=== PATIENT | female | born 1930 | race Caucasian/White ===

== ENCOUNTER 2017-01-13 19:56 | Inpatient (IN) | payer MEDICAID ==
--- NOTE | 2017-01-13 20:43 | C.PDOC ---
History Of Present Illness 86 year old patient, with a past medical history of diabetes, COPD, CHF, asthma , hypertension, hypothyroidism, and hypercholesterolemia, presents to the ED complaining of injuries s/p falling from a standing height prior to arrival. Patient's family member translated. Patient lost her balance and fell on her right side. Patient complains of right shoulder pain, right upper back pain, and upper right sided chest pain. Patient denies loss of consciousness, dizziness, numbness, weakness, other injuries, or any other complaints at this time. - HPI Time Seen by Provider: 01/13/17 20:13 Chief Complaint (Nursing): Trauma History Per: Patient, Family History/Exam Limitations: no limitations Onset/Duration Of Symptoms: Mins (prior to arrival) Severity: Moderate Pain Scale Rating Of: 5 Recent travel outside of the [place]: No - Fall Fall:Prior To Injury: Lost Balance Past Medical History Reviewed: Historical Data, Nursing Documentation, Vital Signs Vital Signs: Last Vital Signs Temp 97.6 F 01/14/17 00:26 Pulse 96 H 01/14/17 00:26 Resp 20 01/14/17 00:26 BP 174/76 H 01/14/17 00:26 Pulse Ox 97 01/14/17 00:28 - Medical History PMH: Asthma, CHF, COPD, Diabetes, HTN, Hypercholesterolemia, Hypothyroidism - [facility] Procedures INFLUENZA VACCINATION (09/23/14) INJECT/INFUSE NEC (07/25/13) Family History: States: Unknown Family Hx - Social History Hx Tobacco Use: No Hx Alcohol Use: No Hx Substance Use: No - Immunization History Hx Tetanus Toxoid Vaccination: No Hx Influenza Vaccination: No Hx Pneumococcal Vaccination: No Review Of Systems Except As Marked, All Systems Reviewed And Found Negative. Cardiovascular: Positive for: Chest Pain (right upper) Musculoskeletal: Positive for: Shoulder Pain (right), Back Pain (right upper) Neurological: Negative for: Weakness, Numbness, Dizziness, Other (loss of consciousness) Physical Exam - Physical Exam Appears: Non-toxic, No Acute Distress Skin: Warm, Dry Head: Atraumatic, Normacephalic Eye(s): bilateral: Normal Inspection, PERRL, EOMI Neck: Normal ROM, No Midline Cervical Tenderness, No Paracervical Tenderness, Supple Chest: Symmetrical, No Deformity, Tenderness (right anterior chest wall) Cardiovascular: Rhythm Regular Respiratory: Normal Breath Sounds, No Rales, No Rhonchi, No Wheezing Gastrointestinal/Abdominal: Soft, No Tenderness, No Guarding, No Rebound Back: Normal Inspection, No CVA Tenderness, No Vertebral Tenderness, No Paraspinal Tenderness Extremity: Normal ROM, No Pedal Edema, No Calf Tenderness, Capillary Refill ( within normal limits), No Deformity, Other (pelvic is nontender; legs have full ROM; tenderness over the right scapula; right shoulder nontender) Pulses: Left Radial: Normal, Right Radial: Normal Neurological/Psych: Oriented x3, Normal Speech, Normal Cognition ED Course And Treatment - Laboratory Results Result Diagrams: 01/13/17 21:09 01/13/17 21:09 O2 Sat by Pulse Oximetry: 97 Medical Decision Making Medical Decision Making: Plan: * EKG * Head CT * Labs * Chest x-ray * Morphine * Pelvis XR PROGRESS: EKG: Sinus Rhythm 92 bpm left axis deviation. No stemi disc w Dr Wang who will admit CT Head: FINDINGS: There is atrophy. There is chronic small vessel ischemic disease. Small area of encephalomalacia left frontal lobe. There is no hemorrhage or edema. No significant fluid in the sinuses. The osseous structures are normal. IMPRESSION: No acute findings CT Chest: EXAM: CT Chest Without Intravenous Contrast. CLINICAL HISTORY: 86 years old, female; Pain; Chest pain; Right-sided chest pain; Additional info : Pain right upper chest after a fall TECHNIQUE: Axial computed tomography images of the chest without intravenous contrast. This CT exam was performed using one or more of the following dose reduction techniques: automated exposure control, adjustment of the mA and/or kV according to patient size, and/or use of iterative reconstruction technique. Coronal and sagittal reformatted images were created and reviewed. EXAM DATE/TIME: 01/13/2017 10:21 PM COMPARISON: No relevant prior studies available. FINDINGS: Mild emphysematous changes are present in the upper lungs. Bullae in the right midlung abutting the fissure. Platelike atelectasis bilaterally. There are fractures of the right anterior lateral second through fourth ribs with buckling of the cortex. There is a probable tiny nondisplaced fracture of the right anterior lateral sixth rib. Severe compression fracture T7 age-indeterminate. Clinical correlation recommended. Compression fracture of L2 incompletely imaged. No evidence of vascular injury. No pneumothorax. No effusions. There is a 4 mm partially calcified nodule in the right lower lung series 3 image 60. There are punctate 2 mm nodules series 3 image 23 and 56. There is a 2 mm calcification in left lower lung. Recommend correlation with priors if they exist. Otherwise, followup is recommended. IMPRESSION: Right rib fractures. Compression fractures age-indeterminate Disposition - Disposition Disposition: HOSPITALIZED Disposition Time: 23:24 Condition: GOOD - Clinical Impression Clinical Impression: Multiple rib fractures, UTI (urinary tract infection) - Scribe Statement The provider has reviewed the documentation as recorded by the Scribe Maddie Kearns Provider Attestation: All medical record entries made by the Merleneibdiana were at my direction and personally dictated by me. I have reviewed the chart and agree that the record accurately reflects my personal performance of the history, physical exam, medical decision making, and the department course for this patient. I have also personally directed, reviewed, and agree with the discharge instructions and disposition.
[2017-01-13 21:28] LABS: BASO # 0.1 K/uL (0.0-0.2); BASO % 0.4 % (0.0-2.0); CHLORIDE 101 mmol/L (98-107); EOS # 0.2 K/uL (0.0-0.7); EOS % 1.5 % (0.0-4.0); LYMPH # 1.6 K/uL (1.0-4.3); LYMPH % 10.2 % (20.0-40.0); MEAN CELL VOLUME 88.9 fL (81.0-99.0); MEAN CORPUSCULAR HEMOGLOBIN 27.3 pg (27.0-31.0); MEAN CORPUSCULAR HGB CONC 30.8 g/dL (33.0-37.0); MEAN PLATELET VOLUME 8.4 fL (7.2-11.7); MONO # 0.7 K/uL (0.0-0.8); MONO % 4.5 % (0.0-10.0); POTASSIUM 5.2 mmol/L (3.6-5.2); RED CELL DISTRIBUTION WIDTH 15.7 % (11.5-14.5); SODIUM 137 mmol/L (132-148); WHITE BLOOD COUNT 15.6 K/uL (4.8-10.8)
[2017-01-13 21:30] LABS: BILIRUBIN,TOTAL 0.3 mg/dL (0.2-1.3); CARBON DIOXIDE 21 mmol/L (22-30); GFR AFRICAN-AMERICAN > 60
[2017-01-13 21:31] LABS: ALKALINE PHOSPHATASE 77 U/L (38-126); ALT/SGPT 14 U/L (9-52); AST/SGOT 35 U/L (14-36); BLOOD UREA NITROGEN 18 mg/dL (7-17); CALCIUM 8.7 mg/dl (8.6-10.4); GLUCOSE,RANDOM 165 mg/dL (65-105); TOTAL PROTEIN 6.8 g/dL (6.3-8.3)
--- NOTE | 2017-01-13 22:12 | CT ---
EXAM: CT Head Without Intravenous Contrast. CLINICAL HISTORY: 86 years old, female; Injury or trauma; Fall; Initial encounter; Concussion / head injury; Consciousness not specified; Injury date: 01-13-17; Additional info: Fall, right shoulder pain and back pain TECHNIQUE: Axial computed tomography images of the head/brain without intravenous contrast. This CT exam was performed using one or more of the following dose reduction techniques: automated exposure control, adjustment of the mA and/or kV according to patient size, and/or use of iterative reconstruction technique. EXAM DATE/TIME: 01/13/2017 9:15 PM COMPARISON: No relevant prior studies available. FINDINGS: There is atrophy. There is chronic small vessel ischemic disease. Small area of encephalomalacia left frontal lobe. There is no hemorrhage or edema. No significant fluid in the sinuses. The osseous structures are normal. IMPRESSION: No acute findings.
[2017-01-13] MEDS ORDERED: Lidocaine 5% Patch TD ONE (22:23)
[2017-01-13] MEDS ORDERED: Lidocaine 5% Patch TD STA (22:25)
[2017-01-13 22:49] LABS: RBC URINE 5 /hpf (0-3); URINE BACTERIA RARE (<OCC); URINE BILIRUBIN NEGATIVE (NEGATIVE); URINE BLOOD NEGATIVE (NEGATIVE); URINE COLOR Yellow (YELLOW); URINE GLUCOSE (UA) NORMAL (Normal); URINE KETONE TRACE mg/dL (NEGATIVE); URINE LEUKOCYTE ESTERASE 3+ Leu/uL (Negative); URINE PROTEIN NEGATIVE (NEGATIVE); URINE UROBILINOGEN NORMAL mg/dL (0.2-1.0); WBC URINE 29 /hpf (0-5)
[2017-01-13] MEDS ORDERED: cefTRIAXone IV 1 gm in Dextros 50 ML IVPB ONE (23:18)
--- NOTE | 2017-01-14 00:24 | CT ---
EXAM: CT Chest Without Intravenous Contrast. CLINICAL HISTORY: 86 years old, female; Pain; Chest pain; Right-sided chest pain; Additional info: Pain right upper chest after a fall TECHNIQUE: Axial computed tomography images of the chest without intravenous contrast. This CT exam was performed using one or more of the following dose reduction techniques: automated exposure control, adjustment of the mA and/or kV according to patient size, and/or use of iterative reconstruction technique. Coronal and sagittal reformatted images were created and reviewed. EXAM DATE/TIME: 01/13/2017 10:21 PM COMPARISON: No relevant prior studies available. FINDINGS: Mild emphysematous changes are present in the upper lungs. Bullae in the right midlung abutting the fissure. Platelike atelectasis bilaterally. There are fractures of the right anterior lateral second through fourth ribs with buckling of the cortex. There is a probable tiny nondisplaced fracture of the right anterior lateral sixth rib. Severe compression fracture T7 age-indeterminate. Clinical correlation recommended. Compression fracture of L2 incompletely imaged. No evidence of vascular injury. No pneumothorax. No effusions. There is a 4 mm partially calcified nodule in the right lower lung series 3 image 60. There are punctate 2 mm nodules series 3 image 23 and 56. There is a 2 mm calcification in left lower lung. Recommend correlation with priors if they exist. Otherwise, followup is recommended. IMPRESSION: Right rib fractures. Compression fractures age-indeterminate.
--- NOTE | 2017-01-14 09:15 | RAD ---
PROCEDURE: CHEST RADIOGRAPH, 1 VIEW HISTORY: fall COMPARISON: 09/20/2016 FINDINGS: LUNGS: Biapical pleural thickening with upper lobe granulomatous changes. Chronic interstitial lung markings. Nodular opacity at the right costophrenic angle. PLEURA: No pneumothorax or pleural fluid seen. CARDIOVASCULAR: Normal. OSSEOUS STRUCTURES: Calcific tendinopathy of the bilateral proximal humeri. Degenerative changes in the spine and shoulders. VISUALIZED UPPER ABDOMEN: Normal. OTHER FINDINGS: None. IMPRESSION: Biapical pleural thickening with upper lobe granulomatous changes. Chronic interstitial lung markings. Nodular opacity at the right costophrenic angle.
--- NOTE | 2017-01-14 09:26 | RAD ---
Pelvis single frontal view History: Fall. Comparison: 06/15/2016. Findings: Limited evaluation of the lower lumbar spine and sacrum given overlying bowel gas and large abdominal pannus. Again identified are fracture deformities of the right superior and inferior pubic ramus as well as the pubic symphysis and left pubic bone near the pubic symphysis. Bilateral hip joints appear preserved with mild degenerative joint space narrowing and subchondral sclerosis. Impression: Fracture deformities in the bilateral pubic bones. Correlation with pelvic MRI may be helpful to exclude acute on chronic fracture deformities. Limited visualization of the sacrum.
[2017-01-14] MEDS ORDERED: Lidocaine 5% Patch TD SCH ×6 (10:00→14:00)
[2017-01-14] MEDS: GlipiZIDE 10 mg SR Tab PO SCH ×2 (11:08→17:59)
[2017-01-14] MEDS: Dorzolamide 2% Opht Sol 10ml OU SCH ×2 (11:31→18:04)
--- NOTE | 2017-01-14 16:27 | CARD ---
APPROVED REPORT EKG Measurement Heart [id number] <Conclusion> Normal sinus rhythm Possible Left atrial enlargement Left axis deviation Low voltage QRS Inferior infarct, age undetermined Cannot rule out Anterior infarct, age undetermined Abnormal ECG
--- NOTE | 2017-01-14 16:38 | RAD ---
HISTORY: Shortness breath. Technique: Single view portable semi erect @ 15:50. COMPARISON: January 13, 2017. FINDINGS: LUNGS: No active pulmonary disease. PLEURA: No significant pleural effusion identified, no pneumothorax apparent. CARDIOVASCULAR: Normal. OSSEOUS STRUCTURES: No significant abnormalities. VISUALIZED UPPER ABDOMEN: Normal. OTHER FINDINGS: None. IMPRESSION: No active disease. No significant interval change compared to the prior examination(s).
[2017-01-14] MEDS: Acetaminophen-Codeine 300/30 mg Tab PO SCH (17:59)
[2017-01-14] MEDS: Albuterol 0.083% Inhal Sol (2.5 mg/3 mL) UD INH SCH (20:06)
[2017-01-14] MEDS: Latanoprost 2.5 ml Opht Soln OU SCH (21:30)
[2017-01-14] MEDS: (Lantus) Insulin Glargine, Recombinant SC SCH (22:40)
[2017-01-15] MEDS: Acetaminophen-Codeine 300/30 mg Tab PO SCH ×3 (00:15→12:02)
[2017-01-15] MEDS: Albuterol 0.083% Inhal Sol (2.5 mg/3 mL) UD INH SCH ×4 (01:06→19:25)
--- NOTE | 2017-01-15 02:42 | HP ---
HISTORY OF PRESENT ILLNESS: This is an 86-year-old [place] female who was brought in with history of fall and sustained some fractures to the right ribs. The patient was given morphine and Toradol with out any relief. The patient was recommended for admission. The patient has a longstanding history o f hypertension, diabetes and possible coronary artery disease. She was in usual state of health unti l the day of admission when she got up and fell. Questionable loss of consciousness. No seizures. No history of TIAs or CVAs in the past. MEDICATIONS AT HOME: Includes Cozaar 50 mg 1 a day, Crestor 5 mg, aspirin, Glucotrol 10 twice a day, Januvia 50 mg, she takes insulin, Lantus 14 units, 20 mg of Lasix every day, Neurontin 300 mg p.o. o nce a day. She is also on baby aspirin 1 a day. PAST MEDICAL HISTORY: Admitted in the past with fall, possible TIA, questionable CHF, but more of [place] PD. FAMILY HISTORY: Unremarkable. She lives alone, but family is extremely supportive. REVIEW OF SYSTEMS: Generalized weakness is noted. No fever, no chills. Chest discomfort, more on t he right side, shoulder pain on the right side, back pains. EYES: No visual disturbances. NECK: No swollen glands. PULMONARY: She does have a history of chronic cough, but no hemoptysis. CARDIAC: Denies any chest pains or exertional. No orthopnea or PND, occasional edema. ABDOMEN: No abdominal pain. No hematemesis, no melena, no history of cerebrovascular accident. No history of depression. Multiple joint pains or back pains. She does have a history of numbness, dizziness. PHYSICAL EXAMINATION: GENERAL: Shows elderly [place] female who was conscious, alert, in obvious distress because of pain. VITAL SIGNS: She is 5 feet 2 and weighs 155 pounds. Blood pressure is 174/76. Repeat blood pressur e is 147/78. Heart rate of 76 regular, respiratory rate of 20, temperature of 97.7. HEAD: Normocephalic. EYES: No pallor, no icterus. MOUTH: No exudates, dentures. NECK: Supple. No carotid bruits. LUNGS: Clear to auscultation. Mild decreased air entry on the right side. HEART: Sounds are normal. Soft S4 gallop. ABDOMEN: Soft, nontender. EXTREMITIES: No cyanosis, clubbing or edema. She does have significant tenderness on the right ante rior rib area. No focal sign. LABORATORY DATA: Shows white count of 15,000, possible UTI. Chest x-ray and CT of the chest were no melissa. She does have fractured ribs. Fracture of the thoracic vertebrae. ASSESSMENT: This is an 86-year-old female with history of diabetes, hypertension, possible CAD, as a fall and sustained some fractures, possible UTI, rib fractures, thoracic spine fracture. PLAN: Supportive care, physical therapy and pain medication. Prognosis remains guarded. Care of pl an was explained to the patient's son. Blanco Wang MD cc: [id number] TT: 01/15/2017 02:42:22 ladan
[2017-01-15] MEDS: Levothyroxine 50 MCG TAB PO SCH (05:31)
[2017-01-15] MEDS: Multiple Vitamins Tab PO SCH (09:23)
[2017-01-15] MEDS: GlipiZIDE 10 mg SR Tab PO SCH ×2 (09:23→18:02)
[2017-01-15] MEDS: Enoxaparin 30 mg Syringe SC SCH (09:24)
[2017-01-15] MEDS: Dorzolamide 2% Opht Sol 10ml OU SCH ×2 (09:28→18:02)
[2017-01-15] MEDS ORDERED: Home Med 1 UNIT (Meloxicam [Meloxicam] 7.5 MG) PO SCH (10:00)
[2017-01-15] MEDS ORDERED: Fluticasone-Salmeterol 100-50mcg Diskus INH SCH (12:15)
--- NOTE | 2017-01-15 12:28 | CP.PCM.PN ---
Subjective - Date & Time of Evaluation Date of Evaluation: 01/15/17 Time of Evaluation: 12:27 - Subjective Subjective: chest pains on rt side.x ray noted. Objective - Vital Signs/Intake and Output Vital Signs (last 24 hours): Temp Pulse Resp BP Pulse Ox 98.4 F 96 H 18 174/75 H 98 01/15/17 07:15 01/15/17 07:15 01/15/17 07:15 01/15/17 09:23 01/15/17 07:15 Intake and Output: 01/15/17 01/15/17 06:59 18:59 Intake Total 750 Balance 750 - Medications Medications: Current Medications Acetaminophen (Tylenol 325mg Tab) 650 mg PO Q6 PRN PRN Reason: Pain, severe (8-10) Last Admin: 01/15/17 09:19 Dose: 650 mg Acetaminophen/Codeine Phosphate (Tylenol/Codeine 300 Mg/30 Mg) 1 ea PO Q6 [facility] Last Admin: 01/15/17 12:02 Dose: 1 ea Albuterol Sulfate (Albuterol 0.083% Inhal Hafsa (2.5 Mg/3 Ml) Ud) 2.5 mg INH RQ6 [facility] Last Admin: 01/15/17 07:37 Dose: 2.5 mg Aspirin (Ecotrin) 81 mg PO DAILY [facility] Last Admin: 01/15/17 09:23 Dose: 81 mg Dorzolamide HCl (Trusopt) 0 ml OU BID [facility] Last Admin: 01/15/17 09:28 Dose: 1 % Enoxaparin Sodium (Lovenox) 30 mg SC DAILY [facility] Last Admin: 01/15/17 09:24 Dose: 30 mg Furosemide (Lasix) 20 mg PO DAILY [facility] Last Admin: 01/15/17 09:23 Dose: 20 mg Gabapentin (Neurontin) 300 mg PO DAILY [facility] Last Admin: 01/15/17 09:23 Dose: 300 mg Glipizide (Glucotrol Xl) 10 mg PO BID [facility] Last Admin: 01/15/17 09:23 Dose: 10 mg Home Med (Meloxicam [Meloxicam]) 7.5 mg PO DAILY [facility] Ceftriaxone Sodium 1 gm/ (Sodium Chloride) 100 mls @ 200 mls/hr IVPB DAILY [facility] Last Admin: 01/15/17 09:26 Dose: 200 mls/hr Insulin Glargine (Lantus) 14 unit SC [facility] Last Admin: 01/14/17 22:40 Dose: 14 units Latanoprost (Xalatan Opht) 0 ml OU [facility] Last Admin: 01/14/17 21:30 Dose: 2.5 ml Levothyroxine Sodium (Synthroid) 50 mcg PO 0630 [facility] Last Admin: 01/15/17 05:31 Dose: 50 mcg Losartan Potassium (Cozaar) 50 mg PO DAILY [facility] Last Admin: 01/15/17 09:24 Dose: 50 mg Metformin HCl (Glucophage) 1,000 mg PO BIDBS [facility] Last Admin: 01/15/17 08:04 Dose: 1,000 mg Multivitamins (Hexavitamin) 1 tab PO DAILY [facility] Last Admin: 01/15/17 09:23 Dose: 1 tab Rosuvastatin Calcium (Crestor) 5 mg PO [facility] Last Admin: 01/14/17 21:29 Dose: 5 mg Fluticasone/Salmeterol (Advair Diskus 100/50) 1 puff INH RQ12 [facility] Sitagliptin Phosphate (Januvia) 50 mg PO BIDBS [facility] Last Admin: 01/15/17 08:04 Dose: 50 mg Timolol Maleate (Timoptic 0.5% Ophth Soln) 0 drop OU BID [facility] Last Admin: 01/15/17 09:28 Dose: 1 drop - Constitutional Appears: Chronically Ill - Head Exam Head Exam: NORMOCEPHALIC - Neck Exam Neck Exam: Normal Inspection - Respiratory Exam Respiratory Exam: Clear to Ausculation Bilateral - Cardiovascular Exam Cardiovascular Exam: REGULAR RHYTHM - GI/Abdominal Exam GI & Abdominal Exam: Soft - Neurological Exam Neurological Exam: Alert, Oriented x3 Assessment and Plan - Assessment and Plan (Free Text) Assessment: muscular pains from rib fx.ct tylenol 3.add celebrax daily. needs rehab.diss with family.
[2017-01-15 15:29] VITALS: RESP 20
[2017-01-15] MEDS: Latanoprost 2.5 ml Opht Soln OU SCH (21:14)
[2017-01-15] MEDS: (Lantus) Insulin Glargine, Recombinant SC SCH (21:46)
[2017-01-16] MEDS: Acetaminophen-Codeine 300/30 mg Tab PO SCH ×5 (00:25→17:43)
[2017-01-16] MEDS: Albuterol 0.083% Inhal Sol (2.5 mg/3 mL) UD INH SCH ×4 (01:09→19:18)
[2017-01-16] MEDS: Levothyroxine 50 MCG TAB PO SCH (05:42)
[2017-01-16] MEDS: Multiple Vitamins Tab PO SCH (09:38)
[2017-01-16] MEDS: GlipiZIDE 10 mg SR Tab PO SCH ×2 (09:39→17:37)
[2017-01-16] MEDS: Enoxaparin 30 mg Syringe SC SCH (09:44)
[2017-01-16] MEDS: Dorzolamide 2% Opht Sol 10ml OU SCH ×2 (09:48→17:42)
--- NOTE | 2017-01-16 14:29 | DS ---
An 86-year-old female who was brought in following a fall. She sustained some rib fractures and also she had collapse of the vertebrae. Severe pain was not relieved with morphine and Toradol IM in the ER. She was admitted to the regular floor, course of treatment was carried out. Pain medication knight s been prescribed. She is stable now. She is being discharged to be followed up as an outpatient. All home medications are resumed. I will see her back in about 2 weeks' time. Care of explain ed to the patient's son. We gave prescription for Tylenol #30 one p.o. 3 times a day was prescribed FINAL DIAGNOSIS: Chest pains, rib fractures, hypertension, diabetes, chronic obstructive pulmonary disease, severe ost eoarthritis. Blanco Wang MD cc: [phone] TT: 01/16/2017 14:29:11 an
[2017-01-16 15:54] VITALS: TEMP 99.5
[2017-01-16 15:56] VITALS: BP 130/68; PULSE 94; O2SAT 99
== END 2017-01-16 19:20 | disposition home or self-care (01) ==
LOC: C.ER 19:56 → C.9E 23:24 → C.6T 23:47 → OBSVTOIN 01-14 15:13
PROVIDERS: ADMIT Internal Medicine Cardiovascular Disease; ATTEND Internal Medicine Cardiovascular Disease
DX: S22.41XA Multiple fractures of ribs, right side, initial encounter for closed fracture (principal); N39.0 Urinary tract infection, site not specified; J44.9 Chronic obstructive pulmonary disease, unspecified; W19.XXXA Unspecified fall, initial encounter; M19.90 Unspecified osteoarthritis, unspecified site; E03.9 Hypothyroidism, unspecified; J45.909 Unspecified asthma, uncomplicated; I10 Essential (primary) hypertension; E11.9 Type 2 diabetes mellitus without complications; E78.00 Pure hypercholesterolemia, unspecified; M48.56XS Collapsed vertebra, not elsewhere classified, lumbar region, sequela of fracture; M48.54XS Collapsed vertebra, not elsewhere classified, thoracic region, sequela of fracture; Y92.9 Unspecified place or not applicable

== ENCOUNTER 2017-01-31 02:50 | Observation (INO) | payer MEDICAID ==
--- NOTE | 2017-01-31 03:07 | C.PDOC ---
History Of Present Illness Patient presents to the ER complaining of left sided chest pain. Patient states she had an episode of chest pain at 22:00, went to sleep, and awoke now with more chest pain than before. Patient reports a questionable right rib fracture after a fall 2-3 weeks ago. Patient currently speaking in complete sentences. Denies SOB, nausea, or vomiting. Time Seen by Provider: 01/31/17 03:00 Chief Complaint (Nursing): Chest Pain History Per: Patient, [employer] History/Exam Limitations: no limitations Onset/Duration Of Symptoms: Hrs (22:00) Current Symptoms Are (Timing): Still Present Severity: Moderate Pain Scale Rating Of: 4 Associated Symptoms: denies: Nausea Alleviating Factors: None Recent travel outside of the [place]: No Additional History Per: Family Past Medical History Reviewed: Historical Data, Nursing Documentation, Vital Signs Vital Signs: Last Vital Signs Temp 98.1 F 01/31/17 03:02 Pulse 80 01/31/17 03:52 Resp 13 01/31/17 03:52 BP 177/72 H 01/31/17 03:52 Pulse Ox 100 01/31/17 03:52 - Medical History PMH: Asthma, CHF, COPD, Diabetes, HTN, Hypercholesterolemia, Hypothyroidism Surgical History: No Surg Hx - [facility] Procedures INFLUENZA VACCINATION (09/23/14) INJECT/INFUSE NEC (07/25/13) Family History: States: No Known Family Hx - Social History Hx Tobacco Use: No Hx Alcohol Use: No Hx Substance Use: No - Immunization History Hx Tetanus Toxoid Vaccination: No Hx Influenza Vaccination: No Hx Pneumococcal Vaccination: No Review Of Systems Cardiovascular: Positive for: Chest Pain (Left sided) Respiratory: Negative for: Shortness of Breath Gastrointestinal: Negative for: Nausea, Vomiting Physical Exam - Physical Exam Appears: Well, Non-toxic, Other (Speaking in complete sentences) Skin: Warm, Dry Oral Mucosa: Moist Neck: Supple Chest: Symmetrical, Tenderness (right sided chest wall w/ palpation) Cardiovascular: Rhythm Regular Respiratory: No Rales, No Rhonchi, No Wheezing Gastrointestinal/Abdominal: Soft, No Tenderness Back: Normal Inspection Extremity: No Tenderness, No Pedal Edema Extremity: Bilateral: Atraumatic, Normal Color And Temperature Neurological/Psych: Oriented x3, Normal Speech, Normal Cognition Gait: Steady ED Course And Treatment - Laboratory Results Result Diagrams: 01/31/17 03:29 01/31/17 03:29 ECG: Interpreted By Me, Viewed By Me ECG Rhythm: Sinus Rhythm (101), Nonspecific Changes Progress Note: Blood work, EKG, chest x-ray and urinalysis ordered. Ecotrin administered. Disposition Discussed With DrLorin: Blanco Wang Comment: accepted the pt on his service and took over the care at 4:32 AM Doctor Will See Patient In The: Hospital Counseled Patient/Family Regarding: Studies Performed, Diagnosis - Disposition Disposition: HOSPITALIZED Disposition Time: 03:07 Condition: FAIR - POA Present On Arrival: Poor Glycemic Control - Clinical Impression Clinical Impression: Chest pain - Scribe Statement The provider has reviewed the documentation as recorded by the Scribe Evgeny Dye All medical record entries made by the Scribe were at my direction and personally dictated by me. I have reviewed the chart and agree that the record accurately reflects my personal performance of the history, physical exam, medical decision making, and the department course for this patient. I have also personally directed, reviewed, and agree with the discharge instructions and disposition. Decision To Admit - Pt Status Changed To: Hospital Disposition Of: Observation - . Bed Request Type: Telemetry Admitting Physician: Blanco Wang Patient Diagnosis: Chest pain
[2017-01-31 03:13] VITALS: BMI 28.3
[2017-01-31] MEDS ORDERED: Aspirin 325 mg EC Tablets PO STA (03:13)
[2017-01-31] MEDS ORDERED: Aspirin 325 mg EC Tablets PO ONE (03:20)
[2017-01-31 03:32] LABS: CHLORIDE 105 mmol/L (98-107)
[2017-01-31 03:33] LABS: SODIUM 140 mmol/L (132-148)
[2017-01-31 03:34] LABS: EOS # 0.2 K/uL (0.0-0.7); MEAN PLATELET VOLUME 8.1 fL (7.2-11.7); MONO # 0.8 K/uL (0.0-0.8); POTASSIUM 5.4 mmol/L (3.6-5.2)
[2017-01-31 03:36] LABS: ALB/GLOB RATIO 0.9 (1.0-2.1); ALKALINE PHOSPHATASE 213 U/L (38-126); ALT/SGPT 19 U/L (9-52); AST/SGOT 21 U/L (14-36); BILIRUBIN,TOTAL 0.1 mg/dL (0.2-1.3); BLOOD UREA NITROGEN 24 mg/dL (7-17); CALCIUM 8.8 mg/dl (8.6-10.4); CARBON DIOXIDE 22 mmol/L (22-30); GFR AFRICAN-AMERICAN 43; GLUCOSE,RANDOM 164 mg/dL (65-105); INR 1.1; TOTAL PROTEIN 7.1 g/dL (6.3-8.3)
[2017-01-31 03:49] LABS: BASO # 0.1 K/uL (0.0-0.2); BASO % 0.6 % (0.0-2.0); EOS % 1.7 % (0.0-4.0); HEMATOCRIT 37.2 % (34.0-47.0); LYMPH # 2.3 K/uL (1.0-4.3); LYMPH % 17.2 % (20.0-40.0); MEAN CELL VOLUME 90.3 fL (81.0-99.0); MEAN CORPUSCULAR HEMOGLOBIN 28.8 pg (27.0-31.0); MEAN CORPUSCULAR HGB CONC 31.9 g/dL (33.0-37.0); MONO % 6.4 % (0.0-10.0); RED CELL DISTRIBUTION WIDTH 15.7 % (11.5-14.5); WHITE BLOOD COUNT 13.3 K/uL (4.8-10.8)
[2017-01-31 04:24] LABS: RBC URINE 57 /hpf (0-3); URINE BACTERIA RARE (<OCC); URINE BILIRUBIN NEGATIVE (NEGATIVE); URINE BLOOD 2+ (NEGATIVE); URINE COLOR Yellow (YELLOW); URINE GLUCOSE (UA) NORMAL (Normal); URINE KETONE NEGATIVE (NEGATIVE); URINE LEUKOCYTE ESTERASE 3+ Leu/uL (Negative); URINE PROTEIN 1+ mg/dL (NEGATIVE); URINE UROBILINOGEN NORMAL mg/dL (0.2-1.0); WBC URINE 604 /hpf (0-5)
[2017-01-31] MEDS ORDERED: Fluticasone-Salmeterol 100-50mcg Diskus INH SCH (08:00)
[2017-01-31] MEDS: GlipiZIDE 10 mg SR Tab PO SCH (08:00)
--- NOTE | 2017-01-31 08:14 | RAD ---
PROCEDURE: CHEST RADIOGRAPH, 1 VIEW HISTORY: chest pain COMPARISON: 01/14/2017 and 06/21/2016 FINDINGS: LUNGS: Clear. PLEURA: No pneumothorax or pleural fluid seen. CARDIOVASCULAR: Normal heart size. Atherosclerotic calcified aortic knob. OSSEOUS STRUCTURES: Well corticated ossification projects lateral to the right acromion - an old osseous chip avulsion calcified/ossified subacromial subdeltoid bursitis is another. . Just inferior to the right acromion is concomitant rotator cuff calcific tendinosis suggest (which is more conspicuous on a 06/21/2016 portable chest x-ray post ( VISUALIZED UPPER ABDOMEN: Normal. OTHER FINDINGS: Patient's left hand projects over the mid and left inferior chest IMPRESSION: No active disease.
[2017-01-31] MEDS: Albuterol HFA 90 mcg/actuation (8 g) INH SCH ×2 (09:00→13:41)
[2017-01-31] MEDS: Multiple Vitamins Tab PO SCH (09:57)
[2017-01-31] MEDS ORDERED: Latanoprost 2.5 ml Opht Soln OU SCH (10:00)
[2017-01-31] MEDS ORDERED: Home Med 1 UNIT (Sitagliptin Phos/Metformin Hcl [Janumet 50-1,000 Mg Tablet] 1 TAB) PO SCH (10:00)
[2017-01-31] MEDS ORDERED: Home Med 1 UNIT (Ventolin Hfa 90 Mcg/Actuation (8 G) 1 PUFF) INH SCH (10:00)
[2017-01-31] MEDS ORDERED: Albuterol HFA 90 mcg/actuation (8 g) INH SCH (10:00)
--- NOTE | 2017-01-31 14:58 | HP ---
This is an 86-year-old female who was brought in with chest pain. She does have a history of hyperte nsion, diabetes, hypothyroidism, severe osteoarthritis. At home, she is maintained on Cozaar 50 mg 1 a day, baby aspirin, glipizide XL 10 mg twice a day, Januvia 50 mg and she is on Lantus 14 units, 20 mg of Lasix, Neurontin 300 mg 1 a day. She takes aspirin 1 a day. She was in usual state of health until the day of admission when she had some chest discomfort, which was on the left side and descri bed as an uncomfortable feeling. She is essentially bed to chair confined. PAST MEDICAL HISTORY: Admitted in the past with a fall, fractured pelvis, possible TIA and COPD. FAMILY HISTORY: Unremarkable. REVIEW OF SYSTEMS: CONSTITUTIONAL: Generalized weakness. She is essentially bed to chair ridden. She lives alone. EYES: No visual disturbances. NECK: No swollen glands. No goiter. PULMONARY: Chronic cough. No hemoptysis. No fever, no chills. CARDIAC: Recurrent chest pains, appear more of noncardiac with musculoskeletal in nature, but curren tly the new pain that she had was on left side and a heaviness. Sleeps on 2 pillows. She has a semi electric bed. GASTROINTESTINAL: Negative for hematemesis of melena. PSYCHIATRIC: No history of depression. NEUROLOGICAL: Possible TIAs. No CVA in the past. MUSCULOSKELETAL: Multiple joint pains, back pains. GENITOURINARY: No urinary complaints. PHYSICAL EXAMINATION: GENERAL: Shows elderly female who is conscious, alert, well oriented, chronically sick lookin g, but in no acute distress. VITAL SIGNS: She is 5 feet 2 inches and weighs 155 pounds. Blood pressure was 144/80, heart rate of 86, regular, respiratory rate of 20, afebrile. HEAD: Normocephalic. EYES: No pallor, no icterus. MOUTH: No exudates. Complete dentures. LUNGS: Clear to auscultation bilaterally. HEART: PMI is normal. S1, S2 is normal. Soft S4 gallop. Early systolic murmur grade I-II/ in mi tral area. ABDOMEN: Soft, nontender. EXTREMITIES: No cyanosis, clubbing or edema. Distal pulses are intact. NEUROLOGIC: No focal sign. LABORATORY DATA: First set of enzymes are negative. CBC and Chem-7 are acceptable. EKG had a sinus tachycardia, nonspecific ST-T changes. ASSESSMENT: An elderly female with a history of hypertension, hypothyroidism, severe osteoart hritis, chest pain, possible ischemic in nature on top of musculoskeletal in nature. PLAN: At this point is to place her on beta cely, Toprol 25 mg p.o. twice a day as possible angin al pain. Continue with the Celebrex. Given the history of elderly female with a history of shortnes s of breath, needs to change her position frequently. Otherwise, she is a high risk for developing p ressures sores. Living alone, would need semi electric hospital bed at home. This was explained to the patient's family and I think the patient has it. This was also explained to the social and political studies professor at [facility]. She does need to change her position frequently. Blanco Wang MD cc: [id number] TT: 01/31/2017 14:58:12 en
[2017-01-31] MEDS: (Lantus) Insulin Glargine, Recombinant SC SCH (18:07)
[2017-01-31] MEDS: Metoprolol Succinate 25 mg XL Tab PO SCH (18:10)
[2017-01-31] MEDS: Albuterol-Ipratrop 3 mg / 0.5 (3 ml) UD INH SCH (19:17)
[2017-01-31] MEDS: Latanoprost 2.5 ml Opht Soln OU SCH (21:51)
[2017-02-01] MEDS: Albuterol-Ipratrop 3 mg / 0.5 (3 ml) UD INH SCH ×4 (01:49→20:09)
[2017-02-01] MEDS: Levothyroxine 50 MCG TAB PO SCH (05:39)
[2017-02-01 07:22] LABS: POTASSIUM 5.1 mmol/L (3.6-5.2)
[2017-02-01 07:25] LABS: CALCIUM 8.3 mg/dl (8.6-10.4)
[2017-02-01] MEDS: GlipiZIDE 10 mg SR Tab PO SCH (07:29)
[2017-02-01] MEDS: Multiple Vitamins Tab PO SCH (10:19)
[2017-02-01] MEDS: Metoprolol Succinate 25 mg XL Tab PO SCH ×2 (10:20→18:30)
[2017-02-01] MEDS: (Lantus) Insulin Glargine, Recombinant SC SCH (16:37)
--- NOTE | 2017-02-01 18:28 | CP.PCM.PN ---
Subjective - Date & Time of Evaluation Date of Evaluation: 02/01/17 Time of Evaluation: 18:27 - Subjective Subjective: chest pains +.rt side, Objective - Vital Signs/Intake and Output Vital Signs (last 24 hours): Temp Pulse Resp BP Pulse Ox 98.2 F 77 20 107/64 100 02/01/17 15:52 02/01/17 15:52 02/01/17 15:52 02/01/17 15:52 02/01/17 15:52 Intake and Output: 02/01/17 02/01/17 06:59 18:59 Intake Total 100 Balance 100 - Medications Medications: Current Medications Albuterol/Ipratropium (Duoneb 3 Mg/0.5 Mg (3 Ml) Ud) 3 ml INH RQ6 [facility] Last Admin: 02/01/17 13:30 Dose: 3 ml Aspirin (Ecotrin) 81 mg PO DAILY [facility] Last Admin: 02/01/17 10:19 Dose: 81 mg Celecoxib (Celebrex) 100 mg PO DAILY [facility] Last Admin: 02/01/17 10:18 Dose: 100 mg Ciprofloxacin (Cipro) 500 mg PO BID [facility] Last Admin: 02/01/17 10:18 Dose: 500 mg Gabapentin (Neurontin) 200 mg PO TID [facility] Last Admin: 02/01/17 13:27 Dose: 200 mg Glipizide (Glucotrol Xl) 10 mg PO ACB [facility] Last Admin: 02/01/17 07:29 Dose: 10 mg Heparin Sodium (Porcine) (Heparin) 5,000 units SC Q8 [facility] Last Admin: 02/01/17 13:27 Dose: 5,000 units Insulin Glargine (Lantus) 15 unit SC ACD [facility] Last Admin: 02/01/17 16:37 Dose: 15 u Latanoprost (Xalatan Opht) 0 ml OU HS [facility] Last Admin: 01/31/17 21:51 Dose: 1 ml Levothyroxine Sodium (Synthroid) 50 mcg PO DAILY@0630 [facility] Last Admin: 02/01/17 05:39 Dose: 50 mcg Metformin HCl (Glucophage) 1,000 mg PO DAILY [facility] Last Admin: 02/01/17 10:19 Dose: 1,000 mg Metoprolol Succinate (Toprol Xl) 25 mg PO BID [facility] Last Admin: 02/01/17 10:20 Dose: 25 mg Multivitamins (Hexavitamin) 1 tab PO DAILY [facility] Last Admin: 02/01/17 10:19 Dose: 1 tab Rosuvastatin Calcium (Crestor) 5 mg PO HS [facility] Last Admin: 01/31/17 21:47 Dose: 5 mg Sitagliptin Phosphate (Januvia) 50 mg PO DAILY [facility] Last Admin: 02/01/17 10:19 Dose: 50 mg - Labs Labs: 02/01/17 06:14 PT 12.2 SECONDS (9.7-12.2) 01/31/17 03:29 INR 1.1 01/31/17 03:29 APTT 33 SECONDS (21-34) 01/31/17 03:29 - Constitutional Appears: Chronically Ill - Head Exam Head Exam: NORMOCEPHALIC - ENT Exam ENT Exam: Mucous Membranes Moist - Respiratory Exam Respiratory Exam: Clear to Ausculation Bilateral - Cardiovascular Exam Cardiovascular Exam: REGULAR RHYTHM - GI/Abdominal Exam GI & Abdominal Exam: Soft - Neurological Exam Neurological Exam: Alert Assessment and Plan - Assessment and Plan (Free Text) Assessment: atypical chest pains,uti.
[2017-02-01] MEDS: Latanoprost 2.5 ml Opht Soln OU SCH (21:52)
[2017-02-02] MEDS: Albuterol-Ipratrop 3 mg / 0.5 (3 ml) UD INH SCH ×4 (01:35→19:25)
[2017-02-02] MEDS: Levothyroxine 50 MCG TAB PO SCH (05:51)
[2017-02-02] MEDS: GlipiZIDE 10 mg SR Tab PO SCH (08:16)
[2017-02-02] MEDS: Multiple Vitamins Tab PO SCH (10:33)
[2017-02-02] MEDS: Metoprolol Succinate 25 mg XL Tab PO SCH ×2 (10:34→18:31)
[2017-02-02 11:17] LABS: BASO # 0.1 K/uL (0.0-0.2); BASO % 0.7 % (0.0-2.0); EOS # 0.2 K/uL (0.0-0.7); EOS % 1.7 % (0.0-4.0); HEMATOCRIT 33.1 % (34.0-47.0); LYMPH # 1.6 K/uL (1.0-4.3); LYMPH % 12.7 % (20.0-40.0); MEAN CELL VOLUME 90.3 fL (81.0-99.0); MEAN CORPUSCULAR HEMOGLOBIN 28.1 pg (27.0-31.0); MEAN CORPUSCULAR HGB CONC 31.2 g/dL (33.0-37.0); MEAN PLATELET VOLUME 8.6 fL (7.2-11.7); MONO # 0.9 K/uL (0.0-0.8); MONO % 7.3 % (0.0-10.0); RED CELL DISTRIBUTION WIDTH 15.6 % (11.5-14.5); WHITE BLOOD COUNT 12.7 K/uL (4.8-10.8)
[2017-02-02 11:33] LABS: POTASSIUM 5.2 mmol/L (3.6-5.2)
[2017-02-02 11:37] LABS: CALCIUM 8.2 mg/dl (8.6-10.4)
[2017-02-02] MEDS ORDERED: Atropine-Diphenoxylate 0.025-2.5 mg Tab PO PRN (11:49)
--- NOTE | 2017-02-02 11:52 | CP.PCM.PN ---
Subjective - Date & Time of Evaluation Date of Evaluation: 02/02/17 Time of Evaluation: 11:50 - Subjective Subjective: chest pains & diarrehea Objective - Vital Signs/Intake and Output Vital Signs (last 24 hours): Temp Pulse Resp BP Pulse Ox 97.9 F 77 20 116/62 97 02/02/17 08:35 02/02/17 08:35 02/02/17 08:35 02/02/17 08:35 02/02/17 08:35 Intake and Output: 02/02/17 02/02/17 06:59 18:59 Intake Total 150 Balance 150 - Medications Medications: Current Medications Albuterol/Ipratropium (Duoneb 3 Mg/0.5 Mg (3 Ml) Ud) 3 ml INH RQ6 [facility] Last Admin: 02/02/17 07:54 Dose: 3 ml Aspirin (Ecotrin) 81 mg PO DAILY [facility] Last Admin: 02/02/17 10:34 Dose: 81 mg Celecoxib (Celebrex) 100 mg PO DAILY [facility] Last Admin: 02/02/17 10:33 Dose: 100 mg Ciprofloxacin (Cipro) 500 mg PO BID [facility] Last Admin: 02/02/17 10:33 Dose: 500 mg Diphenoxylate HCl/Atropine (Lomotil 0.025-2.5 Mg Tablet) 1 tab PO BID PRN PRN Reason: Diarrhea Gabapentin (Neurontin) 200 mg PO TID [facility] Last Admin: 02/02/17 10:34 Dose: 200 mg Glipizide (Glucotrol Xl) 10 mg PO ACB [facility] Last Admin: 02/02/17 08:16 Dose: 10 mg Heparin Sodium (Porcine) (Heparin) 5,000 units SC Q8 [facility] Last Admin: 02/02/17 05:51 Dose: 5,000 units Insulin Glargine (Lantus) 15 unit SC ACD [facility] Last Admin: 02/01/17 16:37 Dose: 15 u Latanoprost (Xalatan Opht) 0 ml OU HS [facility] Last Admin: 02/01/17 21:52 Dose: 1 ml Levothyroxine Sodium (Synthroid) 50 mcg PO DAILY@0630 [facility] Last Admin: 02/02/17 05:51 Dose: 50 mcg Metformin HCl (Glucophage) 1,000 mg PO DAILY [facility] Last Admin: 02/02/17 10:34 Dose: 1,000 mg Metoprolol Succinate (Toprol Xl) 25 mg PO BID [facility] Last Admin: 02/02/17 10:34 Dose: 25 mg Multivitamins (Hexavitamin) 1 tab PO DAILY [facility] Last Admin: 02/02/17 10:33 Dose: 1 tab Rosuvastatin Calcium (Crestor) 5 mg PO HS [facility] Last Admin: 02/01/17 21:50 Dose: 5 mg Sitagliptin Phosphate (Januvia) 50 mg PO DAILY [facility] Last Admin: 02/02/17 10:33 Dose: 50 mg - Labs Labs: 02/02/17 11:08 02/02/17 11:08 PT 12.2 SECONDS (9.7-12.2) 01/31/17 03:29 INR 1.1 01/31/17 03:29 APTT 33 SECONDS (21-34) 01/31/17 03:29 - Constitutional Appears: Chronically Ill - Head Exam Head Exam: NORMOCEPHALIC - ENT Exam ENT Exam: Mucous Membranes Moist - Respiratory Exam Respiratory Exam: Decreased Breath Sounds - Cardiovascular Exam Cardiovascular Exam: REGULAR RHYTHM - GI/Abdominal Exam GI & Abdominal Exam: Soft - Neurological Exam Neurological Exam: Alert Assessment and Plan - Assessment and Plan (Free Text) Assessment: will add lomotil.pt lives alone.has no one in family for weekend.also still has lot of dirrehea.bmp noted.add lomotil.ct toprol.check ekg
--- NOTE | 2017-02-02 15:24 | CARD ---
APPROVED REPORT EKG Measurement Heart [id number] [place] 160P90 [id number] <Conclusion> Normal sinus rhythm Left axis deviation Pulmonary disease pattern Septal infarct, age undetermined Abnormal ECG
--- NOTE | 2017-02-02 15:24 | CARD ---
APPROVED REPORT EKG Measurement Heart [id number] [place] 158P81 [id number] <Conclusion> Normal sinus rhythm Left axis deviation Pulmonary disease pattern Septal infarct, age undetermined Abnormal ECG
--- NOTE | 2017-02-02 15:25 | CARD ---
APPROVED REPORT EKG Measurement Heart [id number] [place] 162P79 [id number] <Conclusion> Sinus tachycardia with occasional premature ventricular complexes Left axis deviation Low voltage QRS Cannot rule out Anteroseptal infarct, age undetermined Abnormal ECG
[2017-02-02] MEDS: (Lantus) Insulin Glargine, Recombinant SC SCH (18:31)
[2017-02-02] MEDS: Latanoprost 2.5 ml Opht Soln OU SCH (21:23)
[2017-02-03] MEDS: Albuterol-Ipratrop 3 mg / 0.5 (3 ml) UD INH SCH ×5 (01:25→21:21)
[2017-02-03] MEDS: Levothyroxine 50 MCG TAB PO SCH (05:46)
[2017-02-03] MEDS: GlipiZIDE 10 mg SR Tab PO SCH (08:30)
[2017-02-03] MEDS: Metoprolol Succinate 25 mg XL Tab PO SCH ×2 (10:21→18:04)
[2017-02-03] MEDS: Multiple Vitamins Tab PO SCH (10:22)
[2017-02-03] MEDS: (Lantus) Insulin Glargine, Recombinant SC SCH (18:03)
[2017-02-03] MEDS: Latanoprost 2.5 ml Opht Soln OU SCH (22:10)
[2017-02-04] MEDS: Albuterol-Ipratrop 3 mg / 0.5 (3 ml) UD INH SCH ×4 (01:04→19:38)
[2017-02-04] MEDS: Levothyroxine 50 MCG TAB PO SCH (05:34)
[2017-02-04] MEDS: GlipiZIDE 10 mg SR Tab PO SCH (08:05)
[2017-02-04] MEDS: Metoprolol Succinate 25 mg XL Tab PO SCH ×2 (10:53→17:07)
[2017-02-04] MEDS: Multiple Vitamins Tab PO SCH (10:56)
--- NOTE | 2017-02-04 12:53 | CARD ---
APPROVED REPORT EKG Measurement Heart [id number] [place] [id number] <Conclusion> arm lead reversal, please repeat Normal sinus rhythm Low voltage QRS Septal infarct, age undetermined Abnormal ECG
--- NOTE | 2017-02-04 15:21 | DS ---
An 86-year-old female who was brought in with chest pain. She had 2 components, one appeared to be c lear muscular in nature, other one appeared to be questionable anginal. EKG did not show any changes . Enzymes were negative. Vital signs remained stable. At this point, she is discharged to be jacy nued on pain medications at home, Mobic and metoprolol was added 25 mg p.o. twice a day along with a baby aspirin. FINAL DIAGNOSES: Chest pain, possible angina, hypertension, diabetes, chronic obstructive pulmonary disease, severe osteoarthritis, severe back pains. Given the elderly age with multiple medical problems including diabetes, hypertension, severe osteoar thritis involving multiple joints, back ache, has to change her bed position frequently, needs evalua tion of the head to prevent decubitus. She needs semi electric hospital bed. Blanco Wang MD cc: [id number] TT: 02/04/2017 15:20:33 en
[2017-02-04] MEDS: (Lantus) Insulin Glargine, Recombinant SC SCH (17:07)
[2017-02-04] MEDS: Latanoprost 2.5 ml Opht Soln OU SCH (21:34)
[2017-02-05] MEDS: Albuterol-Ipratrop 3 mg / 0.5 (3 ml) UD INH SCH ×3 (01:15→13:55)
[2017-02-05] MEDS: Levothyroxine 50 MCG TAB PO SCH (06:03)
[2017-02-05] MEDS: GlipiZIDE 10 mg SR Tab PO SCH (08:41)
[2017-02-05 09:00] VITALS: BP 125/70; PULSE 75; RESP 18; TEMP 98.2; O2SAT 100
[2017-02-05] MEDS: Metoprolol Succinate 25 mg XL Tab PO SCH (10:24)
[2017-02-05] MEDS: Multiple Vitamins Tab PO SCH (10:24)
--- NOTE | 2017-02-05 12:28 | DS ---
ADDENDUM She has hypertension, diabetes, came in with chest pain, which appeared atypical. Appears dictated ____ done. This is an addendum. VITAL SIGNS: Remained stable. We will arrange for the transport at home. Metoprolol 25 mg p.o. twice a day was prescribed to the [facility] pharmacy. She will continue Mobic for the pain on p.r.n. basis. Prognosis remains guarded. She has hypertension, diabetes, high cholesterol, possible angina, and chest pain which appeared to b e musculoskeletal nature from previous rib fractures. Care of plan was explained to the patient's so n. She will be resume home medications. Blanco Wang MD cc: [id number] TT: 02/05/2017 12:28:21 jn
== END 2017-02-05 15:15 | disposition home or self-care (01) ==
LOC: C.ER 02:50 → C.6T 04:26 → INTOOBSV 02-02 15:01 → OBSVTOIN 02-02 15:01 → C.6T 02-02 15:59
PROVIDERS: ADMIT Internal Medicine Cardiovascular Disease; ATTEND Internal Medicine Cardiovascular Disease
DX: I20.9 Angina pectoris, unspecified (principal); I11.0 Hypertensive heart disease with heart failure; I50.9 Heart failure, unspecified; N39.0 Urinary tract infection, site not specified; J44.9 Chronic obstructive pulmonary disease, unspecified; J45.909 Unspecified asthma, uncomplicated; E03.9 Hypothyroidism, unspecified; E78.00 Pure hypercholesterolemia, unspecified; E11.9 Type 2 diabetes mellitus without complications; R07.89 Other chest pain; Z79.84 Long term (current) use of oral hypoglycemic drugs
CPT/HCPCS: 36415; 71010; 80048; 80053; 81001; 82948; 83880; 84484; 85025; 85610; 85730; 87086; 93005; 94640; 97112; 97163; 97530; 99285; G0378; G8978; G8979; J1644

== ENCOUNTER 2018-01-30 11:03 | Inpatient (IN) | payer MEDICAID ==
[2018-01-30 11:03] VITALS: BMI 28.3
[2018-01-30] MEDS: Magnesium Sulfate 1 gm in D5W 1 GM/100 ML BAG IVPB SCH ×2 (11:15→11:43)
[2018-01-30] MEDS ORDERED: Magnesium Sulfate 1 gm in D5W 2 GM/200 ML BAG IVPB ONE (11:22)
[2018-01-30] MEDS: Albuterol-Ipratrop 3 mg / 0.5 (3 ml) UD INH SCH ×3 (11:25→11:50)
[2018-01-30 11:30] LABS: BASO # 0.1 K/uL (0.0-0.2); BASO % 0.9 % (0.0-2.0); EOS # 0.3 K/uL (0.0-0.7); EOS % 2.4 % (0.0-4.0); HEMOGLOBIN 10.8 g/dL (11.0-16.0); LYMPH # 1.8 K/uL (1.0-4.3); LYMPH % 14.8 % (20.0-40.0); MEAN CELL VOLUME 79.7 fL (81.0-99.0); MEAN CORPUSCULAR HEMOGLOBIN 25.2 pg (27.0-31.0); MEAN CORPUSCULAR HGB CONC 31.6 g/dL (33.0-37.0); MEAN PLATELET VOLUME 8.1 fL (7.2-11.7); MONO # 0.6 K/uL (0.0-0.8); MONO % 4.9 % (0.0-10.0); NEUT # 9.3 K/uL (1.8-7.0); NRBC % 0.1 % (0.0-2.0); RBC 4.27 Mil/uL (3.80-5.20); WHITE BLOOD COUNT 12.1 K/uL (4.8-10.8)
[2018-01-30] MEDS ORDERED: Albuterol-Ipratrop 3 mg / 0.5 (3 ml) UD ONE (11:39)
[2018-01-30 11:42] LABS: ALB/GLOB RATIO 0.9 (1.0-2.1); ALBUMIN 4.2 g/dL (3.5-5.0); ALT/SGPT 9 U/L (9-52); AST/SGOT 27 U/L (14-36); BLOOD UREA NITROGEN 24 mg/dL (7-17); CALCIUM 9.5 mg/dl (8.6-10.4); GFR AFRICAN-AMERICAN 47; GFR NON-AFRICAN AMERICAN 39
[2018-01-30 11:54] LABS: B-TYPE NATRIURETIC PEPTIDE 164 pg/mL (0-900)
[2018-01-30] MEDS ORDERED: Sod Polystyrene Sulf 15 gm/60 ml Susp PO STA (12:00)
[2018-01-30] MEDS ORDERED: Sod Polystyrene Sulf 15 gm/60 ml Susp ONE (12:38)
--- NOTE | 2018-01-30 13:21 | RAD ---
Chest x-ray single frontal view History: Shortness of breath. Comparison: 01/31/2017 Findings: Biapical pleural thickening with upper lobe granulomatous changes. Lobulated rounded radiopaque density projecting over the lateral aspect of the right upper to mid lung zone which may represent a calcified nodule and or granuloma. Correlation with chest CT may be helpful. Hyperinflation suggestive for COPD and or emphysematous changes. Question trace left pleural effusion. Patchy increased markings at the left lung base. Calcification at the aortic knob. Heart size within normal limits. Degenerative changes in the spine and shoulders. Impression: Biapical pleural thickening with upper lobe granulomatous changes. Lobulated rounded radiopaque density projecting over the lateral aspect of the right upper to mid lung zone which may represent a calcified nodule and or granuloma. Correlation with chest CT may be helpful. Hyperinflation suggestive for COPD and or emphysematous changes. Question trace left pleural effusion. Patchy increased markings at the left lung base. Calcification at the aortic knob.
--- NOTE | 2018-01-30 13:52 | C.PDOC ---
History Of Present Illness 87 y/o female brought to ED by ALS for evaluation of SOB since earlier today. As per ALS patient OS sat was on the low 80 and on O2 Pulse OX went up to Mid 90s. Patient did not take medication at home. No other complaints at this time. Chief Complaint (Nursing): Shortness Of Breath History Per: Patient, EMS History/Exam Limitations: no limitations Onset/Duration Of Symptoms: Hrs Current Symptoms Are (Timing): Still Present Initiating Event: Upper Respiratory Illness Past Medical History Reviewed: Historical Data, Nursing Documentation, Vital Signs Vital Signs: Last Vital Signs Temp 98.4 F 01/30/18 17:36 Pulse 110 H 01/30/18 17:36 Resp 20 01/30/18 17:36 BP 159/68 H 01/30/18 17:36 Pulse Ox 100 01/30/18 17:36 - Medical History PMH: Asthma, CHF, COPD, Diabetes, Gastritis, HTN, Hypercholesterolemia, Hypothyroidism Denies: Gall Bladder Disease, Sleep Apnea, TIA Surgical History: No Surg Hx - [facility] Procedures INFLUENZA VACCINATION (09/23/14) INJECT/INFUSE NEC (07/25/13) Family History: States: No Known Family Hx - Social History Hx Tobacco Use: No Hx Alcohol Use: No Hx Substance Use: No - Immunization History Hx Tetanus Toxoid Vaccination: No Hx Influenza Vaccination: No Hx Pneumococcal Vaccination: Yes (2017) Review Of Systems Constitutional: Negative for: Fever, Chills Cardiovascular: Negative for: Chest Pain Respiratory: Positive for: Shortness of Breath. Negative for: Cough Gastrointestinal: Negative for: Nausea, Vomiting Physical Exam - Physical Exam Appears: Non-toxic, Other (Mild to moderate distress with abdominal breathing) Skin: Warm, Dry, No Rash Head: Atraumatic, Normacephalic Oral Mucosa: Moist Neck: Normal ROM, Supple Cardiovascular: Rhythm Regular Respiratory: Rales (at bases bilaterally), Wheezing (b/l expiratory ) Gastrointestinal/Abdominal: Bowel Sounds, Soft, No Tenderness, No Guarding, No Rebound Extremity: Pedal Edema (Trace low extremities ), No Deformity Neurological/Psych: Oriented x3, Normal Speech, Normal Cognition ED Course And Treatment - Laboratory Results Result Diagrams: 01/30/18 11:22 01/30/18 11:22 ECG: Interpreted By Me, Viewed By Me ECG Rhythm: Sinus Rhythm Interpretation Of ECG: NSR with Left [place] deviation Rate From EC (BPM) O2 Sat by Pulse Oximetry: 100 (RA) Pulse Ox Interpretation: Normal Progress Note: Patient taken off by pap, pt feeling better. Spoke to Dr. Wang reviewed labs, including elevated potassium. Patient to be admitted to Telemetry for further management and evaluation Critical Care Time - Critical Care Note Total Time (in mins): 60 Documented critical care: time excludes all time spent performing seperately billable procedures. Disposition - Disposition Disposition: HOSPITALIZED Disposition Time: 12:30 Condition: FAIR - Clinical Impression Clinical Impression: COPD exacerbation, Hyperkalemia - Scribe Statement The provider has reviewed the documentation as recorded by the Scribe Chrissie Cesar All medical record entries made by the Merleneibdiana were at my direction and personally dictated by me. I have reviewed the chart and agree that the record accurately reflects my personal performance of the history, physical exam, medical decision making, and the department course for this patient. I have also personally directed, reviewed, and agree with the discharge instructions and disposition.
[2018-01-30] MEDS: Albuterol HFA 90 mcg/actuation (8 g) IH PRN (20:10)
[2018-01-30] MEDS: Fluticasone-Salmeterol 100-50mcg Diskus IH SCH (20:10)
[2018-01-30] MEDS: Latanoprost 2.5 ml Opht Soln OD SCH (21:13)
[2018-01-30] MEDS ORDERED: (Novolin R) Insulin Human Regular 100 units/ml vial SC ONE (21:50)
[2018-01-30] MEDS: (Novolin R) Insulin Human Regular 100 units/ml vial SC SCH (22:09)
--- NOTE | 2018-01-31 00:33 | HP ---
HISTORY OF PRESENT ILLNESS: An 87-year-old [place] female who was brought in with a history of shortness of breath, cough, and becoming hypoxic at home. She was brought in by ambulance. Her O2 saturation was 80% at home. She came to the emergency room where she was found to be in mild respiratory distress. She was given BiPAP, Solu-Medrol, magnesium sulphate, and nebulizer treatment, and promptly returned back to her baseline. She was also given 20 mg Lasix. Chest x-ray had shown nonspecific changes, possible mild congestion. EKG had sinus tachycardia, left axis deviation. The patient is known to be over the past several years, carries a diagnosis of hypertension, diabetes, recurrent chest pain, possible anginal muscular pains, diffuse osteoarthritis, and urinary incontinence. MEDICATIONS: At home includes Cozaar 50 mg p.o. one a day, glipizide XL 10 mg twice a day, Januvia 50 mg once a day. She was on Lantus, however, for the past six months, she is not taking any insulin. She is also on Lasix 20 mg and Neurontin 300 mg one a day, baby aspirin one a day. She was in her usual state of health, until this morning when she could not breath, had some congestion and cough. PAST MEDICAL HISTORY: Admitted in the past with possible TIA, exacerbation of COPD, pneumonia, mild CHF. Her LVEF has been normal. FAMILY HISTORY: Unremarkable. Lives with her son. Her daughter has diabetes. REVIEW OF SYSTEMS: CONSTITUTIONAL: Generalized weakness, essentially back to chair. She has hospital bed at home, moves around in a wheelchair. EYES: No visual disturbances. She wears glasses. NECK: No swollen glands. No history of thyroid problems. PULMONARY: Chronic cough. No hemoptysis. No fever. Worsening of shortness of breath and cough this morning. CARDIAC: Chest pains in the past appear more of a musculoskeletal nature. Occasional chest pain suggestive of angina. Sleeps in hospital bed with elevated up to 30 degrees. No documented NE. GI: Negative for hematemesis or melena. PSYCHIATRIC: No evidence of depression. NEUROLOGIC: Admitted in the past for possible TIAs. No CVAs. MUSCULOSKELETAL: Osteoarthritis involving all the joints and the back pains. : Negative for hematuria. PHYSICAL EXAMINATION: GENERAL: Elderly [place]ian female who is conscious, alert, well oriented, in no acute distress. VITAL SIGNS: Blood pressure is 142/70, heart rate of 106 and regular, respiratory rate of 24, temperature of 98.4. HEENT: Head is normocephalic. Eyes, no pallor. No icterus. Dentures are noted. LUNGS: Clear to auscultation except at the base where a few fine rales are noted. HEART: PMI is normal. Heart sounds are tachycardiac without any definite gallops or murmur. ABDOMEN: Soft. EXTREMITIES: No cyanosis, clubbing, or edema. Distal pulses are intact. PSYCHIATRIC: No evidence of depression. LABORATORY DATA: EKG showed sinus tachycardia. Left axis deviation. Possible old anteroseptal wall NE. CBC shows hemoglobin of 10.8, potassium was 6, creatinine is 1.3. ASSESSMENT: An 87-year-old female with a history of possible pneumonitis and exacerbation of chronic obstructive pulmonary disease. PLAN: At this point is to continue with the nebulizer treatment, pulmonary toilet, Accu-Chek, control the blood pressure, pulmonary evaluation to follow up with Dr. Stevens. The care of plan was explained to the patient's son who is at the bedside. Blanco Wang MD
[2018-01-31] MEDS: Levothyroxine 50 MCG TAB PO SCH (05:56)
[2018-01-31] MEDS: (Novolin R) Insulin Human Regular 100 units/ml vial SC SCH ×4 (07:30→22:05)
[2018-01-31] MEDS: Fluticasone-Salmeterol 100-50mcg Diskus IH SCH (07:39)
[2018-01-31] MEDS: Albuterol HFA 90 mcg/actuation (8 g) IH PRN (07:39)
[2018-01-31] MEDS ORDERED: Fluticasone-Salmeterol 100-50mcg Diskus IH SCH (10:00)
[2018-01-31] MEDS: Enoxaparin 40 mg Syringe SC SCH (10:01)
[2018-01-31] MEDS: Multiple Vitamins Tab PO SCH (10:02)
[2018-01-31] MEDS: GlipiZIDE 10 mg SR Tab PO SCH ×2 (10:02→18:23)
[2018-01-31] MEDS: Lidocaine 5% Oint(35 gm) TOP SCH (11:00)
--- NOTE | 2018-01-31 11:47 | CP.PCM.PN ---
Subjective - Date & Time of Evaluation Date of Evaluation: 01/31/18 Time of Evaluation: 11:46 - Subjective Subjective: sob is better.no cp.no cough. Objective - Vital Signs/Intake and Output Vital Signs (last 24 hours): Temp Pulse Resp BP Pulse Ox 97.8 F 80 20 130/80 96 01/31/18 08:04 01/31/18 08:04 01/31/18 08:04 01/31/18 10:01 01/31/18 08:04 Intake and Output: 01/31/18 01/31/18 06:59 18:59 Intake Total 250 Balance 250 - Medications Medications: Current Medications Albuterol (Ventolin Hfa 90 Mcg/Actuation (8 G)) 2 puff IH RQ6 PRN PRN Reason: Shortness of Breath Last Admin: 01/31/18 07:39 Dose: 2 puff Aspirin (Ecotrin) 81 mg PO DAILY [facility] Last Admin: 01/31/18 10:03 Dose: 81 mg Celecoxib (Celebrex) 100 mg PO DAILY [facility] Last Admin: 01/30/18 20:40 Dose: 100 mg Docusate Sodium (Colace) 100 mg PO TID [facility] Last Admin: 01/31/18 10:02 Dose: 100 mg Enoxaparin Sodium (Lovenox) 40 mg SC DAILY [facility] Last Admin: 01/31/18 10:01 Dose: 40 mg Furosemide (Lasix) 20 mg IVP DAILY [facility] Stop: 02/02/18 10:01 Last Admin: 01/31/18 10:01 Dose: 20 mg Gabapentin (Neurontin) 300 mg PO DAILY [facility] Last Admin: 01/31/18 10:02 Dose: 300 mg Glipizide (Glucotrol Xl) 10 mg PO BID [facility] Last Admin: 01/31/18 10:02 Dose: 10 mg Insulin Human Regular (Novolin R) 0 unit SC ACHS [id number] PRN Reason: Protocol Last Admin: 01/31/18 07:30 Dose: 1 unit Latanoprost (Xalatan Opht) 0 ml OD HS [facility] Last Admin: 01/30/18 21:13 Dose: 2.5 ml Levothyroxine Sodium (Synthroid) 50 mcg PO DAILY@0630 [facility] Last Admin: 01/31/18 05:56 Dose: 50 mcg Lidocaine (Lidocaine 5%) 0 gm TOP DAILY [facility] Losartan Potassium (Cozaar) 50 mg PO DAILY [facility] Last Admin: 01/31/18 10:03 Dose: 50 mg Metformin HCl (Glucophage) 500 mg PO DAILY [facility] Last Admin: 01/31/18 10:02 Dose: 500 mg Multivitamins (Hexavitamin) 1 tab PO DAILY [facility] Last Admin: 01/31/18 10:02 Dose: 1 tab Rosuvastatin Calcium (Crestor) 5 mg PO HS [facility] Last Admin: 01/30/18 21:13 Dose: 5 mg Fluticasone/Salmeterol (Advair Diskus 100/50) 1 puff IH RQ12 [facility] Last Admin: 01/31/18 07:39 Dose: 1 puff Sitagliptin Phosphate (Januvia) 50 mg PO DAILY [facility] Last Admin: 01/31/18 10:03 Dose: 50 mg - Labs Labs: 01/30/18 11:22 01/30/18 11:22 - Constitutional Appears: No Acute Distress - Head Exam Head Exam: NORMOCEPHALIC - Eye Exam Eye Exam: Normal appearance - ENT Exam ENT Exam: Normal Exam - Neck Exam Neck Exam: Normal Inspection - Respiratory Exam Respiratory Exam: Clear to Ausculation Bilateral - Cardiovascular Exam Cardiovascular Exam: REGULAR RHYTHM - GI/Abdominal Exam GI & Abdominal Exam: Soft - Extremities Exam Extremities Exam: absent: Pedal Edema - Neurological Exam Neurological Exam: Alert, Oriented x3 Assessment and Plan - Assessment and Plan (Free Text) Assessment: copd,better.mild chf,diastolic.re check chest x ray & bmp.
--- NOTE | 2018-01-31 12:50 | CP.PCM.CON ---
History of Present Illness - History of Present Illness History of Present Illness: Reason for consult: COPD HPI: 87 F brought in by ALS yesterday with worsening shortness of breath x 1 day. Patient was saturating in the 80s on presentation but increased to the 90s on administration of oxygen. Patient seen and examined at bedside resting comfortably with family present. Her shortness is still present and wheezes and rales can be heard. Patient's family reports that she has been experiencing bilateral rib pain for the past month, reassured them that it was likely nothing acute. PMHx: HTN, DM, CHF, Hypothyroidism, OA, COPD, PSH: none Allergies: lidocaine Home Meds: SH: ambulates with a walker at home, no tobacco use, no alcohol use, no illicit drug use. 1. COPD Exacerbation - CXR 01/30: hyperinflation indicative of COPD, RUL-RML nodule vs. granuloma, pneumonia unlikely - WBC 12.1, received solumedrol in the ED but continue to monitor - afebrile - albuterol inhaler - nebulizer treatments - discontinue Advair 2. Hyperkalemia - Noted that patient's potassium was 6 - Kayexalate given in the ED - continue to monitor Past Patient History - Infectious Disease Hx of Infectious Diseases: None - Tetanus Immunizations Tetanus Immunization: Unknown - Past Medical History & Family History Past Medical History?: Yes - Past Social History Smoking Status: Never Smoked - CARDIAC Hx Congestive Heart Failure: Yes Hx Hypercholesterolemia: Yes Hx Hypertension: Yes - PULMONARY Hx Chronic Obstructive Pulmonary Disease (COPD): Yes - NEUROLOGICAL Hx Transient Ischemic Attacks (TIA): No - HEENT Hx HEENT Problems: Yes Hx Blind: No Hx Cataracts: Yes Hx Deafness: No Hx Difficulty Chewing: No Hx Glaucoma: Yes Hx Macular Degeneration: No Other/Comment: cataract surgery 20 y ago - RENAL Hx Chronic Kidney Disease: No - ENDOCRINE/METABOLIC Hx Hypothyroidism: Yes - HEMATOLOGICAL/ONCOLOGICAL Hx Sickle Cell Disease: No - INTEGUMENTARY Hx Dermatological Problems: No Hx Basil Cell: No - MUSCULOSKELETAL/RHEUMATOLOGICAL Hx Falls: No - GASTROINTESTINAL Hx Gall Bladder Disease: No Hx Gastritis: Yes - GENITOURINARY/GYNECOLOGICAL Hx Sexually Transmitted Disorders: No - PSYCHIATRIC Hx Substance Use: No - SURGICAL HISTORY Hx Carotid Endarterectomy: No Hx Cholecystectomy: No Hx Coronary Artery Bypass Graft: No Hx Coronary Stent: No Hx Tonsillectomy: No Hx Tubal Ligation: Yes - ANESTHESIA Hx Anesthesia: Yes Hx Anesthesia Reactions: No Hx Malignant Hyperthermia: No Meds Allergies/Adverse Reactions: Allergies Allergy/AdvReac Type Severity Reaction Status Date / Time lidocaine [From Lidoderm] AdvReac Unknown HALLUCINATI Verified 01/30/18 11:14 ONS - Medications Medications: Current Medications Albuterol (Ventolin Hfa 90 Mcg/Actuation (8 G)) 2 puff IH RQ6 PRN PRN Reason: Shortness of Breath Last Admin: 01/31/18 07:39 Dose: 2 puff Aspirin (Ecotrin) 81 mg PO DAILY [facility] Last Admin: 01/31/18 10:03 Dose: 81 mg Celecoxib (Celebrex) 100 mg PO DAILY [facility] Last Admin: 01/31/18 11:00 Dose: 100 mg Docusate Sodium (Colace) 100 mg PO TID [facility] Last Admin: 01/31/18 10:02 Dose: 100 mg Dorzolamide HCl (Trusopt) 11 ml OU BID [facility] Enoxaparin Sodium (Lovenox) 40 mg SC DAILY [facility] Last Admin: 01/31/18 10:01 Dose: 40 mg Furosemide (Lasix) 20 mg IVP DAILY [facility] Stop: 02/02/18 10:01 Last Admin: 01/31/18 10:01 Dose: 20 mg Gabapentin (Neurontin) 300 mg PO DAILY [facility] Last Admin: 01/31/18 10:02 Dose: 300 mg Glipizide (Glucotrol Xl) 10 mg PO BID [facility] Last Admin: 01/31/18 10:02 Dose: 10 mg Insulin Human Regular (Novolin R) 0 unit SC [facility] PRN Reason: Protocol Last Admin: 01/31/18 12:18 Dose: 1 unit Latanoprost (Xalatan Opht) 0 ml OD HS [facility] Last Admin: 01/30/18 21:13 Dose: 2.5 ml Levothyroxine Sodium (Synthroid) 50 mcg PO DAILY@0630 [facility] Last Admin: 01/31/18 05:56 Dose: 50 mcg Lidocaine (Lidocaine 5%) 0 gm TOP DAILY [facility] Last Admin: 01/31/18 11:00 Dose: 1 applic Losartan Potassium (Cozaar) 50 mg PO DAILY [facility] Last Admin: 01/31/18 10:03 Dose: 50 mg Metformin HCl (Glucophage) 500 mg PO DAILY [facility] Last Admin: 04/13/18 10:02 Dose: 500 mg Multivitamins (Hexavitamin) 1 tab PO DAILY [facility] Last Admin: 01/31/18 10:02 Dose: 1 tab Rosuvastatin Calcium (Crestor) 5 mg PO HS [facility] Last Admin: 01/30/18 21:13 Dose: 5 mg Fluticasone/Salmeterol (Advair Diskus 100/50) 1 puff IH RQ12 [facility] Last Admin: 01/31/18 07:39 Dose: 1 puff Sitagliptin Phosphate (Januvia) 50 mg PO DAILY [facility] Last Admin: 01/31/18 10:03 Dose: 50 mg Timolol Maleate (Timoptic 0.5% [facility]) 1 drop OU BID [facility] Results - Vital Signs Recent Vital Signs: Last Vital Signs Temp 97.8 F 01/31/18 08:04 Pulse 80 01/31/18 08:04 Resp 20 01/31/18 08:04 BP 130/80 01/31/18 10:01 Pulse Ox 96 01/31/18 08:04 - Labs Result Diagrams: 01/30/18 11:22 01/30/18 11:22 Labs: Laboratory Results - last 24 hr 01/30/18 01/30/18 01/31/18 17:32 21:10 02:08 POC Glucose (mg/dL) 332 H 440 H* 341 H 01/31/18 01/31/18 06:31 11:32 POC Glucose (mg/dL) 172 H 177 H
[2018-01-31] MEDS: Dorzolamide 2% Opht Sol 10ml OU SCH ×2 (13:30→18:20)
[2018-01-31 14:16] LABS: CALCIUM 9.3 mg/dl (8.6-10.4)
[2018-01-31] MEDS: Azithromycin 500 MG in Sodium Chloride 0.9% 250 ML IVPB SCH (14:36)
[2018-01-31] MEDS: Albuterol-Ipratrop 3 mg / 0.5 (3 ml) UD INH SCH (19:44)
[2018-01-31] MEDS: Latanoprost 2.5 ml Opht Soln OD SCH (21:43)
[2018-02-01] MEDS: Albuterol-Ipratrop 3 mg / 0.5 (3 ml) UD INH SCH ×4 (01:08→19:31)
[2018-02-01] MEDS: Levothyroxine 50 MCG TAB PO SCH (06:03)
[2018-02-01] MEDS: (Novolin R) Insulin Human Regular 100 units/ml vial SC SCH ×4 (08:10→21:11)
[2018-02-01] MEDS: Enoxaparin 40 mg Syringe SC SCH (10:11)
[2018-02-01] MEDS: Lidocaine 5% Oint(35 gm) TOP SCH (10:11)
[2018-02-01] MEDS: GlipiZIDE 10 mg SR Tab PO SCH ×2 (10:11→17:44)
[2018-02-01] MEDS: Multiple Vitamins Tab PO SCH (10:12)
[2018-02-01] MEDS: Dorzolamide 2% Opht Sol 10ml OU SCH ×2 (10:13→18:07)
[2018-02-01] MEDS: Azithromycin 500 MG in Sodium Chloride 0.9% 250 ML IVPB SCH (13:37)
--- NOTE | 2018-02-01 14:49 | CP.PCM.PN ---
Subjective - Date & Time of Evaluation Date of Evaluation: 02/01/18 Time of Evaluation: 14:48 - Subjective Subjective: better.no cp,sob.pulmonary consult olena. Objective - Vital Signs/Intake and Output Vital Signs (last 24 hours): Temp Pulse Resp BP Pulse Ox 97.9 F 77 20 122/61 96 02/01/18 08:46 02/01/18 08:46 02/01/18 08:46 02/01/18 10:12 02/01/18 08:46 Intake and Output: 02/01/18 02/01/18 06:59 18:59 Intake Total 480 Output Total 300 Balance 180 - Medications Medications: Current Medications Albuterol/Ipratropium (Duoneb 3 Mg/0.5 Mg (3 Ml) Ud) 3 ml INH RQ6 [facility] Last Admin: 02/01/18 13:16 Dose: Not Given Aspirin (Ecotrin) 81 mg PO DAILY [facility] Last Admin: 02/01/18 10:12 Dose: 81 mg Celecoxib (Celebrex) 100 mg PO DAILY [facility] Last Admin: 02/01/18 12:13 Dose: 100 mg Docusate Sodium (Colace) 100 mg PO TID [facility] Last Admin: 02/01/18 13:17 Dose: Not Given Dorzolamide HCl (Trusopt) 0 ml OU BID [facility] Last Admin: 02/01/18 10:13 Dose: 1 drop Enoxaparin Sodium (Lovenox) 40 mg SC DAILY [facility] Last Admin: 02/01/18 10:11 Dose: 40 mg Furosemide (Lasix) 20 mg IVP DAILY [facility] Stop: 02/02/18 10:01 Last Admin: 02/01/18 10:12 Dose: 20 mg Gabapentin (Neurontin) 300 mg PO DAILY [facility] Last Admin: 02/01/18 10:12 Dose: 300 mg Glipizide (Glucotrol Xl) 10 mg PO BID [facility] Last Admin: 02/01/18 10:11 Dose: 10 mg Azithromycin 500 mg/ Sodium (Chloride) 250 mls @ 250 mls/hr IVPB Q24H [facility] PRN Reason: Protocol Last Admin: 02/01/18 13:37 Dose: 250 mls/hr Insulin Human Regular (Novolin R) 0 unit SC ACHS [facility] PRN Reason: Protocol Last Admin: 02/01/18 13:10 Dose: 3 unit Latanoprost (Xalatan Opht) 0 ml OD HS [facility] Last Admin: 01/31/18 21:43 Dose: 2.5 ml Levothyroxine Sodium (Synthroid) 50 mcg PO DAILY@0630 [facility] Last Admin: 02/01/18 06:03 Dose: 50 mcg Lidocaine (Lidocaine 5%) 0 gm TOP DAILY [facility] Last Admin: 02/01/18 10:11 Dose: 1 applic Losartan Potassium (Cozaar) 50 mg PO DAILY [facility] Last Admin: 02/01/18 10:12 Dose: 50 mg Metformin HCl (Glucophage) 500 mg PO DAILY [facility] Last Admin: 02/01/18 10:12 Dose: 500 mg Multivitamins (Hexavitamin) 1 tab PO DAILY [facility] Last Admin: 02/01/18 10:12 Dose: 1 tab Rosuvastatin Calcium (Crestor) 5 mg PO HS [facility] Last Admin: 01/31/18 21:41 Dose: 5 mg Sitagliptin Phosphate (Januvia) 50 mg PO DAILY [facility] Last Admin: 02/01/18 10:11 Dose: 50 mg Timolol Maleate (Timoptic 0.5% Ophth Soln) 1 drop OU BID [facility] Last Admin: 02/01/18 10:13 Dose: 1 drop - Labs Labs: 01/30/18 11:22 01/31/18 13:44 - Constitutional Appears: No Acute Distress, Chronically Ill - Head Exam Head Exam: NORMOCEPHALIC - ENT Exam ENT Exam: Mucous Membranes Moist - Neck Exam Neck Exam: Normal Inspection - Respiratory Exam Respiratory Exam: Clear to Ausculation Bilateral - Cardiovascular Exam Cardiovascular Exam: REGULAR RHYTHM - GI/Abdominal Exam GI & Abdominal Exam: Soft - Extremities Exam Extremities Exam: absent: Pedal Edema - Neurological Exam Neurological Exam: Alert, Oriented x3 Assessment and Plan - Assessment and Plan (Free Text) Assessment: copd,better.check x ray.
--- NOTE | 2018-02-01 17:22 | CP.PCM.PN ---
Subjective - Date & Time of Evaluation Date of Evaluation: 02/01/18 Time of Evaluation: 14:00 - Subjective Subjective: patient seen and examined Breathing much improved Denies cough Afebrile Pro calcitonin level normal Switched to p.o. antibiotics Continue albuterol Objective - Vital Signs/Intake and Output Vital Signs (last 24 hours): Temp Pulse Resp BP Pulse Ox 98.3 F 81 20 103/63 99 02/01/18 15:20 02/01/18 15:20 02/01/18 15:20 02/01/18 15:20 02/01/18 15:20 Intake and Output: 02/01/18 02/01/18 06:59 18:59 Intake Total 480 Output Total 300 Balance 180 - Medications Medications: Current Medications Albuterol/Ipratropium (Duoneb 3 Mg/0.5 Mg (3 Ml) Ud) 3 ml INH RQ6 [facility] Last Admin: 02/01/18 13:16 Dose: Not Given Aspirin (Ecotrin) 81 mg PO DAILY [facility] Last Admin: 02/01/18 10:12 Dose: 81 mg Celecoxib (Celebrex) 100 mg PO DAILY [facility] Last Admin: 02/01/18 12:13 Dose: 100 mg Docusate Sodium (Colace) 100 mg PO TID [facility] Last Admin: 02/01/18 13:17 Dose: Not Given Dorzolamide HCl (Trusopt) 0 ml OU BID [facility] Last Admin: 02/01/18 10:13 Dose: 1 drop Enoxaparin Sodium (Lovenox) 40 mg SC DAILY [facility] Last Admin: 02/01/18 10:11 Dose: 40 mg Furosemide (Lasix) 20 mg IVP DAILY [facility] Stop: 02/02/18 10:01 Last Admin: 02/01/18 10:12 Dose: 20 mg Gabapentin (Neurontin) 300 mg PO DAILY [facility] Last Admin: 02/01/18 10:12 Dose: 300 mg Glipizide (Glucotrol Xl) 10 mg PO BID [facility] Last Admin: 02/01/18 10:11 Dose: 10 mg Azithromycin 500 mg/ Sodium (Chloride) 250 mls @ 250 mls/hr IVPB Q24H [facility] PRN Reason: Protocol Last Admin: 02/01/18 13:37 Dose: 250 mls/hr Insulin Human Regular (Novolin R) 0 unit SC ACHS [facility] PRN Reason: Protocol Last Admin: 02/01/18 13:10 Dose: 3 unit Latanoprost (Xalatan Opht) 0 ml OD HS [facility] Last Admin: 01/31/18 21:43 Dose: 2.5 ml Levothyroxine Sodium (Synthroid) 50 mcg PO DAILY@0630 [facility] Last Admin: 02/01/18 06:03 Dose: 50 mcg Lidocaine (Lidocaine 5%) 0 gm TOP DAILY [facility] Last Admin: 02/01/18 10:11 Dose: 1 applic Losartan Potassium (Cozaar) 50 mg PO DAILY [facility] Last Admin: 02/01/18 10:12 Dose: 50 mg Metformin HCl (Glucophage) 500 mg PO DAILY [facility] Last Admin: 02/01/18 10:12 Dose: 500 mg Multivitamins (Hexavitamin) 1 tab PO DAILY [facility] Last Admin: 02/01/18 10:12 Dose: 1 tab Rosuvastatin Calcium (Crestor) 5 mg PO HS [facility] Last Admin: 01/31/18 21:41 Dose: 5 mg Sitagliptin Phosphate (Januvia) 50 mg PO DAILY [facility] Last Admin: 02/01/18 10:11 Dose: 50 mg Timolol Maleate (Timoptic 0.5% Ophth Soln) 1 drop OU BID [facility] Last Admin: 02/01/18 10:13 Dose: 1 drop - Labs Labs: 01/30/18 11:22 01/31/18 13:44 - Head Exam Head Exam: ATRAUMATIC, NORMOCEPHALIC - ENT Exam ENT Exam: Mucous Membranes Moist - Neck Exam Neck Exam: Normal Inspection - Respiratory Exam Respiratory Exam: Clear to Ausculation Bilateral - Cardiovascular Exam Cardiovascular Exam: REGULAR RHYTHM - GI/Abdominal Exam GI & Abdominal Exam: Soft, Normal Bowel Sounds Assessment and Plan (1) COPD exacerbation Assessment & Plan: continue bronchodilators Switch to p.o. antibiotics Stable from pulmonary standpoint Status: Acute
--- NOTE | 2018-02-01 18:18 | RAD ---
HISTORY: follow up xray , chest congestion COMPARISON: Comparison is made to 01/30/2018 TECHNIQUE: Chest PA and lateral FINDINGS: LUNGS: No significant interval change noted in the lungs since the previous exam PLEURA: No significant pleural effusion identified. No pneumothorax apparent. CARDIOVASCULAR: Normal. OSSEOUS STRUCTURES: No significant abnormalities. VISUALIZED UPPER ABDOMEN: Normal. OTHER FINDINGS: None. IMPRESSION: No significant interval changes.
[2018-02-01] MEDS: Latanoprost 2.5 ml Opht Soln OD SCH (21:48)
[2018-02-02] MEDS: Albuterol-Ipratrop 3 mg / 0.5 (3 ml) UD INH SCH ×4 (02:28→19:27)
[2018-02-02] MEDS: Levothyroxine 50 MCG TAB PO SCH (06:19)
[2018-02-02] MEDS: (Novolin R) Insulin Human Regular 100 units/ml vial SC SCH ×4 (07:55→21:52)
[2018-02-02] MEDS: GlipiZIDE 10 mg SR Tab PO SCH ×2 (09:31→17:52)
[2018-02-02] MEDS: Lidocaine 5% Oint(35 gm) TOP SCH (09:31)
[2018-02-02] MEDS: Dorzolamide 2% Opht Sol 10ml OU SCH ×2 (09:31→17:52)
[2018-02-02] MEDS: Multiple Vitamins Tab PO SCH (09:31)
[2018-02-02] MEDS: Enoxaparin 40 mg Syringe SC SCH (09:32)
--- NOTE | 2018-02-02 10:57 | CARD ---
APPROVED REPORT EKG Measurement Heart [id number] <Conclusion> Sinus tachycardia with premature supraventricular complexes and with frequent premature ventricular complexes Left axis deviation Poor R wave progression. An old anteroseptal infarct cannot be excluded. Abnormal ECG
[2018-02-02] MEDS: Azithromycin 500 MG in Sodium Chloride 0.9% 250 ML IVPB SCH (13:17)
[2018-02-02] MEDS: Latanoprost 2.5 ml Opht Soln OD SCH (21:19)
[2018-02-03 00:49] VITALS: RESP 20
[2018-02-03] MEDS: Albuterol-Ipratrop 3 mg / 0.5 (3 ml) UD INH SCH ×3 (02:59→13:11)
[2018-02-03] MEDS: Levothyroxine 50 MCG TAB PO SCH (05:42)
[2018-02-03] MEDS: (Novolin R) Insulin Human Regular 100 units/ml vial SC SCH ×2 (08:08→12:02)
[2018-02-03] MEDS: GlipiZIDE 10 mg SR Tab PO SCH (09:31)
[2018-02-03] MEDS: Enoxaparin 40 mg Syringe SC SCH (09:31)
[2018-02-03] MEDS: Multiple Vitamins Tab PO SCH (09:32)
[2018-02-03] MEDS: Dorzolamide 2% Opht Sol 10ml OU SCH (09:34)
[2018-02-03] MEDS: Lidocaine 5% Oint(35 gm) TOP SCH (09:36)
[2018-02-03] MEDS: Azithromycin 500 MG in Sodium Chloride 0.9% 250 ML IVPB SCH (13:18)
--- NOTE | 2018-02-03 15:27 | CP.PCM.PN ---
Subjective - Date & Time of Evaluation Date of Evaluation: 02/03/18 Time of Evaluation: 08:35 - Subjective Subjective: Patient seen and examined at bedside. Patient's shortness of breath is better, no cough today. Patient's pulmonary status is much improved. 1. COPD Exacerbation - CXR 01/30: hyperinflation indicative of COPD, RUL-RML nodule vs. granuloma, pneumonia unlikely - CXR 02/01: no significant changes - CBC 01/30: WBC 12.1 - blood culture 01/30: preliminary results, no growth - afebrile - nebulizer treatments - advair Objective - Vital Signs/Intake and Output Vital Signs (last 24 hours): Temp Pulse Resp BP Pulse Ox 98.1 F 66 20 176/69 H 99 02/03/18 08:00 02/03/18 08:00 02/03/18 08:00 02/03/18 08:00 02/03/18 08:00 Intake and Output: 02/03/18 02/03/18 06:59 18:59 Intake Total 405 Balance 405 - Medications Medications: Current Medications Albuterol/Ipratropium (Duoneb 3 Mg/0.5 Mg (3 Ml) Ud) 3 ml INH RQ6 [facility] Last Admin: 02/03/18 13:11 Dose: Not Given Aspirin (Ecotrin) 81 mg PO DAILY [facility] Last Admin: 02/03/18 09:31 Dose: 81 mg Celecoxib (Celebrex) 100 mg PO DAILY [facility] Last Admin: 02/03/18 10:00 Dose: 100 mg Docusate Sodium (Colace) 100 mg PO TID [facility] Last Admin: 02/03/18 13:17 Dose: 100 mg Dorzolamide HCl (Trusopt) 0 ml OU BID [facility] Last Admin: 02/03/18 09:34 Dose: 1 drop Enoxaparin Sodium (Lovenox) 40 mg SC DAILY [facility] Last Admin: 02/03/18 09:31 Dose: 40 mg Gabapentin (Neurontin) 300 mg PO DAILY [facility] Last Admin: 02/03/18 09:31 Dose: 300 mg Glipizide (Glucotrol Xl) 10 mg PO BID [facility] Last Admin: 02/03/18 09:31 Dose: 10 mg Azithromycin 500 mg/ Sodium (Chloride) 250 mls @ 250 mls/hr IVPB Q24H [facility] PRN Reason: Protocol Last Admin: 02/03/18 13:18 Dose: 250 mls/hr Insulin Human Regular (Novolin R) 0 unit SC ACHS [facility] PRN Reason: Protocol Last Admin: 02/03/18 12:02 Dose: 2 unit Latanoprost (Xalatan Opht) 0 ml OD HS [facility] Last Admin: 02/02/18 21:19 Dose: 2.5 ml Levothyroxine Sodium (Synthroid) 50 mcg PO DAILY@0630 [facility] Last Admin: 02/03/18 05:42 Dose: 50 mcg Lidocaine (Lidocaine 5%) 0 gm TOP DAILY [facility] Last Admin: 02/03/18 09:36 Dose: 1 applic Losartan Potassium (Cozaar) 50 mg PO DAILY [facility] Last Admin: 02/03/18 09:31 Dose: 50 mg Metformin HCl (Glucophage) 500 mg PO DAILY [facility] Last Admin: 02/03/18 11:00 Dose: 500 mg Multivitamins (Hexavitamin) 1 tab PO DAILY [facility] Last Admin: 02/03/18 09:32 Dose: 1 tab Rosuvastatin Calcium (Crestor) 5 mg PO HS [facility] Last Admin: 02/02/18 21:19 Dose: 5 mg Sitagliptin Phosphate (Januvia) 50 mg PO DAILY [facility] Last Admin: 02/03/18 09:31 Dose: 50 mg Timolol Maleate (Timoptic 0.5% [facility]) 1 drop OU BID [facility] Last Admin: 02/03/18 09:33 Dose: 1 drop - Labs Labs: 01/30/18 11:22 01/31/18 13:44 Assessment and Plan (1) COPD exacerbation Status: Acute
[2018-02-03 15:49] VITALS: BP 127/65; PULSE 83; TEMP 97.5; O2SAT 93
--- NOTE | 2018-02-03 17:15 | PCM.HF ---
Heart Failure Core Measure - Heart Failure Ejection Fraction: 40 % or Greater (EF 65-70%) ZELDA Inhibitor Prescribed: No Contraindication/Reason for not providing: on arb Beta-Martinez Prescribed: None Contraindication/Reason for not providing: COPD Angiotensin II Receptor Martinez Prescribed: Yes AnticoagulationTherapy for Atrial Fibrillation/Atrialflutter: No Contraindication/Reason for not providing: NO AFIB Aldosterone Antagonist Prescribed: No Contraindication/Reason for not providing: EF >40% Hydralazine Nitrate Prescribed: No Contraindication/Reason for not providing: EF >40% Implantable Cardioverter Defibrillator Therapy: No Contraindication/Reason for not providing: EF>40% Cardiac Resynchronization Therapy Prescribed: No Contraindication/Reason for not providing: not indicated - Follow up Will be discharged to: Home Follow Up Date (must be within 7 days from discharge): 02/07/18 Follow Up Time: 09:00
--- NOTE | 2018-02-03 17:23 | CP.PCM.PN ---
Subjective - Date & Time of Evaluation Date of Evaluation: 02/03/18 Time of Evaluation: 09:11 - Subjective Subjective: Awake, alert , denies pain or distress, NAD. Objective - Vital Signs/Intake and Output Vital Signs (last 24 hours): Temp Pulse Resp BP Pulse Ox 97.5 F L 83 20 127/65 93 L 02/03/18 15:49 02/03/18 15:49 02/03/18 15:49 02/03/18 15:49 02/03/18 15:49 Intake and Output: 02/03/18 02/03/18 06:59 18:59 Intake Total 405 Balance 405 - Labs Labs: 01/30/18 11:22 01/31/18 13:44 Assessment and Plan - Assessment and Plan (Free Text) Assessment: Patient admitted with sob, CHF exacerbation. Seen and examined. Alert, awake, denies any pain or disress. Seen and cleared by DR Wang to discharge home today on zithomax for 3 days. Patient and family verbalized understanding. Advised to follow up in the office in 1 week.
--- NOTE | 2018-02-04 12:40 | DS ---
HOSPITAL COURSE: An 87-year-old female who was brought in with history of exacerbation of COPD. She was admitted to telemetry floor. No arrhythmias were noted. White count was mildly elevated. Chest x-ray showed some interstitial changes. She was placed on IV Zithromax. Pulmonary consultation was obtained with Dr. Stevens. Nebulizer treatment has been given. She is comfortable. She is stable to be discharged, to be continued on all her medication for diabetes at home and blood pressure medicine. Zithromax 250 mg p.o, once a day was given for 5 days. She will return to see me in 2 weeks' time. FINAL DIAGNOSES: 1. Exacerbation of chronic obstructive pulmonary disease. 2. Mild congestive heart failure, diastolic in nature. 3. Hypertension. 4. Diabetes. 5. Electrolyte imbalance. Potassium was elevated to 6, which was corrected. DISCHARGE DIET: A 2 gm sodium, low fat, low cholesterol, 1800 ADA vegetarian diet. The patient has a hospital bed at home. Care of plan was explained to the patient's daughter and son. Blanco Wang MD
== END 2018-02-03 16:31 | disposition home or self-care (01) | DRG 541 ==
LOC: C.ER 11:03 → C.9E 13:05 → C.6T 16:20
PROVIDERS: ADMIT Internal Medicine Cardiovascular Disease; ATTEND Internal Medicine Cardiovascular Disease
DX: J44.1 Chronic obstructive pulmonary disease with (acute) exacerbation (principal); I50.30 Unspecified diastolic (congestive) heart failure; E87.5 Hyperkalemia; I11.0 Hypertensive heart disease with heart failure; R09.02 Hypoxemia; E03.9 Hypothyroidism, unspecified; E11.9 Type 2 diabetes mellitus without complications; E78.00 Pure hypercholesterolemia, unspecified

== ENCOUNTER 2018-11-24 21:37 | Inpatient (IN) | payer MEDICAID ==
[2018-11-24 21:49] VITALS: BMI 26.6
[2018-11-24] MEDS ORDERED: Dextrose 50% SYRINGE Inj (50 ml) ONE (22:00)
[2018-11-24] MEDS ORDERED: Dextrose 50% SYRINGE Inj (50 ml) IVP STA (22:21)
--- NOTE | 2018-11-24 22:21 | C.PDOC ---
History Of Present Illness Patient brought in by EMS for a complaint of not feeling well. Patient blood sugar was 37, amp of d50 given. Patient reports feeling better. Denies chest pain, palpitations, or SOB. Time Seen by Provider: 11/24/18 22:19 Chief Complaint (Nursing): Dizziness/Lightheaded History Per: Patient History/Exam Limitations: no limitations Onset/Duration Of Symptoms: Hrs Current Symptoms Are (Timing): Better Severity: Moderate Pain Scale Rating Of: 4 Recent travel outside of the [place]: No Past Medical History Reviewed: Historical Data, Nursing Documentation, Vital Signs Vital Signs: Last Vital Signs Temp 97.7 F 11/24/18 21:58 Pulse 90 11/24/18 21:58 Resp 20 11/24/18 21:58 BP 176/67 H 11/24/18 21:58 Pulse Ox 96 11/24/18 21:58 - Medical History PMH: Asthma, CHF, COPD, Diabetes, Gastritis, HTN, Hypercholesterolemia, Hypothyroidism Denies: Alzheimer's Disease, Anemia, Anxiety, Arthritis, Bipolar Disorder, Crohn's Disease, Dementia, Diverticulitis, Emphysema, Fractures, Gall Bladder Disease, HIV, Kidney Stones, Migraine, Mitral Valve Prolapse, Multiple Sclerosis, Osteoporosis, Pancreatitis, Parkinson's Disease, Peripheral Edema, Pneumonia, Pulmonary Embolism, Chronic Kidney Disease, Rheumatoid Arthritis, Seizures, Sickle Cell Disease, Sexually Transmitted Disease, Sleep Apnea, TIA Surgical History: Denies: CABG, Carotid Endarterectomy, Cholecystectomy, Coronary Stent, Pacemaker, Tonsillectomy - [facility] Procedures INFLUENZA VACCINATION (09/23/14) INJECT/INFUSE NEC (07/25/13) Family History: States: No Known Family Hx - Social History Hx Tobacco Use: No Hx Alcohol Use: No Hx Substance Use: No - Immunization History Hx Tetanus Toxoid Vaccination: No Hx Influenza Vaccination: No Hx Pneumococcal Vaccination: Yes (2017) Review Of Systems Constitutional: Negative for: Fever, Chills Eyes: Negative for: Vision Change Cardiovascular: Negative for: Chest Pain, Palpitations Respiratory: Negative for: Cough, Shortness of Breath Gastrointestinal: Negative for: Nausea, Vomiting Genitourinary: Negative for: Dysuria, Hematuria Skin: Negative for: Rash, Jaundice, Bruising Neurological: Negative for: Weakness, Numbness Physical Exam - Physical Exam Appears: Non-toxic Skin: Warm, Dry Head: Normacephalic Eye(s): bilateral: Normal Inspection Oral Mucosa: Moist Neck: Trachea Midline, Supple Chest: Symmetrical, No Tenderness Cardiovascular: Rhythm Regular Respiratory: No Rales, Rhonchi (Scattered), No Wheezing Gastrointestinal/Abdominal: Soft, No Tenderness Back: No CVA Tenderness Neurological/Psych: Oriented x3 ED Course And Treatment - Laboratory Results Result Diagrams: 11/24/18 22:42 11/25/18 00:25 ECG: Interpreted By Me, Viewed By Me ECG Rhythm: Sinus Rhythm (78), Nonspecific Changes O2 Sat by Pulse Oximetry: 96 (Room air) Pulse Ox Interpretation: Normal - Radiology CXR: Interpreted by Me, Viewed By Me Progress Note: Blood work, EKG, CXR, and urinalysis ordered. D50 administered. Spoke with Dr. Nieves at 12:50AM, will come evaluate patient. Critical Care Time - Critical Care Note Total Time (in mins): 30 Documented critical care: time excludes all time spent performing seperately billable procedures. Disposition Discussed With : Blanco Wang Comment: accepted the pt on his service and took over the care at Counseled Patient/Family Regarding: Studies Performed, Diagnosis - Disposition Disposition: HOSPITALIZED Disposition Time: 22:20 Condition: CRITICAL Forms: [facility] (Azeri) - Clinical Impression Clinical Impression: DM (diabetes mellitus), type 2, uncontrolled - Scribe Statement The provider has reviewed the documentation as recorded by the Scribdiana Dye All medical record entries made by the Scribe were at my direction and personally dictated by me. I have reviewed the chart and agree that the record accurately reflects my personal performance of the history, physical exam, medical decision making, and the department course for this patient. I have also personally directed, reviewed, and agree with the discharge instructions and disposition. Decision To Admit - Pt Status Changed To: Hospital Disposition Of: Inpatient - Admit Certification Admit to Inpatient:: After my assessment, the patient will require hospitalization for at least two midnights. This is because of the severity of symptoms shown, intensity of services needed, and/or the medical risk in this patient being treated as an outpatient. - InPatient: Physician Admission Certification: I certify that this patient requires 2 or more midnights of care for the following reason:: After my assessment, the patient will require hospitalization for at least two midnights. This is because of the severity of symptoms shown, intensity of services needed, and/or the medical risk in this patient being treated as an outpatient. - . Bed Request Type: Telemetry Admitting Physician: Blanco Wang Patient Diagnosis: DM (diabetes mellitus), type 2, uncontrolled
[2018-11-24 22:41] LABS: VENOUS BLOOD GAS BASE EXCESS -7.8 mmol/L (0.0-2.0); VENOUS BLOOD GAS PCO2 49 mmHg (40-60); VENOUS BLOOD GAS PO2 32 mm/Hg (30-55); VENOUS BLOOD PH 7.22 (7.32-7.43)
[2018-11-24 22:48] LABS: BASO # 0.1 K/uL (0.0-0.2); EOS # 0.1 K/uL (0.0-0.7); MONO # 0.9 K/uL (0.0-0.8); NEUT # 6.7 K/uL (1.8-7.0); NRBC % 0.1 % (0.0-2.0); WHITE BLOOD COUNT 10.8 K/uL (4.8-10.8)
[2018-11-24 22:53] LABS: BASO % 0.9 % (0.0-2.0); LYMPH # 2.9 K/uL (1.0-4.3); MEAN CORPUSCULAR HEMOGLOBIN 23.1 pg (27.0-31.0); MEAN CORPUSCULAR HGB CONC 30.4 g/dL (33.0-37.0); MEAN PLATELET VOLUME 8.5 fL (7.2-11.7); MONO % 8.7 % (0.0-10.0); NEUT % 62.4 % (50.0-75.0); RBC 3.11 Mil/uL (3.80-5.20); RED CELL DISTRIBUTION WIDTH 18.1 % (11.5-14.5)
[2018-11-24 23:01] LABS: HEMOGLOBIN 7.2 g/dL (11.0-16.0)
[2018-11-25 00:06] LABS: ALB/GLOB RATIO 1.1 (1.0-2.1); ALBUMIN 3.7 g/dL (3.5-5.0); ALT/SGPT < 6 U/L (9-52); AST/SGOT 50 U/L (14-36); BLOOD UREA NITROGEN 78 mg/dL (7-17); CALCIUM 8.4 mg/dl (8.6-10.4); GFR NON-AFRICAN AMERICAN 5
[2018-11-25] MEDS ORDERED: Dextrose 50% SYRINGE Inj (50 ml) IV STA ×4 (00:09→12:19)
[2018-11-25] MEDS ORDERED: Dextrose 50% SYRINGE Inj (50 ml) ONE (00:21)
[2018-11-25] MEDS ORDERED: Calcium Gluconate 4.65 MEQ in Dextrose 5% In Water 100 ML IVPB ONE (00:42)
[2018-11-25 00:43] LABS: CALCIUM 8.5 mg/dl (8.6-10.4)
[2018-11-25] MEDS ORDERED: Sodium Chloride 0.9% 1,000 ML IV ONE (00:46)
[2018-11-25] MEDS ORDERED: Sod Polystyrene Sulf 15 gm/60 ml Susp ONE (00:51)
--- NOTE | 2018-11-25 01:31 | CP.PCM.CON ---
History of Present Illness - History of Present Illness History of Present Illness: 88 y/o female with PMH of Asthma, CHF, Diabetes, Gastritis, HTN, Hypercholesterolemia, Hypothyroidism brought in by EMS for a complaint of not feeling well and dizziness. Patient blood sugar was 37, amp of d50 given. Patient reports feeling better. Denies chest pain, palpitations, or SOB. patient has been dizzy since saturday .the daughter checked her sugar yesterday(saturday) in the afternoon was low,improved with food,but became low again in the evening and was brought to ER. today In Er her BUN /Cr was 78/7.5 with potassium of 6.9.Her BUN/Cr 01/31/18 was 31/1.5 history from patient and her daughter Review of Systems - Constitutional Constitutional: Fatigue. absent: Chills, Fever - EENT Eyes: absent: Diplopia Ears: Dizziness. absent: Decreased Hearing Nose/Mouth/Throat: absent: Nasal Congestion, Sore Throat - Cardiovascular Cardiovascular: absent: Chest Pain, Leg Edema, Leg Ulcers - Respiratory Respiratory: absent: Cough, Dyspnea - Gastrointestinal Gastrointestinal: absent: Abdominal Pain, Vomiting - Genitourinary Genitourinary: absent: Dysuria - Musculoskeletal Additional comments: walks with walker - Neurological Neurological: Dizziness - Endocrine Endocrine: absent: Polyuria - Hematologic/Lymphatic Hematologic: absent: Easy Bleeding Past Patient History - Infectious Disease Hx of Infectious Diseases: None - Tetanus Immunizations Tetanus Immunization: Unknown - Past Medical History & Family History Past Medical History?: Yes - Past Social History Smoking Status: Never Smoked Cigar Use: No Alcohol: None Drugs: Denies Home Situation {Lives}: Alone (lives in senior citizen housing) - CARDIAC Hx Congestive Heart Failure: Yes Hx Hypercholesterolemia: Yes Hx Hypertension: Yes Hx Mitral Valve Prolapse: No Hx Pacemaker: No Hx Peripheral Edema: No - PULMONARY Hx Asthma: Yes Hx Chronic Obstructive Pulmonary Disease (COPD): Yes Hx Emphysema: No Hx Pneumonia: No Hx Pulmonary Embolism: No Hx Sleep Apnea: No - NEUROLOGICAL Hx Alzheimer's Disease: No Hx Dementia: No Hx Migraine: No Hx Multiple Sclerosis: No Hx Parkinson's Disease: No Hx Seizures: No Hx Transient Ischemic Attacks (TIA): No - HEENT Hx HEENT Problems: Yes Hx Blind: No Hx Cataracts: Yes Hx Deafness: No Hx Difficulty Chewing: No Hx Glaucoma: Yes Hx Macular Degeneration: No Other/Comment: cataract surgery 20 y ago - RENAL Hx Chronic Kidney Disease: No Hx Kidney Stones: No - ENDOCRINE/METABOLIC Hx Hypothyroidism: Yes - HEMATOLOGICAL/ONCOLOGICAL Hx Anemia: No Hx Human Immunodeficiency Virus (HIV): No Hx Sickle Cell Disease: No - INTEGUMENTARY Hx Dermatological Problems: No Hx Basil Cell: No - MUSCULOSKELETAL/RHEUMATOLOGICAL Hx Arthritis: No Hx Fractures: No Hx Osteoporosis: No Hx Rheumatoid Arthritis: No - GASTROINTESTINAL Hx Crohn's Disease: No Hx Diverticulitis: No Hx Gall Bladder Disease: No Hx Gastritis: Yes Hx Pancreatitis: No - GENITOURINARY/GYNECOLOGICAL Hx Sexually Transmitted Disorders: No - PSYCHIATRIC Hx Anxiety: No Hx Bipolar Disorder: No Hx Substance Use: No - SURGICAL HISTORY Hx Carotid Endarterectomy: No Hx Cholecystectomy: No Hx Coronary Artery Bypass Graft: No Hx Coronary Stent: No Hx Tonsillectomy: No - ANESTHESIA Hx Anesthesia: Yes Hx Anesthesia Reactions: No Hx Malignant Hyperthermia: No Meds Allergies/Adverse Reactions: Allergies Allergy/AdvReac Type Severity Reaction Status Date / Time lidocaine [From Lidoderm] AdvReac Unknown HALLUCINATI Verified 11/24/18 21:48 ONS - Medications Medications: Current Medications Sodium Chloride (Sodium Chloride 0.9%) 1,000 mls @ 1,000 mls/hr IV .Q1H ONE Stop: 11/25/18 01:45 Last Admin: 11/25/18 01:01 Dose: 1,000 mls/hr Physical Exam - Constitutional Appears: No Acute Distress - Head Exam Head Exam: ATRAUMATIC, NORMAL INSPECTION - Eye Exam Eye Exam: EOMI. absent: Conjunctival injection, Scleral icterus Pupil Exam: Irregular, NORMAL ACCOMODATION Additional comments: h/o cataract surgery - ENT Exam ENT Exam: Mucous Membranes Dry - Neck Exam Neck exam: Positive for: Normal Inspection - Respiratory Exam Respiratory Exam: Clear to Auscultation Bilateral - Cardiovascular Exam Cardiovascular Exam: REGULAR RHYTHM - GI/Abdominal Exam GI & Abdominal Exam: Normal Bowel Sounds, Soft. absent: Tenderness - Extremities Exam Extremities exam: Positive for: pedal pulses present - Back Exam Back exam: absent: CVA tenderness (L) - Neurological Exam Neurological exam: Alert, Oriented x3 - Skin Skin Exam: Dry Results - Vital Signs Recent Vital Signs: Last Vital Signs Temp 98.0 F 11/25/18 01:23 Pulse 82 11/25/18 01:23 Resp 16 11/25/18 01:23 BP 145/57 L 11/25/18 01:23 Pulse Ox 100 11/25/18 01:23 - Labs Result Diagrams: 11/24/18 22:42 11/25/18 00:25 Labs: Laboratory Results - last 24 hr 11/24/18 11/24/18 11/24/18 21:50 21:53 22:31 WBC RBC Hgb Hct MCV MCH MCHC RDW Plt Count MPV Neut % (Auto) Lymph % (Auto) Dixon % (Auto) Eos % (Auto) Baso % (Auto) Neut # (Auto) Lymph # (Auto) Dixon # (Auto) Eos # (Auto) Baso # (Auto) pO2 VBG pH VBG pCO2 VBG HCO3 VBG Total CO2 VBG O2 Sat (Calc) VBG Base Excess VBG Potassium Sodium Chloride Glucose Lactate Crit Value Called To Crit Value Called By Crit Value Read Back Blood Gas Notified Time Potassium Carbon Dioxide Anion Gap BUN Creatinine Est GFR ( Amer) Est GFR (Non-Af Amer) POC Glucose (mg/dL) 59 L 49 L 168 H Random Glucose Calcium Total Bilirubin AST ALT Alkaline Phosphatase Total Protein Albumin Globulin Albumin/Globulin Ratio Venous Blood Potassium 11/24/18 11/24/18 11/24/18 22:38 22:42 23:43 WBC 10.8 RBC 3.11 L Hgb 7.2 L D Hct 23.6 L MCV 76.0 L D MCH 23.1 L MCHC 30.4 L RDW 18.1 H Plt Count 435 H MPV 8.5 Neut % (Auto) 62.4 Lymph % (Auto) 27.0 Dixon % (Auto) 8.7 Eos % (Auto) 1.0 Baso % (Auto) 0.9 Neut # (Auto) 6.7 Lymph # (Auto) 2.9 Dixon # (Auto) 0.9 H Eos # (Auto) 0.1 Baso # (Auto) 0.1 pO2 32 VBG pH 7.22 L VBG pCO2 49 VBG HCO3 17.5 VBG Total CO2 21.6 L VBG O2 Sat (Calc) 59.4 VBG Base Excess -7.8 L VBG Potassium 9.1 H* Sodium 135.0 135 Chloride 109.0 H 105 Glucose 31 L* D Lactate 2.7 H Crit Value Called To Celso pigs feet cleaner Crit Value Called By Stefanie Crit Value Read Back Y Blood Gas Notified Time 224 Potassium 7.8 H* D Carbon Dioxide 18 L Anion Gap 20 BUN 78 H Creatinine 7.5 H* D Est GFR ( Amer) 6 Est GFR (Non-Af Amer) 5 POC Glucose (mg/dL) Random Glucose 26 L* D Calcium 8.4 L Total Bilirubin 0.6 AST 50 H D ALT < 6 L D Alkaline Phosphatase 40 Total Protein 7.0 Albumin 3.7 Globulin 3.4 Albumin/Globulin Ratio 1.1 Venous Blood Potassium 9.1 H* 11/25/18 11/25/18 00:16 00:25 WBC RBC Hgb Hct MCV MCH MCHC RDW Plt Count MPV Neut % (Auto) Lymph % (Auto) Dixon % (Auto) Eos % (Auto) Baso % (Auto) Neut # (Auto) Lymph # (Auto) Dixon # (Auto) Eos # (Auto) Baso # (Auto) pO2 VBG pH VBG pCO2 VBG HCO3 VBG Total CO2 VBG O2 Sat (Calc) VBG Base Excess VBG Potassium Sodium 135 Chloride 105 Glucose Lactate Crit Value Called To Crit Value Called By Crit Value Read Back Blood Gas Notified Time Potassium 6.9 H* Carbon Dioxide 19 L Anion Gap 17 BUN 76 H Creatinine 7.6 H* Est GFR ( Amer) 6 Est GFR (Non-Af Amer) 5 POC Glucose (mg/dL) 75 Random Glucose 61 L D Calcium 8.5 L Total Bilirubin AST ALT Alkaline Phosphatase Total Protein Albumin Globulin Albumin/Globulin Ratio Venous Blood Potassium - EKG Data EKG Interpreted by: Myself - Imaging and Cardiology Chest x-ray Status: Image reviewed by me Assessment & Plan - Assessment and Plan (Free Text) Assessment: 1.Hypoglycemia IVF,monitor finger stick hold diabetic meds 2.Acute on Chronic renal failure IV hydration f/u labs 3.Hyperkalemia recieved meds in ER,rpt potassium 4.Anemia iron,B12,folate level stool occult blood 5.Asthma bronchodilators pRN 6.HTN/CHF/hyperlipidemia f/u BP and continue BP meds 7.Hypothyroidism TSH level 8.s/p cataract sx
[2018-11-25 02:29] LABS: IRON 38 ug/dL (37-170)
[2018-11-25 02:31] LABS: BLOOD UREA NITROGEN 75 mg/dL (7-17); CALCIUM 10.8 mg/dl (8.6-10.4); GFR NON-AFRICAN AMERICAN 5
[2018-11-25 02:37] LABS: TOTAL IRON BINDING CAPACITY 425 ug/dL (250-450)
[2018-11-25 02:39] LABS: % IRON SATURATION 9 (20-55)
[2018-11-25] MEDS ORDERED: (Novolin R) Insulin Human Regular 100 units/ml vial IVP ONE ×3 (03:27→13:30)
[2018-11-25 03:34] LABS: FOLATE > 20.0 ng/mL
[2018-11-25] MEDS: Sodium Bicarbonate 8.4% 150 MEQ in Dextrose 5% In Water 1,000 ML IV SCH ×2 (04:00→18:50)
[2018-11-25 06:52] LABS: SQUAMOUS EPITHIAL 5 /hpf (0-5); URINE BACTERIA FEW (<OCC); URINE BILIRUBIN NEGATIVE (NEGATIVE); URINE BLOOD NEGATIVE (NEGATIVE); URINE CLARITY Hazy (Clear); URINE COLOR Yellow (YELLOW); URINE GLUCOSE (UA) NORMAL (Normal); URINE LEUKOCYTE ESTERASE 3+ Leu/uL (Negative); URINE PROTEIN 2+ mg/dL (NEGATIVE); URINE UROBILINOGEN NORMAL mg/dL (0.2-1.0)
[2018-11-25] MEDS: Levothyroxine 50 MCG TAB PO SCH (07:00)
[2018-11-25 08:00] LABS: EOS # 0.1 K/uL (0.0-0.7); MEAN CELL VOLUME 75.1 fL (81.0-99.0); MEAN CORPUSCULAR HGB CONC 30.6 g/dL (33.0-37.0); RBC 2.86 Mil/uL (3.80-5.20)
[2018-11-25 08:10] LABS: BASO % 0.3 % (0.0-2.0); EOS % 0.7 % (0.0-4.0); LYMPH % 11.9 % (20.0-40.0); MONO % 9.5 % (0.0-10.0); NEUT % 77.6 % (50.0-75.0); WHITE BLOOD COUNT 11.2 K/uL (4.8-10.8)
[2018-11-25 08:11] LABS: HEMOGLOBIN 6.6 g/dL (11.0-16.0); LYMPH # 1.3 K/uL (1.0-4.3); MONO # 1.1 K/uL (0.0-0.8); NEUT # 8.7 K/uL (1.8-7.0); NRBC % 0.1 % (0.0-2.0)
[2018-11-25 08:49] LABS: ALB/GLOB RATIO 1.1 (1.0-2.1); ALBUMIN 3.2 g/dL (3.5-5.0); CALCIUM 8.4 mg/dl (8.6-10.4)
--- NOTE | 2018-11-25 10:17 | CP.PCM.CON ---
History of Present Illness - History of Present Illness History of Present Illness: Patient brought in by EMS for a complaint of not feeling well. Patient blood sugar was 37, amp of d50 given. Patient reports feeling better. Admitted to ICU for renal failure Referred for ID eval - r/o sepsis Cultures sent and are pending - Medical History PMH: Asthma, CHF, COPD, Diabetes, Gastritis, HTN, Hypercholesterolemia, Hypothyroidism Denies: Alzheimer's Disease, Anemia, Anxiety, Arthritis, Bipolar Disorder, Crohn's Disease, Dementia, Diverticulitis, Emphysema, Fractures, Gall Bladder Disease, HIV, Kidney Stones, Migraine, Mitral Valve Prolapse, Multiple Sclerosis, Osteoporosis, Pancreatitis, Parkinson's Disease, Peripheral Edema, Pneumonia, Pulmonary Embolism, Chronic Kidney Disease, Rheumatoid Arthritis, Seizures, Sickle Cell Disease, Sexually Transmitted Disease, Sleep Apnea, TIA Surgical History: Denies: CABG, Carotid Endarterectomy, Cholecystectomy, Coronary Stent, Pacemaker, Tonsillectomy - [facility] Procedures INFLUENZA VACCINATION (09/23/14) INJECT/INFUSE NEC (07/25/13) Review of Systems - Review of Systems Systems not reviewed;Unavailable: Language Barrier - Constitutional Constitutional: As Per HPI, Anorexia, Malaise - EENT Eyes: absent: As Per HPI, Blind Spots, Blurred Vision, Change in Vision, Decreased Night Vision, Diplopia, Discharge, Dry Eye, Exophthalmos, Floaters, Irritation, Itchy Eyes, Loss of Peripheral Vision, Pain, Photophobia, Requires Corrective Lenses, Sees Flashes, Spots in Vision, Tunnel Vision, Other Visual Disturbances, Loss of Vision, Other Ears: absent: As Per HPI, Decreased Hearing, Ear Discharge, Ear Pain, Tinnitus, Abnormal Hearing, Disequilibrium, Dizziness, Other Nose/Mouth/Throat: absent: As Per HPI, Epistaxis, Nasal Congestion, Nasal Discharge, Nasal Obstruction, Nasal Trauma, Nose Pain, Post Nasal Drip, Sinus Pain, Sinus Pressure, Bleeding Gums, Change in Voice, Dental Pain, Dry Mouth, Dysphagia, Halitosis, Hoarsness, Lip Swelling, Mouth Lesions, Mouth Pain, Odynophagia, Sore Throat, Throat Swelling, Tongue Swelling, Facial Pain, Neck Pain, Neck Mass, Other - Breasts Breasts: absent: As Per HPI, Change in Shape, Mass, Pain, Nipple Discharge, Nipple Inversion, Skin Changes, Swelling, Other - Cardiovascular Cardiovascular: As Per HPI - Respiratory Respiratory: absent: As Per HPI, Cough, Dyspnea, Hemoptysis, Dyspnea on Exertion, Wheezing, Snoring, Stridor, Pain on Inspiration, Chest Congestion, Excessive Mucous Production, Change in Mucous Color, Pain with Coughing, Other - Gastrointestinal Gastrointestinal: absent: As Per HPI, Abdominal Pain, Belching, Bloating, Change in Bowel Habits, Change in Stool Character, Coffee Ground Emesis, Constipation, Cramping, Diarrhea, Dyspepsia, Dysphagia, Early Satiety, Excessive Flatus, Fecal Incontinence, Heartburn, Hematemesis, Hematochezia, Loose Stools, Melena, Nausea, Odynophagia, Temesmus, Vomiting, Other - Genitourinary Genitourinary: absent: As Per HPI, Change in Urinary Stream, Difficulty Urinating, Dysuria, Flank Pain, Hematuria, Pyuria, Nocturia, Urinary Incontinence, Urinary Frequency, Urinary Hesitance, Urinary Urgency, Voiding Freq/Small Amts, Freq UTI, Hx Renal/Bladder Calculi, Hx /Renal Surgery, Bladder Distension, Other - Reproductive: Female Reproductive:Female: absent: As Per HPI, Amenorrhea, Amenorrhea/ Control, Currently Menstual, Cycle <21 Days, Cycle >35 Days, Cycle Variable, Menses 1-7 Days, Menses >/= 8 Days, Menses Variable, Cycle > 4 Weeks Between, No Menses for 6 Months, Heavy Menses, Light Menses, Normal Menses, Spotting Between Cycles, S/P Hysterectomy, Menopausal, Post Menopausal, Premenarche, Abnormal Vaginal Bleeding, Dysmenorrhea, Dyspareunia, Genital Lesions, Genital Pruritis, Pelvic Pain, Prolapse Symptoms, Sexual Dysfunction, Vaginal Discharge, Vaginal Dryness, Vaginal Odor, Vaginal Pruritis, Other - Menstruation Menstruation: absent: As Per HPI, Amenorrhea, Amenorrhea/ Control, Currently Menstual, Cycle <21 Days, Cycle >35 Days, Cycle Variable, Menses 1-7 Days, Menses >/= 8 Days, Menses Variable, Cycle > 4 Weeks Between, No Menses for 6 Months, Heavy Menses, Light Menses, Normal Menses, Spotting Between Cycles, S/P Hysterectomy, Menopausal, Post Menopausal, Premenarche, Abnormal Vaginal Bleeding, Dysmenorrhea, Other - Musculoskeletal Musculoskeletal: absent: As Per HPI, Abnormal Gait, Arthralgias, Atrophy, Back Pain, Deformity, Joint Swelling, Limited Range of Motion, Loss of Height, Muscle Cramps, Muscle Weakness, Myalgias, Neck Pain, Numbness, Radiating Pain into Limb, Stiffness, Tingling, Other - Integumentary Integumentary: absent: As Per HPI, Acne, Alopecia, Bleeding Lesions, Change in Hair, Change in Nails, Change in Pigmentation, Changing Lesions, Dry Skin, Eryth javier, Furuncle, Hirsutism, Lesions, New Lesions, Non-Healing Lesions, Photosensitivity, Pruritus, Rash, Skin Pain, Skin Ulcer, Sores, Striae, Swelling, Unusual Bruising, Wounds, Jaundice, Other - Neurological Neurological: absent: As Per HPI, Abnormal Gait, Abnormal Hearing, Abnormal Movements, Abnormal Speech, Behavioral Changes, Burning Sensations, Confusion, Convulsions, Disequilibrium, Dizziness, Numbness, Focal Weakness, Frequent Falls, Headaches, Lack of Coordination, Loss of Vision, Memory Loss, Paresthesias, Radicular Pain, Restless Legs, Sensory Deficit, Syncope, Tingling, Tremor, Vertigo, Weakness, Other Visual Disturbances, Other - Psychiatric Psychiatric: absent: As Per HPI, Abnormal Sleep Pattern, Anhedonia, Anxiety, Auditory Hallucinations, Behavioral Changes, Change in Appetite, Change in Libido, Confusion, Depression, Difficulty Concentrating, Hallucinations, Homicidal Ideation, Hopelessness, Irritability, Memory Loss, Mood Swings, Panic Attacks, Paranoia, Suicidal Ideation, Visual Hallucinations, Tactile Hallucinations, Other - Endocrine Endocrine: absent: As Per HPI, Change in Body Appearance, Change in Libido, Cold Intolorance, Deepening of Voice, Excessive Sweating, Fatigue, Flushing, Heat Intolorance, Increase in Ring/Shoe/Hat Size, Palpitations, Polydipsia, Polyphagia, Polyuria, Other - Hematologic/Lymphatic Hematologic: absent: As Per HPI, Easy Bleeding, Easy Bruising, Lymphadenopathy, Other Past Patient History - Infectious Disease Hx of Infectious Diseases: None - Tetanus Immunizations Tetanus Immunization: Unknown - Past Medical History & Family History Past Medical History?: Yes - Past Social History Smoking Status: Former Smoker - CARDIAC Hx Cardiac Disorders: Yes Hx Congestive Heart Failure: Yes Hx Hypercholesterolemia: Yes Hx Hypertension: Yes Hx Mitral Valve Prolapse: No Hx Pacemaker: No Hx Peripheral Edema: No - PULMONARY Hx Respiratory Disorders: Yes Hx Asthma: Yes Hx Chronic Obstructive Pulmonary Disease (COPD): Yes Hx Emphysema: No Hx Pneumonia: No Hx Pulmonary Embolism: No Hx Sleep Apnea: No - NEUROLOGICAL Hx Neurological Disorder: No Hx Alzheimer's Disease: No Hx Dementia: No Hx Migraine: No Hx Multiple Sclerosis: No Hx Parkinson's Disease: No Hx Seizures: No Hx Transient Ischemic Attacks (TIA): No - HEENT Hx HEENT Problems: Yes Hx Blind: No Hx Cataracts: Yes Hx Deafness: No Hx Difficulty Chewing: No Hx Glaucoma: Yes Hx Macular Degeneration: No Other/Comment: cataract surgery 20 y ago - RENAL Hx Chronic Kidney Disease: No Hx Kidney Stones: No - ENDOCRINE/METABOLIC Hx Endocrine Disorders: Yes Hx Diabetes Mellitus Type 2: Yes Hx Hypothyroidism: Yes - HEMATOLOGICAL/ONCOLOGICAL Hx Blood Disorders: No - INTEGUMENTARY Hx Dermatological Problems: No Hx Basil Cell: No - MUSCULOSKELETAL/RHEUMATOLOGICAL Hx Musculoskeletal Disorders: No Hx Falls: No - GASTROINTESTINAL Hx Gastrointestinal Disorders: Yes Hx Gastritis: Yes - GENITOURINARY/GYNECOLOGICAL Hx Genitourinary Disorders: Yes Hx Incontinence: Yes - PSYCHIATRIC Hx Psychophysiologic Disorder: No Hx Substance Use: No - SURGICAL HISTORY Hx Surgeries: Yes Hx Cataract Extraction: Yes (20 yrs ago) - ANESTHESIA Hx Anesthesia: Yes Hx Anesthesia Reactions: No Hx Malignant Hyperthermia: No Has any member of the family had a problem w/ anesthesia?: No Meds Allergies/Adverse Reactions: Allergies Allergy/AdvReac Type Severity Reaction Status Date / Time No Known Allergies Allergy Verified 11/25/18 07:06 - Medications Medications: Current Medications Albuterol Sulfate (Albuterol 0.042% Inhal Hafsa (1.25mg/3ml) Ud) 1.25 mg INH RQ1 RAJEEV Stop: 11/25/18 12:01 Famotidine (Pepcid) 20 mg PO DAILY RAJEEV Last Admin: 11/25/18 10:03 Dose: 20 mg Heparin Sodium (Porcine) (Heparin) 5,000 units SC Q8 RAJEEV Last Admin: 11/25/18 05:25 Dose: 5,000 units Sodium Bicarbonate 150 meq/ (Dextrose) 1,150 mls @ 80 mls/hr IV .[id number] RAJEEV Last Admin: 11/25/18 04:00 Dose: 80 mls/hr Ceftriaxone Sodium 1 gm/ (Sodium Chloride) 100 mls @ 100 mls/hr IVPB DAILY RAJEEV; Protocol Dextrose/Sodium Chloride (Dextrose 5%-0.9% Ns 500 Ml) 500 mls @ 500 mls/hr IV .Q1H ONE Stop: 11/25/18 10:20 Last Admin: 11/25/18 10:03 Dose: 500 mls/hr Levothyroxine Sodium (Synthroid) 50 mcg PO DAILY@0630 RAJEEV Last Admin: 11/25/18 07:00 Dose: 50 mcg Physical Exam - Constitutional Appears: No Acute Distress, Cachectic, Chronically Ill - Head Exam Head Exam: ATRAUMATIC, NORMAL INSPECTION, NORMOCEPHALIC - Eye Exam Eye Exam: EOMI, Normal appearance, PERRL Pupil Exam: NORMAL ACCOMODATION, PERRL - ENT Exam ENT Exam: Mucous Membranes Moist, Normal Exam - Neck Exam Neck exam: Positive for: Normal Inspection - Respiratory Exam Respiratory Exam: Clear to Auscultation Bilateral, NORMAL BREATHING PATTERN - Cardiovascular Exam Cardiovascular Exam: REGULAR RHYTHM - GI/Abdominal Exam GI & Abdominal Exam: Normal Bowel Sounds, Soft. absent: Tenderness - Rectal Exam Rectal Exam: NORMAL INSPECTION - Exam Exam: NORMAL INSPECTION - Extremities Exam Extremities exam: Positive for: normal inspection - Back Exam Back exam: NORMAL INSPECTION - Neurological Exam Neurological exam: Alert, CN II-XII Intact, Normal Gait, Oriented x3, Reflexes Normal - Psychiatric Exam Psychiatric exam: Normal Affect, Normal Mood - Skin Skin Exam: Dry, Intact, Normal Color, Warm Results - Vital Signs Recent Vital Signs: Last Vital Signs Temp 97.5 F L 11/25/18 08:00 Pulse 79 11/25/18 09:00 Resp 16 11/25/18 09:00 BP 124/53 L 11/25/18 09:01 Pulse Ox 100 11/25/18 09:00 - Labs Result Diagrams: 11/25/18 07:53 11/25/18 07:53 Labs: Laboratory Results - last 24 hr 11/24/18 11/24/18 11/24/18 21:50 21:53 22:31 WBC RBC Hgb Hct MCV MCH MCHC RDW Plt Count MPV Neut % (Auto) Lymph % (Auto) Sharkey % (Auto) Eos % (Auto) Baso % (Auto) Neut # (Auto) Lymph # (Auto) Sharkey # (Auto) Eos # (Auto) Baso # (Auto) pO2 VBG pH VBG pCO2 VBG HCO3 VBG Total CO2 VBG O2 Sat (Calc) VBG Base Excess VBG Potassium Sodium Chloride Glucose Lactate Crit Value Called To Crit Value Called By Crit Value Read Back Blood Gas Notified Time Potassium Carbon Dioxide Anion Gap BUN Creatinine Est GFR ( Amer) Est GFR (Non-Af Amer) POC Glucose (mg/dL) 59 L 49 L 168 H Random Glucose Calcium Phosphorus Magnesium Iron TIBC % Saturation Total Bilirubin AST ALT Alkaline Phosphatase Total Protein Albumin Globulin Albumin/Globulin Ratio Vitamin B12 Folate TSH 3rd Generation Venous Blood Potassium Urine Color Urine Clarity Urine pH Ur Specific [place] Urine Protein Urine Glucose (UA) Urine Ketones Urine Blood Urine Nitrate Urine Bilirubin Urine Urobilinogen Ur Leukocyte Esterase Urine WBC (Auto) Urine RBC (Auto) Ur Squamous Epith Cells Urine Bacteria Blood Type Antibody Screen 11/24/18 11/24/18 11/24/18 22:38 22:42 23:43 WBC 10.8 RBC 3.11 L Hgb 7.2 L D Hct 23.6 L MCV 76.0 L D MCH 23.1 L MCHC 30.4 L RDW 18.1 H Plt Count 435 H MPV 8.5 Neut % (Auto) 62.4 Lymph % (Auto) 27.0 Sharkey % (Auto) 8.7 Eos % (Auto) 1.0 Baso % (Auto) 0.9 Neut # (Auto) 6.7 Lymph # (Auto) 2.9 Sharkey # (Auto) 0.9 H Eos # (Auto) 0.1 Baso # (Auto) 0.1 pO2 32 VBG pH 7.22 L VBG pCO2 49 VBG HCO3 17.5 VBG Total CO2 21.6 L VBG O2 Sat (Calc) 59.4 VBG Base Excess -7.8 L VBG Potassium 9.1 H* Sodium 135.0 135 Chloride 109.0 H 105 Glucose 31 L* D Lactate 2.7 H Crit Value Called To Celso yost rn Crit Value Called By Stefanie Crit Value Read Back Y Blood Gas Notified Time 2241 Potassium 7.8 H* D Carbon Dioxide 18 L Anion Gap 20 BUN 78 H Creatinine 7.5 H* D Est GFR ( Amer) 6 Est GFR (Non-Af Amer) 5 POC Glucose (mg/dL) Random Glucose 26 L* D Calcium 8.4 L Phosphorus Magnesium Iron TIBC % Saturation Total Bilirubin 0.6 AST 50 H D ALT < 6 L D Alkaline Phosphatase 40 Total Protein 7.0 Albumin 3.7 Globulin 3.4 Albumin/Globulin Ratio 1.1 Vitamin B12 Folate TSH 3rd Generation Venous Blood Potassium 9.1 H* Urine Color Urine Clarity Urine pH Ur Specific [place] Urine Protein Urine Glucose (UA) Urine Ketones Urine Blood Urine Nitrate Urine Bilirubin Urine Urobilinogen Ur Leukocyte Esterase Urine WBC (Auto) Urine RBC (Auto) Ur Squamous Epith Cells Urine Bacteria Blood Type Antibody Screen 11/25/18 11/25/18 11/25/18 00:16 00:25 01:50 WBC RBC Hgb Hct MCV MCH MCHC RDW Plt Count MPV Neut % (Auto) Lymph % (Auto) Sharkey % (Auto) Eos % (Auto) Baso % (Auto) Neut # (Auto) Lymph # (Auto) Sharkey # (Auto) Eos # (Auto) Baso # (Auto) pO2 VBG pH VBG pCO2 VBG HCO3 VBG Total CO2 VBG O2 Sat (Calc) VBG Base Excess VBG Potassium Sodium 135 Chloride 105 Glucose Lactate Crit Value Called To Crit Value Called By Crit Value Read Back Blood Gas Notified Time Potassium 6.9 H* Carbon Dioxide 19 L Anion Gap 17 BUN 76 H Creatinine 7.6 H* Est GFR ( Amer) 6 Est GFR (Non-Af Amer) 5 POC Glucose (mg/dL) 75 Random Glucose 61 L D Calcium 8.5 L Phosphorus Magnesium Iron TIBC % Saturation Total Bilirubin AST ALT Alkaline Phosphatase Total Protein Albumin Globulin Albumin/Globulin Ratio Vitamin B12 Folate TSH 3rd Generation Venous Blood Potassium Urine Color Urine Clarity Urine pH Ur Specific [place] Urine Protein Urine Glucose (UA) Urine Ketones Urine Blood Urine Nitrate Urine Bilirubin Urine Urobilinogen Ur Leukocyte Esterase Urine WBC (Auto) Urine RBC (Auto) Ur Squamous Epith Cells Urine Bacteria Blood Type B POSITIVE Antibody Screen Negative 11/25/18 11/25/18 11/25/18 02:03 02:03 05:04 WBC RBC Hgb Hct MCV MCH MCHC RDW Plt Count MPV Neut % (Auto) Lymph % (Auto) Sharkey % (Auto) Eos % (Auto) Baso % (Auto) Neut # (Auto) Lymph # (Auto) Sharkey # (Auto) Eos # (Auto) Baso # (Auto) pO2 VBG pH VBG pCO2 VBG HCO3 VBG Total CO2 VBG O2 Sat (Calc) VBG Base Excess VBG Potassium Sodium 132 Chloride 105 Glucose Lactate Crit Value Called To Crit Value Called By Crit Value Read Back Blood Gas Notified Time Potassium 6.7 H* Carbon Dioxide 19 L Anion Gap 15 BUN 75 H Creatinine 7.3 H Est GFR ( Amer) 6 Est GFR (Non-Af Amer) 5 POC Glucose (mg/dL) 46 L Random Glucose 197 H D Calcium 10.8 H Phosphorus 7.9 H Magnesium 2.0 Iron 38 TIBC 425 % Saturation 9 L Total Bilirubin AST ALT Alkaline Phosphatase Total Protein Albumin Globulin Albumin/Globulin Ratio Vitamin B12 223 L Folate > 20.0 TSH 3rd Generation 1.09 Venous Blood Potassium Urine Color Urine Clarity Urine pH Ur Specific [place] Urine Protein Urine Glucose (UA) Urine Ketones Urine Blood Urine Nitrate Urine Bilirubin Urine Urobilinogen Ur Leukocyte Esterase Urine WBC (Auto) Urine RBC (Auto) Ur Squamous Epith Cells Urine Bacteria Blood Type Antibody Screen 11/25/18 11/25/18 11/25/18 05:06 05:42 06:43 WBC RBC Hgb Hct MCV MCH MCHC RDW Plt Count MPV Neut % (Auto) Lymph % (Auto) Sharkey % (Auto) Eos % (Auto) Baso % (Auto) Neut # (Auto) Lymph # (Auto) Sharkey # (Auto) Eos # (Auto) Baso # (Auto) pO2 VBG pH VBG pCO2 VBG HCO3 VBG Total CO2 VBG O2 Sat (Calc) VBG Base Excess VBG Potassium Sodium Chloride Glucose Lactate Crit Value Called To Crit Value Called By Crit Value Read Back Blood Gas Notified Time Potassium Carbon Dioxide Anion Gap BUN Creatinine Est GFR ( Amer) Est GFR (Non-Af Amer) POC Glucose (mg/dL) 50 L 165 H Random Glucose Calcium Phosphorus Magnesium Iron TIBC % Saturation Total Bilirubin AST ALT Alkaline Phosphatase Total Protein Albumin Globulin Albumin/Globulin Ratio Vitamin B12 Folate TSH 3rd Generation Venous Blood Potassium Urine Color Yellow Urine Clarity Hazy Urine pH 5.0 Ur Specific [place] 1.010 Urine Protein 2+ H Urine Glucose (UA) Normal Urine Ketones Negative Urine Blood Negative Urine Nitrate Negative Urine Bilirubin Negative Urine Urobilinogen Normal Ur Leukocyte Esterase 3+ H Urine WBC (Auto) 82 H Urine RBC (Auto) 5 H Ur Squamous Epith Cells 5 Urine Bacteria Few H Blood Type Antibody Screen 11/25/18 11/25/18 11/25/18 07:11 07:13 07:53 WBC 11.2 H RBC 2.86 L Hgb 6.6 L Hct 21.5 L MCV 75.1 L MCH 23.0 L MCHC 30.6 L RDW 18.0 H Plt Count 335 D MPV 8.0 Neut % (Auto) 77.6 H Lymph % (Auto) 11.9 L Sharkey % (Auto) 9.5 Eos % (Auto) 0.7 Baso % (Auto) 0.3 Neut # (Auto) 8.7 H Lymph # (Auto) 1.3 Sharkey # (Auto) 1.1 H Eos # (Auto) 0.1 Baso # (Auto) 0.0 pO2 VBG pH VBG pCO2 VBG HCO3 VBG Total CO2 VBG O2 Sat (Calc) VBG Base Excess VBG Potassium Sodium Chloride Glucose Lactate Crit Value Called To Crit Value Called By Crit Value Read Back Blood Gas Notified Time Potassium Carbon Dioxide Anion Gap BUN Creatinine Est GFR ( Amer) Est GFR (Non-Af Amer) POC Glucose (mg/dL) 61 L 50 L Random Glucose Calcium Phosphorus Magnesium Iron TIBC % Saturation Total Bilirubin AST ALT Alkaline Phosphatase Total Protein Albumin Globulin Albumin/Globulin Ratio Vitamin B12 Folate TSH 3rd Generation Venous Blood Potassium Urine Color Urine Clarity Urine pH Ur Specific [place] Urine Protein Urine Glucose (UA) Urine Ketones Urine Blood Urine Nitrate Urine Bilirubin Urine Urobilinogen Ur Leukocyte Esterase Urine WBC (Auto) Urine RBC (Auto) Ur Squamous Epith Cells Urine Bacteria Blood Type Antibody Screen 11/25/18 11/25/18 07:53 08:42 WBC RBC Hgb Hct MCV MCH MCHC RDW Plt Count MPV Neut % (Auto) Lymph % (Auto) Sharkey % (Auto) Eos % (Auto) Baso % (Auto) Neut # (Auto) Lymph # (Auto) Sharkey # (Auto) Eos # (Auto) Baso # (Auto) pO2 VBG pH VBG pCO2 VBG HCO3 VBG Total CO2 VBG O2 Sat (Calc) VBG Base Excess VBG Potassium Sodium 135 Chloride 107 Glucose Lactate Crit Value Called To Crit Value Called By Crit Value Read Back Blood Gas Notified Time Potassium 6.4 H* Carbon Dioxide 18 L Anion Gap 16 BUN 74 H Creatinine 7.8 H* Est GFR ( Amer) 6 Est GFR (Non-Af Amer) 5 POC Glucose (mg/dL) 77 Random Glucose 58 L D Calcium 8.4 L Phosphorus 7.7 H Magnesium 2.0 Iron TIBC % Saturation Total Bilirubin 0.2 AST 26 ALT 10 Alkaline Phosphatase 50 Total Protein 6.0 L Albumin 3.2 L Globulin 2.8 Albumin/Globulin Ratio 1.1 Vitamin B12 Folate TSH 3rd Generation Venous Blood Potassium Urine Color Urine Clarity Urine pH Ur Specific [place] Urine Protein Urine Glucose (UA) Urine Ketones Urine Blood Urine Nitrate Urine Bilirubin Urine Urobilinogen Ur Leukocyte Esterase Urine WBC (Auto) Urine RBC (Auto) Ur Squamous Epith Cells Urine Bacteria Blood Type Antibody Screen Assessment & Plan (1) Acute renal failure (ARF) Status: Acute (2) Dehydration Status: Acute (3) DM (diabetes mellitus), type 2, uncontrolled Status: Acute (4) COPD exacerbation Status: Acute (5) UTI (urinary tract infection) Status: Acute - Assessment and Plan (Free Text) Assessment: await cultures of blood and urine Iv antibiotics in progress
[2018-11-25] MEDS ORDERED: Sodium Bicarbonate (8.4%) 50 Meq Syringe IVP ONE (12:18)
[2018-11-25] MEDS ORDERED: Calcium Gluconate 4.65 mEq/10 ml Inj IVP ONE ×2 (12:21→13:30)
--- NOTE | 2018-11-25 12:47 | RAD ---
Date of service: 11/24/2018 PROCEDURE: CHEST RADIOGRAPH, 1 VIEW HISTORY: Diabetic COMPARISON: 02/01/2018 FINDINGS: LUNGS: Clear. PLEURA: Small left pleural effusion a new finding. CARDIOVASCULAR: Atherosclerotic calcifications identified primarily aortic arch. No radiographic findings to suggest acute or significant cardiovascular disease. OSSEOUS STRUCTURES: No significant abnormalities. VISUALIZED UPPER ABDOMEN: Normal. OTHER FINDINGS: None. IMPRESSION: Small left pleural effusion a new finding compared to the prior study. Otherwise no change.
--- NOTE | 2018-11-25 12:58 | CP.PCM.CON ---
History of Present Illness - History of Present Illness History of Present Illness: pt is seen and examined, full consult is dictated #[id number] 1. 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 hyperkalemia 3. met. acidosis 4. Anemia sec to fe deficiency, and b1 2deficiency d/w pt's son agreed for temporary hemodialysis will plan for danny , icu to place bunny cath c/w ivf with [id number] 150 meq/lit at 80 ml/hr f/u k+ level post hd transfuse 2 units prbc supplement b12, iv fe check stool for ob, check CEA, AFP, Ca19-9 Past Patient History - Infectious Disease Hx of Infectious Diseases: None - Tetanus Immunizations Tetanus Immunization: Unknown - Past Medical History & Family History Past Medical History?: Yes - Past Social History Smoking Status: Former Smoker - CARDIAC Hx Cardiac Disorders: Yes Hx Congestive Heart Failure: Yes Hx Hypercholesterolemia: Yes Hx Hypertension: Yes Hx Mitral Valve Prolapse: No Hx Pacemaker: No Hx Peripheral Edema: No - PULMONARY Hx Respiratory Disorders: Yes Hx Asthma: Yes Hx Chronic Obstructive Pulmonary Disease (COPD): Yes Hx Emphysema: No Hx Pneumonia: No Hx Pulmonary Embolism: No Hx Sleep Apnea: No - NEUROLOGICAL Hx Neurological Disorder: No Hx Alzheimer's Disease: No Hx Dementia: No Hx Migraine: No Hx Multiple Sclerosis: No Hx Parkinson's Disease: No Hx Seizures: No Hx Transient Ischemic Attacks (TIA): No - HEENT Hx HEENT Problems: Yes Hx Blind: No Hx Cataracts: Yes Hx Deafness: No Hx Difficulty Chewing: No Hx Glaucoma: Yes Hx Macular Degeneration: No Other/Comment: cataract surgery 20 y ago - RENAL Hx Chronic Kidney Disease: No Hx Kidney Stones: No - ENDOCRINE/METABOLIC Hx Endocrine Disorders: Yes Hx Diabetes Mellitus Type 2: Yes Hx Hypothyroidism: Yes - HEMATOLOGICAL/ONCOLOGICAL Hx Blood Disorders: No - INTEGUMENTARY Hx Dermatological Problems: No Hx Basil Cell: No - MUSCULOSKELETAL/RHEUMATOLOGICAL Hx Musculoskeletal Disorders: No Hx Falls: No - GASTROINTESTINAL Hx Gastrointestinal Disorders: Yes Hx Gastritis: Yes - GENITOURINARY/GYNECOLOGICAL Hx Genitourinary Disorders: Yes Hx Incontinence: Yes - PSYCHIATRIC Hx Psychophysiologic Disorder: No Hx Substance Use: No - SURGICAL HISTORY Hx Surgeries: Yes Hx Cataract Extraction: Yes (20 yrs ago) - ANESTHESIA Hx Anesthesia: Yes Hx Anesthesia Reactions: No Hx Malignant Hyperthermia: No Has any member of the family had a problem w/ anesthesia?: No Meds Allergies/Adverse Reactions: Allergies Allergy/AdvReac Type Severity Reaction Status Date / Time No Known Allergies Allergy Verified 11/25/18 07:06 - Medications Medications: Current Medications Famotidine (Pepcid) 20 mg PO DAILY [facility] Last Admin: 11/25/18 10:03 Dose: 20 mg Heparin Sodium (Porcine) (Heparin) 5,000 units SC Q8 [facility] Last Admin: 11/25/18 05:25 Dose: 5,000 units Sodium Bicarbonate 150 meq/ (Dextrose) 1,150 mls @ 80 mls/hr IV .[id number] [facility] Last Admin: 11/25/18 04:00 Dose: 80 mls/hr Ceftriaxone Sodium 1 gm/ (Sodium Chloride) 100 mls @ 100 mls/hr IVPB DAILY [facility]; Protocol Last Admin: 11/25/18 10:43 Dose: 100 mls/hr Levothyroxine Sodium (Synthroid) 50 mcg PO DAILY@0630 [facility] Last Admin: 11/25/18 07:00 Dose: 50 mcg Results - Vital Signs Recent Vital Signs: Last Vital Signs Temp 97.9 F 11/25/18 12:00 Pulse 82 11/25/18 11:54 Resp 15 11/25/18 11:54 BP 160/61 H 11/25/18 11:54 Pulse Ox 100 11/25/18 11:01 - Labs Result Diagrams: 11/25/18 07:53 11/25/18 16:16 Labs: Laboratory Results - last 24 hr 11/24/18 11/24/18 11/24/18 21:50 21:53 22:31 WBC RBC Hgb Hct MCV MCH MCHC RDW Plt Count MPV Neut % (Auto) Lymph % (Auto) Mcleod % (Auto) Eos % (Auto) Baso % (Auto) Neut # (Auto) Lymph # (Auto) Mcleod # (Auto) Eos # (Auto) Baso # (Auto) pO2 VBG pH VBG pCO2 VBG HCO3 VBG Total CO2 VBG O2 Sat (Calc) VBG Base Excess VBG Potassium Sodium Chloride Glucose Lactate Crit Value Called To Crit Value Called By Crit Value Read Back Blood Gas Notified Time Potassium Carbon Dioxide Anion Gap BUN Creatinine Est GFR ( Amer) Est GFR (Non-Af Amer) POC Glucose (mg/dL) 59 L 49 L 168 H Random Glucose Lactic Acid Calcium Phosphorus Magnesium Iron TIBC % Saturation Total Bilirubin AST ALT Alkaline Phosphatase Total Protein Albumin Globulin Albumin/Globulin Ratio Vitamin B12 Folate Procalcitonin TSH 3rd Generation Venous Blood Potassium Urine Color Urine Clarity Urine pH Ur Specific [place] Urine Protein Urine Glucose (UA) Urine Ketones Urine Blood Urine Nitrate Urine Bilirubin Urine Urobilinogen Ur Leukocyte Esterase Urine WBC (Auto) Urine RBC (Auto) Ur Squamous Epith Cells Urine Bacteria Ur Random Sodium Ur Random Potassium Influenza Typ A,B (EIA) Blood Type Antibody Screen 11/24/18 11/24/18 11/24/18 22:38 22:42 23:43 WBC 10.8 RBC 3.11 L Hgb 7.2 L D Hct 23.6 L MCV 76.0 L D MCH 23.1 L MCHC 30.4 L RDW 18.1 H Plt Count 435 H MPV 8.5 Neut % (Auto) 62.4 Lymph % (Auto) 27.0 Mcleod % (Auto) 8.7 Eos % (Auto) 1.0 Baso % (Auto) 0.9 Neut # (Auto) 6.7 Lymph # (Auto) 2.9 Mcleod # (Auto) 0.9 H Eos # (Auto) 0.1 Baso # (Auto) 0.1 pO2 32 VBG pH 7.22 L VBG pCO2 49 VBG HCO3 17.5 VBG Total CO2 21.6 L VBG O2 Sat (Calc) 59.4 VBG Base Excess -7.8 L VBG Potassium 9.1 H* Sodium 135.0 135 Chloride 109.0 H 105 Glucose 31 L* D Lactate 2.7 H Crit Value Called To Celso yost rn Crit Value Called By Stefanie Crit Value Read Back Y Blood Gas Notified Time 2241 Potassium 7.8 H* D Carbon Dioxide 18 L Anion Gap 20 BUN 78 H Creatinine 7.5 H* D Est GFR ( Amer) 6 Est GFR (Non-Af Amer) 5 POC Glucose (mg/dL) Random Glucose 26 L* D Lactic Acid Calcium 8.4 L Phosphorus Magnesium Iron TIBC % Saturation Total Bilirubin 0.6 AST 50 H D ALT < 6 L D Alkaline Phosphatase 40 Total Protein 7.0 Albumin 3.7 Globulin 3.4 Albumin/Globulin Ratio 1.1 Vitamin B12 Folate Procalcitonin TSH 3rd Generation Venous Blood Potassium 9.1 H* Urine Color Urine Clarity Urine pH Ur Specific [place] Urine Protein Urine Glucose (UA) Urine Ketones Urine Blood Urine Nitrate Urine Bilirubin Urine Urobilinogen Ur Leukocyte Esterase Urine WBC (Auto) Urine RBC (Auto) Ur Squamous Epith Cells Urine Bacteria Ur Random Sodium Ur Random Potassium Influenza Typ A,B (EIA) Blood Type Antibody Screen 11/25/18 11/25/18 11/25/18 00:16 00:25 01:50 WBC RBC Hgb Hct MCV MCH MCHC RDW Plt Count MPV Neut % (Auto) Lymph % (Auto) Mcleod % (Auto) Eos % (Auto) Baso % (Auto) Neut # (Auto) Lymph # (Auto) Mcleod # (Auto) Eos # (Auto) Baso # (Auto) pO2 VBG pH VBG pCO2 VBG HCO3 VBG Total CO2 VBG O2 Sat (Calc) VBG Base Excess VBG Potassium Sodium 135 Chloride 105 Glucose Lactate Crit Value Called To Crit Value Called By Crit Value Read Back Blood Gas Notified Time Potassium 6.9 H* Carbon Dioxide 19 L Anion Gap 17 BUN 76 H Creatinine 7.6 H* Est GFR ( Amer) 6 Est GFR (Non-Af Amer) 5 POC Glucose (mg/dL) 75 Random Glucose 61 L D Lactic Acid Calcium 8.5 L Phosphorus Magnesium Iron TIBC % Saturation Total Bilirubin AST ALT Alkaline Phosphatase Total Protein Albumin Globulin Albumin/Globulin Ratio Vitamin B12 Folate Procalcitonin TSH 3rd Generation Venous Blood Potassium Urine Color Urine Clarity Urine pH Ur Specific [place] Urine Protein Urine Glucose (UA) Urine Ketones Urine Blood Urine Nitrate Urine Bilirubin Urine Urobilinogen Ur Leukocyte Esterase Urine WBC (Auto) Urine RBC (Auto) Ur Squamous Epith Cells Urine Bacteria Ur Random Sodium Ur Random Potassium Influenza Typ A,B (EIA) Blood Type B POSITIVE Antibody Screen Negative 11/25/18 11/25/18 11/25/18 02:03 02:03 05:04 WBC RBC Hgb Hct MCV MCH MCHC RDW Plt Count MPV Neut % (Auto) Lymph % (Auto) Mcleod % (Auto) Eos % (Auto) Baso % (Auto) Neut # (Auto) Lymph # (Auto) Mcleod # (Auto) Eos # (Auto) Baso # (Auto) pO2 VBG pH VBG pCO2 VBG HCO3 VBG Total CO2 VBG O2 Sat (Calc) VBG Base Excess VBG Potassium Sodium 132 Chloride 105 Glucose Lactate Crit Value Called To Crit Value Called By Crit Value Read Back Blood Gas Notified Time Potassium 6.7 H* Carbon Dioxide 19 L Anion Gap 15 BUN 75 H Creatinine 7.3 H Est GFR ( Amer) 6 Est GFR (Non-Af Amer) 5 POC Glucose (mg/dL) 46 L Random Glucose 197 H D Lactic Acid Calcium 10.8 H Phosphorus 7.9 H Magnesium 2.0 Iron 38 TIBC 425 % Saturation 9 L Total Bilirubin AST ALT Alkaline Phosphatase Total Protein Albumin Globulin Albumin/Globulin Ratio Vitamin B12 223 L Folate > 20.0 Procalcitonin TSH 3rd Generation 1.09 Venous Blood Potassium Urine Color Urine Clarity Urine pH Ur Specific [place] Urine Protein Urine Glucose (UA) Urine Ketones Urine Blood Urine Nitrate Urine Bilirubin Urine Urobilinogen Ur Leukocyte Esterase Urine WBC (Auto) Urine RBC (Auto) Ur Squamous Epith Cells Urine Bacteria Ur Random Sodium Ur Random Potassium Influenza Typ A,B (EIA) Blood Type Antibody Screen 11/25/18 11/25/18 11/25/18 05:06 05:42 06:43 WBC RBC Hgb Hct MCV MCH MCHC RDW Plt Count MPV Neut % (Auto) Lymph % (Auto) Mcleod % (Auto) Eos % (Auto) Baso % (Auto) Neut # (Auto) Lymph # (Auto) Mcleod # (Auto) Eos # (Auto) Baso # (Auto) pO2 VBG pH VBG pCO2 VBG HCO3 VBG Total CO2 VBG O2 Sat (Calc) VBG Base Excess VBG Potassium Sodium Chloride Glucose Lactate Crit Value Called To Crit Value Called By Crit Value Read Back Blood Gas Notified Time Potassium Carbon Dioxide Anion Gap BUN Creatinine Est GFR ( Amer) Est GFR (Non-Af Amer) POC Glucose (mg/dL) 50 L 165 H Random Glucose Lactic Acid Calcium Phosphorus Magnesium Iron TIBC % Saturation Total Bilirubin AST ALT Alkaline Phosphatase Total Protein Albumin Globulin Albumin/Globulin Ratio Vitamin B12 Folate Procalcitonin TSH 3rd Generation Venous Blood Potassium Urine Color Yellow Urine Clarity Hazy Urine pH 5.0 Ur Specific [place] 1.010 Urine Protein 2+ H Urine Glucose (UA) Normal Urine Ketones Negative Urine Blood Negative Urine Nitrate Negative Urine Bilirubin Negative Urine Urobilinogen Normal Ur Leukocyte Esterase 3+ H Urine WBC (Auto) 82 H Urine RBC (Auto) 5 H Ur Squamous Epith Cells 5 Urine Bacteria Few H Ur Random Sodium Ur Random Potassium Influenza Typ A,B (EIA) Blood Type Antibody Screen 11/25/18 11/25/18 11/25/18 07:11 07:13 07:53 WBC 11.2 H RBC 2.86 L Hgb 6.6 L Hct 21.5 L MCV 75.1 L MCH 23.0 L MCHC 30.6 L RDW 18.0 H Plt Count 335 D MPV 8.0 Neut % (Auto) 77.6 H Lymph % (Auto) 11.9 L Mcleod % (Auto) 9.5 Eos % (Auto) 0.7 Baso % (Auto) 0.3 Neut # (Auto) 8.7 H Lymph # (Auto) 1.3 Mcleod # (Auto) 1.1 H Eos # (Auto) 0.1 Baso # (Auto) 0.0 pO2 VBG pH VBG pCO2 VBG HCO3 VBG Total CO2 VBG O2 Sat (Calc) VBG Base Excess VBG Potassium Sodium Chloride Glucose Lactate Crit Value Called To Crit Value Called By Crit Value Read Back Blood Gas Notified Time Potassium Carbon Dioxide Anion Gap BUN Creatinine Est GFR ( Amer) Est GFR (Non-Af Amer) POC Glucose (mg/dL) 61 L 50 L Random Glucose Lactic Acid Calcium Phosphorus Magnesium Iron TIBC % Saturation Total Bilirubin AST ALT Alkaline Phosphatase Total Protein Albumin Globulin Albumin/Globulin Ratio Vitamin B12 Folate Procalcitonin TSH 3rd Generation Venous Blood Potassium Urine Color Urine Clarity Urine pH Ur Specific [place] Urine Protein Urine Glucose (UA) Urine Ketones Urine Blood Urine Nitrate Urine Bilirubin Urine Urobilinogen Ur Leukocyte Esterase Urine WBC (Auto) Urine RBC (Auto) Ur Squamous Epith Cells Urine Bacteria Ur Random Sodium Ur Random Potassium Influenza Typ A,B (EIA) Blood Type Antibody Screen 11/25/18 11/25/18 11/25/18 07:53 08:42 11:19 WBC RBC Hgb Hct MCV MCH MCHC RDW Plt Count MPV Neut % (Auto) Lymph % (Auto) Mcleod % (Auto) Eos % (Auto) Baso % (Auto) Neut # (Auto) Lymph # (Auto) Mcleod # (Auto) Eos # (Auto) Baso # (Auto) pO2 VBG pH VBG pCO2 VBG HCO3 VBG Total CO2 VBG O2 Sat (Calc) VBG Base Excess VBG Potassium Sodium 135 Chloride 107 Glucose Lactate Crit Value Called To Crit Value Called By Crit Value Read Back Blood Gas Notified Time Potassium 6.4 H* Carbon Dioxide 18 L Anion Gap 16 BUN 74 H Creatinine 7.8 H* Est GFR ( Amer) 6 Est GFR (Non-Af Amer) 5 POC Glucose (mg/dL) 77 Random Glucose 58 L D Lactic Acid Calcium 8.4 L Phosphorus 7.7 H Magnesium 2.0 Iron TIBC % Saturation Total Bilirubin 0.2 AST 26 ALT 10 Alkaline Phosphatase 50 Total Protein 6.0 L Albumin 3.2 L Globulin 2.8 Albumin/Globulin Ratio 1.1 Vitamin B12 Folate Procalcitonin TSH 3rd Generation Venous Blood Potassium Urine Color Urine Clarity Urine pH Ur Specific [place] Urine Protein Urine Glucose (UA) Urine Ketones Urine Blood Urine Nitrate Urine Bilirubin Urine Urobilinogen Ur Leukocyte Esterase Urine WBC (Auto) Urine RBC (Auto) Ur Squamous Epith Cells Urine Bacteria Ur Random Sodium 46 Ur Random Potassium 17.8 Influenza Typ A,B (EIA) Blood Type Antibody Screen 11/25/18 11/25/18 11/25/18 11:19 11:19 11:19 WBC RBC Hgb Hct MCV MCH MCHC RDW Plt Count MPV Neut % (Auto) Lymph % (Auto) Mcleod % (Auto) Eos % (Auto) Baso % (Auto) Neut # (Auto) Lymph # (Auto) Mcleod # (Auto) Eos # (Auto) Baso # (Auto) pO2 VBG pH VBG pCO2 VBG HCO3 VBG Total CO2 VBG O2 Sat (Calc) VBG Base Excess VBG Potassium Sodium Chloride Glucose Lactate Crit Value Called To Crit Value Called By Crit Value Read Back Blood Gas Notified Time Potassium Carbon Dioxide Anion Gap BUN Creatinine Est GFR ( Amer) Est GFR (Non-Af Amer) POC Glucose (mg/dL) Random Glucose Lactic Acid 1.5 Calcium Phosphorus Magnesium Iron TIBC % Saturation Total Bilirubin AST ALT Alkaline Phosphatase Total Protein Albumin Globulin Albumin/Globulin Ratio Vitamin B12 Folate Procalcitonin 0.10 L TSH 3rd Generation Venous Blood Potassium Urine Color Urine Clarity Urine pH Ur Specific [place] Urine Protein Urine Glucose (UA) Urine Ketones Urine Blood Urine Nitrate Urine Bilirubin Urine Urobilinogen Ur Leukocyte Esterase Urine WBC (Auto) Urine RBC (Auto) Ur Squamous Epith Cells Urine Bacteria Ur Random Sodium Ur Random Potassium Influenza Typ A,B (EIA) Negative for flu a/b Blood Type Antibody Screen 11/25/18 12:52 WBC RBC Hgb Hct MCV MCH MCHC RDW Plt Count MPV Neut % (Auto) Lymph % (Auto) Mcleod % (Auto) Eos % (Auto) Baso % (Auto) Neut # (Auto) Lymph # (Auto) Mcleod # (Auto) Eos # (Auto) Baso # (Auto) pO2 VBG pH VBG pCO2 VBG HCO3 VBG Total CO2 VBG O2 Sat (Calc) VBG Base Excess VBG Potassium Sodium Chloride Glucose Lactate Crit Value Called To Crit Value Called By Crit Value Read Back Blood Gas Notified Time Potassium Carbon Dioxide Anion Gap BUN Creatinine Est GFR ( Amer) Est GFR (Non-Af Amer) POC Glucose (mg/dL) 144 H Random Glucose Lactic Acid Calcium Phosphorus Magnesium Iron TIBC % Saturation Total Bilirubin AST ALT Alkaline Phosphatase Total Protein Albumin Globulin Albumin/Globulin Ratio Vitamin B12 Folate Procalcitonin TSH 3rd Generation Venous Blood Potassium Urine Color Urine Clarity Urine pH Ur Specific [place] Urine Protein Urine Glucose (UA) Urine Ketones Urine Blood Urine Nitrate Urine Bilirubin Urine Urobilinogen Ur Leukocyte Esterase Urine WBC (Auto) Urine RBC (Auto) Ur Squamous Epith Cells Urine Bacteria Ur Random Sodium Ur Random Potassium Influenza Typ A,B (EIA) Blood Type Antibody Screen
[2018-11-25] MEDS: Albuterol 0.042% Inhal Sol (1.25 mg/3 mL) UD INH SCH ×2 (13:10→13:29)
[2018-11-25] MEDS ORDERED: Dextrose 50% SYRINGE Inj (50 ml) IV ONE (13:30)
[2018-11-25] MEDS ORDERED: Sodium Bicarbonate (8.4%) 50 mEq Vial IVP ONE (13:30)
[2018-11-25] MEDS ORDERED: Labetalol 5mg/ml (4ml) IVP STA (13:36)
[2018-11-25] MEDS ORDERED: Albuterol 0.042% Inhal Sol (1.25 mg/3 mL) UD INH SCH (14:00)
[2018-11-25 14:33] LABS: HEPATITIS B SURFACE AG Negative (NEGATIVE)
--- NOTE | 2018-11-25 15:39 | CP.CCUPN ---
<Len Stevens S - Last Filed: 11/25/18 18:08> CCU Subjective - Physician Review Critical Care Time Spent (in minutes): 45 CCU Objective - Vital Signs / Intake & Output Vital Signs (Last 4 hours): Vital Signs Temp Pulse Pulse Resp BP BP Pulse Ox 11/25/18 17:45 97.8 F 103 H 103 H 18 139/65 139/6 L 100 11/25/18 17:22 98 F 107 H 120 H 18 129/52 L 129/52 L 100 11/25/18 17:07 98.3 F 105 H 105 H 16 138/56 L 138/56 L 99 11/25/18 17:00 110 H 16 100 11/25/18 16:59 107 H 15 138/56 L 100 11/25/18 16:50 150 H 16 138/56 L 100 11/25/18 16:45 140/65 11/25/18 16:42 137 H 18 133/60 100 11/25/18 16:41 138 H 19 140/65 100 11/25/18 16:30 98.3 F 92 H 92 H 16 152/71 H 152/71 H 100 11/25/18 16:20 91 H 14 152/71 H 100 11/25/18 16:00 98.3 F 95 H 15 100 11/25/18 15:50 93 H 17 145/103 H 100 11/25/18 15:39 90 13 159/63 H 100 11/25/18 15:21 94 H 22 164/59 H 100 11/25/18 15:00 93 H 15 100 11/25/18 14:51 98 H 16 146/50 L 100 11/25/18 14:30 98.2 F 94 H 18 172/73 H 11/25/18 14:21 94 H 20 172/73 H 100 Intake and Output (Last 8hrs): Intake & Output 11/25/18 11/25/18 11/25/18 06:59 14:59 22:59 Intake Total 440 1890 240 Output Total 20 275 Balance 420 1615 240 Weight 142 lb 8 oz 141 lb 1.533 oz Intake: Intake, IV Amount 340 1240 240 RFA #22 100 600 Right Forearm 240 640 240 Oral 100 Blood Product 650 0 Red Blood Cells Cpd As1 0 Lr Unit [id number] Red Blood Cells Cpd As1 325 Lr Unit [id number] Output: Urine 20 275 Urine, Voided 20 275 Other: Voiding Method Diaper # Bowel Movements 0 - Medications Active Medications: Active Medications Generic Name Dose Route Start Last Admin Trade Name Freq PRN Reason Stop Dose Admin Albuterol/Ipratropium 3 ml 11/25/18 13:28 Duoneb 3 Mg/0.5 Mg (3 Ml) Ud INH RQ6 PRN Shortness of Breath Famotidine 20 mg 11/25/18 10:00 11/25/18 10:03 Pepcid PO 20 mg DAILY RAJEEV Administration Heparin Sodium (Porcine) 5,000 units 11/25/18 06:00 11/25/18 13:36 Heparin SC Not Given Q8 RAJEEV Sodium Bicarbonate 150 meq/ 1,150 mls @ 80 mls/hr 11/25/18 02:45 11/25/18 04:00 Dextrose IV 80 mls/hr .[id number] RAJEEV Administration Ceftriaxone Sodium 1 gm/ 100 mls @ 100 mls/hr 11/25/18 10:00 11/25/18 10:43 Sodium Chloride IVPB 100 mls/hr DAILY RAJEEV Administration Protocol Insulin Human Regular 0 unit 11/25/18 16:30 11/25/18 16:51 Novolin R SC Not Given ACHS RAJEEV Protocol Levothyroxine Sodium 50 mcg 11/25/18 06:30 11/25/18 07:00 Synthroid PO 50 mcg DAILY@0630 RAJEEV Administration Losartan Potassium 50 mg 11/25/18 13:30 11/25/18 13:41 Cozaar PO 50 mg DAILY RAJEEV Administration - Patient Studies Lab Studies: Lab Studies 11/25/18 11/25/18 11/25/18 Range/Units 16:47 16:16 16:16 WBC (4.8-10.8) K/uL RBC (3.80-5.20) Mil/uL Hgb (11.0-16.0) g/dL Hct (34.0-47.0) % MCV (81.0-99.0) fL MCH (27.0-31.0) pg MCHC (33.0-37.0) g/dL RDW (11.5-14.5) % Plt Count (130-400) K/uL MPV (7.2-11.7) fL Neut % (Auto) (50.0-75.0) % Lymph % (Auto) (20.0-40.0) % [place] % (Auto) (0.0-10.0) % Eos % (Auto) (0.0-4.0) % Baso % (Auto) (0.0-2.0) % Neut # (Auto) (1.8-7.0) K/uL Lymph # (Auto) (1.0-4.3) K/uL [place] # (Auto) (0.0-0.8) K/uL Eos # (Auto) (0.0-0.7) K/uL Baso # (Auto) (0.0-0.2) K/uL pO2 (30-55) mm/Hg VBG pH (7.32-7.43) VBG pCO2 (40-60) mmHg VBG HCO3 mmol/L VBG Total CO2 (22-28) mmol/L VBG O2 Sat (Calc) (40-65) % VBG Base Excess (0.0-2.0) mmol/L VBG Potassium (3.6-5.2) mmol/L Sodium 135 (132-148) mmol/l Chloride 102 (98-107) mmol/L Glucose (65-105) mg/dl Lactate (0.7-2.1) mmol/L Crit Value Called To Crit Value Called By Crit Value Read Back Blood Gas Notified Time Potassium 5.3 H (3.6-5.2) mmol/L Carbon Dioxide 26 (22-30) mmol/L Anion Gap 13 (10-20) BUN 73 H (7-17) mg/dL Creatinine 7.3 H (0.7-1.2) mg/dL Est GFR ( Amer) 6 Est GFR (Non-Af Amer) 5 POC Glucose (mg/dL) 90 (65-110) mg/dL Random Glucose 42 L D (65-105) mg/dL Lactic Acid (0.7-2.1) mmol/L Calcium 8.4 L (8.6-10.4) mg/dl Phosphorus 7.2 H (2.5-4.5) mg/dL Magnesium 1.8 (1.6-2.3) mg/dL Iron (37-170) ug/dL TIBC (250-450) ug/dL % Saturation (20-55) Total Bilirubin 0.1 L (0.2-1.3) mg/dL AST 23 (14-36) U/L ALT 16 (9-52) U/L Alkaline Phosphatase 45 (38-126) U/L Total Creatine Kinase (30-135) U/L Total Protein 5.5 L (6.3-8.3) g/dL Albumin 2.8 L (3.5-5.0) g/dL Globulin 2.7 (2.2-3.9) gm/dL Albumin/Globulin Ratio 1.1 (1.0-2.1) Vitamin B12 (239-931) pg/mL Folate ng/mL Procalcitonin (0.19-0.49) NG/ML TSH 3rd Generation (0.46-4.68) mIU/L Venous Blood Potassium (3.6-5.2) mmol/L Urine Color (YELLOW) Urine Clarity (Clear) Urine pH (5.0-8.0) Ur Specific [place] (1.003-1.030) Urine Protein (NEGATIVE) mg/dL Urine Glucose (UA) (Normal) mg/dL Urine Ketones (NEGATIVE) mg/dL Urine Blood (NEGATIVE) Urine Nitrate (NEGATIVE) Urine Bilirubin (NEGATIVE) Urine Urobilinogen (0.2-1.0) mg/dL Ur Leukocyte Esterase (Negative) Devora/uL Urine WBC (Auto) (0-5) /hpf Urine RBC (Auto) (0-3) /hpf Ur Squamous Epith Cells (0-5) /hpf Urine Bacteria (<OCC) Ur Random Sodium mmol/L Ur Random Potassium mmol/L Hep Bs Antigen Negative (NEGATIVE) Hep B Core IgM Ab Negative (NEGATIVE) Hepatitis C Antibody Negative (NEGATIVE) Influenza Typ A,B (EIA) (NEGATIVE) Blood Type Antibody Screen 11/25/18 11/25/18 11/25/18 Range/Units 16:03 16:00 13:19 WBC (4.8-10.8) K/uL RBC (3.80-5.20) Mil/uL Hgb (11.0-16.0) g/dL Hct (34.0-47.0) % MCV (81.0-99.0) fL MCH (27.0-31.0) pg MCHC (33.0-37.0) g/dL RDW (11.5-14.5) % Plt Count (130-400) K/uL MPV (7.2-11.7) fL Neut % (Auto) (50.0-75.0) % Lymph % (Auto) (20.0-40.0) % [place] % (Auto) (0.0-10.0) % Eos % (Auto) (0.0-4.0) % Baso % (Auto) (0.0-2.0) % Neut # (Auto) (1.8-7.0) K/uL Lymph # (Auto) (1.0-4.3) K/uL [place] # (Auto) (0.0-0.8) K/uL Eos # (Auto) (0.0-0.7) K/uL Baso # (Auto) (0.0-0.2) K/uL pO2 (30-55) mm/Hg VBG pH (7.32-7.43) VBG pCO2 (40-60) mmHg VBG HCO3 mmol/L VBG Total CO2 (22-28) mmol/L VBG O2 Sat (Calc) (40-65) % VBG Base Excess (0.0-2.0) mmol/L VBG Potassium (3.6-5.2) mmol/L Sodium (132-148) mmol/l Chloride (98-107) mmol/L Glucose (65-105) mg/dl Lactate (0.7-2.1) mmol/L Crit Value Called To Crit Value Called By Crit Value Read Back Blood Gas Notified Time Potassium 6.3 H* (3.6-5.2) mmol/L Carbon Dioxide (22-30) mmol/L Anion Gap (10-20) BUN (7-17) mg/dL Creatinine (0.7-1.2) mg/dL Est GFR ( Amer) Est GFR (Non-Af Amer) POC Glucose (mg/dL) 69 51 L (65-110) mg/dL Random Glucose (65-105) mg/dL Lactic Acid (0.7-2.1) mmol/L Calcium (8.6-10.4) mg/dl Phosphorus (2.5-4.5) mg/dL Magnesium (1.6-2.3) mg/dL Iron (37-170) ug/dL TIBC (250-450) ug/dL % Saturation (20-55) Total Bilirubin (0.2-1.3) mg/dL AST (14-36) U/L ALT (9-52) U/L Alkaline Phosphatase (38-126) U/L Total Creatine Kinase < 20 L (30-135) U/L Total Protein (6.3-8.3) g/dL Albumin (3.5-5.0) g/dL Globulin (2.2-3.9) gm/dL Albumin/Globulin Ratio (1.0-2.1) Vitamin B12 (239-931) pg/mL Folate ng/mL Procalcitonin (0.19-0.49) NG/ML TSH 3rd Generation (0.46-4.68) mIU/L Venous Blood Potassium (3.6-5.2) mmol/L Urine Color (YELLOW) Urine Clarity (Clear) Urine pH (5.0-8.0) Ur Specific [place] (1.003-1.030) Urine Protein (NEGATIVE) mg/dL Urine Glucose (UA) (Normal) mg/dL Urine Ketones (NEGATIVE) mg/dL Urine Blood (NEGATIVE) Urine Nitrate (NEGATIVE) Urine Bilirubin (NEGATIVE) Urine Urobilinogen (0.2-1.0) mg/dL Ur Leukocyte Esterase (Negative) Devora/uL Urine WBC (Auto) (0-5) /hpf Urine RBC (Auto) (0-3) /hpf Ur Squamous Epith Cells (0-5) /hpf Urine Bacteria (<OCC) Ur Random Sodium mmol/L Ur Random Potassium mmol/L Hep Bs Antigen Negative (NEGATIVE) Hep B Core IgM Ab (NEGATIVE) Hepatitis C Antibody (NEGATIVE) Influenza Typ A,B (EIA) (NEGATIVE) Blood Type Antibody Screen 11/25/18 11/25/18 11/25/18 Range/Units 12:52 11:19 11:19 WBC (4.8-10.8) K/uL RBC (3.80-5.20) Mil/uL Hgb (11.0-16.0) g/dL Hct (34.0-47.0) % MCV (81.0-99.0) fL MCH (27.0-31.0) pg MCHC (33.0-37.0) g/dL RDW (11.5-14.5) % Plt Count (130-400) K/uL MPV (7.2-11.7) fL Neut % (Auto) (50.0-75.0) % Lymph % (Auto) (20.0-40.0) % [place] % (Auto) (0.0-10.0) % Eos % (Auto) (0.0-4.0) % Baso % (Auto) (0.0-2.0) % Neut # (Auto) (1.8-7.0) K/uL Lymph # (Auto) (1.0-4.3) K/uL [place] # (Auto) (0.0-0.8) K/uL Eos # (Auto) (0.0-0.7) K/uL Baso # (Auto) (0.0-0.2) K/uL pO2 (30-55) mm/Hg VBG pH (7.32-7.43) VBG pCO2 (40-60) mmHg VBG HCO3 mmol/L VBG Total CO2 (22-28) mmol/L VBG O2 Sat (Calc) (40-65) % VBG Base Excess (0.0-2.0) mmol/L VBG Potassium (3.6-5.2) mmol/L Sodium (132-148) mmol/l Chloride (98-107) mmol/L Glucose (65-105) mg/dl Lactate (0.7-2.1) mmol/L Crit Value Called To Crit Value Called By Crit Value Read Back Blood Gas Notified Time Potassium (3.6-5.2) mmol/L Carbon Dioxide (22-30) mmol/L Anion Gap (10-20) BUN (7-17) mg/dL Creatinine (0.7-1.2) mg/dL Est GFR ( Amer) Est GFR (Non-Af Amer) POC Glucose (mg/dL) 144 H (65-110) mg/dL Random Glucose (65-105) mg/dL Lactic Acid 1.5 (0.7-2.1) mmol/L Calcium (8.6-10.4) mg/dl Phosphorus (2.5-4.5) mg/dL Magnesium (1.6-2.3) mg/dL Iron (37-170) ug/dL TIBC (250-450) ug/dL % Saturation (20-55) Total Bilirubin (0.2-1.3) mg/dL AST (14-36) U/L ALT (9-52) U/L Alkaline Phosphatase (38-126) U/L Total Creatine Kinase (30-135) U/L Total Protein (6.3-8.3) g/dL Albumin (3.5-5.0) g/dL Globulin (2.2-3.9) gm/dL Albumin/Globulin Ratio (1.0-2.1) Vitamin B12 (239-931) pg/mL Folate ng/mL Procalcitonin (0.19-0.49) NG/ML TSH 3rd Generation (0.46-4.68) mIU/L Venous Blood Potassium (3.6-5.2) mmol/L Urine Color (YELLOW) Urine Clarity (Clear) Urine pH (5.0-8.0) Ur Specific [place] (1.003-1.030) Urine Protein (NEGATIVE) mg/dL Urine Glucose (UA) (Normal) mg/dL Urine Ketones (NEGATIVE) mg/dL Urine Blood (NEGATIVE) Urine Nitrate (NEGATIVE) Urine Bilirubin (NEGATIVE) Urine Urobilinogen (0.2-1.0) mg/dL Ur Leukocyte Esterase (Negative) Devora/uL Urine WBC (Auto) (0-5) /hpf Urine RBC (Auto) (0-3) /hpf Ur Squamous Epith Cells (0-5) /hpf Urine Bacteria (<OCC) Ur Random Sodium mmol/L Ur Random Potassium mmol/L Hep Bs Antigen (NEGATIVE) Hep B Core IgM Ab (NEGATIVE) Hepatitis C Antibody (NEGATIVE) Influenza Typ A,B (EIA) Negative for flu a/b (NEGATIVE) Blood Type Antibody Screen 11/25/18 11/25/18 11/25/18 Range/Units 11:19 11:19 08:42 WBC (4.8-10.8) K/uL RBC (3.80-5.20) Mil/uL Hgb (11.0-16.0) g/dL Hct (34.0-47.0) % MCV (81.0-99.0) fL MCH (27.0-31.0) pg MCHC (33.0-37.0) g/dL RDW (11.5-14.5) % Plt Count (130-400) K/uL MPV (7.2-11.7) fL Neut % (Auto) (50.0-75.0) % Lymph % (Auto) (20.0-40.0) % [place] % (Auto) (0.0-10.0) % Eos % (Auto) (0.0-4.0) % Baso % (Auto) (0.0-2.0) % Neut # (Auto) (1.8-7.0) K/uL Lymph # (Auto) (1.0-4.3) K/uL [place] # (Auto) (0.0-0.8) K/uL Eos # (Auto) (0.0-0.7) K/uL Baso # (Auto) (0.0-0.2) K/uL pO2 (30-55) mm/Hg VBG pH (7.32-7.43) VBG pCO2 (40-60) mmHg VBG HCO3 mmol/L VBG Total CO2 (22-28) mmol/L VBG O2 Sat (Calc) (40-65) % VBG Base Excess (0.0-2.0) mmol/L VBG Potassium (3.6-5.2) mmol/L Sodium (132-148) mmol/l Chloride (98-107) mmol/L Glucose (65-105) mg/dl Lactate (0.7-2.1) mmol/L Crit Value Called To Crit Value Called By Crit Value Read Back Blood Gas Notified Time Potassium (3.6-5.2) mmol/L Carbon Dioxide (22-30) mmol/L Anion Gap (10-20) BUN (7-17) mg/dL Creatinine (0.7-1.2) mg/dL Est GFR ( Amer) Est GFR (Non-Af Amer) POC Glucose (mg/dL) 77 (65-110) mg/dL Random Glucose (65-105) mg/dL Lactic Acid (0.7-2.1) mmol/L Calcium (8.6-10.4) mg/dl Phosphorus (2.5-4.5) mg/dL Magnesium (1.6-2.3) mg/dL Iron (37-170) ug/dL TIBC (250-450) ug/dL % Saturation (20-55) Total Bilirubin (0.2-1.3) mg/dL AST (14-36) U/L ALT (9-52) U/L Alkaline Phosphatase (38-126) U/L Total Creatine Kinase (30-135) U/L Total Protein (6.3-8.3) g/dL Albumin (3.5-5.0) g/dL Globulin (2.2-3.9) gm/dL Albumin/Globulin Ratio (1.0-2.1) Vitamin B12 (239-931) pg/mL Folate ng/mL Procalcitonin 0.10 L (0.19-0.49) NG/ML TSH 3rd Generation (0.46-4.68) mIU/L Venous Blood Potassium (3.6-5.2) mmol/L Urine Color (YELLOW) Urine Clarity (Clear) Urine pH (5.0-8.0) Ur Specific [place] (1.003-1.030) Urine Protein (NEGATIVE) mg/dL Urine Glucose (UA) (Normal) mg/dL Urine Ketones (NEGATIVE) mg/dL Urine Blood (NEGATIVE) Urine Nitrate (NEGATIVE) Urine Bilirubin (NEGATIVE) Urine Urobilinogen (0.2-1.0) mg/dL Ur Leukocyte Esterase (Negative) Devora/uL Urine WBC (Auto) (0-5) /hpf Urine RBC (Auto) (0-3) /hpf Ur Squamous Epith Cells (0-5) /hpf Urine Bacteria (<OCC) Ur Random Sodium 46 mmol/L Ur Random Potassium 17.8 mmol/L Hep Bs Antigen (NEGATIVE) Hep B Core IgM Ab (NEGATIVE) Hepatitis C Antibody (NEGATIVE) Influenza Typ A,B (EIA) (NEGATIVE) Blood Type Antibody Screen 11/25/18 11/25/18 11/25/18 Range/Units 07:53 07:53 07:13 WBC 11.2 H (4.8-10.8) K/uL RBC 2.86 L (3.80-5.20) Mil/uL Hgb 6.6 L (11.0-16.0) g/dL Hct 21.5 L (34.0-47.0) % MCV 75.1 L (81.0-99.0) fL MCH 23.0 L (27.0-31.0) pg MCHC 30.6 L (33.0-37.0) g/dL RDW 18.0 H (11.5-14.5) % Plt Count 335 D (130-400) K/uL MPV 8.0 (7.2-11.7) fL Neut % (Auto) 77.6 H (50.0-75.0) % Lymph % (Auto) 11.9 L (20.0-40.0) % [place] % (Auto) 9.5 (0.0-10.0) % Eos % (Auto) 0.7 (0.0-4.0) % Baso % (Auto) 0.3 (0.0-2.0) % Neut # (Auto) 8.7 H (1.8-7.0) K/uL Lymph # (Auto) 1.3 (1.0-4.3) K/uL [place] # (Auto) 1.1 H (0.0-0.8) K/uL Eos # (Auto) 0.1 (0.0-0.7) K/uL Baso # (Auto) 0.0 (0.0-0.2) K/uL pO2 (30-55) mm/Hg VBG pH (7.32-7.43) VBG pCO2 (40-60) mmHg VBG HCO3 mmol/L VBG Total CO2 (22-28) mmol/L VBG O2 Sat (Calc) (40-65) % VBG Base Excess (0.0-2.0) mmol/L VBG Potassium (3.6-5.2) mmol/L Sodium 135 (132-148) mmol/l Chloride 107 (98-107) mmol/L Glucose (65-105) mg/dl Lactate (0.7-2.1) mmol/L Crit Value Called To Crit Value Called By Crit Value Read Back Blood Gas Notified Time Potassium 6.4 H* (3.6-5.2) mmol/L Carbon Dioxide 18 L (22-30) mmol/L Anion Gap 16 (10-20) BUN 74 H (7-17) mg/dL Creatinine 7.8 H* (0.7-1.2) mg/dL Est GFR ( Amer) 6 Est GFR (Non-Af Amer) 5 POC Glucose (mg/dL) 50 L (65-110) mg/dL Random Glucose 58 L D (65-105) mg/dL Lactic Acid (0.7-2.1) mmol/L Calcium 8.4 L (8.6-10.4) mg/dl Phosphorus 7.7 H (2.5-4.5) mg/dL Magnesium 2.0 (1.6-2.3) mg/dL Iron (37-170) ug/dL TIBC (250-450) ug/dL % Saturation (20-55) Total Bilirubin 0.2 (0.2-1.3) mg/dL AST 26 (14-36) U/L ALT 10 (9-52) U/L Alkaline Phosphatase 50 (38-126) U/L Total Creatine Kinase (30-135) U/L Total Protein 6.0 L (6.3-8.3) g/dL Albumin 3.2 L (3.5-5.0) g/dL Globulin 2.8 (2.2-3.9) gm/dL Albumin/Globulin Ratio 1.1 (1.0-2.1) Vitamin B12 (239-931) pg/mL Folate ng/mL Procalcitonin (0.19-0.49) NG/ML TSH 3rd Generation (0.46-4.68) mIU/L Venous Blood Potassium (3.6-5.2) mmol/L Urine Color (YELLOW) Urine Clarity (Clear) Urine pH (5.0-8.0) Ur Specific [place] (1.003-1.030) Urine Protein (NEGATIVE) mg/dL Urine Glucose (UA) (Normal) mg/dL Urine Ketones (NEGATIVE) mg/dL Urine Blood (NEGATIVE) Urine Nitrate (NEGATIVE) Urine Bilirubin (NEGATIVE) Urine Urobilinogen (0.2-1.0) mg/dL Ur Leukocyte Esterase (Negative) Devora/uL Urine WBC (Auto) (0-5) /hpf Urine RBC (Auto) (0-3) /hpf Ur Squamous Epith Cells (0-5) /hpf Urine Bacteria (<OCC) Ur Random Sodium mmol/L Ur Random Potassium mmol/L Hep Bs Antigen (NEGATIVE) Hep B Core IgM Ab (NEGATIVE) Hepatitis C Antibody (NEGATIVE) Influenza Typ A,B (EIA) (NEGATIVE) Blood Type Antibody Screen 11/25/18 11/25/18 11/25/18 Range/Units 07:11 06:43 05:42 WBC (4.8-10.8) K/uL RBC (3.80-5.20) Mil/uL Hgb (11.0-16.0) g/dL Hct (34.0-47.0) % MCV (81.0-99.0) fL MCH (27.0-31.0) pg MCHC (33.0-37.0) g/dL RDW (11.5-14.5) % Plt Count (130-400) K/uL MPV (7.2-11.7) fL Neut % (Auto) (50.0-75.0) % Lymph % (Auto) (20.0-40.0) % [place] % (Auto) (0.0-10.0) % Eos % (Auto) (0.0-4.0) % Baso % (Auto) (0.0-2.0) % Neut # (Auto) (1.8-7.0) K/uL Lymph # (Auto) (1.0-4.3) K/uL [place] # (Auto) (0.0-0.8) K/uL Eos # (Auto) (0.0-0.7) K/uL Baso # (Auto) (0.0-0.2) K/uL pO2 (30-55) mm/Hg VBG pH (7.32-7.43) VBG pCO2 (40-60) mmHg VBG HCO3 mmol/L VBG Total CO2 (22-28) mmol/L VBG O2 Sat (Calc) (40-65) % VBG Base Excess (0.0-2.0) mmol/L VBG Potassium (3.6-5.2) mmol/L Sodium (132-148) mmol/l Chloride (98-107) mmol/L Glucose (65-105) mg/dl Lactate (0.7-2.1) mmol/L Crit Value Called To Crit Value Called By Crit Value Read Back Blood Gas Notified Time Potassium (3.6-5.2) mmol/L Carbon Dioxide (22-30) mmol/L Anion Gap (10-20) BUN (7-17) mg/dL Creatinine (0.7-1.2) mg/dL Est GFR ( Amer) Est GFR (Non-Af Amer) POC Glucose (mg/dL) 61 L 165 H (65-110) mg/dL Random Glucose (65-105) mg/dL Lactic Acid (0.7-2.1) mmol/L Calcium (8.6-10.4) mg/dl Phosphorus (2.5-4.5) mg/dL Magnesium (1.6-2.3) mg/dL Iron (37-170) ug/dL TIBC (250-450) ug/dL % Saturation (20-55) Total Bilirubin (0.2-1.3) mg/dL AST (14-36) U/L ALT (9-52) U/L Alkaline Phosphatase (38-126) U/L Total Creatine Kinase (30-135) U/L Total Protein (6.3-8.3) g/dL Albumin (3.5-5.0) g/dL Globulin (2.2-3.9) gm/dL Albumin/Globulin Ratio (1.0-2.1) Vitamin B12 (239-931) pg/mL Folate ng/mL Procalcitonin (0.19-0.49) NG/ML TSH 3rd Generation (0.46-4.68) mIU/L Venous Blood Potassium (3.6-5.2) mmol/L Urine Color Yellow (YELLOW) Urine Clarity Hazy (Clear) Urine pH 5.0 (5.0-8.0) Ur Specific [place] 1.010 (1.003-1.030) Urine Protein 2+ H (NEGATIVE) mg/dL Urine Glucose (UA) Normal (Normal) mg/dL Urine Ketones Negative (NEGATIVE) mg/dL Urine Blood Negative (NEGATIVE) Urine Nitrate Negative (NEGATIVE) Urine Bilirubin Negative (NEGATIVE) Urine Urobilinogen Normal (0.2-1.0) mg/dL Ur Leukocyte Esterase 3+ H (Negative) Devora/uL Urine WBC (Auto) 82 H (0-5) /hpf Urine RBC (Auto) 5 H (0-3) /hpf Ur Squamous Epith Cells 5 (0-5) /hpf Urine Bacteria Few H (<OCC) Ur Random Sodium mmol/L Ur Random Potassium mmol/L Hep Bs Antigen (NEGATIVE) Hep B Core IgM Ab (NEGATIVE) Hepatitis C Antibody (NEGATIVE) Influenza Typ A,B (EIA) (NEGATIVE) Blood Type Antibody Screen 11/25/18 11/25/18 11/25/18 Range/Units 05:06 05:04 02:03 WBC (4.8-10.8) K/uL RBC (3.80-5.20) Mil/uL Hgb (11.0-16.0) g/dL Hct (34.0-47.0) % MCV (81.0-99.0) fL MCH (27.0-31.0) pg MCHC (33.0-37.0) g/dL RDW (11.5-14.5) % Plt Count (130-400) K/uL MPV (7.2-11.7) fL Neut % (Auto) (50.0-75.0) % Lymph % (Auto) (20.0-40.0) % [place] % (Auto) (0.0-10.0) % Eos % (Auto) (0.0-4.0) % Baso % (Auto) (0.0-2.0) % Neut # (Auto) (1.8-7.0) K/uL Lymph # (Auto) (1.0-4.3) K/uL [place] # (Auto) (0.0-0.8) K/uL Eos # (Auto) (0.0-0.7) K/uL Baso # (Auto) (0.0-0.2) K/uL pO2 (30-55) mm/Hg VBG pH (7.32-7.43) VBG pCO2 (40-60) mmHg VBG HCO3 mmol/L VBG Total CO2 (22-28) mmol/L VBG O2 Sat (Calc) (40-65) % VBG Base Excess (0.0-2.0) mmol/L VBG Potassium (3.6-5.2) mmol/L Sodium 132 (132-148) mmol/l Chloride 105 (98-107) mmol/L Glucose (65-105) mg/dl Lactate (0.7-2.1) mmol/L Crit Value Called To Crit Value Called By Crit Value Read Back Blood Gas Notified Time Potassium 6.7 H* (3.6-5.2) mmol/L Carbon Dioxide 19 L (22-30) mmol/L Anion Gap 15 (10-20) BUN 75 H (7-17) mg/dL Creatinine 7.3 H (0.7-1.2) mg/dL Est GFR ( Amer) 6 Est GFR (Non-Af Amer) 5 POC Glucose (mg/dL) 50 L 46 L (65-110) mg/dL Random Glucose 197 H D (65-105) mg/dL Lactic Acid (0.7-2.1) mmol/L Calcium 10.8 H (8.6-10.4) mg/dl Phosphorus 7.9 H (2.5-4.5) mg/dL Magnesium 2.0 (1.6-2.3) mg/dL Iron (37-170) ug/dL TIBC (250-450) ug/dL % Saturation (20-55) Total Bilirubin (0.2-1.3) mg/dL AST (14-36) U/L ALT (9-52) U/L Alkaline Phosphatase (38-126) U/L Total Creatine Kinase (30-135) U/L Total Protein (6.3-8.3) g/dL Albumin (3.5-5.0) g/dL Globulin (2.2-3.9) gm/dL Albumin/Globulin Ratio (1.0-2.1) Vitamin B12 223 L (239-931) pg/mL Folate > 20.0 ng/mL Procalcitonin (0.19-0.49) NG/ML TSH 3rd Generation 1.09 (0.46-4.68) mIU/L Venous Blood Potassium (3.6-5.2) mmol/L Urine Color (YELLOW) Urine Clarity (Clear) Urine pH (5.0-8.0) Ur Specific [place] (1.003-1.030) Urine Protein (NEGATIVE) mg/dL Urine Glucose (UA) (Normal) mg/dL Urine Ketones (NEGATIVE) mg/dL Urine Blood (NEGATIVE) Urine Nitrate (NEGATIVE) Urine Bilirubin (NEGATIVE) Urine Urobilinogen (0.2-1.0) mg/dL Ur Leukocyte Esterase (Negative) Devora/uL Urine WBC (Auto) (0-5) /hpf Urine RBC (Auto) (0-3) /hpf Ur Squamous Epith Cells (0-5) /hpf Urine Bacteria (<OCC) Ur Random Sodium mmol/L Ur Random Potassium mmol/L Hep Bs Antigen (NEGATIVE) Hep B Core IgM Ab (NEGATIVE) Hepatitis C Antibody (NEGATIVE) Influenza Typ A,B (EIA) (NEGATIVE) Blood Type Antibody Screen 11/25/18 11/25/18 11/25/18 Range/Units 02:03 01:50 00:25 WBC (4.8-10.8) K/uL RBC (3.80-5.20) Mil/uL Hgb (11.0-16.0) g/dL Hct (34.0-47.0) % MCV (81.0-99.0) fL MCH (27.0-31.0) pg MCHC (33.0-37.0) g/dL RDW (11.5-14.5) % Plt Count (130-400) K/uL MPV (7.2-11.7) fL Neut % (Auto) (50.0-75.0) % Lymph % (Auto) (20.0-40.0) % [place] % (Auto) (0.0-10.0) % Eos % (Auto) (0.0-4.0) % Baso % (Auto) (0.0-2.0) % Neut # (Auto) (1.8-7.0) K/uL Lymph # (Auto) (1.0-4.3) K/uL [place] # (Auto) (0.0-0.8) K/uL Eos # (Auto) (0.0-0.7) K/uL Baso # (Auto) (0.0-0.2) K/uL pO2 (30-55) mm/Hg VBG pH (7.32-7.43) VBG pCO2 (40-60) mmHg VBG HCO3 mmol/L VBG Total CO2 (22-28) mmol/L VBG O2 Sat (Calc) (40-65) % VBG Base Excess (0.0-2.0) mmol/L VBG Potassium (3.6-5.2) mmol/L Sodium 135 (132-148) mmol/l Chloride 105 (98-107) mmol/L Glucose (65-105) mg/dl Lactate (0.7-2.1) mmol/L Crit Value Called To Crit Value Called By Crit Value Read Back Blood Gas Notified Time Potassium 6.9 H* (3.6-5.2) mmol/L Carbon Dioxide 19 L (22-30) mmol/L Anion Gap 17 (10-20) BUN 76 H (7-17) mg/dL Creatinine 7.6 H* (0.7-1.2) mg/dL Est GFR ( Amer) 6 Est GFR (Non-Af Amer) 5 POC Glucose (mg/dL) (65-110) mg/dL Random Glucose 61 L D (65-105) mg/dL Lactic Acid (0.7-2.1) mmol/L Calcium 8.5 L (8.6-10.4) mg/dl Phosphorus (2.5-4.5) mg/dL Magnesium (1.6-2.3) mg/dL Iron 38 (37-170) ug/dL TIBC 425 (250-450) ug/dL % Saturation 9 L (20-55) Total Bilirubin (0.2-1.3) mg/dL AST (14-36) U/L ALT (9-52) U/L Alkaline Phosphatase (38-126) U/L Total Creatine Kinase (30-135) U/L Total Protein (6.3-8.3) g/dL Albumin (3.5-5.0) g/dL Globulin (2.2-3.9) gm/dL Albumin/Globulin Ratio (1.0-2.1) Vitamin B12 (239-931) pg/mL Folate ng/mL Procalcitonin (0.19-0.49) NG/ML TSH 3rd Generation (0.46-4.68) mIU/L Venous Blood Potassium (3.6-5.2) mmol/L Urine Color (YELLOW) Urine Clarity (Clear) Urine pH (5.0-8.0) Ur Specific [place] (1.003-1.030) Urine Protein (NEGATIVE) mg/dL Urine Glucose (UA) (Normal) mg/dL Urine Ketones (NEGATIVE) mg/dL Urine Blood (NEGATIVE) Urine Nitrate (NEGATIVE) Urine Bilirubin (NEGATIVE) Urine Urobilinogen (0.2-1.0) mg/dL Ur Leukocyte Esterase (Negative) Devora/uL Urine WBC (Auto) (0-5) /hpf Urine RBC (Auto) (0-3) /hpf Ur Squamous Epith Cells (0-5) /hpf Urine Bacteria (<OCC) Ur Random Sodium mmol/L Ur Random Potassium mmol/L Hep Bs Antigen (NEGATIVE) Hep B Core IgM Ab (NEGATIVE) Hepatitis C Antibody (NEGATIVE) Influenza Typ A,B (EIA) (NEGATIVE) Blood Type B POSITIVE Antibody Screen Negative 11/25/18 11/24/18 11/24/18 Range/Units 00:16 23:43 22:42 WBC 10.8 (4.8-10.8) K/uL RBC 3.11 L (3.80-5.20) Mil/uL Hgb 7.2 L D (11.0-16.0) g/dL Hct 23.6 L (34.0-47.0) % MCV 76.0 L D (81.0-99.0) fL MCH 23.1 L (27.0-31.0) pg MCHC 30.4 L (33.0-37.0) g/dL RDW 18.1 H (11.5-14.5) % Plt Count 435 H (130-400) K/uL MPV 8.5 (7.2-11.7) fL Neut % (Auto) 62.4 (50.0-75.0) % Lymph % (Auto) 27.0 (20.0-40.0) % [place] % (Auto) 8.7 (0.0-10.0) % Eos % (Auto) 1.0 (0.0-4.0) % Baso % (Auto) 0.9 (0.0-2.0) % Neut # (Auto) 6.7 (1.8-7.0) K/uL Lymph # (Auto) 2.9 (1.0-4.3) K/uL [place] # (Auto) 0.9 H (0.0-0.8) K/uL Eos # (Auto) 0.1 (0.0-0.7) K/uL Baso # (Auto) 0.1 (0.0-0.2) K/uL pO2 (30-55) mm/Hg VBG pH (7.32-7.43) VBG pCO2 (40-60) mmHg VBG HCO3 mmol/L VBG Total CO2 (22-28) mmol/L VBG O2 Sat (Calc) (40-65) % VBG Base Excess (0.0-2.0) mmol/L VBG Potassium (3.6-5.2) mmol/L Sodium 135 (132-148) mmol/l Chloride 105 (98-107) mmol/L Glucose (65-105) mg/dl Lactate (0.7-2.1) mmol/L Crit Value Called To Crit Value Called By Crit Value Read Back Blood Gas Notified Time Potassium 7.8 H* D (3.6-5.2) mmol/L Carbon Dioxide 18 L (22-30) mmol/L Anion Gap 20 (10-20) BUN 78 H (7-17) mg/dL Creatinine 7.5 H* D (0.7-1.2) mg/dL Est GFR ( Amer) 6 Est GFR (Non-Af Amer) 5 POC Glucose (mg/dL) 75 (65-110) mg/dL Random Glucose 26 L* D (65-105) mg/dL Lactic Acid (0.7-2.1) mmol/L Calcium 8.4 L (8.6-10.4) mg/dl Phosphorus (2.5-4.5) mg/dL Magnesium (1.6-2.3) mg/dL Iron (37-170) ug/dL TIBC (250-450) ug/dL % Saturation (20-55) Total Bilirubin 0.6 (0.2-1.3) mg/dL AST 50 H D (14-36) U/L ALT < 6 L D (9-52) U/L Alkaline Phosphatase 40 (38-126) U/L Total Creatine Kinase (30-135) U/L Total Protein 7.0 (6.3-8.3) g/dL Albumin 3.7 (3.5-5.0) g/dL Globulin 3.4 (2.2-3.9) gm/dL Albumin/Globulin Ratio 1.1 (1.0-2.1) Vitamin B12 (239-931) pg/mL Folate ng/mL Procalcitonin (0.19-0.49) NG/ML TSH 3rd Generation (0.46-4.68) mIU/L Venous Blood Potassium (3.6-5.2) mmol/L Urine Color (YELLOW) Urine Clarity (Clear) Urine pH (5.0-8.0) Ur Specific [place] (1.003-1.030) Urine Protein (NEGATIVE) mg/dL Urine Glucose (UA) (Normal) mg/dL Urine Ketones (NEGATIVE) mg/dL Urine Blood (NEGATIVE) Urine Nitrate (NEGATIVE) Urine Bilirubin (NEGATIVE) Urine Urobilinogen (0.2-1.0) mg/dL Ur Leukocyte Esterase (Negative) Devora/uL Urine WBC (Auto) (0-5) /hpf Urine RBC (Auto) (0-3) /hpf Ur Squamous Epith Cells (0-5) /hpf Urine Bacteria (<OCC) Ur Random Sodium mmol/L Ur Random Potassium mmol/L Hep Bs Antigen (NEGATIVE) Hep B Core IgM Ab (NEGATIVE) Hepatitis C Antibody (NEGATIVE) Influenza Typ A,B (EIA) (NEGATIVE) Blood Type Antibody Screen 11/24/18 11/24/18 11/24/18 Range/Units 22:38 22:31 21:53 WBC (4.8-10.8) K/uL RBC (3.80-5.20) Mil/uL Hgb (11.0-16.0) g/dL Hct (34.0-47.0) % MCV (81.0-99.0) fL MCH (27.0-31.0) pg MCHC (33.0-37.0) g/dL RDW (11.5-14.5) % Plt Count (130-400) K/uL MPV (7.2-11.7) fL Neut % (Auto) (50.0-75.0) % Lymph % (Auto) (20.0-40.0) % [place] % (Auto) (0.0-10.0) % Eos % (Auto) (0.0-4.0) % Baso % (Auto) (0.0-2.0) % Neut # (Auto) (1.8-7.0) K/uL Lymph # (Auto) (1.0-4.3) K/uL [place] # (Auto) (0.0-0.8) K/uL Eos # (Auto) (0.0-0.7) K/uL Baso # (Auto) (0.0-0.2) K/uL pO2 32 (30-55) mm/Hg VBG pH 7.22 L (7.32-7.43) VBG pCO2 49 (40-60) mmHg VBG HCO3 17.5 mmol/L VBG Total CO2 21.6 L (22-28) mmol/L VBG O2 Sat (Calc) 59.4 (40-65) % VBG Base Excess -7.8 L (0.0-2.0) mmol/L VBG Potassium 9.1 H* (3.6-5.2) mmol/L Sodium 135.0 (132-148) mmol/l Chloride 109.0 H (98-107) mmol/L Glucose 31 L* D (65-105) mg/dl Lactate 2.7 H (0.7-2.1) mmol/L Crit Value Called To Celso yost rn Crit Value Called By Masterl Crit Value Read Back Y Blood Gas Notified Time 2240 Potassium (3.6-5.2) mmol/L Carbon Dioxide (22-30) mmol/L Anion Gap (10-20) BUN (7-17) mg/dL Creatinine (0.7-1.2) mg/dL Est GFR ( Amer) Est GFR (Non-Af Amer) POC Glucose (mg/dL) 168 H 49 L (65-110) mg/dL Random Glucose (65-105) mg/dL Lactic Acid (0.7-2.1) mmol/L Calcium (8.6-10.4) mg/dl Phosphorus (2.5-4.5) mg/dL Magnesium (1.6-2.3) mg/dL Iron (37-170) ug/dL TIBC (250-450) ug/dL % Saturation (20-55) Total Bilirubin (0.2-1.3) mg/dL AST (14-36) U/L ALT (9-52) U/L Alkaline Phosphatase (38-126) U/L Total Creatine Kinase (30-135) U/L Total Protein (6.3-8.3) g/dL Albumin (3.5-5.0) g/dL Globulin (2.2-3.9) gm/dL Albumin/Globulin Ratio (1.0-2.1) Vitamin B12 (239-931) pg/mL Folate ng/mL Procalcitonin (0.19-0.49) NG/ML TSH 3rd Generation (0.46-4.68) mIU/L Venous Blood Potassium 9.1 H* (3.6-5.2) mmol/L Urine Color (YELLOW) Urine Clarity (Clear) Urine pH (5.0-8.0) Ur Specific [place] (1.003-1.030) Urine Protein (NEGATIVE) mg/dL Urine Glucose (UA) (Normal) mg/dL Urine Ketones (NEGATIVE) mg/dL Urine Blood (NEGATIVE) Urine Nitrate (NEGATIVE) Urine Bilirubin (NEGATIVE) Urine Urobilinogen (0.2-1.0) mg/dL Ur Leukocyte Esterase (Negative) Devora/uL Urine WBC (Auto) (0-5) /hpf Urine RBC (Auto) (0-3) /hpf Ur Squamous Epith Cells (0-5) /hpf Urine Bacteria (<OCC) Ur Random Sodium mmol/L Ur Random Potassium mmol/L Hep Bs Antigen (NEGATIVE) Hep B Core IgM Ab (NEGATIVE) Hepatitis C Antibody (NEGATIVE) Influenza Typ A,B (EIA) (NEGATIVE) Blood Type Antibody Screen 11/24/18 Range/Units 21:50 WBC (4.8-10.8) K/uL RBC (3.80-5.20) Mil/uL Hgb (11.0-16.0) g/dL Hct (34.0-47.0) % MCV (81.0-99.0) fL MCH (27.0-31.0) pg MCHC (33.0-37.0) g/dL RDW (11.5-14.5) % Plt Count (130-400) K/uL MPV (7.2-11.7) fL Neut % (Auto) (50.0-75.0) % Lymph % (Auto) (20.0-40.0) % [place] % (Auto) (0.0-10.0) % Eos % (Auto) (0.0-4.0) % Baso % (Auto) (0.0-2.0) % Neut # (Auto) (1.8-7.0) K/uL Lymph # (Auto) (1.0-4.3) K/uL [place] # (Auto) (0.0-0.8) K/uL Eos # (Auto) (0.0-0.7) K/uL Baso # (Auto) (0.0-0.2) K/uL pO2 (30-55) mm/Hg VBG pH (7.32-7.43) VBG pCO2 (40-60) mmHg VBG HCO3 mmol/L VBG Total CO2 (22-28) mmol/L VBG O2 Sat (Calc) (40-65) % VBG Base Excess (0.0-2.0) mmol/L VBG Potassium (3.6-5.2) mmol/L Sodium (132-148) mmol/l Chloride (98-107) mmol/L Glucose (65-105) mg/dl Lactate (0.7-2.1) mmol/L Crit Value Called To Crit Value Called By Crit Value Read Back Blood Gas Notified Time Potassium (3.6-5.2) mmol/L Carbon Dioxide (22-30) mmol/L Anion Gap (10-20) BUN (7-17) mg/dL Creatinine (0.7-1.2) mg/dL Est GFR ( Amer) Est GFR (Non-Af Amer) POC Glucose (mg/dL) 59 L (65-110) mg/dL Random Glucose (65-105) mg/dL Lactic Acid (0.7-2.1) mmol/L Calcium (8.6-10.4) mg/dl Phosphorus (2.5-4.5) mg/dL Magnesium (1.6-2.3) mg/dL Iron (37-170) ug/dL TIBC (250-450) ug/dL % Saturation (20-55) Total Bilirubin (0.2-1.3) mg/dL AST (14-36) U/L ALT (9-52) U/L Alkaline Phosphatase (38-126) U/L Total Creatine Kinase (30-135) U/L Total Protein (6.3-8.3) g/dL Albumin (3.5-5.0) g/dL Globulin (2.2-3.9) gm/dL Albumin/Globulin Ratio (1.0-2.1) Vitamin B12 (239-931) pg/mL Folate ng/mL Procalcitonin (0.19-0.49) NG/ML TSH 3rd Generation (0.46-4.68) mIU/L Venous Blood Potassium (3.6-5.2) mmol/L Urine Color (YELLOW) Urine Clarity (Clear) Urine pH (5.0-8.0) Ur Specific [place] (1.003-1.030) Urine Protein (NEGATIVE) mg/dL Urine Glucose (UA) (Normal) mg/dL Urine Ketones (NEGATIVE) mg/dL Urine Blood (NEGATIVE) Urine Nitrate (NEGATIVE) Urine Bilirubin (NEGATIVE) Urine Urobilinogen (0.2-1.0) mg/dL Ur Leukocyte Esterase (Negative) Devora/uL Urine WBC (Auto) (0-5) /hpf Urine RBC (Auto) (0-3) /hpf Ur Squamous Epith Cells (0-5) /hpf Urine Bacteria (<OCC) Ur Random Sodium mmol/L Ur Random Potassium mmol/L Hep Bs Antigen (NEGATIVE) Hep B Core IgM Ab (NEGATIVE) Hepatitis C Antibody (NEGATIVE) Influenza Typ A,B (EIA) (NEGATIVE) Blood Type Antibody Screen Laboratory Results - last 24 hr 11/24/18 11/24/18 11/24/18 21:50 21:53 22:31 WBC RBC Hgb Hct MCV MCH MCHC RDW Plt Count MPV Neut % (Auto) Lymph % (Auto) [place] % (Auto) Eos % (Auto) Baso % (Auto) Neut # (Auto) Lymph # (Auto) [place] # (Auto) Eos # (Auto) Baso # (Auto) pO2 VBG pH VBG pCO2 VBG HCO3 VBG Total CO2 VBG O2 Sat (Calc) VBG Base Excess VBG Potassium Sodium Chloride Glucose Lactate Crit Value Called To Crit Value Called By Crit Value Read Back Blood Gas Notified Time Potassium Carbon Dioxide Anion Gap BUN Creatinine Est GFR ( Amer) Est GFR (Non-Af Amer) POC Glucose (mg/dL) 59 L 49 L 168 H Random Glucose Lactic Acid Calcium Phosphorus Magnesium Iron TIBC % Saturation Total Bilirubin AST ALT Alkaline Phosphatase Total Creatine Kinase Total Protein Albumin Globulin Albumin/Globulin Ratio Vitamin B12 Folate Procalcitonin TSH 3rd Generation Venous Blood Potassium Urine Color Urine Clarity Urine pH Ur Specific [place] Urine Protein Urine Glucose (UA) Urine Ketones Urine Blood Urine Nitrate Urine Bilirubin Urine Urobilinogen Ur Leukocyte Esterase Urine WBC (Auto) Urine RBC (Auto) Ur Squamous Epith Cells Urine Bacteria Ur Random Sodium Ur Random Potassium Hep Bs Antigen Hep B Core IgM Ab Hepatitis C Antibody Influenza Typ A,B (EIA) Blood Type Antibody Screen 11/24/18 11/24/18 11/24/18 22:38 22:42 23:43 WBC 10.8 RBC 3.11 L Hgb 7.2 L D Hct 23.6 L MCV 76.0 L D MCH 23.1 L MCHC 30.4 L RDW 18.1 H Plt Count 435 H MPV 8.5 Neut % (Auto) 62.4 Lymph % (Auto) 27.0 [place] % (Auto) 8.7 Eos % (Auto) 1.0 Baso % (Auto) 0.9 Neut # (Auto) 6.7 Lymph # (Auto) 2.9 [place] # (Auto) 0.9 H Eos # (Auto) 0.1 Baso # (Auto) 0.1 pO2 32 VBG pH 7.22 L VBG pCO2 49 VBG HCO3 17.5 VBG Total CO2 21.6 L VBG O2 Sat (Calc) 59.4 VBG Base Excess -7.8 L VBG Potassium 9.1 H* Sodium 135.0 135 Chloride 109.0 H 105 Glucose 31 L* D Lactate 2.7 H Crit Value Called To Celso yost rn Crit Value Called By Stefanie Crit Value Read Back Y Blood Gas Notified Time 2241 Potassium 7.8 H* D Carbon Dioxide 18 L Anion Gap 20 BUN 78 H Creatinine 7.5 H* D Est GFR ( Amer) 6 Est GFR (Non-Af Amer) 5 POC Glucose (mg/dL) Random Glucose 26 L* D Lactic Acid Calcium 8.4 L Phosphorus Magnesium Iron TIBC % Saturation Total Bilirubin 0.6 AST 50 H D ALT < 6 L D Alkaline Phosphatase 40 Total Creatine Kinase Total Protein 7.0 Albumin 3.7 Globulin 3.4 Albumin/Globulin Ratio 1.1 Vitamin B12 Folate Procalcitonin TSH 3rd Generation Venous Blood Potassium 9.1 H* Urine Color Urine Clarity Urine pH Ur Specific [place] Urine Protein Urine Glucose (UA) Urine Ketones Urine Blood Urine Nitrate Urine Bilirubin Urine Urobilinogen Ur Leukocyte Esterase Urine WBC (Auto) Urine RBC (Auto) Ur Squamous Epith Cells Urine Bacteria Ur Random Sodium Ur Random Potassium Hep Bs Antigen Hep B Core IgM Ab Hepatitis C Antibody Influenza Typ A,B (EIA) Blood Type Antibody Screen 11/25/18 11/25/18 11/25/18 00:16 00:25 01:50 WBC RBC Hgb Hct MCV MCH MCHC RDW Plt Count MPV Neut % (Auto) Lymph % (Auto) [place] % (Auto) Eos % (Auto) Baso % (Auto) Neut # (Auto) Lymph # (Auto) [place] # (Auto) Eos # (Auto) Baso # (Auto) pO2 VBG pH VBG pCO2 VBG HCO3 VBG Total CO2 VBG O2 Sat (Calc) VBG Base Excess VBG Potassium Sodium 135 Chloride 105 Glucose Lactate Crit Value Called To Crit Value Called By Crit Value Read Back Blood Gas Notified Time Potassium 6.9 H* Carbon Dioxide 19 L Anion Gap 17 BUN 76 H Creatinine 7.6 H* Est GFR ( Amer) 6 Est GFR (Non-Af Amer) 5 POC Glucose (mg/dL) 75 Random Glucose 61 L D Lactic Acid Calcium 8.5 L Phosphorus Magnesium Iron TIBC % Saturation Total Bilirubin AST ALT Alkaline Phosphatase Total Creatine Kinase Total Protein Albumin Globulin Albumin/Globulin Ratio Vitamin B12 Folate Procalcitonin TSH 3rd Generation Venous Blood Potassium Urine Color Urine Clarity Urine pH Ur Specific [place] Urine Protein Urine Glucose (UA) Urine Ketones Urine Blood Urine Nitrate Urine Bilirubin Urine Urobilinogen Ur Leukocyte Esterase Urine WBC (Auto) Urine RBC (Auto) Ur Squamous Epith Cells Urine Bacteria Ur Random Sodium Ur Random Potassium Hep Bs Antigen Hep B Core IgM Ab Hepatitis C Antibody Influenza Typ A,B (EIA) Blood Type B POSITIVE Antibody Screen Negative 11/25/18 11/25/18 11/25/18 02:03 02:03 05:04 WBC RBC Hgb Hct MCV MCH MCHC RDW Plt Count MPV Neut % (Auto) Lymph % (Auto) [place] % (Auto) Eos % (Auto) Baso % (Auto) Neut # (Auto) Lymph # (Auto) [place] # (Auto) Eos # (Auto) Baso # (Auto) pO2 VBG pH VBG pCO2 VBG HCO3 VBG Total CO2 VBG O2 Sat (Calc) VBG Base Excess VBG Potassium Sodium 132 Chloride 105 Glucose Lactate Crit Value Called To Crit Value Called By Crit Value Read Back Blood Gas Notified Time Potassium 6.7 H* Carbon Dioxide 19 L Anion Gap 15 BUN 75 H Creatinine 7.3 H Est GFR ( Amer) 6 Est GFR (Non-Af Amer) 5 POC Glucose (mg/dL) 46 L Random Glucose 197 H D Lactic Acid Calcium 10.8 H Phosphorus 7.9 H Magnesium 2.0 Iron 38 TIBC 425 % Saturation 9 L Total Bilirubin AST ALT Alkaline Phosphatase Total Creatine Kinase Total Protein Albumin Globulin Albumin/Globulin Ratio Vitamin B12 223 L Folate > 20.0 Procalcitonin TSH 3rd Generation 1.09 Venous Blood Potassium Urine Color Urine Clarity Urine pH Ur Specific [place] Urine Protein Urine Glucose (UA) Urine Ketones Urine Blood Urine Nitrate Urine Bilirubin Urine Urobilinogen Ur Leukocyte Esterase Urine WBC (Auto) Urine RBC (Auto) Ur Squamous Epith Cells Urine Bacteria Ur Random Sodium Ur Random Potassium Hep Bs Antigen Hep B Core IgM Ab Hepatitis C Antibody Influenza Typ A,B (EIA) Blood Type Antibody Screen 11/25/18 11/25/18 11/25/18 05:06 05:42 06:43 WBC RBC Hgb Hct MCV MCH MCHC RDW Plt Count MPV Neut % (Auto) Lymph % (Auto) [place] % (Auto) Eos % (Auto) Baso % (Auto) Neut # (Auto) Lymph # (Auto) [place] # (Auto) Eos # (Auto) Baso # (Auto) pO2 VBG pH VBG pCO2 VBG HCO3 VBG Total CO2 VBG O2 Sat (Calc) VBG Base Excess VBG Potassium Sodium Chloride Glucose Lactate Crit Value Called To Crit Value Called By Crit Value Read Back Blood Gas Notified Time Potassium Carbon Dioxide Anion Gap BUN Creatinine Est GFR ( Amer) Est GFR (Non-Af Amer) POC Glucose (mg/dL) 50 L 165 H Random Glucose Lactic Acid Calcium Phosphorus Magnesium Iron TIBC % Saturation Total Bilirubin AST ALT Alkaline Phosphatase Total Creatine Kinase Total Protein Albumin Globulin Albumin/Globulin Ratio Vitamin B12 Folate Procalcitonin TSH 3rd Generation Venous Blood Potassium Urine Color Yellow Urine Clarity Hazy Urine pH 5.0 Ur Specific [place] 1.010 Urine Protein 2+ H Urine Glucose (UA) Normal Urine Ketones Negative Urine Blood Negative Urine Nitrate Negative Urine Bilirubin Negative Urine Urobilinogen Normal Ur Leukocyte Esterase 3+ H Urine WBC (Auto) 82 H Urine RBC (Auto) 5 H Ur Squamous Epith Cells 5 Urine Bacteria Few H Ur Random Sodium Ur Random Potassium Hep Bs Antigen Hep B Core IgM Ab Hepatitis C Antibody Influenza Typ A,B (EIA) Blood Type Antibody Screen 11/25/18 11/25/18 11/25/18 07:11 07:13 07:53 WBC 11.2 H RBC 2.86 L Hgb 6.6 L Hct 21.5 L MCV 75.1 L MCH 23.0 L MCHC 30.6 L RDW 18.0 H Plt Count 335 D MPV 8.0 Neut % (Auto) 77.6 H Lymph % (Auto) 11.9 L [place] % (Auto) 9.5 Eos % (Auto) 0.7 Baso % (Auto) 0.3 Neut # (Auto) 8.7 H Lymph # (Auto) 1.3 [place] # (Auto) 1.1 H Eos # (Auto) 0.1 Baso # (Auto) 0.0 pO2 VBG pH VBG pCO2 VBG HCO3 VBG Total CO2 VBG O2 Sat (Calc) VBG Base Excess VBG Potassium Sodium Chloride Glucose Lactate Crit Value Called To Crit Value Called By Crit Value Read Back Blood Gas Notified Time Potassium Carbon Dioxide Anion Gap BUN Creatinine Est GFR ( Amer) Est GFR (Non-Af Amer) POC Glucose (mg/dL) 61 L 50 L Random Glucose Lactic Acid Calcium Phosphorus Magnesium Iron TIBC % Saturation Total Bilirubin AST ALT Alkaline Phosphatase Total Creatine Kinase Total Protein Albumin Globulin Albumin/Globulin Ratio Vitamin B12 Folate Procalcitonin TSH 3rd Generation Venous Blood Potassium Urine Color Urine Clarity Urine pH Ur Specific [place] Urine Protein Urine Glucose (UA) Urine Ketones Urine Blood Urine Nitrate Urine Bilirubin Urine Urobilinogen Ur Leukocyte Esterase Urine WBC (Auto) Urine RBC (Auto) Ur Squamous Epith Cells Urine Bacteria Ur Random Sodium Ur Random Potassium Hep Bs Antigen Hep B Core IgM Ab Hepatitis C Antibody Influenza Typ A,B (EIA) Blood Type Antibody Screen 11/25/18 11/25/18 11/25/18 07:53 08:42 11:19 WBC RBC Hgb Hct MCV MCH MCHC RDW Plt Count MPV Neut % (Auto) Lymph % (Auto) [place] % (Auto) Eos % (Auto) Baso % (Auto) Neut # (Auto) Lymph # (Auto) [place] # (Auto) Eos # (Auto) Baso # (Auto) pO2 VBG pH VBG pCO2 VBG HCO3 VBG Total CO2 VBG O2 Sat (Calc) VBG Base Excess VBG Potassium Sodium 135 Chloride 107 Glucose Lactate Crit Value Called To Crit Value Called By Crit Value Read Back Blood Gas Notified Time Potassium 6.4 H* Carbon Dioxide 18 L Anion Gap 16 BUN 74 H Creatinine 7.8 H* Est GFR ( Amer) 6 Est GFR (Non-Af Amer) 5 POC Glucose (mg/dL) 77 Random Glucose 58 L D Lactic Acid Calcium 8.4 L Phosphorus 7.7 H Magnesium 2.0 Iron TIBC % Saturation Total Bilirubin 0.2 AST 26 ALT 10 Alkaline Phosphatase 50 Total Creatine Kinase Total Protein 6.0 L Albumin 3.2 L Globulin 2.8 Albumin/Globulin Ratio 1.1 Vitamin B12 Folate Procalcitonin TSH 3rd Generation Venous Blood Potassium Urine Color Urine Clarity Urine pH Ur Specific [place] Urine Protein Urine Glucose (UA) Urine Ketones Urine Blood Urine Nitrate Urine Bilirubin Urine Urobilinogen Ur Leukocyte Esterase Urine WBC (Auto) Urine RBC (Auto) Ur Squamous Epith Cells Urine Bacteria Ur Random Sodium 46 Ur Random Potassium 17.8 Hep Bs Antigen Hep B Core IgM Ab Hepatitis C Antibody Influenza Typ A,B (EIA) Blood Type Antibody Screen 11/25/18 11/25/18 11/25/18 11:19 11:19 11:19 WBC RBC Hgb Hct MCV MCH MCHC RDW Plt Count MPV Neut % (Auto) Lymph % (Auto) [place] % (Auto) Eos % (Auto) Baso % (Auto) Neut # (Auto) Lymph # (Auto) [place] # (Auto) Eos # (Auto) Baso # (Auto) pO2 VBG pH VBG pCO2 VBG HCO3 VBG Total CO2 VBG O2 Sat (Calc) VBG Base Excess VBG Potassium Sodium Chloride Glucose Lactate Crit Value Called To Crit Value Called By Crit Value Read Back Blood Gas Notified Time Potassium Carbon Dioxide Anion Gap BUN Creatinine Est GFR ( Amer) Est GFR (Non-Af Amer) POC Glucose (mg/dL) Random Glucose Lactic Acid 1.5 Calcium Phosphorus Magnesium Iron TIBC % Saturation Total Bilirubin AST ALT Alkaline Phosphatase Total Creatine Kinase Total Protein Albumin Globulin Albumin/Globulin Ratio Vitamin B12 Folate Procalcitonin 0.10 L TSH 3rd Generation Venous Blood Potassium Urine Color Urine Clarity Urine pH Ur Specific [place] Urine Protein Urine Glucose (UA) Urine Ketones Urine Blood Urine Nitrate Urine Bilirubin Urine Urobilinogen Ur Leukocyte Esterase Urine WBC (Auto) Urine RBC (Auto) Ur Squamous Epith Cells Urine Bacteria Ur Random Sodium Ur Random Potassium Hep Bs Antigen Hep B Core IgM Ab Hepatitis C Antibody Influenza Typ A,B (EIA) Negative for flu a/b Blood Type Antibody Screen 11/25/18 11/25/18 11/25/18 12:52 13:19 16:00 WBC RBC Hgb Hct MCV MCH MCHC RDW Plt Count MPV Neut % (Auto) Lymph % (Auto) [place] % (Auto) Eos % (Auto) Baso % (Auto) Neut # (Auto) Lymph # (Auto) [place] # (Auto) Eos # (Auto) Baso # (Auto) pO2 VBG pH VBG pCO2 VBG HCO3 VBG Total CO2 VBG O2 Sat (Calc) VBG Base Excess VBG Potassium Sodium Chloride Glucose Lactate Crit Value Called To Crit Value Called By Crit Value Read Back Blood Gas Notified Time Potassium 6.3 H* Carbon Dioxide Anion Gap BUN Creatinine Est GFR ( Amer) Est GFR (Non-Af Amer) POC Glucose (mg/dL) 144 H 51 L Random Glucose Lactic Acid Calcium Phosphorus Magnesium Iron TIBC % Saturation Total Bilirubin AST ALT Alkaline Phosphatase Total Creatine Kinase < 20 L Total Protein Albumin Globulin Albumin/Globulin Ratio Vitamin B12 Folate Procalcitonin TSH 3rd Generation Venous Blood Potassium Urine Color Urine Clarity Urine pH Ur Specific [place] Urine Protein Urine Glucose (UA) Urine Ketones Urine Blood Urine Nitrate Urine Bilirubin Urine Urobilinogen Ur Leukocyte Esterase Urine WBC (Auto) Urine RBC (Auto) Ur Squamous Epith Cells Urine Bacteria Ur Random Sodium Ur Random Potassium Hep Bs Antigen Negative Hep B Core IgM Ab Hepatitis C Antibody Influenza Typ A,B (EIA) Blood Type Antibody Screen 11/25/18 11/25/18 11/25/18 16:03 16:16 16:16 WBC RBC Hgb Hct MCV MCH MCHC RDW Plt Count MPV Neut % (Auto) Lymph % (Auto) [place] % (Auto) Eos % (Auto) Baso % (Auto) Neut # (Auto) Lymph # (Auto) [place] # (Auto) Eos # (Auto) Baso # (Auto) pO2 VBG pH VBG pCO2 VBG HCO3 VBG Total CO2 VBG O2 Sat (Calc) VBG Base Excess VBG Potassium Sodium 135 Chloride 102 Glucose Lactate Crit Value Called To Crit Value Called By Crit Value Read Back Blood Gas Notified Time Potassium 5.3 H Carbon Dioxide 26 Anion Gap 13 BUN 73 H Creatinine 7.3 H Est GFR ( Amer) 6 Est GFR (Non-Af Amer) 5 POC Glucose (mg/dL) 69 Random Glucose 42 L D Lactic Acid Calcium 8.4 L Phosphorus 7.2 H Magnesium 1.8 Iron TIBC % Saturation Total Bilirubin 0.1 L AST 23 ALT 16 Alkaline Phosphatase 45 Total Creatine Kinase Total Protein 5.5 L Albumin 2.8 L Globulin 2.7 Albumin/Globulin Ratio 1.1 Vitamin B12 Folate Procalcitonin TSH 3rd Generation Venous Blood Potassium Urine Color Urine Clarity Urine pH Ur Specific [place] Urine Protein Urine Glucose (UA) Urine Ketones Urine Blood Urine Nitrate Urine Bilirubin Urine Urobilinogen Ur Leukocyte Esterase Urine WBC (Auto) Urine RBC (Auto) Ur Squamous Epith Cells Urine Bacteria Ur Random Sodium Ur Random Potassium Hep Bs Antigen Negative Hep B Core IgM Ab Negative Hepatitis C Antibody Negative Influenza Typ A,B (EIA) Blood Type Antibody Screen 11/25/18 16:47 WBC RBC Hgb Hct MCV MCH MCHC RDW Plt Count MPV Neut % (Auto) Lymph % (Auto) [place] % (Auto) Eos % (Auto) Baso % (Auto) Neut # (Auto) Lymph # (Auto) [place] # (Auto) Eos # (Auto) Baso # (Auto) pO2 VBG pH VBG pCO2 VBG HCO3 VBG Total CO2 VBG O2 Sat (Calc) VBG Base Excess VBG Potassium Sodium Chloride Glucose Lactate Crit Value Called To Crit Value Called By Crit Value Read Back Blood Gas Notified Time Potassium Carbon Dioxide Anion Gap BUN Creatinine Est GFR ( Amer) Est GFR (Non-Af Amer) POC Glucose (mg/dL) 90 Random Glucose Lactic Acid Calcium Phosphorus Magnesium Iron TIBC % Saturation Total Bilirubin AST ALT Alkaline Phosphatase Total Creatine Kinase Total Protein Albumin Globulin Albumin/Globulin Ratio Vitamin B12 Folate Procalcitonin TSH 3rd Generation Venous Blood Potassium Urine Color Urine Clarity Urine pH Ur Specific [place] Urine Protein Urine Glucose (UA) Urine Ketones Urine Blood Urine Nitrate Urine Bilirubin Urine Urobilinogen Ur Leukocyte Esterase Urine WBC (Auto) Urine RBC (Auto) Ur Squamous Epith Cells Urine Bacteria Ur Random Sodium Ur Random Potassium Hep Bs Antigen Hep B Core IgM Ab Hepatitis C Antibody Influenza Typ A,B (EIA) Blood Type Antibody Screen Radiology Impressions: Radiology Impressions Chest X-Ray 11/24/18 22:21 IMPRESSION: Small left pleural effusion a new finding compared to the prior study. Otherwise no change. EKG/Cardiology Studies: Cardiology / EKG Studies 11/24/18 22:10 ELECTROCARDIOGRAM Stat Comment: Mode Of Transportation: BED Reason For Exam: Diabetic 11/24/18 22:21 ELECTROCARDIOGRAM Stat Comment: Mode Of Transportation: BED Reason For Exam: Diabetic Critical Care Progress Note - Nutrition Nutrition: Nutrition Category Date Time Status Consistent Carbohydrate [DIET] Diets 11/25/18 Lunch Active Attending/Attestation - Attestation I have personally seen and examined this patient.: Yes I have fully participated in the care of the patient.: Yes I have reviewed all pertinent clinical information: Yes Notes (Text): 11/25/18 18:08 Patient seen and examined in the intensive care unit. 88-year-old female admitted with hypoglycemia and acute renal failure/hyperkalemia On IV fluids Hemodialysis catheter inserted and right femoral vein under aseptic conditions Follow-up Accu-Cheks Started on IV antibiotics for possible UTI <Jason Stafford - Last Filed: 11/25/18 21:02> CCU Subjective - Physician Review Subjective (Free Text): PGY-[address] Stevens service Patient seen and examined at bedside today. Patient states she is feeling much better today. Patient is tolerating diet; patient denies nausea or vomiting. Patient denies chest pain or shortness of breath. CCU Objective - Vital Signs / Intake & Output Vital Signs (Last 4 hours): Vital Signs Temp Pulse Resp BP Pulse Ox 11/25/18 15:00 93 H 15 100 11/25/18 14:51 98 H 16 146/50 L 100 11/25/18 14:30 98.2 F 94 H 18 172/73 H 11/25/18 14:21 94 H 20 172/73 H 100 11/25/18 14:00 97.5 F L 92 H 18 155/65 H 100 11/25/18 13:51 92 H 19 155/65 H 100 11/25/18 13:38 83 19 179/66 H 100 11/25/18 13:23 82 16 174/67 H 100 11/25/18 13:08 82 22 175/64 H 100 11/25/18 13:00 97.9 F 83 20 161/63 H 100 11/25/18 12:54 85 11 L 161/63 H 100 11/25/18 12:39 97.9 F 82 13 158/57 H 11/25/18 12:38 83 19 161/52 H 100 11/25/18 12:23 80 19 158/57 H 100 11/25/18 12:09 97.9 F 79 14 150/59 L 11/25/18 12:08 83 18 150/59 L 100 11/25/18 12:00 97.9 F 81 15 100 11/25/18 11:54 97.9 F 82 15 160/61 H 11/25/18 11:53 83 16 160/61 H 100 Intake and Output (Last 8hrs): Intake & Output 11/25/18 11/25/18 11/25/18 06:59 14:59 22:59 Intake Total 440 1890 80 Output Total 20 275 Balance 420 1615 80 Weight 142 lb 8 oz Intake: Intake, IV Amount 340 1240 80 RFA #22 100 600 Right Forearm 240 640 80 Oral 100 Blood Product 650 Red Blood Cells Cpd As1 325 Lr Unit [id number] Output: Urine 20 275 Urine, Voided 20 275 Other: Voiding Method Diaper # Bowel Movements 0 - Physical Exam Head: Positive for: Atraumatic, Normocephalic Pupils: Positive for: PERRL Extroacular Muscles: Positive for: EOMI Mouth: Positive for: Moist Mucous Membranes Respiratory/Chest: Positive for: Wheezes (expiratory wheeze b/l ). Negative for: Respiratory Distress, Accessory Muscle Use Cardiovascular: Positive for: Normal S1, S2 Abdomen: Positive for: Normal Bowel Sounds Upper Extremity: Positive for: Normal Inspection Lower Extremity: Positive for: Normal Inspection Neurological: Positive for: CN II-XII Intact Skin: Positive for: Warm, Dry, Normal Color Psychiatric: Positive for: Alert, Oriented x 3 - Medications Active Medications: Active Medications Generic Name Dose Route Start Last Admin Trade Name Freq PRN Reason Stop Dose Admin Albuterol Sulfate 1.25 mg 11/25/18 14:00 11/25/18 14:01 Albuterol 0.042% Inhal Hafsa (1.25mg/3ml) Ud INH 11/25/18 16:01 1.25 mg RQ1 RAJEEV Administration Albuterol/Ipratropium 3 ml 11/25/18 13:28 Duoneb 3 Mg/0.5 Mg (3 Ml) Ud INH RQ6 PRN Shortness of Breath Famotidine 20 mg 11/25/18 10:00 11/25/18 10:03 Pepcid PO 20 mg DAILY RAJEEV Administration Heparin Sodium (Porcine) 5,000 units 11/25/18 06:00 11/25/18 13:36 Heparin SC Not Given Q8 RAJEEV Sodium Bicarbonate 150 meq/ 1,150 mls @ 80 mls/hr 11/25/18 02:45 11/25/18 04:00 Dextrose IV 80 mls/hr .[id number] RAJEEV Administration Ceftriaxone Sodium 1 gm/ 100 mls @ 100 mls/hr 11/25/18 10:00 11/25/18 10:43 Sodium Chloride IVPB 100 mls/hr DAILY RAJEEV Administration Protocol Insulin Human Regular 0 unit 11/25/18 16:30 Novolin R SC ACHS RAJEEV Protocol Levothyroxine Sodium 50 mcg 11/25/18 06:30 11/25/18 07:00 Synthroid PO 50 mcg DAILY@0630 RAJEEV Administration Losartan Potassium 50 mg 11/25/18 13:30 11/25/18 13:41 Cozaar PO 50 mg DAILY RAJEEV Administration - Patient Studies Lab Studies: Lab Studies 11/25/18 11/25/18 11/25/18 Range/Units 13:19 12:52 11:19 WBC (4.8-10.8) K/uL RBC (3.80-5.20) Mil/uL Hgb (11.0-16.0) g/dL Hct (34.0-47.0) % MCV (81.0-99.0) fL MCH (27.0-31.0) pg MCHC (33.0-37.0) g/dL RDW (11.5-14.5) % Plt Count (130-400) K/uL MPV (7.2-11.7) fL Neut % (Auto) (50.0-75.0) % Lymph % (Auto) (20.0-40.0) % [place] % (Auto) (0.0-10.0) % Eos % (Auto) (0.0-4.0) % Baso % (Auto) (0.0-2.0) % Neut # (Auto) (1.8-7.0) K/uL Lymph # (Auto) (1.0-4.3) K/uL [place] # (Auto) (0.0-0.8) K/uL Eos # (Auto) (0.0-0.7) K/uL Baso # (Auto) (0.0-0.2) K/uL pO2 (30-55) mm/Hg VBG pH (7.32-7.43) VBG pCO2 (40-60) mmHg VBG HCO3 mmol/L VBG Total CO2 (22-28) mmol/L VBG O2 Sat (Calc) (40-65) % VBG Base Excess (0.0-2.0) mmol/L VBG Potassium (3.6-5.2) mmol/L Sodium (132-148) mmol/l Chloride (98-107) mmol/L Glucose (65-105) mg/dl Lactate (0.7-2.1) mmol/L Crit Value Called To Crit Value Called By Crit Value Read Back Blood Gas Notified Time Potassium 6.3 H* (3.6-5.2) mmol/L Carbon Dioxide (22-30) mmol/L Anion Gap (10-20) BUN (7-17) mg/dL Creatinine (0.7-1.2) mg/dL Est GFR ( Amer) Est GFR (Non-Af Amer) POC Glucose (mg/dL) 144 H (65-110) mg/dL Random Glucose (65-105) mg/dL Lactic Acid (0.7-2.1) mmol/L Calcium (8.6-10.4) mg/dl Phosphorus (2.5-4.5) mg/dL Magnesium (1.6-2.3) mg/dL Iron (37-170) ug/dL TIBC (250-450) ug/dL % Saturation (20-55) Total Bilirubin (0.2-1.3) mg/dL AST (14-36) U/L ALT (9-52) U/L Alkaline Phosphatase (38-126) U/L Total Creatine Kinase < 20 L (30-135) U/L Total Protein (6.3-8.3) g/dL Albumin (3.5-5.0) g/dL Globulin (2.2-3.9) gm/dL Albumin/Globulin Ratio (1.0-2.1) Vitamin B12 (239-931) pg/mL Folate ng/mL Procalcitonin (0.19-0.49) NG/ML TSH 3rd Generation (0.46-4.68) mIU/L Venous Blood Potassium (3.6-5.2) mmol/L Urine Color (YELLOW) Urine Clarity (Clear) Urine pH (5.0-8.0) Ur Specific [place] (1.003-1.030) Urine Protein (NEGATIVE) mg/dL Urine Glucose (UA) (Normal) mg/dL Urine Ketones (NEGATIVE) mg/dL Urine Blood (NEGATIVE) Urine Nitrate (NEGATIVE) Urine Bilirubin (NEGATIVE) Urine Urobilinogen (0.2-1.0) mg/dL Ur Leukocyte Esterase (Negative) Devora/uL Urine WBC (Auto) (0-5) /hpf Urine RBC (Auto) (0-3) /hpf Ur Squamous Epith Cells (0-5) /hpf Urine Bacteria (<OCC) Ur Random Sodium mmol/L Ur Random Potassium mmol/L Hep Bs Antigen Negative (NEGATIVE) Influenza Typ A,B (EIA) Negative for flu a/b (NEGATIVE) Blood Type Antibody Screen 11/25/18 11/25/18 11/25/18 Range/Units 11:19 11:19 11:19 WBC (4.8-10.8) K/uL RBC (3.80-5.20) Mil/uL Hgb (11.0-16.0) g/dL Hct (34.0-47.0) % MCV (81.0-99.0) fL MCH (27.0-31.0) pg MCHC (33.0-37.0) g/dL RDW (11.5-14.5) % Plt Count (130-400) K/uL MPV (7.2-11.7) fL Neut % (Auto) (50.0-75.0) % Lymph % (Auto) (20.0-40.0) % [place] % (Auto) (0.0-10.0) % Eos % (Auto) (0.0-4.0) % Baso % (Auto) (0.0-2.0) % Neut # (Auto) (1.8-7.0) K/uL Lymph # (Auto) (1.0-4.3) K/uL [place] # (Auto) (0.0-0.8) K/uL Eos # (Auto) (0.0-0.7) K/uL Baso # (Auto) (0.0-0.2) K/uL pO2 (30-55) mm/Hg VBG pH (7.32-7.43) VBG pCO2 (40-60) mmHg VBG HCO3 mmol/L VBG Total CO2 (22-28) mmol/L VBG O2 Sat (Calc) (40-65) % VBG Base Excess (0.0-2.0) mmol/L VBG Potassium (3.6-5.2) mmol/L Sodium (132-148) mmol/l Chloride (98-107) mmol/L Glucose (65-105) mg/dl Lactate (0.7-2.1) mmol/L Crit Value Called To Crit Value Called By Crit Value Read Back Blood Gas Notified Time Potassium (3.6-5.2) mmol/L Carbon Dioxide (22-30) mmol/L Anion Gap (10-20) BUN (7-17) mg/dL Creatinine (0.7-1.2) mg/dL Est GFR ( Amer) Est GFR (Non-Af Amer) POC Glucose (mg/dL) (65-110) mg/dL Random Glucose (65-105) mg/dL Lactic Acid 1.5 (0.7-2.1) mmol/L Calcium (8.6-10.4) mg/dl Phosphorus (2.5-4.5) mg/dL Magnesium (1.6-2.3) mg/dL Iron (37-170) ug/dL TIBC (250-450) ug/dL % Saturation (20-55) Total Bilirubin (0.2-1.3) mg/dL AST (14-36) U/L ALT (9-52) U/L Alkaline Phosphatase (38-126) U/L Total Creatine Kinase (30-135) U/L Total Protein (6.3-8.3) g/dL Albumin (3.5-5.0) g/dL Globulin (2.2-3.9) gm/dL Albumin/Globulin Ratio (1.0-2.1) Vitamin B12 (239-931) pg/mL Folate ng/mL Procalcitonin 0.10 L (0.19-0.49) NG/ML TSH 3rd Generation (0.46-4.68) mIU/L Venous Blood Potassium (3.6-5.2) mmol/L Urine Color (YELLOW) Urine Clarity (Clear) Urine pH (5.0-8.0) Ur Specific [place] (1.003-1.030) Urine Protein (NEGATIVE) mg/dL Urine Glucose (UA) (Normal) mg/dL Urine Ketones (NEGATIVE) mg/dL Urine Blood (NEGATIVE) Urine Nitrate (NEGATIVE) Urine Bilirubin (NEGATIVE) Urine Urobilinogen (0.2-1.0) mg/dL Ur Leukocyte Esterase (Negative) Devora/uL Urine WBC (Auto) (0-5) /hpf Urine RBC (Auto) (0-3) /hpf Ur Squamous Epith Cells (0-5) /hpf Urine Bacteria (<OCC) Ur Random Sodium 46 mmol/L Ur Random Potassium 17.8 mmol/L Hep Bs Antigen (NEGATIVE) Influenza Typ A,B (EIA) (NEGATIVE) Blood Type Antibody Screen 11/25/18 11/25/18 11/25/18 Range/Units 08:42 07:53 07:53 WBC 11.2 H (4.8-10.8) K/uL RBC 2.86 L (3.80-5.20) Mil/uL Hgb 6.6 L (11.0-16.0) g/dL Hct 21.5 L (34.0-47.0) % MCV 75.1 L (81.0-99.0) fL MCH 23.0 L (27.0-31.0) pg MCHC 30.6 L (33.0-37.0) g/dL RDW 18.0 H (11.5-14.5) % Plt Count 335 D (130-400) K/uL MPV 8.0 (7.2-11.7) fL Neut % (Auto) 77.6 H (50.0-75.0) % Lymph % (Auto) 11.9 L (20.0-40.0) % [place] % (Auto) 9.5 (0.0-10.0) % Eos % (Auto) 0.7 (0.0-4.0) % Baso % (Auto) 0.3 (0.0-2.0) % Neut # (Auto) 8.7 H (1.8-7.0) K/uL Lymph # (Auto) 1.3 (1.0-4.3) K/uL [place] # (Auto) 1.1 H (0.0-0.8) K/uL Eos # (Auto) 0.1 (0.0-0.7) K/uL Baso # (Auto) 0.0 (0.0-0.2) K/uL pO2 (30-55) mm/Hg VBG pH (7.32-7.43) VBG pCO2 (40-60) mmHg VBG HCO3 mmol/L VBG Total CO2 (22-28) mmol/L VBG O2 Sat (Calc) (40-65) % VBG Base Excess (0.0-2.0) mmol/L VBG Potassium (3.6-5.2) mmol/L Sodium 135 (132-148) mmol/l Chloride 107 (98-107) mmol/L Glucose (65-105) mg/dl Lactate (0.7-2.1) mmol/L Crit Value Called To Crit Value Called By Crit Value Read Back Blood Gas Notified Time Potassium 6.4 H* (3.6-5.2) mmol/L Carbon Dioxide 18 L (22-30) mmol/L Anion Gap 16 (10-20) BUN 74 H (7-17) mg/dL Creatinine 7.8 H* (0.7-1.2) mg/dL Est GFR ( Amer) 6 Est GFR (Non-Af Amer) 5 POC Glucose (mg/dL) 77 (65-110) mg/dL Random Glucose 58 L D (65-105) mg/dL Lactic Acid (0.7-2.1) mmol/L Calcium 8.4 L (8.6-10.4) mg/dl Phosphorus 7.7 H (2.5-4.5) mg/dL Magnesium 2.0 (1.6-2.3) mg/dL Iron (37-170) ug/dL TIBC (250-450) ug/dL % Saturation (20-55) Total Bilirubin 0.2 (0.2-1.3) mg/dL AST 26 (14-36) U/L ALT 10 (9-52) U/L Alkaline Phosphatase 50 (38-126) U/L Total Creatine Kinase (30-135) U/L Total Protein 6.0 L (6.3-8.3) g/dL Albumin 3.2 L (3.5-5.0) g/dL Globulin 2.8 (2.2-3.9) gm/dL Albumin/Globulin Ratio 1.1 (1.0-2.1) Vitamin B12 (239-931) pg/mL Folate ng/mL Procalcitonin (0.19-0.49) NG/ML TSH 3rd Generation (0.46-4.68) mIU/L Venous Blood Potassium (3.6-5.2) mmol/L Urine Color (YELLOW) Urine Clarity (Clear) Urine pH (5.0-8.0) Ur Specific [place] (1.003-1.030) Urine Protein (NEGATIVE) mg/dL Urine Glucose (UA) (Normal) mg/dL Urine Ketones (NEGATIVE) mg/dL Urine Blood (NEGATIVE) Urine Nitrate (NEGATIVE) Urine Bilirubin (NEGATIVE) Urine Urobilinogen (0.2-1.0) mg/dL Ur Leukocyte Esterase (Negative) Devora/uL Urine WBC (Auto) (0-5) /hpf Urine RBC (Auto) (0-3) /hpf Ur Squamous Epith Cells (0-5) /hpf Urine Bacteria (<OCC) Ur Random Sodium mmol/L Ur Random Potassium mmol/L Hep Bs Antigen (NEGATIVE) Influenza Typ A,B (EIA) (NEGATIVE) Blood Type Antibody Screen 11/25/18 11/25/18 11/25/18 Range/Units 07:13 07:11 06:43 WBC (4.8-10.8) K/uL RBC (3.80-5.20) Mil/uL Hgb (11.0-16.0) g/dL Hct (34.0-47.0) % MCV (81.0-99.0) fL MCH (27.0-31.0) pg MCHC (33.0-37.0) g/dL RDW (11.5-14.5) % Plt Count (130-400) K/uL MPV (7.2-11.7) fL Neut % (Auto) (50.0-75.0) % Lymph % (Auto) (20.0-40.0) % [place] % (Auto) (0.0-10.0) % Eos % (Auto) (0.0-4.0) % Baso % (Auto) (0.0-2.0) % Neut # (Auto) (1.8-7.0) K/uL Lymph # (Auto) (1.0-4.3) K/uL [place] # (Auto) (0.0-0.8) K/uL Eos # (Auto) (0.0-0.7) K/uL Baso # (Auto) (0.0-0.2) K/uL pO2 (30-55) mm/Hg VBG pH (7.32-7.43) VBG pCO2 (40-60) mmHg VBG HCO3 mmol/L VBG Total CO2 (22-28) mmol/L VBG O2 Sat (Calc) (40-65) % VBG Base Excess (0.0-2.0) mmol/L VBG Potassium (3.6-5.2) mmol/L Sodium (132-148) mmol/l Chloride (98-107) mmol/L Glucose (65-105) mg/dl Lactate (0.7-2.1) mmol/L Crit Value Called To Crit Value Called By Crit Value Read Back Blood Gas Notified Time Potassium (3.6-5.2) mmol/L Carbon Dioxide (22-30) mmol/L Anion Gap (10-20) BUN (7-17) mg/dL Creatinine (0.7-1.2) mg/dL Est GFR ( Amer) Est GFR (Non-Af Amer) POC Glucose (mg/dL) 50 L 61 L (65-110) mg/dL Random Glucose (65-105) mg/dL Lactic Acid (0.7-2.1) mmol/L Calcium (8.6-10.4) mg/dl Phosphorus (2.5-4.5) mg/dL Magnesium (1.6-2.3) mg/dL Iron (37-170) ug/dL TIBC (250-450) ug/dL % Saturation (20-55) Total Bilirubin (0.2-1.3) mg/dL AST (14-36) U/L ALT (9-52) U/L Alkaline Phosphatase (38-126) U/L Total Creatine Kinase (30-135) U/L Total Protein (6.3-8.3) g/dL Albumin (3.5-5.0) g/dL Globulin (2.2-3.9) gm/dL Albumin/Globulin Ratio (1.0-2.1) Vitamin B12 (239-931) pg/mL Folate ng/mL Procalcitonin (0.19-0.49) NG/ML TSH 3rd Generation (0.46-4.68) mIU/L Venous Blood Potassium (3.6-5.2) mmol/L Urine Color Yellow (YELLOW) Urine Clarity Hazy (Clear) Urine pH 5.0 (5.0-8.0) Ur Specific [place] 1.010 (1.003-1.030) Urine Protein 2+ H (NEGATIVE) mg/dL Urine Glucose (UA) Normal (Normal) mg/dL Urine Ketones Negative (NEGATIVE) mg/dL Urine Blood Negative (NEGATIVE) Urine Nitrate Negative (NEGATIVE) Urine Bilirubin Negative (NEGATIVE) Urine Urobilinogen Normal (0.2-1.0) mg/dL Ur Leukocyte Esterase 3+ H (Negative) Devora/uL Urine WBC (Auto) 82 H (0-5) /hpf Urine RBC (Auto) 5 H (0-3) /hpf Ur Squamous Epith Cells 5 (0-5) /hpf Urine Bacteria Few H (<OCC) Ur Random Sodium mmol/L Ur Random Potassium mmol/L Hep Bs Antigen (NEGATIVE) Influenza Typ A,B (EIA) (NEGATIVE) Blood Type Antibody Screen 11/25/18 11/25/18 11/25/18 Range/Units 05:42 05:06 05:04 WBC (4.8-10.8) K/uL RBC (3.80-5.20) Mil/uL Hgb (11.0-16.0) g/dL Hct (34.0-47.0) % MCV (81.0-99.0) fL MCH (27.0-31.0) pg MCHC (33.0-37.0) g/dL RDW (11.5-14.5) % Plt Count (130-400) K/uL MPV (7.2-11.7) fL Neut % (Auto) (50.0-75.0) % Lymph % (Auto) (20.0-40.0) % [place] % (Auto) (0.0-10.0) % Eos % (Auto) (0.0-4.0) % Baso % (Auto) (0.0-2.0) % Neut # (Auto) (1.8-7.0) K/uL Lymph # (Auto) (1.0-4.3) K/uL [place] # (Auto) (0.0-0.8) K/uL Eos # (Auto) (0.0-0.7) K/uL Baso # (Auto) (0.0-0.2) K/uL pO2 (30-55) mm/Hg VBG pH (7.32-7.43) VBG pCO2 (40-60) mmHg VBG HCO3 mmol/L VBG Total CO2 (22-28) mmol/L VBG O2 Sat (Calc) (40-65) % VBG Base Excess (0.0-2.0) mmol/L VBG Potassium (3.6-5.2) mmol/L Sodium (132-148) mmol/l Chloride (98-107) mmol/L Glucose (65-105) mg/dl Lactate (0.7-2.1) mmol/L Crit Value Called To Crit Value Called By Crit Value Read Back Blood Gas Notified Time Potassium (3.6-5.2) mmol/L Carbon Dioxide (22-30) mmol/L Anion Gap (10-20) BUN (7-17) mg/dL Creatinine (0.7-1.2) mg/dL Est GFR ( Amer) Est GFR (Non-Af Amer) POC Glucose (mg/dL) 165 H 50 L 46 L (65-110) mg/dL Random Glucose (65-105) mg/dL Lactic Acid (0.7-2.1) mmol/L Calcium (8.6-10.4) mg/dl Phosphorus (2.5-4.5) mg/dL Magnesium (1.6-2.3) mg/dL Iron (37-170) ug/dL TIBC (250-450) ug/dL % Saturation (20-55) Total Bilirubin (0.2-1.3) mg/dL AST (14-36) U/L ALT (9-52) U/L Alkaline Phosphatase (38-126) U/L Total Creatine Kinase (30-135) U/L Total Protein (6.3-8.3) g/dL Albumin (3.5-5.0) g/dL Globulin (2.2-3.9) gm/dL Albumin/Globulin Ratio (1.0-2.1) Vitamin B12 (239-931) pg/mL Folate ng/mL Procalcitonin (0.19-0.49) NG/ML TSH 3rd Generation (0.46-4.68) mIU/L Venous Blood Potassium (3.6-5.2) mmol/L Urine Color (YELLOW) Urine Clarity (Clear) Urine pH (5.0-8.0) Ur Specific [place] (1.003-1.030) Urine Protein (NEGATIVE) mg/dL Urine Glucose (UA) (Normal) mg/dL Urine Ketones (NEGATIVE) mg/dL Urine Blood (NEGATIVE) Urine Nitrate (NEGATIVE) Urine Bilirubin (NEGATIVE) Urine Urobilinogen (0.2-1.0) mg/dL Ur Leukocyte Esterase (Negative) Devora/uL Urine WBC (Auto) (0-5) /hpf Urine RBC (Auto) (0-3) /hpf Ur Squamous Epith Cells (0-5) /hpf Urine Bacteria (<OCC) Ur Random Sodium mmol/L Ur Random Potassium mmol/L Hep Bs Antigen (NEGATIVE) Influenza Typ A,B (EIA) (NEGATIVE) Blood Type Antibody Screen 11/25/18 11/25/18 11/25/18 Range/Units 02:03 02:03 01:50 WBC (4.8-10.8) K/uL RBC (3.80-5.20) Mil/uL Hgb (11.0-16.0) g/dL Hct (34.0-47.0) % MCV (81.0-99.0) fL MCH (27.0-31.0) pg MCHC (33.0-37.0) g/dL RDW (11.5-14.5) % Plt Count (130-400) K/uL MPV (7.2-11.7) fL Neut % (Auto) (50.0-75.0) % Lymph % (Auto) (20.0-40.0) % [place] % (Auto) (0.0-10.0) % Eos % (Auto) (0.0-4.0) % Baso % (Auto) (0.0-2.0) % Neut # (Auto) (1.8-7.0) K/uL Lymph # (Auto) (1.0-4.3) K/uL [place] # (Auto) (0.0-0.8) K/uL Eos # (Auto) (0.0-0.7) K/uL Baso # (Auto) (0.0-0.2) K/uL pO2 (30-55) mm/Hg VBG pH (7.32-7.43) VBG pCO2 (40-60) mmHg VBG HCO3 mmol/L VBG Total CO2 (22-28) mmol/L VBG O2 Sat (Calc) (40-65) % VBG Base Excess (0.0-2.0) mmol/L VBG Potassium (3.6-5.2) mmol/L Sodium 132 (132-148) mmol/l Chloride 105 (98-107) mmol/L Glucose (65-105) mg/dl Lactate (0.7-2.1) mmol/L Crit Value Called To Crit Value Called By Crit Value Read Back Blood Gas Notified Time Potassium 6.7 H* (3.6-5.2) mmol/L Carbon Dioxide 19 L (22-30) mmol/L Anion Gap 15 (10-20) BUN 75 H (7-17) mg/dL Creatinine 7.3 H (0.7-1.2) mg/dL Est GFR ( Amer) 6 Est GFR (Non-Af Amer) 5 POC Glucose (mg/dL) (65-110) mg/dL Random Glucose 197 H D (65-105) mg/dL Lactic Acid (0.7-2.1) mmol/L Calcium 10.8 H (8.6-10.4) mg/dl Phosphorus 7.9 H (2.5-4.5) mg/dL Magnesium 2.0 (1.6-2.3) mg/dL Iron 38 (37-170) ug/dL TIBC 425 (250-450) ug/dL % Saturation 9 L (20-55) Total Bilirubin (0.2-1.3) mg/dL AST (14-36) U/L ALT (9-52) U/L Alkaline Phosphatase (38-126) U/L Total Creatine Kinase (30-135) U/L Total Protein (6.3-8.3) g/dL Albumin (3.5-5.0) g/dL Globulin (2.2-3.9) gm/dL Albumin/Globulin Ratio (1.0-2.1) Vitamin B12 223 L (239-931) pg/mL Folate > 20.0 ng/mL Procalcitonin (0.19-0.49) NG/ML TSH 3rd Generation 1.09 (0.46-4.68) mIU/L Venous Blood Potassium (3.6-5.2) mmol/L Urine Color (YELLOW) Urine Clarity (Clear) Urine pH (5.0-8.0) Ur Specific [place] (1.003-1.030) Urine Protein (NEGATIVE) mg/dL Urine Glucose (UA) (Normal) mg/dL Urine Ketones (NEGATIVE) mg/dL Urine Blood (NEGATIVE) Urine Nitrate (NEGATIVE) Urine Bilirubin (NEGATIVE) Urine Urobilinogen (0.2-1.0) mg/dL Ur Leukocyte Esterase (Negative) Devora/uL Urine WBC (Auto) (0-5) /hpf Urine RBC (Auto) (0-3) /hpf Ur Squamous Epith Cells (0-5) /hpf Urine Bacteria (<OCC) Ur Random Sodium mmol/L Ur Random Potassium mmol/L Hep Bs Antigen (NEGATIVE) Influenza Typ A,B (EIA) (NEGATIVE) Blood Type B POSITIVE Antibody Screen Negative 11/25/18 11/25/18 11/24/18 Range/Units 00:25 00:16 23:43 WBC (4.8-10.8) K/uL RBC (3.80-5.20) Mil/uL Hgb (11.0-16.0) g/dL Hct (34.0-47.0) % MCV (81.0-99.0) fL MCH (27.0-31.0) pg MCHC (33.0-37.0) g/dL RDW (11.5-14.5) % Plt Count (130-400) K/uL MPV (7.2-11.7) fL Neut % (Auto) (50.0-75.0) % Lymph % (Auto) (20.0-40.0) % [place] % (Auto) (0.0-10.0) % Eos % (Auto) (0.0-4.0) % Baso % (Auto) (0.0-2.0) % Neut # (Auto) (1.8-7.0) K/uL Lymph # (Auto) (1.0-4.3) K/uL [place] # (Auto) (0.0-0.8) K/uL Eos # (Auto) (0.0-0.7) K/uL Baso # (Auto) (0.0-0.2) K/uL pO2 (30-55) mm/Hg VBG pH (7.32-7.43) VBG pCO2 (40-60) mmHg VBG HCO3 mmol/L VBG Total CO2 (22-28) mmol/L VBG O2 Sat (Calc) (40-65) % VBG Base Excess (0.0-2.0) mmol/L VBG Potassium (3.6-5.2) mmol/L Sodium 135 135 (132-148) mmol/l Chloride 105 105 (98-107) mmol/L Glucose (65-105) mg/dl Lactate (0.7-2.1) mmol/L Crit Value Called To Crit Value Called By Crit Value Read Back Blood Gas Notified Time Potassium 6.9 H* 7.8 H* D (3.6-5.2) mmol/L Carbon Dioxide 19 L 18 L (22-30) mmol/L Anion Gap 17 20 (10-20) BUN 76 H 78 H (7-17) mg/dL Creatinine 7.6 H* 7.5 H* D (0.7-1.2) mg/dL Est GFR ( Amer) 6 6 Est GFR (Non-Af Amer) 5 5 POC Glucose (mg/dL) 75 (65-110) mg/dL Random Glucose 61 L D 26 L* D (65-105) mg/dL Lactic Acid (0.7-2.1) mmol/L Calcium 8.5 L 8.4 L (8.6-10.4) mg/dl Phosphorus (2.5-4.5) mg/dL Magnesium (1.6-2.3) mg/dL Iron (37-170) ug/dL TIBC (250-450) ug/dL % Saturation (20-55) Total Bilirubin 0.6 (0.2-1.3) mg/dL AST 50 H D (14-36) U/L ALT < 6 L D (9-52) U/L Alkaline Phosphatase 40 (38-126) U/L Total Creatine Kinase (30-135) U/L Total Protein 7.0 (6.3-8.3) g/dL Albumin 3.7 (3.5-5.0) g/dL Globulin 3.4 (2.2-3.9) gm/dL Albumin/Globulin Ratio 1.1 (1.0-2.1) Vitamin B12 (239-931) pg/mL Folate ng/mL Procalcitonin (0.19-0.49) NG/ML TSH 3rd Generation (0.46-4.68) mIU/L Venous Blood Potassium (3.6-5.2) mmol/L Urine Color (YELLOW) Urine Clarity (Clear) Urine pH (5.0-8.0) Ur Specific [place] (1.003-1.030) Urine Protein (NEGATIVE) mg/dL Urine Glucose (UA) (Normal) mg/dL Urine Ketones (NEGATIVE) mg/dL Urine Blood (NEGATIVE) Urine Nitrate (NEGATIVE) Urine Bilirubin (NEGATIVE) Urine Urobilinogen (0.2-1.0) mg/dL Ur Leukocyte Esterase (Negative) Devora/uL Urine WBC (Auto) (0-5) /hpf Urine RBC (Auto) (0-3) /hpf Ur Squamous Epith Cells (0-5) /hpf Urine Bacteria (<OCC) Ur Random Sodium mmol/L Ur Random Potassium mmol/L Hep Bs Antigen (NEGATIVE) Influenza Typ A,B (EIA) (NEGATIVE) Blood Type Antibody Screen 11/24/18 11/24/18 11/24/18 Range/Units 22:42 22:38 22:31 WBC 10.8 (4.8-10.8) K/uL RBC 3.11 L (3.80-5.20) Mil/uL Hgb 7.2 L D (11.0-16.0) g/dL Hct 23.6 L (34.0-47.0) % MCV 76.0 L D (81.0-99.0) fL MCH 23.1 L (27.0-31.0) pg MCHC 30.4 L (33.0-37.0) g/dL RDW 18.1 H (11.5-14.5) % Plt Count 435 H (130-400) K/uL MPV 8.5 (7.2-11.7) fL Neut % (Auto) 62.4 (50.0-75.0) % Lymph % (Auto) 27.0 (20.0-40.0) % [place] % (Auto) 8.7 (0.0-10.0) % Eos % (Auto) 1.0 (0.0-4.0) % Baso % (Auto) 0.9 (0.0-2.0) % Neut # (Auto) 6.7 (1.8-7.0) K/uL Lymph # (Auto) 2.9 (1.0-4.3) K/uL [place] # (Auto) 0.9 H (0.0-0.8) K/uL Eos # (Auto) 0.1 (0.0-0.7) K/uL Baso # (Auto) 0.1 (0.0-0.2) K/uL pO2 32 (30-55) mm/Hg VBG pH 7.22 L (7.32-7.43) VBG pCO2 49 (40-60) mmHg VBG HCO3 17.5 mmol/L VBG Total CO2 21.6 L (22-28) mmol/L VBG O2 Sat (Calc) 59.4 (40-65) % VBG Base Excess -7.8 L (0.0-2.0) mmol/L VBG Potassium 9.1 H* (3.6-5.2) mmol/L Sodium 135.0 (132-148) mmol/l Chloride 109.0 H (98-107) mmol/L Glucose 31 L* D (65-105) mg/dl Lactate 2.7 H (0.7-2.1) mmol/L Crit Value Called To Celso yost rn Crit Value Called By Stefanie Crit Value Read Back Y Blood Gas Notified Time 2240 Potassium (3.6-5.2) mmol/L Carbon Dioxide (22-30) mmol/L Anion Gap (10-20) BUN (7-17) mg/dL Creatinine (0.7-1.2) mg/dL Est GFR ( Amer) Est GFR (Non-Af Amer) POC Glucose (mg/dL) 168 H (65-110) mg/dL Random Glucose (65-105) mg/dL Lactic Acid (0.7-2.1) mmol/L Calcium (8.6-10.4) mg/dl Phosphorus (2.5-4.5) mg/dL Magnesium (1.6-2.3) mg/dL Iron (37-170) ug/dL TIBC (250-450) ug/dL % Saturation (20-55) Total Bilirubin (0.2-1.3) mg/dL AST (14-36) U/L ALT (9-52) U/L Alkaline Phosphatase (38-126) U/L Total Creatine Kinase (30-135) U/L Total Protein (6.3-8.3) g/dL Albumin (3.5-5.0) g/dL Globulin (2.2-3.9) gm/dL Albumin/Globulin Ratio (1.0-2.1) Vitamin B12 (239-931) pg/mL Folate ng/mL Procalcitonin (0.19-0.49) NG/ML TSH 3rd Generation (0.46-4.68) mIU/L Venous Blood Potassium 9.1 H* (3.6-5.2) mmol/L Urine Color (YELLOW) Urine Clarity (Clear) Urine pH (5.0-8.0) Ur Specific [place] (1.003-1.030) Urine Protein (NEGATIVE) mg/dL Urine Glucose (UA) (Normal) mg/dL Urine Ketones (NEGATIVE) mg/dL Urine Blood (NEGATIVE) Urine Nitrate (NEGATIVE) Urine Bilirubin (NEGATIVE) Urine Urobilinogen (0.2-1.0) mg/dL Ur Leukocyte Esterase (Negative) Devora/uL Urine WBC (Auto) (0-5) /hpf Urine RBC (Auto) (0-3) /hpf Ur Squamous Epith Cells (0-5) /hpf Urine Bacteria (<OCC) Ur Random Sodium mmol/L Ur Random Potassium mmol/L Hep Bs Antigen (NEGATIVE) Influenza Typ A,B (EIA) (NEGATIVE) Blood Type Antibody Screen 11/24/18 11/24/18 Range/Units 21:53 21:50 WBC (4.8-10.8) K/uL RBC (3.80-5.20) Mil/uL Hgb (11.0-16.0) g/dL Hct (34.0-47.0) % MCV (81.0-99.0) fL MCH (27.0-31.0) pg MCHC (33.0-37.0) g/dL RDW (11.5-14.5) % Plt Count (130-400) K/uL MPV (7.2-11.7) fL Neut % (Auto) (50.0-75.0) % Lymph % (Auto) (20.0-40.0) % [place] % (Auto) (0.0-10.0) % Eos % (Auto) (0.0-4.0) % Baso % (Auto) (0.0-2.0) % Neut # (Auto) (1.8-7.0) K/uL Lymph # (Auto) (1.0-4.3) K/uL [place] # (Auto) (0.0-0.8) K/uL Eos # (Auto) (0.0-0.7) K/uL Baso # (Auto) (0.0-0.2) K/uL pO2 (30-55) mm/Hg VBG pH (7.32-7.43) VBG pCO2 (40-60) mmHg VBG HCO3 mmol/L VBG Total CO2 (22-28) mmol/L VBG O2 Sat (Calc) (40-65) % VBG Base Excess (0.0-2.0) mmol/L VBG Potassium (3.6-5.2) mmol/L Sodium (132-148) mmol/l Chloride (98-107) mmol/L Glucose (65-105) mg/dl Lactate (0.7-2.1) mmol/L Crit Value Called To Crit Value Called By Crit Value Read Back Blood Gas Notified Time Potassium (3.6-5.2) mmol/L Carbon Dioxide (22-30) mmol/L Anion Gap (10-20) BUN (7-17) mg/dL Creatinine (0.7-1.2) mg/dL Est GFR ( Amer) Est GFR (Non-Af Amer) POC Glucose (mg/dL) 49 L 59 L (65-110) mg/dL Random Glucose (65-105) mg/dL Lactic Acid (0.7-2.1) mmol/L Calcium (8.6-10.4) mg/dl Phosphorus (2.5-4.5) mg/dL Magnesium (1.6-2.3) mg/dL Iron (37-170) ug/dL TIBC (250-450) ug/dL % Saturation (20-55) Total Bilirubin (0.2-1.3) mg/dL AST (14-36) U/L ALT (9-52) U/L Alkaline Phosphatase (38-126) U/L Total Creatine Kinase (30-135) U/L Total Protein (6.3-8.3) g/dL Albumin (3.5-5.0) g/dL Globulin (2.2-3.9) gm/dL Albumin/Globulin Ratio (1.0-2.1) Vitamin B12 (239-931) pg/mL Folate ng/mL Procalcitonin (0.19-0.49) NG/ML TSH 3rd Generation (0.46-4.68) mIU/L Venous Blood Potassium (3.6-5.2) mmol/L Urine Color (YELLOW) Urine Clarity (Clear) Urine pH (5.0-8.0) Ur Specific [place] (1.003-1.030) Urine Protein (NEGATIVE) mg/dL Urine Glucose (UA) (Normal) mg/dL Urine Ketones (NEGATIVE) mg/dL Urine Blood (NEGATIVE) Urine Nitrate (NEGATIVE) Urine Bilirubin (NEGATIVE) Urine Urobilinogen (0.2-1.0) mg/dL Ur Leukocyte Esterase (Negative) Devora/uL Urine WBC (Auto) (0-5) /hpf Urine RBC (Auto) (0-3) /hpf Ur Squamous Epith Cells (0-5) /hpf Urine Bacteria (<OCC) Ur Random Sodium mmol/L Ur Random Potassium mmol/L Hep Bs Antigen (NEGATIVE) Influenza Typ A,B (EIA) (NEGATIVE) Blood Type Antibody Screen Laboratory Results - last 24 hr 11/24/18 11/24/1811/24/19 21:50 21:53 22:31 WBC RBC Hgb Hct MCV MCH MCHC RDW Plt Count MPV Neut % (Auto) Lymph % (Auto) [place] % (Auto) Eos % (Auto) Baso % (Auto) Neut # (Auto) Lymph # (Auto) [place] # (Auto) Eos # (Auto) Baso # (Auto) pO2 VBG pH VBG pCO2 VBG HCO3 VBG Total CO2 VBG O2 Sat (Calc) VBG Base Excess VBG Potassium Sodium Chloride Glucose Lactate Crit Value Called To Crit Value Called By Crit Value Read Back Blood Gas Notified Time Potassium Carbon Dioxide Anion Gap BUN Creatinine Est GFR ( Amer) Est GFR (Non-Af Amer) POC Glucose (mg/dL) 59 L 49 L 168 H Random Glucose Lactic Acid Calcium Phosphorus Magnesium Iron TIBC % Saturation Total Bilirubin AST ALT Alkaline Phosphatase Total Creatine Kinase Total Protein Albumin Globulin Albumin/Globulin Ratio Vitamin B12 Folate Procalcitonin TSH 3rd Generation Venous Blood Potassium Urine Color Urine Clarity Urine pH Ur Specific [place] Urine Protein Urine Glucose (UA) Urine Ketones Urine Blood Urine Nitrate Urine Bilirubin Urine Urobilinogen Ur Leukocyte Esterase Urine WBC (Auto) Urine RBC (Auto) Ur Squamous Epith Cells Urine Bacteria Ur Random Sodium Ur Random Potassium Hep Bs Antigen Influenza Typ A,B (EIA) Blood Type Antibody Screen 11/24/18 11/24/18 11/24/18 22:38 22:42 23:43 WBC 10.8 RBC 3.11 L Hgb 7.2 L D Hct 23.6 L MCV 76.0 L D MCH 23.1 L MCHC 30.4 L RDW 18.1 H Plt Count 435 H MPV 8.5 Neut % (Auto) 62.4 Lymph % (Auto) 27.0 [place] % (Auto) 8.7 Eos % (Auto) 1.0 Baso % (Auto) 0.9 Neut # (Auto) 6.7 Lymph # (Auto) 2.9 [place] # (Auto) 0.9 H Eos # (Auto) 0.1 Baso # (Auto) 0.1 pO2 32 VBG pH 7.22 L VBG pCO2 49 VBG HCO3 17.5 VBG Total CO2 21.6 L VBG O2 Sat (Calc) 59.4 VBG Base Excess -7.8 L VBG Potassium 9.1 H* Sodium 135.0 135 Chloride 109.0 H 105 Glucose 31 L* D Lactate 2.7 H Crit Value Called To Celso yost rn Crit Value Called By Stefanie Crit Value Read Back Y Blood Gas Notified Time 224 Potassium 7.8 H* D Carbon Dioxide 18 L Anion Gap 20 BUN 78 H Creatinine 7.5 H* D Est GFR ( Amer) 6 Est GFR (Non-Af Amer) 5 POC Glucose (mg/dL) Random Glucose 26 L* D Lactic Acid Calcium 8.4 L Phosphorus Magnesium Iron TIBC % Saturation Total Bilirubin 0.6 AST 50 H D ALT < 6 L D Alkaline Phosphatase 40 Total Creatine Kinase Total Protein 7.0 Albumin 3.7 Globulin 3.4 Albumin/Globulin Ratio 1.1 Vitamin B12 Folate Procalcitonin TSH 3rd Generation Venous Blood Potassium 9.1 H* Urine Color Urine Clarity Urine pH Ur Specific [place] Urine Protein Urine Glucose (UA) Urine Ketones Urine Blood Urine Nitrate Urine Bilirubin Urine Urobilinogen Ur Leukocyte Esterase Urine WBC (Auto) Urine RBC (Auto) Ur Squamous Epith Cells Urine Bacteria Ur Random Sodium Ur Random Potassium Hep Bs Antigen Influenza Typ A,B (EIA) Blood Type Antibody Screen 11/25/18 11/25/18 11/25/18 00:16 00:25 01:50 WBC RBC Hgb Hct MCV MCH MCHC RDW Plt Count MPV Neut % (Auto) Lymph % (Auto) [place] % (Auto) Eos % (Auto) Baso % (Auto) Neut # (Auto) Lymph # (Auto) [place] # (Auto) Eos # (Auto) Baso # (Auto) pO2 VBG pH VBG pCO2 VBG HCO3 VBG Total CO2 VBG O2 Sat (Calc) VBG Base Excess VBG Potassium Sodium 135 Chloride 105 Glucose Lactate Crit Value Called To Crit Value Called By Crit Value Read Back Blood Gas Notified Time Potassium 6.9 H* Carbon Dioxide 19 L Anion Gap 17 BUN 76 H Creatinine 7.6 H* Est GFR ( Amer) 6 Est GFR (Non-Af Amer) 5 POC Glucose (mg/dL) 75 Random Glucose 61 L D Lactic Acid Calcium 8.5 L Phosphorus Magnesium Iron TIBC % Saturation Total Bilirubin AST ALT Alkaline Phosphatase Total Creatine Kinase Total Protein Albumin Globulin Albumin/Globulin Ratio Vitamin B12 Folate Procalcitonin TSH 3rd Generation Venous Blood Potassium Urine Color Urine Clarity Urine pH Ur Specific [place] Urine Protein Urine Glucose (UA) Urine Ketones Urine Blood Urine Nitrate Urine Bilirubin Urine Urobilinogen Ur Leukocyte Esterase Urine WBC (Auto) Urine RBC (Auto) Ur Squamous Epith Cells Urine Bacteria Ur Random Sodium Ur Random Potassium Hep Bs Antigen Influenza Typ A,B (EIA) Blood Type B POSITIVE Antibody Screen Negative 11/25/18 11/25/18 11/25/18 02:03 02:03 05:04 WBC RBC Hgb Hct MCV MCH MCHC RDW Plt Count MPV Neut % (Auto) Lymph % (Auto) [place] % (Auto) Eos % (Auto) Baso % (Auto) Neut # (Auto) Lymph # (Auto) [place] # (Auto) Eos # (Auto) Baso # (Auto) pO2 VBG pH VBG pCO2 VBG HCO3 VBG Total CO2 VBG O2 Sat (Calc) VBG Base Excess VBG Potassium Sodium 132 Chloride 105 Glucose Lactate Crit Value Called To Crit Value Called By Crit Value Read Back Blood Gas Notified Time Potassium 6.7 H* Carbon Dioxide 19 L Anion Gap 15 BUN 75 H Creatinine 7.3 H Est GFR ( Amer) 6 Est GFR (Non-Af Amer) 5 POC Glucose (mg/dL) 46 L Random Glucose 197 H D Lactic Acid Calcium 10.8 H Phosphorus 7.9 H Magnesium 2.0 Iron 38 TIBC 425 % Saturation 9 L Total Bilirubin AST ALT Alkaline Phosphatase Total Creatine Kinase Total Protein Albumin Globulin Albumin/Globulin Ratio Vitamin B12 223 L Folate > 20.0 Procalcitonin TSH 3rd Generation 1.09 Venous Blood Potassium Urine Color Urine Clarity Urine pH Ur Specific [place] Urine Protein Urine Glucose (UA) Urine Ketones Urine Blood Urine Nitrate Urine Bilirubin Urine Urobilinogen Ur Leukocyte Esterase Urine WBC (Auto) Urine RBC (Auto) Ur Squamous Epith Cells Urine Bacteria Ur Random Sodium Ur Random Potassium Hep Bs Antigen Influenza Typ A,B (EIA) Blood Type Antibody Screen 11/25/18 11/25/18 11/25/18 05:06 05:42 06:43 WBC RBC Hgb Hct MCV MCH MCHC RDW Plt Count MPV Neut % (Auto) Lymph % (Auto) [place] % (Auto) Eos % (Auto) Baso % (Auto) Neut # (Auto) Lymph # (Auto) [place] # (Auto) Eos # (Auto) Baso # (Auto) pO2 VBG pH VBG pCO2 VBG HCO3 VBG Total CO2 VBG O2 Sat (Calc) VBG Base Excess VBG Potassium Sodium Chloride Glucose Lactate Crit Value Called To Crit Value Called By Crit Value Read Back Blood Gas Notified Time Potassium Carbon Dioxide Anion Gap BUN Creatinine Est GFR ( Amer) Est GFR (Non-Af Amer) POC Glucose (mg/dL) 50 L 165 H Random Glucose Lactic Acid Calcium Phosphorus Magnesium Iron TIBC % Saturation Total Bilirubin AST ALT Alkaline Phosphatase Total Creatine Kinase Total Protein Albumin Globulin Albumin/Globulin Ratio Vitamin B12 Folate Procalcitonin TSH 3rd Generation Venous Blood Potassium Urine Color Yellow Urine Clarity Hazy Urine pH 5.0 Ur Specific [place] 1.010 Urine Protein 2+ H Urine Glucose (UA) Normal Urine Ketones Negative Urine Blood Negative Urine Nitrate Negative Urine Bilirubin Negative Urine Urobilinogen Normal Ur Leukocyte Esterase 3+ H Urine WBC (Auto) 82 H Urine RBC (Auto) 5 H Ur Squamous Epith Cells 5 Urine Bacteria Few H Ur Random Sodium Ur Random Potassium Hep Bs Antigen Influenza Typ A,B (EIA) Blood Type Antibody Screen 11/25/18 11/25/18 11/25/18 07:11 07:13 07:53 WBC 11.2 H RBC 2.86 L Hgb 6.6 L Hct 21.5 L MCV 75.1 L MCH 23.0 L MCHC 30.6 L RDW 18.0 H Plt Count 335 D MPV 8.0 Neut % (Auto) 77.6 H Lymph % (Auto) 11.9 L [place] % (Auto) 9.5 Eos % (Auto) 0.7 Baso % (Auto) 0.3 Neut # (Auto) 8.7 H Lymph # (Auto) 1.3 [place] # (Auto) 1.1 H Eos # (Auto) 0.1 Baso # (Auto) 0.0 pO2 VBG pH VBG pCO2 VBG HCO3 VBG Total CO2 VBG O2 Sat (Calc) VBG Base Excess VBG Potassium Sodium Chloride Glucose Lactate Crit Value Called To Crit Value Called By Crit Value Read Back Blood Gas Notified Time Potassium Carbon Dioxide Anion Gap BUN Creatinine Est GFR ( Amer) Est GFR (Non-Af Amer) POC Glucose (mg/dL) 61 L 50 L Random Glucose Lactic Acid Calcium Phosphorus Magnesium Iron TIBC % Saturation Total Bilirubin AST ALT Alkaline Phosphatase Total Creatine Kinase Total Protein Albumin Globulin Albumin/Globulin Ratio Vitamin B12 Folate Procalcitonin TSH 3rd Generation Venous Blood Potassium Urine Color Urine Clarity Urine pH Ur Specific [place] Urine Protein Urine Glucose (UA) Urine Ketones Urine Blood Urine Nitrate Urine Bilirubin Urine Urobilinogen Ur Leukocyte Esterase Urine WBC (Auto) Urine RBC (Auto) Ur Squamous Epith Cells Urine Bacteria Ur Random Sodium Ur Random Potassium Hep Bs Antigen Influenza Typ A,B (EIA) Blood Type Antibody Screen 11/25/18 11/25/18 11/25/18 07:53 08:42 11:19 WBC RBC Hgb Hct MCV MCH MCHC RDW Plt Count MPV Neut % (Auto) Lymph % (Auto) [place] % (Auto) Eos % (Auto) Baso % (Auto) Neut # (Auto) Lymph # (Auto) [place] # (Auto) Eos # (Auto) Baso # (Auto) pO2 VBG pH VBG pCO2 VBG HCO3 VBG Total CO2 VBG O2 Sat (Calc) VBG Base Excess VBG Potassium Sodium 135 Chloride 107 Glucose Lactate Crit Value Called To Crit Value Called By Crit Value Read Back Blood Gas Notified Time Potassium 6.4 H* Carbon Dioxide 18 L Anion Gap 16 BUN 74 H Creatinine 7.8 H* Est GFR ( Amer) 6 Est GFR (Non-Af Amer) 5 POC Glucose (mg/dL) 77 Random Glucose 58 L D Lactic Acid Calcium 8.4 L Phosphorus 7.7 H Magnesium 2.0 Iron TIBC % Saturation Total Bilirubin 0.2 AST 26 ALT 10 Alkaline Phosphatase 50 Total Creatine Kinase Total Protein 6.0 L Albumin 3.2 L Globulin 2.8 Albumin/Globulin Ratio 1.1 Vitamin B12 Folate Procalcitonin TSH 3rd Generation Venous Blood Potassium Urine Color Urine Clarity Urine pH Ur Specific [place] Urine Protein Urine Glucose (UA) Urine Ketones Urine Blood Urine Nitrate Urine Bilirubin Urine Urobilinogen Ur Leukocyte Esterase Urine WBC (Auto) Urine RBC (Auto) Ur Squamous Epith Cells Urine Bacteria Ur Random Sodium 46 Ur Random Potassium 17.8 Hep Bs Antigen Influenza Typ A,B (EIA) Blood Type Antibody Screen 11/25/18 11/25/18 11/25/18 11:19 11:19 11:19 WBC RBC Hgb Hct MCV MCH MCHC RDW Plt Count MPV Neut % (Auto) Lymph % (Auto) [place] % (Auto) Eos % (Auto) Baso % (Auto) Neut # (Auto) Lymph # (Auto) [place] # (Auto) Eos # (Auto) Baso # (Auto) pO2 VBG pH VBG pCO2 VBG HCO3 VBG Total CO2 VBG O2 Sat (Calc) VBG Base Excess VBG Potassium Sodium Chloride Glucose Lactate Crit Value Called To Crit Value Called By Crit Value Read Back Blood Gas Notified Time Potassium Carbon Dioxide Anion Gap BUN Creatinine Est GFR ( Amer) Est GFR (Non-Af Amer) POC Glucose (mg/dL) Random Glucose Lactic Acid 1.5 Calcium Phosphorus Magnesium Iron TIBC % Saturation Total Bilirubin AST ALT Alkaline Phosphatase Total Creatine Kinase Total Protein Albumin Globulin Albumin/Globulin Ratio Vitamin B12 Folate Procalcitonin 0.10 L TSH 3rd Generation Venous Blood Potassium Urine Color Urine Clarity Urine pH Ur Specific [place] Urine Protein Urine Glucose (UA) Urine Ketones Urine Blood Urine Nitrate Urine Bilirubin Urine Urobilinogen Ur Leukocyte Esterase Urine WBC (Auto) Urine RBC (Auto) Ur Squamous Epith Cells Urine Bacteria Ur Random Sodium Ur Random Potassium Hep Bs Antigen Influenza Typ A,B (EIA) Negative for flu a/b Blood Type Antibody Screen 11/25/18 11/25/18 12:52 13:19 WBC RBC Hgb Hct MCV MCH MCHC RDW Plt Count MPV Neut % (Auto) Lymph % (Auto) [place] % (Auto) Eos % (Auto) Baso % (Auto) Neut # (Auto) Lymph # (Auto) [place] # (Auto) Eos # (Auto) Baso # (Auto) pO2 VBG pH VBG pCO2 VBG HCO3 VBG Total CO2 VBG O2 Sat (Calc) VBG Base Excess VBG Potassium Sodium Chloride Glucose Lactate Crit Value Called To Crit Value Called By Crit Value Read Back Blood Gas Notified Time Potassium 6.3 H* Carbon Dioxide Anion Gap BUN Creatinine Est GFR ( Amer) Est GFR (Non-Af Amer) POC Glucose (mg/dL) 144 H Random Glucose Lactic Acid Calcium Phosphorus Magnesium Iron TIBC % Saturation Total Bilirubin AST ALT Alkaline Phosphatase Total Creatine Kinase < 20 L Total Protein Albumin Globulin Albumin/Globulin Ratio Vitamin B12 Folate Procalcitonin TSH 3rd Generation Venous Blood Potassium Urine Color Urine Clarity Urine pH Ur Specific [place] Urine Protein Urine Glucose (UA) Urine Ketones Urine Blood Urine Nitrate Urine Bilirubin Urine Urobilinogen Ur Leukocyte Esterase Urine WBC (Auto) Urine RBC (Auto) Ur Squamous Epith Cells Urine Bacteria Ur Random Sodium Ur Random Potassium Hep Bs Antigen Negative Influenza Typ A,B (EIA) Blood Type Antibody Screen Radiology Impressions: Radiology Impressions Chest X-Ray 11/24/18 22:21 IMPRESSION: Small left pleural effusion a new finding compared to the prior study. Otherwise no change. EKG/Cardiology Studies: Cardiology / EKG Studies 11/24/18 22:10 ELECTROCARDIOGRAM Stat Comment: Mode Of Transportation: BED Reason For Exam: Diabetic 11/24/18 22:21 ELECTROCARDIOGRAM Stat Comment: Mode Of Transportation: BED Reason For Exam: Diabetic Fingerstick Blood Sugar Results: 144 Critical Care Progress Note - Nutrition Nutrition: Nutrition Category Date Time Status Consistent Carbohydrate [DIET] Diets 11/25/18 Lunch Active Assessment/Plan - Assessment and Plan (Free Text) Plan: Patient is an 88 year old female with PMHx of asthma, CHF, DM, Gastritis, HTN, HLD, and Hypothyroidism, that presented to the hospital with complaint of not feeling well and dizziness. In ED, patient was found to have hypoglycemia (37), hyperkalemia (7.8), and elevated BUN/Cr 78/7.5. Previous admission in January 2018, pt BUN/Cr was 31/1.5. Patient was admitted to the ICU for treatment of hyperkalemia, elevated BUN/Cr, and hypoglycemia. Today, potassium remains high following administration of kayexalate, insulin, and calcium gluconate. Hb was 6.6, 2 units of PRBCs to be given, dialysis to be given today, dialysis cath to be placed. Neuro - AAOx3 - no acute issues Cardiac - Hypertensive, labetalol 10mg IVP x 1 - Hx of HTN, restart Cozaar 50mg daily - Hx of CHF - Afib RVR during dialysis, Cardizam 10mg x 1 Pulm - hx of Asthma, COPD- continue Duonebs Q6H PRN - CXR 2/4: small left pleural effusion GI - hx of Gastritis, continue Pepcid 20mg daily - Consistent carbohydrate diet Renal - Acute on Chronic Renal Failure - BUN/Cr 74/7.8 - IV hydration with 500mL bolus D5NS - Bicarb drip at 80m/hr - Hyperkalemia (currently 6.4) - Albuterol 1.25mg INH x 3 doses - f/u urine electrolytes - monitor repeat labs - Diana to monitor I&O per nephro - Hemodialysis today per nephro - Dialysis catheter inserted for HHD - f/u recs per Nephro - Dr Sewell Endo - Hypoglycemia, resolved - Hx of DM- restart ISS low - Accuchecks Q2H - Hx of Hypothyroidism, continue Synthroid 50mcg daily Heme - H/H today 6.6/21.5 - Transfuse 2 units PRBC - f/u fecal occult - monitor repeat CBC ID - Procalcitonin 0.10 - urinalysis 2/4: 3+ leukocyte esterase - f/u Blood cx, Urine cx - start Ceftriazone 1gm - f/u ID recs PPx - DVT ppx: Heparin SC, SCDs - Pepcid for GI ppx Plan discussed with Dr. Rodney Stafford, PGY-1 - Date & Time Date: 11/25/18 Time: 10:00
[2018-11-25 16:44] LABS: ALB/GLOB RATIO 1.1 (1.0-2.1); ALBUMIN 2.8 g/dL (3.5-5.0); ALT/SGPT 16 U/L (9-52); AST/SGOT 23 U/L (14-36); BLOOD UREA NITROGEN 73 mg/dL (7-17); CALCIUM 8.4 mg/dl (8.6-10.4); GFR NON-AFRICAN AMERICAN 5
[2018-11-25] MEDS: (Novolin R) Insulin Human Regular 100 units/ml vial SC SCH ×2 (16:51→22:00)
[2018-11-25 17:09] LABS: HEPATITIS B SURFACE AG Negative (NEGATIVE)
[2018-11-25 17:14] LABS: HEPATITIS B CORE AB NEGATIVE (NEGATIVE)
[2018-11-25 17:27] LABS: HEPATITIS C ANTIBODY NEGATIVE (NEGATIVE)
--- NOTE | 2018-11-25 18:12 | PCM.PROC ---
Procedures Attestation:: I certify that I have explained the specified Operation(s) or Procedure(s), risks, benefits and reasonable alternatives to the Patient and/or other person responsible. The opportunity was given to ask questions and all questions answered - Central Line Placement Right Femoral Hemodialysis Access Aseptic technique was employed throughout the procedure: Hand Hygiene done prior to procedure, Full sterile barriers (mask, hair cover, sterile gown, sterile gloves), Full body sterile drape, Chloraprep Antiseptic: 2 minute prep for Femoral CVP Time Out Performed: Yes Pt. Placed on Pulse Ox Monitor: Yes Central Line Prep: Chlorhexidine-Alcohol Combination Local Anesthesia Used: Lidocaine 1% Amount of Anesthesia Used (mls): 3 Ultrasound Used for Placement: No Central Line Lumen Inserted: double Central Line Length: 16 cm Post Procedure: Sutured in Place, Good Blood Return, All Ports Aspirated, Flushed, Capped, Sterile Dressing Applied Secured by: Suture Post procedure dressing: Chlorhexidine disc (Biopatch) Post Procedure X-Ray: No Patient Tolerated Procedure: Well
[2018-11-25] MEDS: Metoprolol Succinate 50 mg XL Tab PO SCH (18:58)
--- NOTE | 2018-11-26 04:29 | CON ---
DATE: 11/25/2018 RENAL CONSULTATION LOCATION: The patient is located in ICU room 3. REQUESTED BY: Blanco Wang MD REASON FOR RENAL CONSULTATION: Acute renal failure, chronic kidney disease, metabolic acidosis, hyperkalemia and hypoglycemia for further evaluation. HISTORY OF PRESENT ILLNESS: Mrs. Estrada is an 88-year-old elderly Afghan female with a past medical history significant for longstanding diabetes for more than 10 years, hypertension, hyperlipidemia, gastritis, COPD, CHF, asthma, hypothyroidism who was brought in by the patient's family with hypoglycemia for the last two to three days, feeling weak and tired. The patient was found to have acute renal failure on admission to the emergency room and also severe hyperkalemia and metabolic acidosis and hypoglycemia. The patient denied chest pain, palpitation, or shortness of breath. Denies any nausea, vomiting, or diarrhea. The patient was recently treated for possible UTI with Cipro as per Dr. Blanco Wang. PAST MEDICAL HISTORY: Significant for asthma, CHF, COPD, diabetes, hypertension, hyperlipidemia, hypothyroidism, gastritis. PAST SURGICAL HISTORY: Denies. SOCIAL HISTORY: No smoking. No alcohol. No drugs. PERSONAL HISTORY: She is a . She has four children living and one . Her . The patient lives with her family. ALLERGIES: NO KNOWN DRUG ALLERGIES. CURRENT MEDICATIONS: Include as follows. Home medications include Colace, Lipitor, aspirin, albuterol inhaler, meloxicam, Cozaar 50 mg daily, lidocaine patch, levothyroxine 50 mcg daily, glipizide 10 mg p.o. b.i.d., gabapentin 300 mg daily, Lasix 20 mg daily, Advair, Janumet one tablet p.o. b.i.d., and multivitamins. Current medications in the hospital include as follows: Rocephin 1 g daily, losartan 50 mg p.o. daily, DuoNeb inhaler, subcu heparin 5000 units every 8 hours, Novolin R per sliding scale, Pepcid 20 mg p.o. daily, sodium bicarbonate IV drip, D5W with 150 mEq sodium bicarbonate at 80 mL per hour, Synthroid 50 mcg daily, and metoprolol 50 mg p.o. daily. REVIEW OF SYSTEMS: Significant for symptomatic hypoglycemia for the two days and weakness and abdominal discomfort. All other review of systems are reviewed and are negative. PHYSICAL EXAMINATION: VITAL SIGNS: As follows: Blood pressure 158/57, pulse 80, respiration 19, temperature 97.9, saturation is 100%. Height is 5 feet 5 inches, and weight is 141 pounds. GENERAL: Mrs. Estrada is an 88-year-old elderly very pleasant Afghan female, moderately built, moderately nourished, not in acute distress. HEENT: Pupils are normal and reactive to light and accommodation. Conjunctivae pale. Sclerae anicteric. Tongue is moist. Trachea is midline. LUNGS: Symmetric on both sides. Bilateral breath sounds present. Clear to auscultation. CARDIOVASCULAR SYSTEM: [place] at the fifth intercostal space, midclavicular line. S1 and S2 audible. No murmur or gallop. ABDOMEN: Slightly distended. Mild diffuse tenderness. No guarding. No rigidity. No hepatosplenomegaly. CENTRAL NERVOUS SYSTEM: The patient is alert, awake, oriented x3. Nonfocal neuro examination. Cranial nerves II through XII grossly intact. Sensory and motor system is within normal limits. EXTREMITIES: No cyanosis, no clubbing and no edema. LABORATORY DATA: Include as follows: As of 11/24/2018 at 2343 hours, sodium 135, potassium 7.8, chloride 105, CO2 of 18, BUN 78, creatinine 7.5, glucose 26, calcium 8.4. Total bili 0.6, AST 50, ALT less than 6, alkaline phosphatase 40, total protein 7, albumin is 3.7. Repeat as of 11/25/2018 at 0025 hours, sodium 135, potassium 6.9, chloride of 105, CO2 of 19, BUN 76, creatinine 7.6, glucose 61, calcium 8.5. Iron is 38, TIBC 425, saturation 9. As of 11/25/2018 at 02:03 a.m., potassium was 6.7, BUN 75, creatinine 7.3, calcium 10.8, phosphorus 7.9, magnesium is 2. Vitamin B12 is 223 and folic acid is 20. TSH is 1.09. As of 11/24/2018: WBC 10.8, hemoglobin 7.3, hematocrit is 23.6, platelets 435. As of 11/25/2018 at 07:53 a.m., WBC 11.2, hemoglobin 6.6, hematocrit is 21.5, platelets 335. Urinalysis: Yellow, hazy, pH 5, specific 1.010, protein 2+, glucose normal, ketones negative, blood negative, nitrites negative, bilirubin negative, urobilinogen normal, leukocyte esterase 3+, wbc's 82, rbc's 5, bacteria few. Urine sodium is 46. Urine potassium is 17.8. Other laboratory data: Hepatitis B surface antigen is negative. Hepatitis B core antibody IgM negative. Hepatitis C antibody is negative. Influenza A and B antibodies are negative. Chest x-ray as of 11/24/2018, small left pleural effusion, a new finding comparing to the prior study, otherwise no change. ASSESSMENT: In summary, Mrs. Estrada is an 88-year-old elderly Afghan female with a history of longstanding diabetes, hypertension, hyperlipidemia, congestive heart failure, arthritis, chronic obstructive pulmonary disease, hypothyroidism who was admitted with weakness and symptomatic hypoglycemia for two days on and off and found to have increased blood urea nitrogen and creatinine, low hemoglobin and hematocrit and also severe hyperkalemia, metabolic acidosis. 1. Hyperkalemia. 2. Acute renal failure on chronic kidney disease, most likely secondary to acute tubular necrosis secondary to metformin. 3. Metabolic acidosis secondary to renal failure and metformin. 4. Anemia secondary to multifactorial renal failure, iron-deficiency anemia and B12 deficiency anemia. PLAN: Transfuse two units during dialysis and also start IV iron and also vitamin B12 injections 1000 mcg daily. Continue monitoring I's and O's. Can discontinue sodium bicarbonate once hemodialysis is completed this evening and repeat BMP post-dialysis. Discussed with the patient's son at bedside who agreed for the emergency hemodialysis and temporary hemodialysis. We will continue to monitor renal function. Avoid nephrotoxic agents. Repeat BMP in a.m. again. We will follow with you. Check stool for occult blood also. Also check CEA, CA19-9, alpha-fetoprotein. Thank you for allowing me to participate in your patient's care. Case discussed with Dr. Blanco Wang in rounds. Merlyn Jain MD
--- NOTE | 2018-11-26 05:26 | HP ---
HISTORY OF PRESENT ILLNESS: This is an 88-year-old female who has a longstanding history of diabetes, hypertension, essentially bedridden, comes around to the office in a wheelchair, was brought in with a history of not feeling well, dizziness and blurred vision. While in the ER, creatinine was found to be 7.8 which is new. A normal creatinine is around 1.5 couple of months ago when she was admitted. She has been admitted on multiple occasions in the past with atypical chest pain. Her LVEF has been normal. She has been seen by pulmonary physicians in the past. She is a known diabetic for many years. MEDICATIONS: At home include Cozaar 50 mg one a day, glipizide 10 mg p.o. twice a day, Januvia 50 mg. She is also on Lantus which has been held. Neurontin 300 mg p.o. one a day, baby aspirin one a day. Neurontin was also discontinued about two months ago. PAST MEDICAL HISTORY: Admitted in the past for possible TIA, COPD with exacerbation, pneumonia, mild CHF, which is diastolic. FAMILY HISTORY: Unremarkable, lives with her son. Family is very supportive. REVIEW OF SYSTEMS: CONSTITUTIONAL: Generalized weakness, essentially bed to chair and wheelchair confined. Poor appetite for past two days. EYES: No blurred vision. She wears glasses. NECK: No swollen glands. PULMONARY: Chronic cough. CARDIAC: Recurrent chest pain, which appears to be more of musculoskeletal nature, more positional at times. Sleeps on the bed with head elevated. No documented [place] in the past. GASTROINTESTINAL: Poor appetite for past few days. No hematemesis. No melena. PSYCHIATRIC: No history of depression. NEUROLOGIC: Her memory has been somewhat deteriorated, possible TIA in the past. No CVS. MUSCULOSKELETAL: History of multiple joint pain, back and the knees, takes Lidoderm patch, Voltaren gel at times and pain medications occasionally. GENITOURINARY: Negative for hematuria. PHYSICAL EXAMINATION: GENERAL: Shows elderly female who is conscious, alert, well oriented, in no distress. VITAL SIGNS: Her blood pressure currently is 160/80, initial heart rate was 88 and sinus. The patient has converted to atrial fibrillation after finishing dialysis. Heart rate is 146, respiratory rate of 24, temperature is afebrile 98.8. HEENT: Head is normocephalic. Eyes, no pallor, no icterus. Mouth shows dentures. LUNGS: Clear to auscultation. HEART: PMI is not localized. S1 and S2 are distant and tachycardiac. No definite gallops or murmurs. ABDOMEN: Soft. EXTREMITIES: No cyanosis, clubbing or edema, and distal pulses are 1+. NEUROLOGIC: She is awake, alert, moves all four extremities. LABORATORY DATA: Hemoglobin had dropped from 7.8 to 6.8, creatinine is 7.8, potassium was elevated at 6.4. ASSESSMENT: An 88-year-old female who presented with acute renal failure, recurrent hypoglycemia. PLAN: Nephrology consultation. The case was discussed with Dr. Jain, the feed elevator worker; Dr. Stevens; and infectious disease apprenticeship consultant, Dr. Wesley. Culture was treated as a possible sepsis. Accu-Chek. At this point, we will place her on Toprol to control the heart rate. Not a candidate for blood thinners at this point. Continue hemodialysis as needed. Care of plan was explained to the patient's son who was here and another son on the phone in [place]. Blanco Wang MD
[2018-11-26] MEDS: Levothyroxine 50 MCG TAB PO SCH (06:10)
[2018-11-26 06:16] LABS: HEMOGLOBIN 9.9 g/dL (11.0-16.0); MEAN CELL VOLUME 79.5 fL (81.0-99.0); MEAN CORPUSCULAR HEMOGLOBIN 26.1 pg (27.0-31.0); MEAN CORPUSCULAR HGB CONC 32.8 g/dL (33.0-37.0); MEAN PLATELET VOLUME 8.7 fL (7.2-11.7); RBC 3.8 Mil/uL (3.80-5.20); RED CELL DISTRIBUTION WIDTH 19.9 % (11.5-14.5); WHITE BLOOD COUNT 11.6 K/uL (4.8-10.8)
[2018-11-26 06:30] LABS: ALB/GLOB RATIO 1.1 (1.0-2.1); ALBUMIN 3.1 g/dL (3.5-5.0); CALCIUM 7.6 mg/dl (8.6-10.4)
[2018-11-26] MEDS: (Novolin R) Insulin Human Regular 100 units/ml vial SC SCH ×4 (08:00→22:00)
[2018-11-26] MEDS: Ferric Sodium Gluconat Complex 62.5 mg/5 ml Vial IVPB SCH (09:59)
[2018-11-26] MEDS: Sevelamer Carb 0.8 gm/Packet PO SCH ×3 (10:01→16:48)
[2018-11-26] MEDS: Metoprolol Succinate 50 mg XL Tab PO SCH (10:01)
[2018-11-26] MEDS: Multivitamin Vitamin B Complex (Nephro-Vite) Tab PO SCH (10:01)
--- NOTE | 2018-11-26 11:17 | CP.PCM.PN ---
Subjective - Date & Time of Evaluation Date of Evaluation: 11/26/18 Time of Evaluation: 11:15 - Subjective Subjective: feels better & looks better.sinus Objective - Vital Signs/Intake and Output Vital Signs (last 24 hours): Temp Pulse Resp BP Pulse Ox 98.2 F 72 18 172/63 H 100 11/26/18 08:00 11/26/18 11:00 11/26/18 11:00 11/26/18 09:54 11/26/18 11:00 Intake and Output: 11/26/18 11/26/18 06:59 18:59 Intake Total 1730 420 Output Total 300 200 Balance 1430 220 - Medications Medications: Current Medications Albuterol/Ipratropium (Duoneb 3 Mg/0.5 Mg (3 Ml) Ud) 3 ml INH RQ6 PRN PRN Reason: Shortness of Breath Cyanocobalamin (Vitamin B12 1000 Mcg/Ml Inj) 1,000 mcg IM DAILY [facility] Stop: 12/03/18 10:01 Last Admin: 11/26/18 10:00 Dose: 1,000 mcg Famotidine (Pepcid) 20 mg PO DAILY [facility] Last Admin: 11/26/18 10:01 Dose: 20 mg Ferric Sodium Gluconate Complex (Ferrlecit) 125 mg IVPB DAILY [facility] Stop: 12/04/18 10:01 Last Admin: 11/26/18 09:59 Dose: 125 mg Heparin Sodium (Porcine) (Heparin) 5,000 units SC Q8 [facility] Last Admin: 11/25/18 13:36 Dose: Not Given Ceftriaxone Sodium 1 gm/ (Sodium Chloride) 100 mls @ 100 mls/hr IVPB DAILY [facility]; Protocol Last Admin: 11/26/18 10:02 Dose: 100 mls/hr Insulin Human Regular (Novolin R) 0 unit SC ACHS [facility]; Protocol Last Admin: 11/26/18 08:00 Dose: Not Given Levothyroxine Sodium (Synthroid) 50 mcg PO DAILY@0630 [facility] Last Admin: 11/26/18 06:10 Dose: 50 mcg Losartan Potassium (Cozaar) 50 mg PO DAILY [facility] Last Admin: 11/26/18 10:01 Dose: 50 mg Metoprolol Succinate (Toprol Xl) 50 mg PO DAILY [facility] Last Admin: 11/26/18 10:01 Dose: 50 mg Sevelamer Carbonate (Renvela) 0.8 gm PO TIDCC [facility] Last Admin: 11/26/18 10:01 Dose: 0.8 gm Vitamin B Complex/Vit C/Folic Acid (Nephro-Leila) 1 tab PO 0800 [facility] Last Admin: 11/26/18 10:01 Dose: 1 tab - Labs Labs: 11/26/18 06:08 11/26/18 06:07 - Constitutional Appears: No Acute Distress - Head Exam Head Exam: NORMOCEPHALIC - Eye Exam Eye Exam: Normal appearance - Neck Exam Neck Exam: Normal Inspection - Respiratory Exam Respiratory Exam: Rhonchi - Cardiovascular Exam Cardiovascular Exam: REGULAR RHYTHM - GI/Abdominal Exam GI & Abdominal Exam: Soft - Neurological Exam Neurological Exam: Alert, Oriented x3 Assessment and Plan - Assessment and Plan (Free Text) Plan: acute renal failure.,now in sinus,putting out urine.diss with family.
--- NOTE | 2018-11-26 14:57 | CARD ---
APPROVED REPORT Date of service: 11/24/2018 EKG Measurement Heart [id number] CT [id number] <Conclusion> Sinus tachycardia Left axis deviation Poor R wave progression Low voltage QRS Baseline artifact Abnormal ECG
--- NOTE | 2018-11-26 15:50 | CP.CCUPN ---
<Len Stevens S - Last Filed: 11/26/18 16:57> CCU Subjective - Physician Review Critical Care Time Spent (in minutes): 35 CCU Objective - Vital Signs / Intake & Output Vital Signs (Last 4 hours): Vital Signs Temp Pulse Pulse Resp BP BP Pulse Ox 11/26/18 16:48 184/67 H 11/26/18 16:00 186/79 H 11/26/18 15:30 189/67 H 11/26/18 15:01 76 19 195/78 H 100 11/26/18 15:00 75 19 195/78 H 100 11/26/18 14:45 76 20 172/80 H 172/80 H 100 11/26/18 14:30 75 17 165/78 H 165/78 H 100 11/26/18 14:15 77 14 171/81 H 171/81 H 100 11/26/18 14:00 98.1 F 77 75 18 180/70 H 180/70 H 100 11/26/18 13:55 98.1 F 75 18 180/70 H 11/26/18 13:54 76 19 172/59 H 100 11/26/18 13:00 75 14 171/59 H 100 Intake and Output (Last 8hrs): Intake & Output 11/26/18 11/26/18 11/26/18 06:59 14:59 22:59 Intake Total 1070 690 Output Total 125 300 Balance 945 390 Intake: Intake, IV Amount 720 520 RFA #22 200 Right Forearm 720 320 Oral 350 170 Output: Urine 125 300 Urine, Voided 125 300 Other: # Bowel Movements 0 - Medications Active Medications: Active Medications Generic Name Dose Route Start Last Admin Trade Name Freq PRN Reason Stop Dose Admin Albuterol/Ipratropium 3 ml 11/25/18 13:28 Duoneb 3 Mg/0.5 Mg (3 Ml) Ud INH RQ6 PRN Shortness of Breath Cyanocobalamin 1,000 mcg 11/26/18 10:00 11/26/18 10:00 Vitamin B12 1000 Mcg/Ml Inj IM 12/03/18 10:01 1,000 mcg DAILY RAJEEV Administration Famotidine 20 mg 11/25/18 10:00 11/26/18 10:01 Pepcid PO 20 mg DAILY RAJEEV Administration Ferric Sodium Gluconate Complex 125 mg 11/26/18 10:00 11/26/18 09:59 Ferrlecit IVPB 12/04/18 10:01 125 mg DAILY RAJEEV Administration Heparin Sodium (Porcine) 5,000 units 11/25/18 06:00 11/26/18 14:41 Heparin SC 5,000 units Q8 RAJEEV Administration Ceftriaxone Sodium 1 gm/ 100 mls @ 100 mls/hr 11/25/18 10:00 11/26/18 10:02 Sodium Chloride IVPB 100 mls/hr DAILY RAJEEV Administration Protocol Insulin Human Regular 0 unit 11/25/18 16:30 11/26/18 16:49 Novolin R SC Not Given ACHS RAJEEV Protocol Levothyroxine Sodium 50 mcg 11/25/18 06:30 11/26/18 06:10 Synthroid PO 50 mcg DAILY@0630 RAJEEV Administration Losartan Potassium 50 mg 11/25/18 13:30 11/26/18 10:01 Cozaar PO 50 mg DAILY RAJEEV Administration Metoprolol Succinate 50 mg 11/25/18 19:00 11/26/18 10:01 Toprol Xl PO 50 mg DAILY RAJEEV Administration Sevelamer Carbonate 0.8 gm 11/26/18 08:00 11/26/18 16:48 Renvela PO 0.8 gm TIDCC ARJEEV Administration Vitamin B Complex/Vit C/Folic Acid 1 tab 11/26/18 08:00 11/26/18 10:01 Nephro-Leila PO 1 tab 0800 RAJEEV Administration - Patient Studies Lab Studies: Microbiology Studies 11/25/18 07:54 MRSA Culture (Admit) - Final Nose MRSA NOT DETECTED 11/25/18 11:09 Urine Culture - Final Urine Random No Growth (<1,000 CFU/ML) 11/25/18 10:31 Blood Culture - Preliminary Blood-Venous NO GROWTH AFTER 24 HOURS 11/25/18 10:31 Blood Culture - Preliminary Blood-Venous NO GROWTH AFTER 24 HOURS Lab Studies 11/26/18 11/26/18 11/26/18 Range/Units 16:10 11:43 07:44 WBC (4.8-10.8) K/uL RBC (3.80-5.20) Mil/uL Hgb (11.0-16.0) g/dL Hct (34.0-47.0) % MCV (81.0-99.0) fL MCH (27.0-31.0) pg MCHC (33.0-37.0) g/dL RDW (11.5-14.5) % Plt Count (130-400) K/uL MPV (7.2-11.7) fL Sodium (132-148) mmol/L Potassium (3.6-5.2) mmol/L Chloride (98-107) mmol/L Carbon Dioxide (22-30) mmol/L Anion Gap (10-20) BUN (7-17) mg/dL Creatinine (0.7-1.2) mg/dL Est GFR ( Amer) Est GFR (Non-Af Amer) POC Glucose (mg/dL) 97 158 H 144 H (65-110) mg/dL Random Glucose (65-105) mg/dL Calcium (8.6-10.4) mg/dl Phosphorus (2.5-4.5) mg/dL Magnesium (1.6-2.3) mg/dL Total Bilirubin (0.2-1.3) mg/dL AST (14-36) U/L ALT (9-52) U/L Alkaline Phosphatase (38-126) U/L Total Protein (6.3-8.3) g/dL Albumin (3.5-5.0) g/dL Globulin (2.2-3.9) gm/dL Albumin/Globulin Ratio (1.0-2.1) Alpha Fetoprotein (0.0-7.5) ng/mL Carcinoembryonic Ag (0-3.0) ng/mL CA 19-9 Antigen (0-37) U/mL CA 125 Antigen (0-35) U/mL Hep Bs Antigen (NEGATIVE) Hep B Core IgM Ab (NEGATIVE) Hepatitis C Antibody (NEGATIVE) Blood Type Antibody Screen 11/26/18 11/26/18 11/26/18 Range/Units 06:08 06:07 06:07 WBC 11.6 H (4.8-10.8) K/uL RBC 3.80 (3.80-5.20) Mil/uL Hgb 9.9 L D (11.0-16.0) g/dL Hct 30.2 L (34.0-47.0) % MCV 79.5 L D (81.0-99.0) fL MCH 26.1 L (27.0-31.0) pg MCHC 32.8 L (33.0-37.0) g/dL RDW 19.9 H (11.5-14.5) % Plt Count 221 D (130-400) K/uL MPV 8.7 (7.2-11.7) fL Sodium 136 (132-148) mmol/L Potassium 4.7 (3.6-5.2) mmol/L Chloride 96 L (98-107) mmol/L Carbon Dioxide 30 (22-30) mmol/L Anion Gap 14 (10-20) BUN 42 H (7-17) mg/dL Creatinine 4.8 H (0.7-1.2) mg/dL Est GFR ( Amer) 10 Est GFR (Non-Af Amer) 9 POC Glucose (mg/dL) (65-110) mg/dL Random Glucose 99 D (65-105) mg/dL Calcium 7.6 L (8.6-10.4) mg/dl Phosphorus 5.5 H (2.5-4.5) mg/dL Magnesium 1.7 (1.6-2.3) mg/dL Total Bilirubin 0.3 (0.2-1.3) mg/dL AST 26 (14-36) U/L ALT 9 D (9-52) U/L Alkaline Phosphatase 44 (38-126) U/L Total Protein 5.9 L (6.3-8.3) g/dL Albumin 3.1 L (3.5-5.0) g/dL Globulin 2.9 (2.2-3.9) gm/dL Albumin/Globulin Ratio 1.1 (1.0-2.1) Alpha Fetoprotein 1.7 (0.0-7.5) ng/mL Carcinoembryonic Ag 2.7 (0-3.0) ng/mL CA 19-9 Antigen 17.8 (0-37) U/mL CA 125 Antigen 13.8 (0-35) U/mL Hep Bs Antigen (NEGATIVE) Hep B Core IgM Ab (NEGATIVE) Hepatitis C Antibody (NEGATIVE) Blood Type Antibody Screen 11/26/18 11/25/18 11/25/18 Range/Units 04:54 23:52 22:22 WBC (4.8-10.8) K/uL RBC (3.80-5.20) Mil/uL Hgb (11.0-16.0) g/dL Hct (34.0-47.0) % MCV (81.0-99.0) fL MCH (27.0-31.0) pg MCHC (33.0-37.0) g/dL RDW (11.5-14.5) % Plt Count (130-400) K/uL MPV (7.2-11.7) fL Sodium (132-148) mmol/L Potassium (3.6-5.2) mmol/L Chloride (98-107) mmol/L Carbon Dioxide (22-30) mmol/L Anion Gap (10-20) BUN (7-17) mg/dL Creatinine (0.7-1.2) mg/dL Est GFR ( Amer) Est GFR (Non-Af Amer) POC Glucose (mg/dL) 151 H 102 88 (65-110) mg/dL Random Glucose (65-105) mg/dL Calcium (8.6-10.4) mg/dl Phosphorus (2.5-4.5) mg/dL Magnesium (1.6-2.3) mg/dL Total Bilirubin (0.2-1.3) mg/dL AST (14-36) U/L ALT (9-52) U/L Alkaline Phosphatase (38-126) U/L Total Protein (6.3-8.3) g/dL Albumin (3.5-5.0) g/dL Globulin (2.2-3.9) gm/dL Albumin/Globulin Ratio (1.0-2.1) Alpha Fetoprotein (0.0-7.5) ng/mL Carcinoembryonic Ag (0-3.0) ng/mL CA 19-9 Antigen (0-37) U/mL CA 125 Antigen (0-35) U/mL Hep Bs Antigen (NEGATIVE) Hep B Core IgM Ab (NEGATIVE) Hepatitis C Antibody (NEGATIVE) Blood Type Antibody Screen 11/25/18 11/25/18 11/25/18 Range/Units 20:15 19:03 18:17 WBC (4.8-10.8) K/uL RBC (3.80-5.20) Mil/uL Hgb (11.0-16.0) g/dL Hct (34.0-47.0) % MCV (81.0-99.0) fL MCH (27.0-31.0) pg MCHC (33.0-37.0) g/dL RDW (11.5-14.5) % Plt Count (130-400) K/uL MPV (7.2-11.7) fL Sodium (132-148) mmol/L Potassium (3.6-5.2) mmol/L Chloride (98-107) mmol/L Carbon Dioxide (22-30) mmol/L Anion Gap (10-20) BUN (7-17) mg/dL Creatinine (0.7-1.2) mg/dL Est GFR ( Amer) Est GFR (Non-Af Amer) POC Glucose (mg/dL) 79 73 53 L (65-110) mg/dL Random Glucose (65-105) mg/dL Calcium (8.6-10.4) mg/dl Phosphorus (2.5-4.5) mg/dL Magnesium (1.6-2.3) mg/dL Total Bilirubin (0.2-1.3) mg/dL AST (14-36) U/L ALT (9-52) U/L Alkaline Phosphatase (38-126) U/L Total Protein (6.3-8.3) g/dL Albumin (3.5-5.0) g/dL Globulin (2.2-3.9) gm/dL Albumin/Globulin Ratio (1.0-2.1) Alpha Fetoprotein (0.0-7.5) ng/mL Carcinoembryonic Ag (0-3.0) ng/mL CA 19-9 Antigen (0-37) U/mL CA 125 Antigen (0-35) U/mL Hep Bs Antigen (NEGATIVE) Hep B Core IgM Ab (NEGATIVE) Hepatitis C Antibody (NEGATIVE) Blood Type Antibody Screen 11/25/18 11/25/18 11/25/18 Range/Units 18:14 16:16 16:16 WBC (4.8-10.8) K/uL RBC (3.80-5.20) Mil/uL Hgb (11.0-16.0) g/dL Hct (34.0-47.0) % MCV (81.0-99.0) fL MCH (27.0-31.0) pg MCHC (33.0-37.0) g/dL RDW (11.5-14.5) % Plt Count (130-400) K/uL MPV (7.2-11.7) fL Sodium (132-148) mmol/L Potassium (3.6-5.2) mmol/L Chloride (98-107) mmol/L Carbon Dioxide (22-30) mmol/L Anion Gap (10-20) BUN (7-17) mg/dL Creatinine (0.7-1.2) mg/dL Est GFR ( Amer) Est GFR (Non-Af Amer) POC Glucose (mg/dL) 60 L (65-110) mg/dL Random Glucose (65-105) mg/dL Calcium (8.6-10.4) mg/dl Phosphorus (2.5-4.5) mg/dL Magnesium (1.6-2.3) mg/dL Total Bilirubin (0.2-1.3) mg/dL AST (14-36) U/L ALT (9-52) U/L Alkaline Phosphatase (38-126) U/L Total Protein (6.3-8.3) g/dL Albumin (3.5-5.0) g/dL Globulin (2.2-3.9) gm/dL Albumin/Globulin Ratio (1.0-2.1) Alpha Fetoprotein (0.0-7.5) ng/mL Carcinoembryonic Ag (0-3.0) ng/mL CA 19-9 Antigen (0-37) U/mL CA 125 Antigen (0-35) U/mL Hep Bs Antigen Negative (NEGATIVE) Hep B Core IgM Ab Negative (NEGATIVE) Hepatitis C Antibody Negative (NEGATIVE) Blood Type Antibody Screen 11/25/18 Range/Units 01:50 WBC (4.8-10.8) K/uL RBC (3.80-5.20) Mil/uL Hgb (11.0-16.0) g/dL Hct (34.0-47.0) % MCV (81.0-99.0) fL MCH (27.0-31.0) pg MCHC (33.0-37.0) g/dL RDW (11.5-14.5) % Plt Count (130-400) K/uL MPV (7.2-11.7) fL Sodium (132-148) mmol/L Potassium (3.6-5.2) mmol/L Chloride (98-107) mmol/L Carbon Dioxide (22-30) mmol/L Anion Gap (10-20) BUN (7-17) mg/dL Creatinine (0.7-1.2) mg/dL Est GFR ( Amer) Est GFR (Non-Af Amer) POC Glucose (mg/dL) (65-110) mg/dL Random Glucose (65-105) mg/dL Calcium (8.6-10.4) mg/dl Phosphorus (2.5-4.5) mg/dL Magnesium (1.6-2.3) mg/dL Total Bilirubin (0.2-1.3) mg/dL AST (14-36) U/L ALT (9-52) U/L Alkaline Phosphatase (38-126) U/L Total Protein (6.3-8.3) g/dL Albumin (3.5-5.0) g/dL Globulin (2.2-3.9) gm/dL Albumin/Globulin Ratio (1.0-2.1) Alpha Fetoprotein (0.0-7.5) ng/mL Carcinoembryonic Ag (0-3.0) ng/mL CA 19-9 Antigen (0-37) U/mL CA 125 Antigen (0-35) U/mL Hep Bs Antigen (NEGATIVE) Hep B Core IgM Ab (NEGATIVE) Hepatitis C Antibody (NEGATIVE) Blood Type B POSITIVE Antibody Screen Negative Laboratory Results - last 24 hr 11/25/18 11/25/18 11/25/18 01:50 16:16 16:16 WBC RBC Hgb Hct MCV MCH MCHC RDW Plt Count MPV Sodium Potassium Chloride Carbon Dioxide Anion Gap BUN Creatinine Est GFR ( Amer) Est GFR (Non-Af Amer) POC Glucose (mg/dL) Random Glucose Calcium Phosphorus Magnesium Total Bilirubin AST ALT Alkaline Phosphatase Total Protein Albumin Globulin Albumin/Globulin Ratio Alpha Fetoprotein Carcinoembryonic Ag CA 19-9 Antigen CA 125 Antigen Hep Bs Antigen Negative Hep B Core IgM Ab Negative Hepatitis C Antibody Negative Blood Type B POSITIVE Antibody Screen Negative 11/25/18 11/25/18 11/25/18 18:14 18:17 19:03 WBC RBC Hgb Hct MCV MCH MCHC RDW Plt Count MPV Sodium Potassium Chloride Carbon Dioxide Anion Gap BUN Creatinine Est GFR ( Amer) Est GFR (Non-Af Amer) POC Glucose (mg/dL) 60 L 53 L 73 Random Glucose Calcium Phosphorus Magnesium Total Bilirubin AST ALT Alkaline Phosphatase Total Protein Albumin Globulin Albumin/Globulin Ratio Alpha Fetoprotein Carcinoembryonic Ag CA 19-9 Antigen CA 125 Antigen Hep Bs Antigen Hep B Core IgM Ab Hepatitis C Antibody Blood Type Antibody Screen 11/25/18 11/25/18 11/25/18 20:15 22:22 23:52 WBC RBC Hgb Hct MCV MCH MCHC RDW Plt Count MPV Sodium Potassium Chloride Carbon Dioxide Anion Gap BUN Creatinine Est GFR ( Amer) Est GFR (Non-Af Amer) POC Glucose (mg/dL) 79 88 102 Random Glucose Calcium Phosphorus Magnesium Total Bilirubin AST ALT Alkaline Phosphatase Total Protein Albumin Globulin Albumin/Globulin Ratio Alpha Fetoprotein Carcinoembryonic Ag CA 19-9 Antigen CA 125 Antigen Hep Bs Antigen Hep B Core IgM Ab Hepatitis C Antibody Blood Type Antibody Screen 11/26/18 11/26/18 11/26/18 04:54 06:07 06:07 WBC RBC Hgb Hct MCV MCH MCHC RDW Plt Count MPV Sodium 136 Potassium 4.7 Chloride 96 L Carbon Dioxide 30 Anion Gap 14 BUN 42 H Creatinine 4.8 H Est GFR ( Amer) 10 Est GFR (Non-Af Amer) 9 POC Glucose (mg/dL) 151 H Random Glucose 99 D Calcium 7.6 L Phosphorus 5.5 H Magnesium 1.7 Total Bilirubin 0.3 AST 26 ALT 9 D Alkaline Phosphatase 44 Total Protein 5.9 L Albumin 3.1 L Globulin 2.9 Albumin/Globulin Ratio 1.1 Alpha Fetoprotein 1.7 Carcinoembryonic Ag 2.7 CA 19-9 Antigen 17.8 CA 125 Antigen 13.8 Hep Bs Antigen Hep B Core IgM Ab Hepatitis C Antibody Blood Type Antibody Screen 11/26/18 11/26/18 11/26/18 06:08 07:44 11:43 WBC 11.6 H RBC 3.80 Hgb 9.9 L D Hct 30.2 L MCV 79.5 L D MCH 26.1 L MCHC 32.8 L RDW 19.9 H Plt Count 221 D MPV 8.7 Sodium Potassium Chloride Carbon Dioxide Anion Gap BUN Creatinine Est GFR ( Amer) Est GFR (Non-Af Amer) POC Glucose (mg/dL) 144 H 158 H Random Glucose Calcium Phosphorus Magnesium Total Bilirubin AST ALT Alkaline Phosphatase Total Protein Albumin Globulin Albumin/Globulin Ratio Alpha Fetoprotein Carcinoembryonic Ag CA 19-9 Antigen CA 125 Antigen Hep Bs Antigen Hep B Core IgM Ab Hepatitis C Antibody Blood Type Antibody Screen 11/26/18 16:10 WBC RBC Hgb Hct MCV MCH MCHC RDW Plt Count MPV Sodium Potassium Chloride Carbon Dioxide Anion Gap BUN Creatinine Est GFR ( Amer) Est GFR (Non-Af Amer) POC Glucose (mg/dL) 97 Random Glucose Calcium Phosphorus Magnesium Total Bilirubin AST ALT Alkaline Phosphatase Total Protein Albumin Globulin Albumin/Globulin Ratio Alpha Fetoprotein Carcinoembryonic Ag CA 19-9 Antigen CA 125 Antigen Hep Bs Antigen Hep B Core IgM Ab Hepatitis C Antibody Blood Type Antibody Screen Critical Care Progress Note - Nutrition Nutrition: Nutrition Category Date Time Status Consistent Carbohydrate [DIET] Diets 11/25/18 Lunch Active Attending/Attestation - Attestation I have personally seen and examined this patient.: Yes I have fully participated in the care of the patient.: Yes I have reviewed all pertinent clinical information: Yes Notes (Text): 11/26/18 16:58 Patient seen and examined in the intensive care unit. Status post hemodialysis yesterday Renal function improving with urine output No further hemodialysis as per nephrology Transfer to floor <Jason Stafford - Last Filed: 11/26/18 21:57> CCU Subjective - Physician Review Subjective (Free Text): [id number] Stevens service Patient seen and examined at bedside today. Patient states she is feeling better. Patient is tolerating diet; patient denies nausea or vomiting. Patient denies chest pain or shortness of breath. CCU Objective - Vital Signs / Intake & Output Vital Signs (Last 4 hours): Vital Signs Temp Pulse Pulse Resp BP BP Pulse Ox 11/26/18 15:30 189/67 H 11/26/18 15:01 76 19 195/78 H 100 11/26/18 15:00 75 19 195/78 H 100 11/26/18 14:45 76 20 172/80 H 172/80 H 100 11/26/18 14:30 75 17 165/78 H 165/78 H 100 11/26/18 14:15 77 14 171/81 H 171/81 H 100 11/26/18 14:00 98.1 F 77 75 18 180/70 H 180/70 H 100 11/26/18 13:55 98.1 F 75 18 180/70 H 11/26/18 13:54 76 19 172/59 H 100 11/26/18 13:00 75 14 171/59 H 100 11/26/18 12:00 98.8 F 75 18 100 Intake and Output (Last 8hrs): Intake & Output 11/26/18 11/26/18 11/26/18 06:59 14:59 22:59 Intake Total 1070 690 Output Total 125 300 Balance 945 390 Intake: Intake, IV Amount 720 520 RFA #22 200 Right Forearm 720 320 Oral 350 170 Output: Urine 125 300 Urine, Voided 125 300 Other: # Bowel Movements 0 - Physical Exam Head: Positive for: Atraumatic, Normocephalic Pupils: Positive for: PERRL Extroacular Muscles: Positive for: EOMI Mouth: Positive for: Moist Mucous Membranes Respiratory/Chest: Negative for: Respiratory Distress, Accessory Muscle Use Cardiovascular: Positive for: Normal S1, S2 Abdomen: Positive for: Normal Bowel Sounds Upper Extremity: Positive for: Normal Inspection Lower Extremity: Positive for: Normal Inspection Neurological: Positive for: CN II-XII Intact Skin: Positive for: Warm, Dry, Normal Color Psychiatric: Positive for: Alert, Oriented x 3 - Medications Active Medications: Active Medications Generic Name Dose Route Start Last Admin Trade Name Freq PRN Reason Stop Dose Admin Albuterol/Ipratropium 3 ml 11/25/18 13:28 Duoneb 3 Mg/0.5 Mg (3 Ml) Ud INH RQ6 PRN Shortness of Breath Cyanocobalamin 1,000 mcg 11/26/18 10:00 11/26/18 10:00 Vitamin B12 1000 Mcg/Ml Inj IM 12/03/18 10:01 1,000 mcg DAILY RAJEEV Administration Famotidine 20 mg 11/25/18 10:00 11/26/18 10:01 Pepcid PO 20 mg DAILY RAJEEV Administration Ferric Sodium Gluconate Complex 125 mg 11/26/18 10:00 11/26/18 09:59 Ferrlecit IVPB 12/04/18 10:01 125 mg DAILY RAJEEV Administration Heparin Sodium (Porcine) 5,000 units 11/25/18 06:00 11/26/18 14:41 Heparin SC 5,000 units Q8 RAJEEV Administration Ceftriaxone Sodium 1 gm/ 100 mls @ 100 mls/hr 11/25/18 10:00 11/26/18 10:02 Sodium Chloride IVPB 100 mls/hr DAILY RAJEEV Administration Protocol Insulin Human Regular 0 unit 11/25/18 16:30 11/26/18 11:56 Novolin R SC 2 unit ACHS RAJEEV Administration Protocol Levothyroxine Sodium 50 mcg 11/25/18 06:30 11/26/18 06:10 Synthroid PO 50 mcg DAILY@0630 RAJEEV Administration Losartan Potassium 50 mg 11/25/18 13:30 11/26/18 10:01 Cozaar PO 50 mg DAILY RAJEEV Administration Metoprolol Succinate 50 mg 11/25/18 19:00 11/26/18 10:01 Toprol Xl PO 50 mg DAILY RAJEEV Administration Sevelamer Carbonate 0.8 gm 11/26/18 08:00 11/26/18 11:56 Renvela PO 0.8 gm TIDCC RAJEEV Administration Vitamin B Complex/Vit C/Folic Acid 1 tab 11/26/18 08:00 11/26/18 10:01 Nephro-Leila PO 1 tab 0800 RAJEEV Administration - Patient Studies Lab Studies: Microbiology Studies 11/25/18 07:54 MRSA Culture (Admit) - Final Nose MRSA NOT DETECTED 11/25/18 11:09 Urine Culture - Final Urine Random No Growth (<1,000 CFU/ML) 11/25/18 10:31 Blood Culture - Preliminary Blood-Venous NO GROWTH AFTER 24 HOURS 11/25/18 10:31 Blood Culture - Preliminary Blood-Venous NO GROWTH AFTER 24 HOURS Lab Studies 11/26/18 11/26/18 11/26/18 Range/Units 11:43 07:44 06:08 WBC 11.6 H (4.8-10.8) K/uL RBC 3.80 (3.80-5.20) Mil/uL Hgb 9.9 L D (11.0-16.0) g/dL Hct 30.2 L (34.0-47.0) % MCV 79.5 L D (81.0-99.0) fL MCH 26.1 L (27.0-31.0) pg MCHC 32.8 L (33.0-37.0) g/dL RDW 19.9 H (11.5-14.5) % Plt Count 221 D (130-400) K/uL MPV 8.7 (7.2-11.7) fL Sodium (132-148) mmol/L Potassium (3.6-5.2) mmol/L Chloride (98-107) mmol/L Carbon Dioxide (22-30) mmol/L Anion Gap (10-20) BUN (7-17) mg/dL Creatinine (0.7-1.2) mg/dL Est GFR ( Amer) Est GFR (Non-Af Amer) POC Glucose (mg/dL) 158 H 144 H (65-110) mg/dL Random Glucose (65-105) mg/dL Calcium (8.6-10.4) mg/dl Phosphorus (2.5-4.5) mg/dL Magnesium (1.6-2.3) mg/dL Total Bilirubin (0.2-1.3) mg/dL AST (14-36) U/L ALT (9-52) U/L Alkaline Phosphatase (38-126) U/L Total Protein (6.3-8.3) g/dL Albumin (3.5-5.0) g/dL Globulin (2.2-3.9) gm/dL Albumin/Globulin Ratio (1.0-2.1) Alpha Fetoprotein (0.0-7.5) ng/mL Carcinoembryonic Ag (0-3.0) ng/mL CA 19-9 Antigen (0-37) U/mL CA 125 Antigen (0-35) U/mL Hep Bs Antigen (NEGATIVE) Hep B Core IgM Ab (NEGATIVE) Hepatitis C Antibody (NEGATIVE) Blood Type Antibody Screen 11/26/18 11/26/18 11/26/18 Range/Units 06:07 06:07 04:54 WBC (4.8-10.8) K/uL RBC (3.80-5.20) Mil/uL Hgb (11.0-16.0) g/dL Hct (34.0-47.0) % MCV (81.0-99.0) fL MCH (27.0-31.0) pg MCHC (33.0-37.0) g/dL RDW (11.5-14.5) % Plt Count (130-400) K/uL MPV (7.2-11.7) fL Sodium 136 (132-148) mmol/L Potassium 4.7 (3.6-5.2) mmol/L Chloride 96 L (98-107) mmol/L Carbon Dioxide 30 (22-30) mmol/L Anion Gap 14 (10-20) BUN 42 H (7-17) mg/dL Creatinine 4.8 H (0.7-1.2) mg/dL Est GFR ( Amer) 10 Est GFR (Non-Af Amer) 9 POC Glucose (mg/dL) 151 H (65-110) mg/dL Random Glucose 99 D (65-105) mg/dL Calcium 7.6 L (8.6-10.4) mg/dl Phosphorus 5.5 H (2.5-4.5) mg/dL Magnesium 1.7 (1.6-2.3) mg/dL Total Bilirubin 0.3 (0.2-1.3) mg/dL AST 26 (14-36) U/L ALT 9 D (9-52) U/L Alkaline Phosphatase 44 (38-126) U/L Total Protein 5.9 L (6.3-8.3) g/dL Albumin 3.1 L (3.5-5.0) g/dL Globulin 2.9 (2.2-3.9) gm/dL Albumin/Globulin Ratio 1.1 (1.0-2.1) Alpha Fetoprotein 1.7 (0.0-7.5) ng/mL Carcinoembryonic Ag 2.7 (0-3.0) ng/mL CA 19-9 Antigen 17.8 (0-37) U/mL CA 125 Antigen 13.8 (0-35) U/mL Hep Bs Antigen (NEGATIVE) Hep B Core IgM Ab (NEGATIVE) Hepatitis C Antibody (NEGATIVE) Blood Type Antibody Screen 11/25/18 11/25/18 11/25/18 Range/Units 23:52 22:22 20:15 WBC (4.8-10.8) K/uL RBC (3.80-5.20) Mil/uL Hgb (11.0-16.0) g/dL Hct (34.0-47.0) % MCV (81.0-99.0) fL MCH (27.0-31.0) pg MCHC (33.0-37.0) g/dL RDW (11.5-14.5) % Plt Count (130-400) K/uL MPV (7.2-11.7) fL Sodium (132-148) mmol/L Potassium (3.6-5.2) mmol/L Chloride (98-107) mmol/L Carbon Dioxide (22-30) mmol/L Anion Gap (10-20) BUN (7-17) mg/dL Creatinine (0.7-1.2) mg/dL Est GFR ( Amer) Est GFR (Non-Af Amer) POC Glucose (mg/dL) 102 88 79 (65-110) mg/dL Random Glucose (65-105) mg/dL Calcium (8.6-10.4) mg/dl Phosphorus (2.5-4.5) mg/dL Magnesium (1.6-2.3) mg/dL Total Bilirubin (0.2-1.3) mg/dL AST (14-36) U/L ALT (9-52) U/L Alkaline Phosphatase (38-126) U/L Total Protein (6.3-8.3) g/dL Albumin (3.5-5.0) g/dL Globulin (2.2-3.9) gm/dL Albumin/Globulin Ratio (1.0-2.1) Alpha Fetoprotein (0.0-7.5) ng/mL Carcinoembryonic Ag (0-3.0) ng/mL CA 19-9 Antigen (0-37) U/mL CA 125 Antigen (0-35) U/mL Hep Bs Antigen (NEGATIVE) Hep B Core IgM Ab (NEGATIVE) Hepatitis C Antibody (NEGATIVE) Blood Type Antibody Screen 11/25/18 11/25/18 11/25/18 Range/Units 19:03 18:17 18:14 WBC (4.8-10.8) K/uL RBC (3.80-5.20) Mil/uL Hgb (11.0-16.0) g/dL Hct (34.0-47.0) % MCV (81.0-99.0) fL MCH (27.0-31.0) pg MCHC (33.0-37.0) g/dL RDW (11.5-14.5) % Plt Count (130-400) K/uL MPV (7.2-11.7) fL Sodium (132-148) mmol/L Potassium (3.6-5.2) mmol/L Chloride (98-107) mmol/L Carbon Dioxide (22-30) mmol/L Anion Gap (10-20) BUN (7-17) mg/dL Creatinine (0.7-1.2) mg/dL Est GFR ( Amer) Est GFR (Non-Af Amer) POC Glucose (mg/dL) 73 53 L 60 L (65-110) mg/dL Random Glucose (65-105) mg/dL Calcium (8.6-10.4) mg/dl Phosphorus (2.5-4.5) mg/dL Magnesium (1.6-2.3) mg/dL Total Bilirubin (0.2-1.3) mg/dL AST (14-36) U/L ALT (9-52) U/L Alkaline Phosphatase (38-126) U/L Total Protein (6.3-8.3) g/dL Albumin (3.5-5.0) g/dL Globulin (2.2-3.9) gm/dL Albumin/Globulin Ratio (1.0-2.1) Alpha Fetoprotein (0.0-7.5) ng/mL Carcinoembryonic Ag (0-3.0) ng/mL CA 19-9 Antigen (0-37) U/mL CA 125 Antigen (0-35) U/mL Hep Bs Antigen (NEGATIVE) Hep B Core IgM Ab (NEGATIVE) Hepatitis C Antibody (NEGATIVE) Blood Type Antibody Screen 11/25/18 11/25/18 11/25/18 Range/Units 16:47 16:16 16:16 WBC (4.8-10.8) K/uL RBC (3.80-5.20) Mil/uL Hgb (11.0-16.0) g/dL Hct (34.0-47.0) % MCV (81.0-99.0) fL MCH (27.0-31.0) pg MCHC (33.0-37.0) g/dL RDW (11.5-14.5) % Plt Count (130-400) K/uL MPV (7.2-11.7) fL Sodium 135 (132-148) mmol/L Potassium 5.3 H (3.6-5.2) mmol/L Chloride 102 (98-107) mmol/L Carbon Dioxide 26 (22-30) mmol/L Anion Gap 13 (10-20) BUN 73 H (7-17) mg/dL Creatinine 7.3 H (0.7-1.2) mg/dL Est GFR ( Amer) 6 Est GFR (Non-Af Amer) 5 POC Glucose (mg/dL) 90 (65-110) mg/dL Random Glucose 42 L D (65-105) mg/dL Calcium 8.4 L (8.6-10.4) mg/dl Phosphorus 7.2 H (2.5-4.5) mg/dL Magnesium 1.8 (1.6-2.3) mg/dL Total Bilirubin 0.1 L (0.2-1.3) mg/dL AST 23 (14-36) U/L ALT 16 (9-52) U/L Alkaline Phosphatase 45 (38-126) U/L Total Protein 5.5 L (6.3-8.3) g/dL Albumin 2.8 L (3.5-5.0) g/dL Globulin 2.7 (2.2-3.9) gm/dL Albumin/Globulin Ratio 1.1 (1.0-2.1) Alpha Fetoprotein (0.0-7.5) ng/mL Carcinoembryonic Ag (0-3.0) ng/mL CA 19-9 Antigen (0-37) U/mL CA 125 Antigen (0-35) U/mL Hep Bs Antigen Negative (NEGATIVE) Hep B Core IgM Ab Negative (NEGATIVE) Hepatitis C Antibody Negative (NEGATIVE) Blood Type Antibody Screen 11/25/18 11/25/18 11/25/18 Range/Units 16:03 16:00 01:50 WBC (4.8-10.8) K/uL RBC (3.80-5.20) Mil/uL Hgb (11.0-16.0) g/dL Hct (34.0-47.0) % MCV (81.0-99.0) fL MCH (27.0-31.0) pg MCHC (33.0-37.0) g/dL RDW (11.5-14.5) % Plt Count (130-400) K/uL MPV (7.2-11.7) fL Sodium (132-148) mmol/L Potassium (3.6-5.2) mmol/L Chloride (98-107) mmol/L Carbon Dioxide (22-30) mmol/L Anion Gap (10-20) BUN (7-17) mg/dL Creatinine (0.7-1.2) mg/dL Est GFR ( Amer) Est GFR (Non-Af Amer) POC Glucose (mg/dL) 69 51 L (65-110) mg/dL Random Glucose (65-105) mg/dL Calcium (8.6-10.4) mg/dl Phosphorus (2.5-4.5) mg/dL Magnesium (1.6-2.3) mg/dL Total Bilirubin (0.2-1.3) mg/dL AST (14-36) U/L ALT (9-52) U/L Alkaline Phosphatase (38-126) U/L Total Protein (6.3-8.3) g/dL Albumin (3.5-5.0) g/dL Globulin (2.2-3.9) gm/dL Albumin/Globulin Ratio (1.0-2.1) Alpha Fetoprotein (0.0-7.5) ng/mL Carcinoembryonic Ag (0-3.0) ng/mL CA 19-9 Antigen (0-37) U/mL CA 125 Antigen (0-35) U/mL Hep Bs Antigen (NEGATIVE) Hep B Core IgM Ab (NEGATIVE) Hepatitis C Antibody (NEGATIVE) Blood Type B POSITIVE Antibody Screen Negative Laboratory Results - last 24 hr 11/25/18 11/25/18 11/25/18 01:50 16:00 16:03 WBC RBC Hgb Hct MCV MCH MCHC RDW Plt Count MPV Sodium Potassium Chloride Carbon Dioxide Anion Gap BUN Creatinine Est GFR ( Amer) Est GFR (Non-Af Amer) POC Glucose (mg/dL) 51 L 69 Random Glucose Calcium Phosphorus Magnesium Total Bilirubin AST ALT Alkaline Phosphatase Total Protein Albumin Globulin Albumin/Globulin Ratio Alpha Fetoprotein Carcinoembryonic Ag CA 19-9 Antigen CA 125 Antigen Hep Bs Antigen Hep B Core IgM Ab Hepatitis C Antibody Blood Type B POSITIVE Antibody Screen Negative 11/25/18 11/25/18 11/25/18 16:16 16:16 16:47 WBC RBC Hgb Hct MCV MCH MCHC RDW Plt Count MPV Sodium 135 Potassium 5.3 H Chloride 102 Carbon Dioxide 26 Anion Gap 13 BUN 73 H Creatinine 7.3 H Est GFR ( Amer) 6 Est GFR (Non-Af Amer) 5 POC Glucose (mg/dL) 90 Random Glucose 42 L D Calcium 8.4 L Phosphorus 7.2 H Magnesium 1.8 Total Bilirubin 0.1 L AST 23 ALT 16 Alkaline Phosphatase 45 Total Protein 5.5 L Albumin 2.8 L Globulin 2.7 Albumin/Globulin Ratio 1.1 Alpha Fetoprotein Carcinoembryonic Ag CA 19-9 Antigen CA 125 Antigen Hep Bs Antigen Negative Hep B Core IgM Ab Negative Hepatitis C Antibody Negative Blood Type Antibody Screen 11/25/18 11/25/18 11/25/18 18:14 18:17 19:03 WBC RBC Hgb Hct MCV MCH MCHC RDW Plt Count MPV Sodium Potassium Chloride Carbon Dioxide Anion Gap BUN Creatinine Est GFR ( Amer) Est GFR (Non-Af Amer) POC Glucose (mg/dL) 60 L 53 L 73 Random Glucose Calcium Phosphorus Magnesium Total Bilirubin AST ALT Alkaline Phosphatase Total Protein Albumin Globulin Albumin/Globulin Ratio Alpha Fetoprotein Carcinoembryonic Ag CA 19-9 Antigen CA 125 Antigen Hep Bs Antigen Hep B Core IgM Ab Hepatitis C Antibody Blood Type Antibody Screen 11/25/18 11/25/18 11/25/18 20:15 22:22 23:52 WBC RBC Hgb Hct MCV MCH MCHC RDW Plt Count MPV Sodium Potassium Chloride Carbon Dioxide Anion Gap BUN Creatinine Est GFR ( Amer) Est GFR (Non-Af Amer) POC Glucose (mg/dL) 79 88 102 Random Glucose Calcium Phosphorus Magnesium Total Bilirubin AST ALT Alkaline Phosphatase Total Protein Albumin Globulin Albumin/Globulin Ratio Alpha Fetoprotein Carcinoembryonic Ag CA 19-9 Antigen CA 125 Antigen Hep Bs Antigen Hep B Core IgM Ab Hepatitis C Antibody Blood Type Antibody Screen 11/26/18 11/26/18 11/26/18 04:54 06:07 06:07 WBC RBC Hgb Hct MCV MCH MCHC RDW Plt Count MPV Sodium 136 Potassium 4.7 Chloride 96 L Carbon Dioxide 30 Anion Gap 14 BUN 42 H Creatinine 4.8 H Est GFR ( Amer) 10 Est GFR (Non-Af Amer) 9 POC Glucose (mg/dL) 151 H Random Glucose 99 D Calcium 7.6 L Phosphorus 5.5 H Magnesium 1.7 Total Bilirubin 0.3 AST 26 ALT 9 D Alkaline Phosphatase 44 Total Protein 5.9 L Albumin 3.1 L Globulin 2.9 Albumin/Globulin Ratio 1.1 Alpha Fetoprotein 1.7 Carcinoembryonic Ag 2.7 CA 19-9 Antigen 17.8 CA 125 Antigen 13.8 Hep Bs Antigen Hep B Core IgM Ab Hepatitis C Antibody Blood Type Antibody Screen 11/26/18 11/26/18 11/26/18 06:08 07:44 11:43 WBC 11.6 H RBC 3.80 Hgb 9.9 L D Hct 30.2 L MCV 79.5 L D MCH 26.1 L MCHC 32.8 L RDW 19.9 H Plt Count 221 D MPV 8.7 Sodium Potassium Chloride Carbon Dioxide Anion Gap BUN Creatinine Est GFR ( Amer) Est GFR (Non-Af Amer) POC Glucose (mg/dL) 144 H 158 H Random Glucose Calcium Phosphorus Magnesium Total Bilirubin AST ALT Alkaline Phosphatase Total Protein Albumin Globulin Albumin/Globulin Ratio Alpha Fetoprotein Carcinoembryonic Ag CA 19-9 Antigen CA 125 Antigen Hep Bs Antigen Hep B Core IgM Ab Hepatitis C Antibody Blood Type Antibody Screen Fingerstick Blood Sugar Results: 158 Critical Care Progress Note - Nutrition Nutrition: Nutrition Category Date Time Status Consistent Carbohydrate [DIET] Diets 11/25/18 Lunch Active Assessment/Plan - Assessment and Plan (Free Text) Plan: Patient is an 88 year old female with PMHx of asthma, CHF, DM, Gastritis, HTN, HLD, and Hypothyroidism, that presented to the hospital with complaint of not feeling well and dizziness. In ED, patient was found to have hypoglycemia (37), hyperkalemia (7.8), and elevated BUN/Cr 78/7.5. Previous admission in January 2018, pt BUN/Cr was 31/1.5. Patient was admitted to the ICU for treatment of hyperkalemia, elevated BUN/Cr, and hypoglycemia. Patient received hemodialysis yesterday (11/25), hyperkalemia resolved, BUN/Cr improving. Patient started Afib RVR during dialysis yesterday and now on Cardizem. Patient to receive dialysis again today. Neuro - AAOx3 - no acute issues Cardiac - Hypertensive - Hx of HTN, continue Cozaar 50mg and metoprolol 50mg - Hx of CHF - Afib RVR during dialysis yesterday, continue to monitor Pulm - hx of Asthma, COPD- continue Duonebs Q6H PRN - CXR /: small left pleural effusion GI - hx of Gastritis, continue Pepcid 20mg daily - GI Soft Diet Renal - Acute on Chronic Renal Failure - BUN/Cr 42/4.8 today - Hemodialysis again today - discontinue Bicarb drip - Hyperkalemia resolved - Ortiz to monitor I&O per nephro - f/u recs per Nephro Endo - Hypoglycemia, resolved - Hx of DM- restart ISS low - Accuchecks Q2H - Hx of Hypothyroidism, continue Synthroid 50mcg daily Heme - H/H today 9.9/30.2 - f/u fecal occult - monitor repeat CBC ID - Procalcitonin 0.10 - urinalysis 11/24: 3+ leukocyte esterase - f/u Blood cx, Urine cx - start Ceftriazone 1gm - f/u ID recs PPx - DVT ppx: Heparin SC, SCDs - Pepcid for GI ppx Plan discussed with Dr. Rodney Stafford, PGY-1 - Date & Time Date: 11/26/18 Time: 09:00
--- NOTE | 2018-11-26 16:58 | CP.PCM.PN ---
Subjective - Date & Time of Evaluation Date of Evaluation: 11/26/18 Time of Evaluation: 16:56 - Subjective Subjective: pt is seen and examined by me, follow up consult is dictated #[id number] seen in hd, uop is picking up check labs in am Objective - Vital Signs/Intake and Output Vital Signs (last 24 hours): Temp Pulse Resp BP Pulse Ox 98.1 F 76 19 184/67 H 100 11/26/18 14:00 11/26/18 15:01 11/26/18 15:01 11/26/18 16:48 11/26/18 15:01 Intake and Output: 11/26/18 11/26/18 06:59 18:59 Intake Total 1730 690 Output Total 300 300 Balance 1430 390 - Medications Medications: Current Medications Albuterol/Ipratropium (Duoneb 3 Mg/0.5 Mg (3 Ml) Ud) 3 ml INH RQ6 PRN PRN Reason: Shortness of Breath Cyanocobalamin (Vitamin B12 1000 Mcg/Ml Inj) 1,000 mcg IM DAILY [facility] Stop: 12/03/18 10:01 Last Admin: 11/26/18 10:00 Dose: 1,000 mcg Famotidine (Pepcid) 20 mg PO DAILY [facility] Last Admin: 11/26/18 10:01 Dose: 20 mg Ferric Sodium Gluconate Complex (Ferrlecit) 125 mg IVPB DAILY [facility] Stop: 12/04/18 10:01 Last Admin: 11/26/18 09:59 Dose: 125 mg Heparin Sodium (Porcine) (Heparin) 5,000 units SC Q8 [facility] Last Admin: 11/26/18 14:41 Dose: 5,000 units Ceftriaxone Sodium 1 gm/ (Sodium Chloride) 100 mls @ 100 mls/hr IVPB DAILY [facility]; Protocol Last Admin: 11/26/18 10:02 Dose: 100 mls/hr Insulin Human Regular (Novolin R) 0 unit SC ACHS [facility]; Protocol Last Admin: 11/26/18 16:49 Dose: Not Given Levothyroxine Sodium (Synthroid) 50 mcg PO DAILY@0630 [facility] Last Admin: 11/26/18 06:10 Dose: 50 mcg Losartan Potassium (Cozaar) 50 mg PO DAILY [facility] Last Admin: 11/26/18 10:01 Dose: 50 mg Metoprolol Succinate (Toprol Xl) 50 mg PO DAILY [facility] Last Admin: 11/26/18 10:01 Dose: 50 mg Sevelamer Carbonate (Renvela) 0.8 gm PO TIDCC [facility] Last Admin: 11/26/18 16:48 Dose: 0.8 gm Vitamin B Complex/Vit C/Folic Acid (Nephro-Leila) 1 tab PO 0800 [facility] Last Admin: 11/26/18 10:01 Dose: 1 tab - Labs Labs: 11/26/18 06:08 11/26/18 06:07
--- NOTE | 2018-11-26 18:06 | CP.PCM.PN ---
Subjective - Date & Time of Evaluation Date of Evaluation: 11/26/18 Time of Evaluation: 08:00 - Subjective Subjective: Referred for ID eval - r/o sepsis Cultures sent and are pending So far all cultures negative - Medical History PMH: Asthma, CHF, COPD, Diabetes, Gastritis, HTN, Hypercholesterolemia, Hypoth yroidism Denies: Alzheimer's Disease, Anemia, Anxiety, Arthritis, Bipolar Disorder, Crohn's Disease, Dementia, Diverticulitis, Emphysema, Fractures, Gall Bladder Objective - Vital Signs/Intake and Output Vital Signs (last 24 hours): Temp Pulse Resp BP Pulse Ox 98.2 F 75 15 181/80 H 100 11/26/18 16:30 11/26/18 17:00 11/26/18 17:00 11/26/18 16:59 11/26/18 17:00 Intake and Output: 11/26/18 11/26/18 06:59 18:59 Intake Total 1730 740 Output Total 300 350 Balance 1430 390 - Medications Medications: Current Medications Albuterol/Ipratropium (Duoneb 3 Mg/0.5 Mg (3 Ml) Ud) 3 ml INH RQ6 PRN PRN Reason: Shortness of Breath Cyanocobalamin (Vitamin B12 1000 Mcg/Ml Inj) 1,000 mcg IM DAILY [facility] Stop: 12/03/18 10:01 Last Admin: 11/26/18 10:00 Dose: 1,000 mcg Famotidine (Pepcid) 20 mg PO DAILY [facility] Last Admin: 11/26/18 10:01 Dose: 20 mg Ferric Sodium Gluconate Complex (Ferrlecit) 125 mg IVPB DAILY [facility] Stop: 12/04/18 10:01 Last Admin: 11/26/18 09:59 Dose: 125 mg Heparin Sodium (Porcine) (Heparin) 5,000 units SC Q8 [facility] Last Admin: 11/26/18 14:41 Dose: 5,000 units Ceftriaxone Sodium 1 gm/ (Sodium Chloride) 100 mls @ 100 mls/hr IVPB DAILY [facility]; Protocol Last Admin: 11/26/18 10:02 Dose: 100 mls/hr Insulin Human Regular (Novolin R) 0 unit SC ACHS [facility]; Protocol Last Admin: 11/26/18 16:49 Dose: Not Given Levothyroxine Sodium (Synthroid) 50 mcg PO DAILY@0630 [facility] Last Admin: 11/26/18 06:10 Dose: 50 mcg Losartan Potassium (Cozaar) 50 mg PO DAILY [facility] Last Admin: 11/26/18 10:01 Dose: 50 mg Metoprolol Succinate (Toprol Xl) 50 mg PO DAILY [facility] Last Admin: 11/26/18 10:01 Dose: 50 mg Sevelamer Carbonate (Renvela) 0.8 gm PO TIDCC [facility] Last Admin: 11/26/18 16:48 Dose: 0.8 gm Vitamin B Complex/Vit C/Folic Acid (Nephro-Leila) 1 tab PO 0800 [facility] Last Admin: 11/26/18 10:01 Dose: 1 tab - Labs Labs: 11/26/18 06:08 11/26/18 06:07 - Constitutional Appears: Non-toxic, Cachectic, Chronically Ill - Head Exam Head Exam: ATRAUMATIC, NORMOCEPHALIC - Eye Exam Eye Exam: PERRL. absent: Scleral icterus - ENT Exam ENT Exam: Mucous Membranes Dry - Neck Exam Neck Exam: absent: Lymphadenopathy - Respiratory Exam Respiratory Exam: Decreased Breath Sounds - Cardiovascular Exam Cardiovascular Exam: REGULAR RHYTHM - GI/Abdominal Exam GI & Abdominal Exam: Distended, Soft - Rectal Exam Rectal Exam: Deferred - Exam Exam: NORMAL INSPECTION - Extremities Exam Extremities Exam: absent: Pedal Edema, Tenderness - Back Exam Back Exam: absent: CVA tenderness (L), CVA tenderness (R) - Neurological Exam Neurological Exam: Alert, Awake, CN II-XII Intact, Oriented x3 Assessment and Plan (1) Acute renal failure (ARF) Status: Acute (2) Dehydration Status: Acute (3) DM (diabetes mellitus), type 2, uncontrolled Status: Acute (4) COPD exacerbation Status: Acute (5) UTI (urinary tract infection) Status: Acute - Assessment and Plan (Free Text) Assessment: Referred for ID eval - r/o sepsis Cultures sent and are pending cont rx as per Dr Armstrong
--- NOTE | 2018-11-26 22:01 | PN ---
DATE: 11/26/2018 LOCATION: The patient is located in ICU bed 3. REASON FOR RENAL FOLLOWUP: Acute renal failure, chronic kidney disease and continuation of hemodialysis. SUBJECTIVE: Mrs. Estrada is an 88-year-old elderly, very pleasant [place] female with a past medical history significant for hypertension, diabetes, hypothyroidism, arthritis and hyperlipidemia with a history of UTI who was admitted with the chief complaints of symptomatic hypoglycemia for 2 days prior to the admission and also feeling weak and tired, and the patient was found to have hyperkalemia and acute renal failure and metabolic acidosis requiring initiation of the hemodialysis. The patient underwent hemodialysis yesterday, and also the patient was seen and examined during dialysis this evening. The patient is resting comfortably. The patient is feeling much better. Denies any complaints. No chest pain, no palpitation. No fever. No cough. No abdominal pain. No nausea, vomiting, diarrhea. The patient is eager to go home. PHYSICAL EXAMINATION: VITAL SIGNS: As follows: Blood pressure 177/81, pulse 78, respirations about 16, saturation 100% and temperature 98.2. GENERAL: Mrs. Estrada is an 88 years old elderly female, moderately built, moderately nourished, not in acute distress. HEENT: Pupils normal, reactive to light and accommodation. Conjunctivae pink. Sclerae anicteric. Tongue is moist and trachea is midline. LUNGS: Symmetric on both sides. Bilateral breath sounds present. Clear to auscultation. CVS: [place] at the fifth intercostal space, midclavicular line. S1, S2 audible. No murmur, no gallop. ABDOMEN: Slightly distended, soft, tympanitic. No guarding, no rigidity. No hepatosplenomegaly. INSPECTOR AND HAND PACKAGER: The patient is alert, awake, oriented x3. Nonfocal neuro examination. Cranial nerves II-XII grossly intact. Sensory and motor system is within normal limits. EXTREMITIES: No cyanosis, no clubbing, no edema. CURRENT MEDICATIONS: Include as follows: Ambien 5 mg at bedtime, Rocephin 1 g daily, losartan 50 mg p.o. daily, DuoNeb inhaler and also Ferrlecit 125 mg IV daily, heparin 5000 units subcu every 8 hours, Nephro-Leila 1 tablet daily, Novolin R for sliding scale, Pepcid 20 mg p.o. daily, levothyroxine 50 mcg daily, metoprolol 50 mg p.o. daily, and cyanocobalamin 1000 mcg IM daily. LABORATORY DATA: Include as follows: As of 11/26/2018, WBC 11.6, hemoglobin 9.9, hematocrit is 30.2, MCV 79.5, platelets 221. Sodium 136, potassium 4.7, chloride 96, CO2 of 30, BUN 42, creatinine 4.8, glucose 99, calcium 7.6, phosphorus 5.5, magnesium 1.7. Total bili 0.3, AST 26, ALT 9, alkaline phosphatase 44, total protein 5.9, albumin is 3.1. Alpha-fetoprotein is 1.7. CEA is 2.7. CA19-9 is 17.8. CA-125 is 13.8. Hepatitis B surface are negative. Core antibody IgM negative, hep C antibody is negative. ASSESSMENT AND PLAN: In summary, Mrs. Estrada is an 88 years old elderly female with hypertension, diabetes, hyperlipidemia, arthritis, hypothyroidism, was admitted with symptomatic hypoglycemia, weakness and found to have severe hyperkalemia, acute renal failure and metabolic acidosis. 1. Acute renal failure on chronic kidney disease, most likely secondary to acute tubular necrosis, most likely drug-induced, metformin. 2. Status post hyperkalemia. 3. Status post metabolic acidosis secondary to renal failure and metformin. Renal function is improving. Urine output is picking up this afternoon. We will continue to monitor basic metabolic profile in the morning and continue gentle intravenous hydration half-normal saline at 60-70 mL/hour, and we will try to hold hemodialysis after today's treatment. Discussed with the patient's son at bedside. Thank you for allowing me to participate in your patient's care. Merlyn Jain MD
[2018-11-27] MEDS: Albuterol-Ipratrop 3 mg / 0.5 (3 ml) UD INH PRN ×2 (01:53→09:59)
[2018-11-27 06:24] LABS: BASO # 0.1 K/uL (0.0-0.2); BASO % 0.5 % (0.0-2.0); EOS # 0.2 K/uL (0.0-0.7); HEMOGLOBIN 8.8 g/dL (11.0-16.0); LYMPH # 1.2 K/uL (1.0-4.3); LYMPH % 12.3 % (20.0-40.0); MEAN CELL VOLUME 80.3 fL (81.0-99.0); MEAN CORPUSCULAR HEMOGLOBIN 25.8 pg (27.0-31.0); MEAN CORPUSCULAR HGB CONC 32.1 g/dL (33.0-37.0); MONO # 0.9 K/uL (0.0-0.8); MONO % 9.3 % (0.0-10.0); NEUT # 7.1 K/uL (1.8-7.0); NEUT % 75.9 % (50.0-75.0); NRBC % 0.1 % (0.0-2.0); RBC 3.42 Mil/uL (3.80-5.20); RED CELL DISTRIBUTION WIDTH 20.1 % (11.5-14.5); WHITE BLOOD COUNT 9.4 K/uL (4.8-10.8)
[2018-11-27] MEDS: Levothyroxine 50 MCG TAB PO SCH (06:26)
[2018-11-27 06:41] LABS: ALBUMIN 2.7 g/dL (3.5-5.0); CALCIUM 7.8 mg/dl (8.6-10.4)
[2018-11-27] MEDS: (Novolin R) Insulin Human Regular 100 units/ml vial SC SCH ×4 (07:50→22:07)
[2018-11-27] MEDS: Ferric Sodium Gluconat Complex 62.5 mg/5 ml Vial IVPB SCH (09:58)
[2018-11-27] MEDS: Sevelamer Carb 0.8 gm/Packet PO SCH ×3 (09:59→17:54)
[2018-11-27] MEDS: Metoprolol Succinate 50 mg XL Tab PO SCH (09:59)
[2018-11-27] MEDS: Multivitamin Vitamin B Complex (Nephro-Vite) Tab PO SCH (09:59)
--- NOTE | 2018-11-27 18:05 | CP.PCM.PN ---
Subjective - Date & Time of Evaluation Date of Evaluation: 11/27/18 Time of Evaluation: 18:04 - Subjective Subjective: pt is seen and examined, follow up consult is dictated #[id number] d/c trotter cath bmp in am Objective - Vital Signs/Intake and Output Vital Signs (last 24 hours): Temp Pulse Resp BP Pulse Ox 98.2 F 102 H 20 121/77 97 11/27/18 16:23 11/27/18 16:23 11/27/18 16:23 11/27/18 16:23 11/27/18 16:23 Intake and Output: 11/27/18 11/27/18 06:59 18:59 Intake Total 350 560 Output Total 750 300 Balance -400 260 - Medications Medications: Current Medications Albuterol/Ipratropium (Duoneb 3 Mg/0.5 Mg (3 Ml) Ud) 3 ml INH RQ6 PRN PRN Reason: Shortness of Breath Last Admin: 11/27/18 09:59 Dose: 3 ml Amlodipine Besylate (Norvasc) 5 mg PO DAILY [facility] Last Admin: 11/27/18 14:00 Dose: 5 mg Cyanocobalamin (Vitamin B12 1000 Mcg/Ml Inj) 1,000 mcg IM DAILY [facility] Stop: 12/03/18 10:01 Last Admin: 11/27/18 09:59 Dose: 1,000 mcg Famotidine (Pepcid) 20 mg PO DAILY [facility] Last Admin: 11/27/18 09:59 Dose: 20 mg Ferric Sodium Gluconate Complex (Ferrlecit) 125 mg IVPB DAILY [facility] Stop: 12/04/18 10:01 Last Admin: 11/27/18 09:58 Dose: 125 mg Heparin Sodium (Porcine) (Heparin) 5,000 units SC Q8 [facility] Last Admin: 11/27/18 14:00 Dose: 5,000 units Ceftriaxone Sodium 1 gm/ (Sodium Chloride) 100 mls @ 100 mls/hr IVPB DAILY [facility]; Protocol Last Admin: 11/27/18 10:00 Dose: 100 mls/hr Insulin Human Regular (Novolin R) 0 unit SC ACHS [facility]; Protocol Last Admin: 11/27/18 17:51 Dose: Not Given Levothyroxine Sodium (Synthroid) 50 mcg PO DAILY@0630 [facility] Last Admin: 11/27/18 06:26 Dose: 50 mcg Losartan Potassium (Cozaar) 50 mg PO DAILY [facility] Last Admin: 11/27/18 09:58 Dose: 50 mg Metoprolol Succinate (Toprol Xl) 50 mg PO DAILY [facility] Last Admin: 11/27/18 09:59 Dose: 50 mg Sevelamer Carbonate (Renvela) 0.8 gm PO TIDCC [facility] Last Admin: 11/27/18 17:54 Dose: 0.8 gm Vitamin B Complex/Vit C/Folic Acid (Nephro-Leila) 1 tab PO 0800 [facility] Last Admin: 11/27/18 09:59 Dose: 1 tab Zolpidem Tartrate (Ambien) 5 mg PO HS PRN PRN Reason: Insomnia Last Admin: 11/26/18 21:56 Dose: 5 mg - Labs Labs: 11/27/18 06:10 11/27/18 06:10
--- NOTE | 2018-11-27 19:24 | CP.PCM.PN ---
Subjective - Date & Time of Evaluation Date of Evaluation: 11/27/18 Time of Evaluation: 09:00 - Subjective Subjective: afeb nad rx in progress Objective - Vital Signs/Intake and Output Vital Signs (last 24 hours): Temp Pulse Resp BP Pulse Ox 98.2 F 102 H 20 121/77 97 11/27/18 16:23 11/27/18 16:23 11/27/18 16:23 11/27/18 16:23 11/27/18 16:23 Intake and Output: 11/27/18 11/28/18 18:59 06:59 Intake Total 560 Output Total 300 Balance 260 - Medications Medications: Current Medications Albuterol/Ipratropium (Duoneb 3 Mg/0.5 Mg (3 Ml) Ud) 3 ml INH RQ6 PRN PRN Reason: Shortness of Breath Last Admin: 11/27/18 09:59 Dose: 3 ml Amlodipine Besylate (Norvasc) 5 mg PO DAILY [facility] Last Admin: 11/27/18 14:00 Dose: 5 mg Cyanocobalamin (Vitamin B12 1000 Mcg/Ml Inj) 1,000 mcg IM DAILY [facility] Stop: 12/03/18 10:01 Last Admin: 11/27/18 09:59 Dose: 1,000 mcg Famotidine (Pepcid) 20 mg PO DAILY [facility] Last Admin: 11/27/18 09:59 Dose: 20 mg Ferric Sodium Gluconate Complex (Ferrlecit) 125 mg IVPB DAILY [facility] Stop: 12/04/18 10:01 Last Admin: 11/27/18 09:58 Dose: 125 mg Heparin Sodium (Porcine) (Heparin) 5,000 units SC Q8 [facility] [place] Last Admin: 11/27/18 14:00 Dose: 5,000 units Ceftriaxone Sodium 1 gm/ (Sodium Chloride) 100 mls @ 100 mls/hr IVPB DAILY [facility]; Protocol Last Admin: 11/27/18 10:00 Dose: 100 mls/hr Insulin Human Regular (Novolin R) 0 unit SC ACHS [facility]; Protocol Last Admin: 11/27/18 17:51 Dose: Not Given Levothyroxine Sodium (Synthroid) 50 mcg PO DAILY@0630 [facility] [place] Last Admin: 11/27/18 06:26 Dose: 50 mcg Losartan Potassium (Cozaar) 50 mg PO DAILY [facility] [place] Last Admin: 11/27/18 09:58 Dose: 50 mg Metoprolol Succinate (Toprol Xl) 50 mg PO DAILY [facility] [place] Last Admin: 11/27/18 09:59 Dose: 50 mg Sevelamer Carbonate (Renvela) 0.8 gm PO TIDCC [facility] [place] Last Admin: 11/27/18 17:54 Dose: 0.8 gm Vitamin B Complex/Vit C/Folic Acid (Nephro-Leila) 1 tab PO 0800 [facility] [place] Last Admin: 11/27/18 09:59 Dose: 1 tab Zolpidem Tartrate (Ambien) 5 mg PO HS PRN PRN Reason: Insomnia Last Admin: 11/26/18 21:56 Dose: 5 mg - Labs Labs: 11/27/18 06:10 11/27/18 06:10 - Constitutional Appears: Well - Head Exam Head Exam: ATRAUMATIC, NORMAL INSPECTION, NORMOCEPHALIC - Eye Exam Eye Exam: EOMI, Normal appearance, PERRL Pupil Exam: NORMAL ACCOMODATION, PERRL - ENT Exam ENT Exam: Mucous Membranes Moist, Normal Exam - Neck Exam Neck Exam: Full ROM, Normal Inspection. absent: Lymphadenopathy - Respiratory Exam Respiratory Exam: Clear to Ausculation Bilateral, NORMAL BREATHING PATTERN - Cardiovascular Exam Cardiovascular Exam: REGULAR RHYTHM, +S1, +S2. absent: Murmur - GI/Abdominal Exam GI & Abdominal Exam: Soft, Normal Bowel Sounds. absent: Tenderness - Rectal Exam Rectal Exam: NORMAL INSPECTION - Extremities Exam Extremities Exam: Full ROM, Normal Capillary Refill, Normal Inspection. absent: Joint Swelling, Pedal Edema - Back Exam Back Exam: NORMAL INSPECTION - Neurological Exam Neurological Exam: Alert, Awake, CN II-XII Intact, Normal Gait, Oriented x3 - Psychiatric Exam Psychiatric exam: Normal Affect, Normal Mood - Skin Skin Exam: Dry, Intact, Normal Color, Warm Assessment and Plan (1) Acute renal failure (ARF) Status: Acute (2) Dehydration Status: Acute (3) DM (diabetes mellitus), type 2, uncontrolled Status: Acute (4) COPD exacerbation Status: Acute (5) UTI (urinary tract infection) Status: Acute
--- NOTE | 2018-11-28 00:13 | PN ---
DATE: 11/27/2018 FOLLOWUP RENAL CONSULTATION LOCATION: The patient is located in 553, bed A. REQUESTED BY: Blanco Wang MD REASON FOR FOLLOWUP: Acute renal failure, on chronic kidney disease. SUBJECTIVE: Mrs. Estrada is an 88-year-old elderly female with a history of hypertension, diabetes, hyperlipidemia, hypothyroidism, was admitted with chief complaint of symptomatic glycemia for two days and also found to have acute renal failure, hyperkalemia, metabolic acidosis. The patient is not in acute distress. Transfer to medical floor today. No chest pain or palpitation. No shortness of breath. No nausea or vomiting. The patient still complains of mild abdominal pain, mostly in the left lower quadrant. PHYSICAL EXAMINATION: VITAL SIGNS: As follows: Blood pressure 121/77, pulse 102, respirations 20, temperature 98.2, saturation 97% on 3 liters nasal cannula. Height 5 feet 5 inches, weight is 141 pounds. GENERAL: Mrs. Estrada is an 88-year-old elderly female, moderately built, moderately nourished, not in acute distress. HEENT: Pupils normal, reactive to light and accommodation. Conjunctivae pink. Sclerae anicteric. Tongue is moist. Trachea is midline. LUNGS: Symmetric on both sides. Bilateral breath sounds present. Clear to auscultation. CARDIOVASCULAR SYSTEM: [place] at the fifth intercostal space, midclavicular line. S1, S2 audible. No murmur or gallop. ABDOMEN: Normal in appearance. Slightly protuberant, soft, mild to moderate tenderness in the left lower quadrant. No guarding. No rigidity. Bowel sounds present. No hepatosplenomegaly. CENTRAL NERVOUS SYSTEM: The patient is alert, awake, oriented x2-3. Sensory and motor system within normal limits. EXTREMITIES: No cyanosis, no clubbing, no edema. CURRENT MEDICATIONS: Include as follows: Ambien 5 mg p.o. at bedtime, Rocephin 1 g daily, losartan 50 mg p.o. daily, DuoNeb inhaler, ferrous gluconate 125 mg daily, subcu heparin 5000 every 8 hours, Nephro-Leila one tablet daily, amlodipine 5 mg daily, Novolin R for sliding scale, Pepcid 20 mg p.o. daily, Renvela 800 mg p.o. t.i.d., Synthroid 50 mcg p.o. daily, metoprolol 50 mg p.o. daily, and vitamin B12 1000 mcg IM daily. LABORATORY DATA: Include as follows: As of 11/27/2018; WBC 9.4, hemoglobin 8.9, hematocrit is 27.5, platelets 138. Sodium 136, potassium 4.2, chloride 100, CO2 of 29, BUN 33, creatinine 4.3, glucose 170, calcium 7.8, phosphorus 6, magnesium 1.7, total bili 0.2. AST 23, ALT 16, alkaline phosphatase 44, total protein 5.4, albumin is 2.7. Her baseline creatinine as of 01/31/2018 is 1.2, as of 01/30/2018 is 1.3. ASSESSMENT AND PLAN: In summary, Mrs. Estrada is an 88-year-old elderly female with a history of hypertension, diabetes, hyperlipidemia, hypothyroidism who was admitted with renal failure, hyperkalemia, metabolic acidosis, requiring initiation of hemodialysis, status post hemodialysis on 11/26/2018 and 11/25/2018. 1. Acute renal failure on chronic kidney disease, most likely acute tubular necrosis secondary to drug-induced, metformin. 2. Anemia, most likely secondary to renal failure and iron-deficiency anemia and B12 deficiency. 3. Hypertension. 4. Type 2 diabetes. Repeat CBC, BMP in morning. We will reevaluate for possible need for dialysis in morning. We will discontinue Ortiz catheter tonight, but the patient's family wants to keep it tonight and we will remove tomorrow. Consider CT of the abdomen to rule out colitis. We will follow with you. Thank you for allowing me to participate in your patient's care. Merlyn Jain MD
[2018-11-28] MEDS: Levothyroxine 50 MCG TAB PO SCH (05:52)
[2018-11-28 07:57] LABS: BASO % 0.3 % (0.0-2.0); EOS # 0.5 K/uL (0.0-0.7); EOS % 4.6 % (0.0-4.0); HEMOGLOBIN 9.2 g/dL (11.0-16.0); LYMPH # 1.1 K/uL (1.0-4.3); LYMPH % 10.9 % (20.0-40.0); MEAN CELL VOLUME 80.3 fL (81.0-99.0); MEAN CORPUSCULAR HEMOGLOBIN 25.9 pg (27.0-31.0); MEAN CORPUSCULAR HGB CONC 32.2 g/dL (33.0-37.0); MEAN PLATELET VOLUME 8.6 fL (7.2-11.7); MONO % 10.5 % (0.0-10.0); NEUT # 7.3 K/uL (1.8-7.0); NEUT % 73.7 % (50.0-75.0); NRBC % 0.1 % (0.0-2.0); RBC 3.56 Mil/uL (3.80-5.20); RED CELL DISTRIBUTION WIDTH 20.8 % (11.5-14.5); WHITE BLOOD COUNT 9.9 K/uL (4.8-10.8)
[2018-11-28 08:22] LABS: ALBUMIN 2.9 g/dL (3.5-5.0); CALCIUM 8.1 mg/dl (8.6-10.4)
[2018-11-28] MEDS: Multivitamin Vitamin B Complex (Nephro-Vite) Tab PO SCH (09:10)
[2018-11-28] MEDS: Sevelamer Carb 0.8 gm/Packet PO SCH ×3 (09:10→18:15)
[2018-11-28] MEDS: (Novolin R) Insulin Human Regular 100 units/ml vial SC SCH ×4 (09:10→21:33)
[2018-11-28] MEDS: Metoprolol Succinate 50 mg XL Tab PO SCH (11:29)
[2018-11-28] MEDS: Ferric Sodium Gluconat Complex 62.5 mg/5 ml Vial IVPB SCH (11:29)
[2018-11-28 11:42] LABS: HEMOGLOBIN 9.1 g/dL (11.0-16.0); MEAN CELL VOLUME 80.3 fL (81.0-99.0); MEAN CORPUSCULAR HEMOGLOBIN 25.8 pg (27.0-31.0); MEAN CORPUSCULAR HGB CONC 32.2 g/dL (33.0-37.0); MEAN PLATELET VOLUME 8.9 fL (7.2-11.7); RBC 3.52 Mil/uL (3.80-5.20); RED CELL DISTRIBUTION WIDTH 20.4 % (11.5-14.5); WHITE BLOOD COUNT 9.8 K/uL (4.8-10.8)
[2018-11-28] MEDS ORDERED: Paricalcitol 2 mcg/ml Inj IV ONE (12:17)
[2018-11-28] MEDS ORDERED: Epoetin Alfa 10,000 unit/ml Dialysis IV ONE ×2 (12:45→17:00)
--- NOTE | 2018-11-28 13:25 | CP.PCM.PN ---
Subjective - Date & Time of Evaluation Date of Evaluation: 11/28/18 Time of Evaluation: 13:24 - Subjective Subjective: sob,constipation Objective - Vital Signs/Intake and Output Vital Signs (last 24 hours): Temp Pulse Resp BP Pulse Ox 98.2 F 83 21 188/74 H 97 11/28/18 08:37 11/28/18 12:28 11/28/18 12:28 11/28/18 12:28 11/28/18 12:28 Intake and Output: 11/28/18 11/28/18 06:59 18:59 Output Total 700 Balance -700 - Medications Medications: Current Medications Albuterol/Ipratropium (Duoneb 3 Mg/0.5 Mg (3 Ml) Ud) 3 ml INH RQ6 PRN PRN Reason: Shortness of Breath Last Admin: 11/27/18 09:59 Dose: 3 ml Amlodipine Besylate (Norvasc) 5 mg PO DAILY [facility] Last Admin: 11/28/18 11:29 Dose: 5 mg Cyanocobalamin (Vitamin B12 1000 Mcg/Ml Inj) 1,000 mcg IM DAILY [facility] Stop: 12/03/18 10:01 Last Admin: 11/28/18 11:32 Dose: 1,000 mcg Famotidine (Pepcid) 20 mg PO DAILY [facility] Last Admin: 11/28/18 11:29 Dose: 20 mg Ferric Sodium Gluconate Complex (Ferrlecit) 125 mg IVPB DAILY [facility] Stop: 12/04/18 10:01 Last Admin: 11/28/18 11:29 Dose: 125 mg Heparin Sodium (Porcine) (Heparin) 5,000 units SC Q8 [facility] Last Admin: 11/28/18 13:07 Dose: 5,000 units Ceftriaxone Sodium 1 gm/ (Sodium Chloride) 100 mls @ 100 mls/hr IVPB DAILY [facility]; Protocol Last Admin: 11/27/18 10:00 Dose: 100 mls/hr Insulin Human Regular (Novolin R) 0 unit SC ACHS [facility]; Protocol Last Admin: 11/28/18 13:07 Dose: 6 unit Levothyroxine Sodium (Synthroid) 50 mcg PO DAILY@0630 [facility] Last Admin: 11/28/18 05:52 Dose: 50 mcg Losartan Potassium (Cozaar) 50 mg PO DAILY [facility] Last Admin: 11/28/18 11:29 Dose: 50 mg Metoprolol Succinate (Toprol Xl) 50 mg PO DAILY [facility] Last Admin: 11/28/18 11:29 Dose: 50 mg Sevelamer Carbonate (Renvela) 0.8 gm PO TIDCC [facility] Last Admin: 11/28/18 13:07 Dose: 0.8 gm Vitamin B Complex/Vit C/Folic Acid (Nephro-Leila) 1 tab PO 0800 [facility] Last Admin: 11/28/18 09:10 Dose: 1 tab Zolpidem Tartrate (Ambien) 5 mg PO HS PRN PRN Reason: Insomnia Last Admin: 11/26/18 21:56 Dose: 5 mg - Labs Labs: 11/28/18 11:15 11/28/18 07:49 - Constitutional Appears: No Acute Distress, Chronically Ill - Head Exam Head Exam: NORMOCEPHALIC - Neck Exam Neck Exam: Normal Inspection - Respiratory Exam Respiratory Exam: Rales - Cardiovascular Exam Cardiovascular Exam: REGULAR RHYTHM - GI/Abdominal Exam GI & Abdominal Exam: Soft - Extremities Exam Extremities Exam: absent: Pedal Edema - Neurological Exam Neurological Exam: Alert, Oriented x3 Assessment and Plan - Assessment and Plan (Free Text) Plan: acute rrnal failure,htn.
[2018-11-28] MEDS ORDERED: Magnesium Hydroxide Susp 30 ml UD PO ONE (13:45)
--- NOTE | 2018-11-28 14:37 | RAD ---
Date of service: 11/28/2018 HISTORY: chf COMPARISON: 11/24/2018 FINDINGS: LUNGS: The lungs are hyperinflated and there is peribronchial thickening with chronic changes in both lungs. No focal consolidation. PLEURA: No pleural effusions or pneumothorax. CARDIOVASCULAR: There is mild cardiomegaly. There are aortic atherosclerotic calcifications present. OSSEOUS STRUCTURES: Within normal limits for the patient's age. VISUALIZED UPPER ABDOMEN: Normal. OTHER FINDINGS: None. IMPRESSION: No active pulmonary disease. COPD.
--- NOTE | 2018-11-28 18:22 | CP.PCM.PN ---
Subjective - Date & Time of Evaluation Date of Evaluation: 11/28/18 Time of Evaluation: 18:21 - Subjective Subjective: pt is seen and examined, follow up consult is dictated #[id number] s/p hd today, uf about 1 lit Objective - Vital Signs/Intake and Output Vital Signs (last 24 hours): Temp Pulse Resp BP Pulse Ox 97.9 F 80 16 143/62 99 11/28/18 15:00 11/28/18 16:00 11/28/18 15:00 11/28/18 16:20 11/28/18 15:00 Intake and Output: 11/28/18 11/28/18 06:59 18:59 Output Total 700 360 Balance -700 -360 - Medications Medications: Current Medications Albuterol/Ipratropium (Duoneb 3 Mg/0.5 Mg (3 Ml) Ud) 3 ml INH RQ6 PRN PRN Reason: Shortness of Breath Last Admin: 11/27/18 09:59 Dose: 3 ml Amlodipine Besylate (Norvasc) 5 mg PO DAILY [facility] Last Admin: 11/28/18 11:29 Dose: 5 mg Cyanocobalamin (Vitamin B12 1000 Mcg/Ml Inj) 1,000 mcg IM DAILY [facility] Stop: 12/03/18 10:01 Last Admin: 11/28/18 11:32 Dose: 1,000 mcg Docusate Sodium (Colace) 100 mg PO BID [facility] Famotidine (Pepcid) 20 mg PO DAILY [facility] Last Admin: 11/28/18 11:29 Dose: 20 mg Ferric Sodium Gluconate Complex (Ferrlecit) 125 mg IVPB DAILY [facility] Stop: 12/04/18 10:01 Last Admin: 11/28/18 11:29 Dose: 125 mg Heparin Sodium (Porcine) (Heparin) 5,000 units SC Q8 [facility] Last Admin: 11/28/18 13:07 Dose: 5,000 units Ceftriaxone Sodium 1 gm/ (Sodium Chloride) 100 mls @ 100 mls/hr IVPB DAILY [facility]; Protocol Last Admin: 11/28/18 14:18 Dose: Not Given Insulin Human Isoph/Insulin Regular (Novolin 70/30 (70/30 Units/Ml) 10 Ml) 20 units SC DAILY [facility] Insulin Human Regular (Novolin R) 0 unit SC ACHS [facility]; Protocol Last Admin: 11/28/18 13:07 Dose: 6 unit Levothyroxine Sodium (Synthroid) 50 mcg PO DAILY@0630 [facility] Last Admin: 11/28/18 05:52 Dose: 50 mcg Losartan Potassium (Cozaar) 50 mg PO DAILY [facility] Last Admin: 11/28/18 11:29 Dose: 50 mg Metoprolol Succinate (Toprol Xl) 50 mg PO DAILY [facility] Last Admin: 11/28/18 11:29 Dose: 50 mg Sevelamer Carbonate (Renvela) 0.8 gm PO TIDCC [facility] Last Admin: 11/28/18 13:07 Dose: 0.8 gm Vitamin B Complex/Vit C/Folic Acid (Nephro-Leila) 1 tab PO 0800 [facility] Last Admin: 11/28/18 09:10 Dose: 1 tab Zolpidem Tartrate (Ambien) 5 mg PO HS PRN PRN Reason: Insomnia Last Admin: 11/26/18 21:56 Dose: 5 mg - Labs Labs: 11/28/18 11:15 11/28/18 07:49
--- NOTE | 2018-11-29 03:33 | PN ---
DATE: 11/28/2018 FOLLOWUP RENAL CONSULTATION LOCATION: The patient is located in room 553, bed A. REASON FOR FOLLOWUP: Acute renal failure, status post hyperkalemia, metabolic acidosis. HISTORY OF PRESENT ILLNESS: Mrs. Estrada is an 88-year-old elderly female with a past medical history significant for hypertension, diabetes, hyperlipidemia, hypothyroidism who was admitted with weakness and symptomatic hypoglycemia for two days prior to admission. The patient was found to have acute renal failure, metabolic acidosis, and hyperkalemia, started requiring initiation of the renal replacement therapy. The patient is not in acute distress. Urine output is slowly improving. Serum creatinine remains elevated today, and the patient was given hemodialysis this morning. The patient is not in acute distress this evening. Denies any chest pain or palpitation. No nausea, no vomiting, no diarrhea. PHYSICAL EXAMINATION: VITAL SIGNS: As follows: Blood pressure 155/73, pulse 81, respirations about 20, temperature 97.2. Height 5 feet 5 inches, weight is 141 pounds. GENERAL: Mrs. Estrada is an 88-year-old elderly female, moderately built, moderately nourished, not in acute distress. HEENT: Pupils normal and reactive to light and accommodation. Conjunctivae pink. Sclerae anicteric. Tongue is moist. Trachea is midline. LUNGS: Symmetric on both sides. Bilateral breath sounds present. Clear to auscultation. CARDIOVASCULAR SYSTEM: [place] at the fifth intercostal space midclavicular line. S1, S2 audible. No murmur or gallop. ABDOMEN: Normal in appearance, soft, tympanitic. No guarding. No rigidity. No hepatosplenomegaly. CENTRAL NERVOUS SYSTEM: The patient is alert, awake, and oriented times two to three. Sensory and motor system is within normal limits. EXTREMITIES: No cyanosis, no clubbing, no edema. CURRENT MEDICATIONS: Include as follows: Ambien 5 mg at bedtime, Rocephin 1 g daily, Colace 100 mg p.o. b.i.d., losartan 50 mg p.o. daily, DuoNeb inhaler, Ferrlecit 125 mg IV daily, subcu heparin 5000 units every 8 hours, Nephro-Leila 1 tablet daily, Norvasc 5 mg p.o. daily, Novolin 70/30 20 units subcu daily, Pepcid 20 mg p.o. daily, Renvela 800 mg p.o. t.i.d., levothyroxine 50 mcg p.o. daily, metoprolol 50 mg p.o. daily, and vitamin B12 of 1000 mcg IM daily. LABORATORY DATA: Include as follows: As of 11/28/2018, WBC 9.8, hemoglobin 9.1, hematocrit is 28.2, platelets 166. Sodium 136, potassium 4.1, chloride 97, CO2 of 31, BUN 41, creatinine 5.1, glucose 180, calcium 8.1, phosphorus 6, magnesium 1.8, total bili 0.3, AST 17, ALT 14, alkaline phos of 51, total protein 5.6, albumin is 2.9. Other laboratory data, MRSA screening was negative and blood cultures x2 negative day 3, and urine culture was negative. IMPRESSION AND PLAN: In summary, Mrs. Estrada is an 88-year-old elderly female with history of hypertension, diabetes, hyperlipidemia, hypothyroidism who was admitted with symptomatic hypoglycemia, metabolic acidosis, and hyperkalemia, on hemodialysis. 1. Acute renal failure, on chronic kidney disease stage III. 2. Hypertension. 3. Diabetes. 4. Status post hyperkalemia. 5. Status post metabolic acidosis. Hyperkalemia and metabolic acidosis are corrected. Renal function is still elevated. Low GFR. Continue hemodialysis until renal function improves. 6. Anemia secondary to multifactorial renal failure, vitamin B12 deficiency, and iron deficiency. We will also check urine for protein electrophoresis, and also we will hold losartan and titrate amlodipine to 10 mg daily. Continue to monitor BMP. We will follow with you. Thank you for allowing me to participate in your patient's care. Merlyn Jain MD
[2018-11-29] MEDS: Levothyroxine 50 MCG TAB PO SCH (06:15)
[2018-11-29 07:20] LABS: BASO % 0.3 % (0.0-2.0); EOS # 0.5 K/uL (0.0-0.7); MONO # 1.1 K/uL (0.0-0.8); RED CELL DISTRIBUTION WIDTH 20.7 % (11.5-14.5)
[2018-11-29 07:35] LABS: EOS % 4.2 % (0.0-4.0); HEMOGLOBIN 9.6 g/dL (11.0-16.0); LYMPH # 1.4 K/uL (1.0-4.3); LYMPH % 12.3 % (20.0-40.0); MEAN CELL VOLUME 80.2 fL (81.0-99.0); MEAN CORPUSCULAR HEMOGLOBIN 25.5 pg (27.0-31.0); MEAN CORPUSCULAR HGB CONC 31.8 g/dL (33.0-37.0); MEAN PLATELET VOLUME 8.9 fL (7.2-11.7); MONO % 9.7 % (0.0-10.0); NEUT # 8.4 K/uL (1.8-7.0); NEUT % 73.5 % (50.0-75.0); NRBC % 0.2 % (0.0-2.0); RBC 3.76 Mil/uL (3.80-5.20); WHITE BLOOD COUNT 11.4 K/uL (4.8-10.8)
[2018-11-29 07:42] LABS: ALBUMIN 2.8 g/dL (3.5-5.0)
[2018-11-29] MEDS: (Novolin R) Insulin Human Regular 100 units/ml vial SC SCH ×4 (08:32→21:34)
[2018-11-29] MEDS: Multivitamin Vitamin B Complex (Nephro-Vite) Tab PO SCH (08:32)
[2018-11-29] MEDS: Sevelamer Carb 0.8 gm/Packet PO SCH ×3 (08:35→17:16)
[2018-11-29] MEDS: (Novolin 70/30) NPH/Regular 70/30 Units/ml 10 ml vial SC SCH (10:20)
[2018-11-29] MEDS: Ferric Sodium Gluconat Complex 62.5 mg/5 ml Vial IVPB SCH (10:20)
[2018-11-29] MEDS: Metoprolol Succinate 50 mg XL Tab PO SCH (10:22)
--- NOTE | 2018-11-29 10:51 | CP.PCM.PN ---
Subjective - Date & Time of Evaluation Date of Evaluation: 11/29/18 Time of Evaluation: 10:50 - Subjective Subjective: pt is seen and examined, follow up consult is dictated #[id number] [facility] daily Objective - Vital Signs/Intake and Output Vital Signs (last 24 hours): Temp Pulse Resp BP Pulse Ox 98.4 F 81 18 180/71 H 94 L 11/29/18 07:30 11/29/18 07:30 11/29/18 07:30 11/29/18 07:30 11/29/18 07:30 Intake and Output: 11/29/18 11/29/18 06:59 18:59 Output Total 700 200 Balance -700 -200 - Medications Medications: Current Medications Albuterol/Ipratropium (Duoneb 3 Mg/0.5 Mg (3 Ml) Ud) 3 ml INH RQ6 PRN PRN Reason: Shortness of Breath Last Admin: 11/27/18 09:59 Dose: 3 ml Amlodipine Besylate (Norvasc) 10 mg PO DAILY [facility] Last Admin: 11/29/18 10:20 Dose: 10 mg Cyanocobalamin (Vitamin B12 1000 Mcg/Ml Inj) 1,000 mcg IM DAILY [facility] Stop: 12/03/18 10:01 Last Admin: 11/29/18 10:21 Dose: 1,000 mcg Docusate Sodium (Colace) 100 mg PO BID [facility] Last Admin: 11/29/18 10:20 Dose: 100 mg Famotidine (Pepcid) 20 mg PO DAILY [facility] Last Admin: 11/29/18 10:20 Dose: 20 mg Ferric Sodium Gluconate Complex (Ferrlecit) 125 mg IVPB DAILY [facility] Stop: 12/04/18 10:01 Last Admin: 11/29/18 10:20 Dose: 125 mg Heparin Sodium (Porcine) (Heparin) 5,000 units SC Q8 [facility] Last Admin: 11/29/18 06:15 Dose: 5,000 units Ceftriaxone Sodium 1 gm/ (Sodium Chloride) 100 mls @ 100 mls/hr IVPB DAILY [facility]; Protocol Last Admin: 11/29/18 10:19 Dose: 100 mls/hr Insulin Human Isoph/Insulin Regular (Novolin 70/30 (70/30 Units/Ml) 10 Ml) 20 units SC DAILY [facility] Last Admin: 11/29/18 10:20 Dose: 20 units Insulin Human Regular (Novolin R) 0 unit SC ACHS [facility]; Protocol Last Admin: 11/29/18 08:32 Dose: 4 unit Levothyroxine Sodium (Synthroid) 50 mcg PO DAILY@0630 [facility] Last Admin: 11/29/18 06:15 Dose: 50 mcg Metoprolol Succinate (Toprol Xl) 50 mg PO DAILY [facility] Last Admin: 11/29/18 10:22 Dose: 50 mg Sevelamer Carbonate (Renvela) 0.8 gm PO TIDCC [facility] Last Admin: 11/29/18 08:35 Dose: 0.8 gm Vitamin B Complex/Vit C/Folic Acid (Nephro-Leila) 1 tab PO 0800 [facility] Last Admin: 11/29/18 08:32 Dose: 1 tab Zolpidem Tartrate (Ambien) 5 mg PO HS PRN PRN Reason: Insomnia Last Admin: 11/26/18 21:56 Dose: 5 mg - Labs Labs: 11/29/18 07:01 11/29/18 07:01
--- NOTE | 2018-11-29 14:14 | CP.PCM.PN ---
Subjective - Date & Time of Evaluation Date of Evaluation: 11/29/18 Time of Evaluation: 14:12 - Subjective Subjective: edema & redness lt elbow.cr 3.9.now a,flutter,fib.rate in 100s. Objective - Vital Signs/Intake and Output Vital Signs (last 24 hours): Temp Pulse Resp BP Pulse Ox 99 F 107 H 20 133/72 99 11/29/18 13:00 11/29/18 13:00 11/29/18 13:00 11/29/18 13:00 11/29/18 13:00 Intake and Output: 11/29/18 11/29/18 06:59 18:59 Output Total 700 200 Balance -700 -200 - Medications Medications: Current Medications Albuterol/Ipratropium (Duoneb 3 Mg/0.5 Mg (3 Ml) Ud) 3 ml INH RQ6 PRN PRN Reason: Shortness of Breath Last Admin: 11/27/18 09:59 Dose: 3 ml Amlodipine Besylate (Norvasc) 10 mg PO DAILY [facility] Last Admin: 11/29/18 10:20 Dose: 10 mg Cyanocobalamin (Vitamin B12 1000 Mcg/Ml Inj) 1,000 mcg IM DAILY [facility] Stop: 12/03/18 10:01 Last Admin: 11/29/18 10:21 Dose: 1,000 mcg Docusate Sodium (Colace) 100 mg PO BID [facility] Last Admin: 11/29/18 10:20 Dose: 100 mg Famotidine (Pepcid) 20 mg PO DAILY [facility] Last Admin: 11/29/18 10:20 Dose: 20 mg Ferric Sodium Gluconate Complex (Ferrlecit) 125 mg IVPB DAILY [facility] Stop: 12/04/18 10:01 Last Admin: 11/29/18 10:20 Dose: 125 mg Ceftriaxone Sodium 1 gm/ (Sodium Chloride) 100 mls @ 100 mls/hr IVPB DAILY [facility]; Protocol Last Admin: 11/29/18 10:19 Dose: 100 mls/hr Insulin Human Isoph/Insulin Regular (Novolin 70/30 (70/30 Units/Ml) 10 Ml) 20 units SC DAILY [facility] Last Admin: 11/29/18 10:20 Dose: 20 units Insulin Human Regular (Novolin R) 0 unit SC ACHS [facility]; Protocol Last Admin: 11/29/18 12:47 Dose: 3 unit Levothyroxine Sodium (Synthroid) 50 mcg PO DAILY@0630 [facility] Last Admin: 11/29/18 06:15 Dose: 50 mcg Metoprolol Succinate (Toprol Xl) 50 mg PO DAILY [facility] Last Admin: 11/29/18 10:22 Dose: 50 mg Metoprolol Succinate (Toprol Xl) 25 mg PO HS [facility] Sevelamer Carbonate (Renvela) 0.8 gm PO TIDCC [facility] Last Admin: 11/29/18 12:50 Dose: 0.8 gm Vitamin B Complex/Vit C/Folic Acid (Nephro-Leila) 1 tab PO 0800 [facility] Last Admin: 11/29/18 08:32 Dose: 1 tab Zolpidem Tartrate (Ambien) 5 mg PO HS PRN PRN Reason: Insomnia Last Admin: 11/26/18 21:56 Dose: 5 mg - Labs Labs: 11/29/18 07:01 11/29/18 07:01 - Constitutional Appears: No Acute Distress, Chronically Ill - Head Exam Head Exam: NORMOCEPHALIC - Neck Exam Neck Exam: Normal Inspection - Respiratory Exam Respiratory Exam: Rhonchi - Cardiovascular Exam Cardiovascular Exam: Irregular Rhythm, Murmur - GI/Abdominal Exam GI & Abdominal Exam: Soft - Neurological Exam Neurological Exam: Alert, Oriented x3 Assessment and Plan - Assessment and Plan (Free Text) Plan: acute renal failure.flutter,fib.will control rate.local heat to elbow.good radials,non tender elbow.
[2018-11-29] MEDS: Metoprolol Succinate 25 mg XL Tab PO SCH ×2 (17:18→21:25)
--- NOTE | 2018-11-29 19:32 | PN ---
DATE: 11/29/2018 LOCATION: The patient is located in room 553, bed A. REQUESTED BY: Blanco Wang MD REASON FOR FOLLOWUP:. Acute renal failure, chronic kidney disease for further evaluation and continuation of hemodialysis. SUBJECTIVE: Mrs. Estrada is 88 years old elderly [place] female with a past medical history significant for longstanding hypertension, diabetes, hyperlipidemia, hypothyroidism, mostly bedridden except walking to the bathroom with a walker who was brought in by the family with symptomatic hypoglycemia, confusion and the patient was found to have acute renal failure, anemia and also severe hyperkalemia, metabolic acidosis requiring initiation of the renal replacement therapy. The patient is feeling much better, not in acute distress. Denies any chest pain. Denies any shortness of breath. Denies any nausea, vomiting, diarrhea. OBJECTIVE: VITAL SIGNS: As follows, blood pressure this morning 180/71, pulse 81, respirations 18, temperature 98.4 and repeat blood pressure this afternoon is 133/72, pulse 107, respiration 20, temperature 99. Height 5 feet 5 inches, weight is 120 pounds. HEENT: Pupils normal, reactive to light and accommodation. Conjunctivae pink. Sclerae anicteric. Tongue is moist and trachea is midline. LUNGS: Symmetric on both sides. Bilateral breath sounds present. Bilateral basal crackles present. CARDIOVASCULAR SYSTEM: [place] at the fifth intercostal space, midclavicular line. S1, S2 audible. No murmur or gallop. ABDOMEN: Slightly protuberant, soft, tympanitic, and diffuse tenderness. No guarding or rigidity. No hepatosplenomegaly. CENTRAL NERVOUS SYSTEM: The patient is alert, awake, oriented x 2 to 3. Sensory and motor system is within normal limits. EXTREMITIES: No cyanosis, no clubbing or edema. Sensory system is within normal limits. Motor system, moving all extremities. CURRENT MEDICATIONS: Include as follows, Ambien 5 mg p.o. at bedtime, Rocephin 1 g daily, Colace 100 mg p.o. b.i.d., DuoNeb inhaler, Ferrlecit 125 mg daily, Nephro-Leila 1 tablet daily, amlodipine increase to 10 mg p.o. daily, Novolin 70/30 20 units subcu daily, Pepcid 20 mg daily, Renvela 800 mg p.o. t.i.d., Synthroid 50 mcg p.o. daily, metoprolol 50 mg p.o. daily, vitamin B12 1000 mcg IM daily. Losartan was discontinued last night. LABORATORY DATA: Includes as follows as of 11/29/2018, WBC 11.4, hemoglobin 9.6, hematocrit is 30, platelets 127. Sodium 137, potassium 3.9, chloride 100, CO2 33, BUN 31, creatinine 3.9, glucose 236, calcium is 8, and phosphorus is 3.4, magnesium 1.8. Total bili 0.2, AST 23, ALT 14, alkaline phosphatase 80, total protein 5.7, albumin is 2.8. INPUTS AND OUTPUTS: In the last 24 hours, output is 1060. ASSESSMENT: In summary, Mrs. Estrada is an 88 years old elderly female with a history of hypertension, diabetes, hyperlipidemia, chronic kidney disease with a baseline creatinine about 1.5, as per Dr. Blanco Wang, hypothyroidism, was admitted with symptomatic hypoglycemia and increased blood urea nitrogen and creatinine. 1. Acute renal failure on chronic kidney disease most likely secondary to acute tubular necrosis secondary to multifactorial intravascular depletion and medication, metformin. PLAN: 1. Continue hemodialysis three times a week until the renal function improved. 2. Hypertension. Continue metoprolol and Norvasc, losartan was discontinued last night and increased amlodipine 10 mg daily. 3. Anemia secondary to renal failure, a iron-deficiency anemia and also B12 deficiency. Continue Ferrlecit, Epogen and vitamin B12. Continue to monitor BMP daily and will evaluate for the need for hemodialysis on Saturday. Discussed with the patient's grandson at bedside. Thank you for allowing me to participate in your patient's care. Merlyn Jain MD
[2018-11-30] MEDS: Levothyroxine 50 MCG TAB PO SCH (06:39)
[2018-11-30 08:08] LABS: BASO # 0.1 K/uL (0.0-0.2); BASO % 0.6 % (0.0-2.0); EOS # 0.4 K/uL (0.0-0.7); HEMOGLOBIN 10.5 g/dL (11.0-16.0); LYMPH # 1.5 K/uL (1.0-4.3); LYMPH % 14.9 % (20.0-40.0); MEAN CELL VOLUME 81.3 fL (81.0-99.0); MEAN CORPUSCULAR HEMOGLOBIN 26.1 pg (27.0-31.0); MEAN CORPUSCULAR HGB CONC 32.1 g/dL (33.0-37.0); MONO # 0.9 K/uL (0.0-0.8); MONO % 9.3 % (0.0-10.0); NEUT # 7.3 K/uL (1.8-7.0); NEUT % 71.2 % (50.0-75.0); NRBC % 0.4 % (0.0-2.0); RBC 4.05 Mil/uL (3.80-5.20); RED CELL DISTRIBUTION WIDTH 20.6 % (11.5-14.5); WHITE BLOOD COUNT 10.2 K/uL (4.8-10.8)
[2018-11-30 08:37] LABS: ALBUMIN 2.7 g/dL (3.5-5.0); CALCIUM 8.1 mg/dl (8.6-10.4)
[2018-11-30] MEDS: (Novolin R) Insulin Human Regular 100 units/ml vial SC SCH ×4 (08:59→21:41)
[2018-11-30] MEDS: Multivitamin Vitamin B Complex (Nephro-Vite) Tab PO SCH (08:59)
[2018-11-30] MEDS: Sevelamer Carb 0.8 gm/Packet PO SCH ×3 (08:59→17:34)
[2018-11-30] MEDS: Ferric Sodium Gluconat Complex 62.5 mg/5 ml Vial IVPB SCH (10:08)
[2018-11-30] MEDS: (Novolin 70/30) NPH/Regular 70/30 Units/ml 10 ml vial SC SCH (10:09)
[2018-11-30] MEDS: Metoprolol Succinate 50 mg XL Tab PO SCH (10:24)
[2018-11-30] MEDS ORDERED: Potassium Chloride 20 mEq/15 ml LIQ UD PO ONE (12:09)
--- NOTE | 2018-11-30 17:46 | CP.PCM.PN ---
Subjective - Date & Time of Evaluation Date of Evaluation: 11/30/18 Time of Evaluation: 17:46 - Subjective Subjective: pt is seen and examined, follow up consult is dictated #[id number] Objective - Vital Signs/Intake and Output Vital Signs (last 24 hours): Temp Pulse Resp BP Pulse Ox 97.9 F 78 18 149/67 98 11/30/18 15:56 11/30/18 15:56 11/30/18 15:56 11/30/18 15:56 11/30/18 15:56 Intake and Output: 11/30/18 11/30/18 06:59 18:59 Intake Total 680 Output Total 900 450 Balance -900 230 - Medications Medications: Current Medications Acetaminophen (Tylenol 325mg Tab) 650 mg PO QID PRN PRN Reason: Pain, moderate (4-7) Last Admin: 11/30/18 12:34 Dose: 650 mg Amlodipine Besylate (Norvasc) 10 mg PO DAILY [facility] Last Admin: 11/30/18 10:09 Dose: 10 mg Cyanocobalamin (Vitamin B12 1000 Mcg/Ml Inj) 1,000 mcg IM DAILY [facility] Stop: 12/03/18 10:01 Last Admin: 11/30/18 10:17 Dose: 1,000 mcg Docusate Sodium (Colace) 100 mg PO BID [facility] Last Admin: 11/30/18 17:34 Dose: 100 mg Famotidine (Pepcid) 20 mg PO DAILY [facility] Last Admin: 11/30/18 10:09 Dose: 20 mg Ferric Sodium Gluconate Complex (Ferrlecit) 125 mg IVPB DAILY [facility] Stop: 12/04/18 10:01 Last Admin: 11/30/18 10:08 Dose: 125 mg Heparin Sodium (Porcine) (Heparin) 5,000 units SC Q8 [facility] Last Admin: 11/30/18 15:02 Dose: 5,000 units Insulin Human Isoph/Insulin Regular (Novolin 70/30 (70/30 Units/Ml) 10 Ml) 20 units SC DAILY [facility] Last Admin: 11/30/18 10:09 Dose: 20 units Insulin Human Regular (Novolin R) 0 unit SC ACHS [facility]; Protocol Last Admin: 11/30/18 16:30 Dose: Not Given Levothyroxine Sodium (Synthroid) 50 mcg PO DAILY@0630 [facility] Last Admin: 11/30/18 06:39 Dose: 50 mcg Metoprolol Succinate (Toprol Xl) 50 mg PO DAILY [facility] Last Admin: 11/30/18 10:24 Dose: 50 mg Metoprolol Succinate (Toprol Xl) 25 mg PO HS [facility] Last Admin: 11/29/18 21:25 Dose: 25 mg Sevelamer Carbonate (Renvela) 0.8 gm PO TIDCC [facility] Last Admin: 11/30/18 17:34 Dose: 0.8 gm Vitamin B Complex/Vit C/Folic Acid (Nephro-Leila) 1 tab PO 0800 [facility] Last Admin: 11/30/18 08:59 Dose: 1 tab Zolpidem Tartrate (Ambien) 5 mg PO HS PRN PRN Reason: Insomnia Last Admin: 11/26/18 21:56 Dose: 5 mg - Labs Labs: 11/30/18 08:03 11/30/18 08:03
[2018-11-30] MEDS: Metoprolol Succinate 25 mg XL Tab PO SCH (21:52)
--- NOTE | 2018-12-01 01:54 | PN ---
DATE: 11/30/2018 LOCATION: The patient is located in room 553, bed A. REQUESTED BY: Dr. Blanco Wang SUBJECTIVE: Mrs. Estrada is an 88-year-old elderly female with a past medical history significant for longstanding hypertension, diabetes, chronic kidney disease, hyperlipidemia, hypothyroidism, was admitted with symptomatic hypoglycemia and found to have acute renal failure, metabolic acidosis and hyperkalemia requiring initiation of the hemodialysis. The patient is not in acute distress. Complains of mild occasional shortness of breath. No chest pain, no palpitation. No fever. No cough. No abdominal pain. No nausea, vomiting, diarrhea. PHYSICAL EXAMINATION: VITAL SIGNS: This afternoon as follows: Blood pressure 149/67, pulse 78, respirations 18, temperature 97.9, saturation 98%, 3 liters nasal cannula. Height 5 feet 5 inches, weight is . GENERAL: Mrs. Estrada is an 88 years old elderly female, moderately built, moderately nourished, not in acute distress. HEENT: Pupils normal, react to light and accommodation. Conjunctivae pink. Sclerae anicteric. Tongue is moist. Trachea is midline. LUNGS: Symmetric on both sides. Bilateral breath sounds present. Occasional basal crackles present. CARDIOVASCULAR SYSTEM: [place] at the fifth intercostal space, midclavicular line. S1, S2 audible. No murmur or gallop. ABDOMEN: Normal in appearance. Soft, tympanitic. No guarding, no rigidity. No hepatosplenomegaly. CENTRAL NERVOUS SYSTEM: The patient is alert, awake and oriented x3. Nonfocal neuro examination. Cranial nerves II-XII grossly intact. Sensory and motor system is within normal limits. EXTREMITIES: No cyanosis, no clubbing, no edema. CURRENT MEDICATIONS: Include as follows: Ambien 5 mg p.o. at bedtime, Colace 100 mg p.o. b.i.d., Ferrlecit 125 mg IV daily, subcu heparin 5000 units every 8 hours, Nephro-Leila 1 tablet daily, amlodipine 10 mg p.o. daily, Novolin 70/30 20 units subcu daily, Novolin R for sliding scale, Pepcid 20 mg p.o. daily, Renvela 800 mg p.o. t.i.d., Synthroid 50 mcg p.o. daily, metoprolol 50 mg p.o. daily and 25 mg at bedtime, Tylenol 650 mg p.o. 4 times a day, and vitamin B12 injections 1000 mcg IM daily. LABORATORY DATA: Includes as follows: As of 11/30/2018, WBC 10.2, hemoglobin 10.5, hematocrit is 32.9 and platelets 146. Sodium 138, potassium 3.3, chloride 103, CO2 of 32, BUN 42, creatinine 3.9 and glucose 185, calcium 8.1, phosphorus 3.6, magnesium 1.7. Total bili 0.2, AST 20, ALT 14, alkaline phosphatase 61. Total protein 5.3, albumin is 2.7. ASSESSMENT AND PLAN: In summary, Mrs. Estrada is an 88 years old elderly female with history of hypertension, diabetes, hyperlipidemia, hypothyroidism, was admitted with symptomatic hypoglycemia and acute renal failure, hyperkalemia, metabolic acidosis and started on hemodialysis. 1. Acute renal failure on chronic kidney disease, most likely secondary to acute tubular necrosis secondary to metformin. 2. Anemia secondary to renal failure, iron deficiency and B12 deficiency. Continue the Epogen, continue intravenous iron. Continue vitamin B12 1000 mcg daily x7 days and then every weekly. 3. Hypertension. Continue metoprolol and amlodipine and off losartan. 4. Diabetes. Continue insulin. 5. Mild congestive heart failure. Restrict fluids to 1 liter per day and continue to monitor basic metabolic profile in the morning. If serum creatinine remained stable, we will hold hemodialysis. We will continue to monitor basic metabolic profile. We will follow up with you. Thank you for allowing me to participate in your patient's care. Merlyn Jain MD
[2018-12-01] MEDS: Levothyroxine 50 MCG TAB PO SCH (06:23)
[2018-12-01 07:34] LABS: BASO # 0.1 K/uL (0.0-0.2); BASO % 0.7 % (0.0-2.0); EOS # 0.6 K/uL (0.0-0.7); EOS % 4.9 % (0.0-4.0); HEMOGLOBIN 11.2 g/dL (11.0-16.0); LYMPH # 1.8 K/uL (1.0-4.3); LYMPH % 15.1 % (20.0-40.0); MEAN CELL VOLUME 81.4 fL (81.0-99.0); MEAN CORPUSCULAR HEMOGLOBIN 25.6 pg (27.0-31.0); MEAN CORPUSCULAR HGB CONC 31.4 g/dL (33.0-37.0); MONO % 7.8 % (0.0-10.0); NEUT # 8.7 K/uL (1.8-7.0); NEUT % 71.5 % (50.0-75.0); NRBC % 0.9 % (0.0-2.0); RBC 4.39 Mil/uL (3.80-5.20); RED CELL DISTRIBUTION WIDTH 21.1 % (11.5-14.5); WHITE BLOOD COUNT 12.2 K/uL (4.8-10.8)
[2018-12-01 07:46] LABS: ALBUMIN 2.8 g/dL (3.5-5.0); CALCIUM 8.2 mg/dl (8.6-10.4)
[2018-12-01] MEDS: (Novolin R) Insulin Human Regular 100 units/ml vial SC SCH ×4 (08:25→21:07)
[2018-12-01] MEDS: Multivitamin Vitamin B Complex (Nephro-Vite) Tab PO SCH (08:25)
[2018-12-01] MEDS: Sevelamer Carb 0.8 gm/Packet PO SCH ×3 (08:25→17:58)
[2018-12-01] MEDS: (Novolin 70/30) NPH/Regular 70/30 Units/ml 10 ml vial SC SCH (09:57)
[2018-12-01] MEDS: Metoprolol Succinate 50 mg XL Tab PO SCH (09:58)
[2018-12-01] MEDS: Ferric Sodium Gluconat Complex 62.5 mg/5 ml Vial IVPB SCH (11:29)
--- NOTE | 2018-12-01 13:49 | CP.PCM.PN ---
Subjective - Date & Time of Evaluation Date of Evaluation: 12/01/18 Time of Evaluation: 13:48 - Subjective Subjective: sore mouth.labs noted. Objective - Vital Signs/Intake and Output Vital Signs (last 24 hours): Temp Pulse Resp BP Pulse Ox 98.6 F 86 16 136/67 100 12/01/18 12:20 12/01/18 12:20 12/01/18 12:20 12/01/18 12:20 12/01/18 12:20 Intake and Output: 12/01/18 12/01/18 06:59 18:59 Output Total 870 Balance -870 - Medications Medications: Current Medications Acetaminophen (Tylenol 325mg Tab) 650 mg PO QID PRN PRN Reason: Pain, moderate (4-7) Last Admin: 11/30/18 12:34 Dose: 650 mg Amlodipine Besylate (Norvasc) 10 mg PO DAILY [facility] Last Admin: 12/01/18 09:57 Dose: Not Given Cyanocobalamin (Vitamin B12 1000 Mcg/Ml Inj) 1,000 mcg IM DAILY [facility] Stop: 12/03/18 10:01 Last Admin: 12/01/18 13:06 Dose: 1,000 mcg Docusate Sodium (Colace) 100 mg PO BID [facility] Last Admin: 12/01/18 09:57 Dose: Not Given Dorzolamide HCl (Trusopt) 1 ml OU BID [facility] Famotidine (Pepcid) 20 mg PO DAILY [facility] Last Admin: 12/01/18 09:57 Dose: Not Given Ferric Sodium Gluconate Complex (Ferrlecit) 125 mg IVPB DAILY [facility] Stop: 12/04/18 10:01 Last Admin: 12/01/18 11:29 Dose: 125 mg Furosemide (Lasix) 40 mg PO DAILY [facility] Last Admin: 12/01/18 09:57 Dose: Not Given Heparin Sodium (Porcine) (Heparin) 5,000 units SC Q8 [facility] Last Admin: 12/01/18 13:06 Dose: 5,000 units Insulin Human Isoph/Insulin Regular (Novolin 70/30 (70/30 Units/Ml) 10 Ml) 20 units SC DAILY [facility] Last Admin: 12/01/18 09:57 Dose: Not Given Insulin Human Regular (Novolin R) 0 unit SC [facility]; Protocol Last Admin: 12/01/18 12:55 Dose: 2 unit Latanoprost (Xalatan Opht) 2.5 ml OU HS [facility] Levothyroxine Sodium (Synthroid) 50 mcg PO DAILY@0630 [facility] Last Admin: 12/01/18 06:23 Dose: 50 mcg Metoprolol Succinate (Toprol Xl) 50 mg PO DAILY [facility] Last Admin: 12/01/18 09:58 Dose: Not Given Metoprolol Succinate (Toprol Xl) 25 mg PO HS [facility] Last Admin: 11/30/18 21:52 Dose: 25 mg Sevelamer Carbonate (Renvela) 0.8 gm PO TIDCC [facility] Last Admin: 12/01/18 12:55 Dose: 0.8 gm Timolol Maleate (Timoptic 0.25% Oph Soln) 1 drop OU BID [facility] Vitamin B Complex/Vit C/Folic Acid (Nephro-Leila) 1 tab PO 0800 [facility] Last Admin: 12/01/18 08:25 Dose: 1 tab Zolpidem Tartrate (Ambien) 5 mg PO HS PRN PRN Reason: Insomnia Last Admin: 11/26/18 21:56 Dose: 5 mg - Labs Labs: 12/01/18 07:00 12/01/18 07:00 - Constitutional Appears: No Acute Distress, Chronically Ill - Head Exam Head Exam: NORMOCEPHALIC - Neck Exam Neck Exam: Normal Inspection - Respiratory Exam Respiratory Exam: Clear to Ausculation Bilateral - Cardiovascular Exam Cardiovascular Exam: REGULAR RHYTHM - GI/Abdominal Exam GI & Abdominal Exam: Soft - Extremities Exam Extremities Exam: absent: Pedal Edema - Neurological Exam Neurological Exam: Alert, Oriented x3 Assessment and Plan - Assessment and Plan (Free Text) Plan: renal failure.now in nsr.
[2018-12-01] MEDS: Timolol 0.25% Ophth SOLN OU SCH (17:58)
[2018-12-01] MEDS: Dorzolamide 2% Opht Sol 10ml OU SCH (17:59)
[2018-12-01] MEDS: Mag&Al/Simet/Diphen/Lido 237 ML KIT PO SCH (18:00)
--- NOTE | 2018-12-01 18:08 | CP.PCM.PN ---
Subjective - Date & Time of Evaluation Date of Evaluation: 12/01/18 Time of Evaluation: 18:08 - Subjective Subjective: pt is seen and examined, follow up consult is dictated #[id number] s/p hd today, had a uf about 1.2 lit Objective - Vital Signs/Intake and Output Vital Signs (last 24 hours): Temp Pulse Resp BP Pulse Ox 97.4 F L 82 20 163/70 H 95 12/01/18 16:22 12/01/18 16:22 12/01/18 16:22 12/01/18 16:22 12/01/18 16:22 Intake and Output: 12/01/18 12/01/18 06:59 18:59 Output Total 870 Balance -870 - Medications Medications: Current Medications Acetaminophen (Tylenol 325mg Tab) 650 mg PO QID PRN PRN Reason: Pain, moderate (4-7) Last Admin: 11/30/18 12:34 Dose: 650 mg Amlodipine Besylate (Norvasc) 10 mg PO DAILY [facility] Last Admin: 12/01/18 09:57 Dose: Not Given Cyanocobalamin (Vitamin B12 1000 Mcg/Ml Inj) 1,000 mcg IM DAILY [facility] Stop: 12/03/18 10:01 Last Admin: 12/01/18 13:06 Dose: 1,000 mcg Docusate Sodium (Colace) 100 mg PO BID [facility] Last Admin: 12/01/18 17:58 Dose: 100 mg Dorzolamide HCl (Trusopt) 0 ml OU BID [facility] Last Admin: 12/01/18 17:59 Dose: 1 drop Famotidine (Pepcid) 20 mg PO DAILY [facility] Last Admin: 12/01/18 09:57 Dose: Not Given Ferric Sodium Gluconate Complex (Ferrlecit) 125 mg IVPB DAILY [facility] Stop: 12/04/18 10:01 Last Admin: 12/01/18 11:29 Dose: 125 mg Furosemide (Lasix) 40 mg PO DAILY [facility] Last Admin: 12/01/18 09:57 Dose: Not Given Heparin Sodium (Porcine) (Heparin) 5,000 units SC Q8 [facility] Last Admin: 12/01/18 13:06 Dose: 5,000 units Insulin Human Isoph/Insulin Regular (Novolin 70/30 (70/30 Units/Ml) 10 Ml) 20 units SC DAILY [facility] Last Admin: 12/01/18 09:57 Dose: Not Given Insulin Human Regular (Novolin R) 0 unit SC ACHS [facility]; Protocol Last Admin: 12/01/18 17:58 Dose: 3 unit Latanoprost (Xalatan Opht) 0 ml OU HS [facility] Levothyroxine Sodium (Synthroid) 50 mcg PO DAILY@0630 [facility] Last Admin: 12/01/18 06:23 Dose: 50 mcg Metoprolol Succinate (Toprol Xl) 50 mg PO DAILY [facility] Last Admin: 12/01/18 09:58 Dose: Not Given Metoprolol Succinate (Toprol Xl) 25 mg PO HS [facility] Last Admin: 11/30/18 21:52 Dose: 25 mg Saliva Substitute (First Magic Mouthwash) 5 ml PO Q8H [facility] Last Admin: 12/01/18 18:00 Dose: 5 ml Sevelamer Carbonate (Renvela) 0.8 gm PO TIDCC [facility] Last Admin: 12/01/18 17:58 Dose: 0.8 gm Timolol Maleate (Timoptic 0.25% Oph Soln) 1 drop OU BID [facility] Last Admin: 12/01/18 17:58 Dose: 1 drop Vitamin B Complex/Vit C/Folic Acid (Nephro-Leila) 1 tab PO 0800 [facility] Last Admin: 12/01/18 08:25 Dose: 1 tab Zolpidem Tartrate (Ambien) 5 mg PO HS PRN PRN Reason: Insomnia Last Admin: 11/26/18 21:56 Dose: 5 mg - Labs Labs: 12/01/18 07:00 12/01/18 07:00
[2018-12-01] MEDS: Latanoprost 2.5 ml Opht Soln OU SCH (21:12)
[2018-12-01] MEDS: Metoprolol Succinate 25 mg XL Tab PO SCH (21:12)
--- NOTE | 2018-12-02 00:13 | PN ---
DATE: 12/01/2018 FOLLOWUP RENAL CONSULTATION LOCATION: The patient is located in room 553. REQUESTED BY: Blanco Wang MD HISTORY OF PRESENT ILLNESS: Mrs. Estrada is an 88-year-old elderly female with a past medical history significant for longstanding hypertension, diabetes, hyperlipidemia, hypothyroidism, chronic kidney disease, CKD III who was admitted with symptomatic hypoglycemia and elevated BUN and creatinine, hyperkalemia, metabolic acidosis requiring initiation of the hemodialysis. The patient is complaining of mild shortness of breath on and off. The patient underwent hemodialysis this morning, had ultrafiltration about 1.2 liters, resting comfortably, not in distress. PHYSICAL EXAMINATION: VITAL SIGNS: Blood pressure 163/70, pulse 82, respirations 20, temperature 97.4, saturation 95%. Height 5 feet 5 inches, and weight is 134 pounds. HEENT: Mrs. Estrada is an 88-year-old elderly [place] female, moderately built, moderately nourished, not in acute distress. HEENT: Pupils normal and reactive to light and accommodation. Conjunctivae pink. Sclerae anicteric. Tongue is moist. Trachea is midline. LUNGS: Symmetric on both sides. Bilateral breath sounds present. Bilateral basal crackles present. CARDIOVASCULAR SYSTEM: [place] at the fifth intercostal space, midclavicular line. S1, S2 audible. No murmur or gallop. ABDOMEN: Normal in appearance, soft, tympanitic. No guarding. No rigidity. No hepatosplenomegaly. CENTRAL NERVOUS SYSTEM: The patient is alert, awake, and oriented times two to three. Sensory and motor system is within normal limits. EXTREMITIES: No cyanosis, no clubbing, no edema. CURRENT MEDICATIONS: Include as follows: Ambien 5 mg p.o. at bedtime, Colace 100 mg p.o. b.i.d., Ferrlecit 125 mg IV daily, FIRST magic mouthwash 5 mL p.o. every 8 hours, subcu heparin 5000 units every 8 hours, Lasix 40 mg p.o. daily, Nephro-Leila 1 tablet daily, Norvasc 10 mg daily, Novolin 70/30 20 units subcu daily, Pepcid 20 mg p.o. daily, Renvela 800 mg p.o. t.i.d., Synthroid 50 mcg p.o. daily, Timoptic eyedrops, metoprolol XL 50 mg p.o. a.m. and 25 mg p.o. at bedtime, Trusopt, Tylenol, vitamin B12 of 1000 mcg IM daily, and ophthalmic eyedrops. LABORATORY DATA: Include as follows: As of 12/01/2018, WBC 12.2, hemoglobin 11.2, hematocrit 35.7, platelets 176. Sodium 141, potassium is 3.5, chloride 104, CO2 of 32, BUN 42, creatinine 3.7, and glucose 185. Calcium 8.2, phosphorus is 2.9, magnesium 1.5. Total bili 0.3, AST 27, ALT 20, alkaline phosphatase 67, total protein 5.7, albumin is 2.8, and repeat potassium post dialysis is 3.7. Accu-Cheks 199, 190, 204, and 209. IMPRESSION: In summary, Mrs. Estrada is an 88-year-old elderly [place] female with hypertension, diabetes, hyperlipidemia, chronic kidney disease stage III, hypothyroidism who was admitted with symptomatic hypoglycemia, acute renal failure. 1. Acute renal failure, on the chronic kidney disease III, most likely secondary to acute tubular necrosis secondary to drug-induced metformin. 2. Status post anemia. Hemoglobin and hematocrit improved after transfusion secondary to renal failure, iron deficiency, and B12 deficiency. Continue IV iron and B12. We will hold Epogen as hemoglobin is more than 11. 3. Congestive heart failure. 4. Hypertension. 5. Type 2 diabetes. Continue insulin 70/30 and continue Lasix 40 mg p.o. daily and continue to monitor BMP. We will evaluate for hemodialysis on Saturday again. We will follow with you. Thank you for allowing me to participate in your patient's care. The patient underwent hemodialysis today and had ultrafiltration about 1.2 liters. Merlyn Jain MD
[2018-12-02] MEDS: Mag&Al/Simet/Diphen/Lido 237 ML KIT PO SCH ×3 (00:52→18:04)
[2018-12-02] MEDS: Levothyroxine 50 MCG TAB PO SCH (05:42)
[2018-12-02] MEDS: Sevelamer Carb 0.8 gm/Packet PO SCH ×3 (08:27→18:04)
[2018-12-02] MEDS: Multivitamin Vitamin B Complex (Nephro-Vite) Tab PO SCH (08:27)
[2018-12-02] MEDS: (Novolin R) Insulin Human Regular 100 units/ml vial SC SCH ×4 (08:27→21:43)
[2018-12-02] MEDS: Metoprolol Succinate 50 mg XL Tab PO SCH ×2 (09:18→21:55)
[2018-12-02] MEDS: Timolol 0.25% Ophth SOLN OU SCH ×2 (09:19→18:05)
[2018-12-02] MEDS: (Novolin 70/30) NPH/Regular 70/30 Units/ml 10 ml vial SC SCH (09:19)
[2018-12-02] MEDS: Dorzolamide 2% Opht Sol 10ml OU SCH ×2 (09:19→18:05)
[2018-12-02] MEDS: Ferric Sodium Gluconat Complex 62.5 mg/5 ml Vial IVPB SCH (09:49)
[2018-12-02] MEDS: Vitamins A & D Oint UD Foilpak TOP SCH ×2 (11:20→18:04)
--- NOTE | 2018-12-02 11:27 | CP.PCM.PN ---
Subjective - Date & Time of Evaluation Date of Evaluation: 12/02/18 Time of Evaluation: 11:26 - Subjective Subjective: pt is seen and examined, follow up consult is dictated # Objective - Vital Signs/Intake and Output Vital Signs (last 24 hours): Temp Pulse Resp BP Pulse Ox 97.9 F 123 H 20 136/72 96 12/02/18 07:00 12/02/18 09:29 12/02/18 07:00 12/02/18 09:29 12/02/18 07:00 Intake and Output: 12/02/18 12/02/18 06:59 18:59 Output Total 1000 Balance -1000 - Medications Medications: Current Medications Acetaminophen (Tylenol 325mg Tab) 650 mg PO QID PRN PRN Reason: Pain, moderate (4-7) Last Admin: 11/30/18 12:34 Dose: 650 mg Amlodipine Besylate (Norvasc) 10 mg PO DAILY [facility] Last Admin: 12/02/18 09:18 Dose: 10 mg Cyanocobalamin (Vitamin B12 1000 Mcg/Ml Inj) 1,000 mcg IM DAILY [facility] Stop: 12/03/18 10:01 Last Admin: 12/02/18 09:18 Dose: 1,000 mcg Docusate Sodium (Colace) 100 mg PO BID [facility] Last Admin: 12/02/18 10:07 Dose: Not Given Dorzolamide HCl (Trusopt) 0 ml OU BID [facility] Last Admin: 12/02/18 09:19 Dose: 1 drop Famotidine (Pepcid) 20 mg PO DAILY [facility] Last Admin: 12/02/18 09:18 Dose: 20 mg Ferric Sodium Gluconate Complex (Ferrlecit) 125 mg IVPB DAILY [facility] Stop: 12/04/18 10:01 Last Admin: 12/02/18 09:49 Dose: 125 mg Furosemide (Lasix) 40 mg PO DAILY [facility] Last Admin: 12/02/18 09:18 Dose: 40 mg Heparin Sodium (Porcine) (Heparin) 5,000 units SC Q8 [facility] Last Admin: 12/02/18 05:42 Dose: 5,000 units Insulin Human Isoph/Insulin Regular (Novolin 70/30 (70/30 Units/Ml) 10 Ml) 20 units SC DAILY [facility] Last Admin: 12/02/18 09:19 Dose: 20 units Insulin Human Regular (Novolin R) 0 unit SC ACHS [facility]; Protocol Last Admin: 12/02/18 08:27 Dose: 3 unit Latanoprost (Xalatan Opht) 0 ml OU HS [facility] Last Admin: 12/01/18 21:12 Dose: 2.5 ml Levothyroxine Sodium (Synthroid) 50 mcg PO DAILY@0630 [facility] Last Admin: 12/02/18 05:42 Dose: 50 mcg Metoprolol Succinate (Toprol Xl) 50 mg PO DAILY [facility] Last Admin: 12/02/18 09:18 Dose: 50 mg Metoprolol Succinate (Toprol Xl) 25 mg PO HS [facility] Last Admin: 12/01/18 21:12 Dose: 25 mg Saliva Substitute (First Magic Mouthwash) 5 ml PO Q8H [facility] Last Admin: 12/02/18 09:19 Dose: 5 ml Sevelamer Carbonate (Renvela) 0.8 gm PO TIDCC [facility] Last Admin: 12/02/18 08:27 Dose: 0.8 gm [facility] 1 drop OU BID [facility] Last Admin: 12/02/18 09:19 Dose: 1 drop Vitamin A (Vitamin A & D Oint Ud Foilpak) 1 ea TOP BID [facility] Vitamin B Complex/Vit C/Folic Acid (Nephro-Leila) 1 tab PO 0800 [facility] Last Admin: 12/02/18 08:27 Dose: 1 tab Zolpidem Tartrate (Ambien) 5 mg PO HS PRN PRN Reason: Insomnia Last Admin: 12/01/18 22:31 Dose: 5 mg - Labs Labs: 12/01/18 07:00 12/01/18 17:43
--- NOTE | 2018-12-02 12:51 | CP.PCM.PN ---
Subjective - Date & Time of Evaluation Date of Evaluation: 12/02/18 Time of Evaluation: 12:49 - Subjective Subjective: diaarea.nsr to sinus tach. Objective - Vital Signs/Intake and Output Vital Signs (last 24 hours): Temp Pulse Resp BP Pulse Ox 97.9 F 123 H 20 136/72 96 12/02/18 07:00 12/02/18 09:29 12/02/18 07:00 12/02/18 09:29 12/02/18 07:00 Intake and Output: 12/02/18 12/02/18 06:59 18:59 Output Total 1000 Balance -1000 - Medications Medications: Current Medications Acetaminophen (Tylenol 325mg Tab) 650 mg PO QID PRN PRN Reason: Pain, moderate (4-7) Last Admin: 11/30/18 12:34 Dose: 650 mg Amlodipine Besylate (Norvasc) 5 mg PO DAILY [facility] Cyanocobalamin (Vitamin B12 1000 Mcg/Ml Inj) 1,000 mcg IM DAILY [facility] Stop: 12/03/18 10:01 Last Admin: 12/02/18 09:18 Dose: 1,000 mcg Dorzolamide HCl (Trusopt) 0 ml OU BID [facility] Last Admin: 12/02/18 09:19 Dose: 1 drop Famotidine (Pepcid) 20 mg PO DAILY [facility] Last Admin: 12/02/18 09:18 Dose: 20 mg Ferric Sodium Gluconate Complex (Ferrlecit) 125 mg IVPB DAILY [facility] Stop: 12/04/18 10:01 Last Admin: 12/02/18 09:49 Dose: 125 mg Furosemide (Lasix) 40 mg PO DAILY [facility] Last Admin: 12/02/18 09:18 Dose: 40 mg Heparin Sodium (Porcine) (Heparin) 5,000 units SC Q8 [facility] Last Admin: 12/02/18 05:42 Dose: 5,000 units Insulin Human Regular (Novolin R) 0 unit SC ACHS [facility]; Protocol Last Admin: 12/02/18 08:27 Dose: 3 unit Latanoprost (Xalatan Opht) 0 ml OU HS [facility] Last Admin: 12/01/18 21:12 Dose: 2.5 ml Levothyroxine Sodium (Synthroid) 50 mcg PO DAILY@0630 [facility] Last Admin: 12/02/18 05:42 Dose: 50 mcg Metoprolol Succinate (Toprol Xl) 50 mg PO DAILY [facility] Last Admin: 12/02/18 09:18 Dose: 50 mg Metoprolol Succinate (Toprol Xl) 50 mg PO HS [facility] Saliva Substitute (First Magic Mouthwash) 5 ml PO Q8H [facility] Last Admin: 12/02/18 09:19 Dose: 5 ml Sevelamer Carbonate (Renvela) 0.8 gm PO TIDCC [facility] Last Admin: 12/02/18 08:27 Dose: 0.8 gm Timolol Maleate (Timoptic 0.25% Oph Soln) 1 drop OU BID [facility] Last Admin: 12/02/18 09:19 Dose: 1 drop Vitamin A (Vitamin A & D Oint Ud Foilpak) 1 ea TOP BID [facility] Vitamin B Complex/Vit C/Folic Acid (Nephro-Leila) 1 tab PO 0800 [facility] Last Admin: 12/02/18 08:27 Dose: 1 tab Zolpidem Tartrate (Ambien) 5 mg PO HS PRN PRN Reason: Insomnia Last Admin: 12/01/18 22:31 Dose: 5 mg - Labs Labs: 12/01/18 07:00 12/01/18 17:43 - Constitutional Appears: No Acute Distress, Chronically Ill - Head Exam Head Exam: NORMOCEPHALIC - Neck Exam Neck Exam: Normal Inspection - Respiratory Exam Respiratory Exam: Clear to Ausculation Bilateral - Cardiovascular Exam Cardiovascular Exam: REGULAR RHYTHM, Murmur - GI/Abdominal Exam GI & Abdominal Exam: Soft - Extremities Exam Extremities Exam: absent: Pedal Edema - Neurological Exam Neurological Exam: Alert, Oriented x3 Assessment and Plan - Assessment and Plan (Free Text) Plan: will d/c colace,increase toprol to 50 bid.decrease norvasc to 5 od.diss with family,.
[2018-12-02] MEDS: Latanoprost 2.5 ml Opht Soln OU SCH (21:55)
--- NOTE | 2018-12-03 00:52 | PN ---
DATE: 12/02/2018 LOCATION: The patient is located in room 553, bed A. REQUESTED BY: Dr. Blanco Wang. REASON FOR FOLLOWUP: Acute renal failure, chronic kidney disease, for further evaluation. SUBJECTIVE: Mrs. Estrada is an 88-year-old elderly [place] female with a past medical history significant for longstanding hypertension, diabetes, hyperlipidemia, hypothyroidism, chronic kidney disease III, was admitted with altered mental status and symptomatic hypoglycemia and found to have acute renal failure and metabolic acidosis, hyperkalemia, requiring initiation of the renal replacement therapy. The patient is not in acute distress and denies any complaints. Denies any chest pain or palpitation. Denies any shortness of breath. Denies any nausea, vomiting, diarrhea. PHYSICAL EXAMINATION: VITAL SIGNS: As follows: Blood pressure 122/63, pulse 77, respirations 20, saturation 98%, temperature 98.9. Height 5 feet 5 inches, weight is 134 pounds. GENERAL: Mrs. Estrada is an 88-year-old elderly [place] female, moderately built, moderately nourished, not in acute distress. HEENT: Pupils normal, react to light and accommodation. Conjunctivae pink. Sclerae anicteric. Tongue is moist. Trachea is midline. LUNGS: Symmetric on both sides. Bilateral breath sounds present. Bilateral basal crackles present. CARDIOVASCULAR SYSTEM: [place] at the fifth intercostal space, midclavicular line. S1, S2 audible. No murmur or gallop. ABDOMEN: Normal in appearance. Soft, tympanitic. No guarding, no rigidity. No hepatosplenomegaly. CENTRAL NERVOUS SYSTEM: The patient is alert, awake, oriented x2 to 3. Sensory and motor system is within normal limits. EXTREMITIES: No cyanosis, no clubbing, no edema. LABORATORY DATA: No new labs are available for today. Accu-Cheks 211, 189. CURRENT MEDICATIONS: Include as follows: Ambien 5 mg at bedtime, Ferrlecit 125 mg IV daily, Magic mouthwash and also subcu heparin 5000 units every 8 hours, Lasix 40 mg p.o. daily, Nephro-Leila 1 tablet daily, amlodipine 5 mg p.o. daily, Novolin 70/30 units subcu daily, Pepcid 20 mg p.o. daily, Renvela 800 mg p.o. t.i.d., Synthroid 50 mcg p.o. daily, metoprolol XL 50 mg p.o. daily and 50 mg at bedtime, Trusopt eyedrops, Tylenol, and cyanocobalamin 1000 mcg IM daily. ASSESSMENT AND PLAN: In summary, Mrs. Estrada is an 88-year-old elderly [place] female with a past medical history significant for longstanding hypertension, diabetes, hypothyroidism, hyperlipidemia, was admitted with symptomatic hypoglycemia and acute renal failure, hyperkalemia, metabolic acidosis, started on hemodialysis for acute renal failure. 1. Acute renal failure on chronic kidney disease. Continue hemodialysis three times a week until renal function improves. Discussed with the patient's son at bedside, agreed with the plan. We will schedule for hemodialysis in the morning after the laboratory results are available. 2. Hypertension. Blood pressure is stable. Continue metoprolol and Norvasc. 3. Anemia. Hemoglobin and hematocrit is improving. Continue Ferrlecit and vitamin B12, and Epogen is on hold. 4. Diabetes. Sugars are improving. Continue Novolin 70/30. We will follow with you. Thank you for allowing me to participate in your patient's care. Merlyn Jain MD
[2018-12-03] MEDS: Mag&Al/Simet/Diphen/Lido 237 ML KIT PO SCH ×4 (01:22→17:59)
[2018-12-03] MEDS: Levothyroxine 50 MCG TAB PO SCH (06:25)
[2018-12-03] MEDS: (Novolin R) Insulin Human Regular 100 units/ml vial SC SCH ×4 (08:32→21:36)
[2018-12-03] MEDS: (Novolin 70/30) NPH/Regular 70/30 Units/ml 10 ml vial SC SCH (08:32)
[2018-12-03] MEDS: Multivitamin Vitamin B Complex (Nephro-Vite) Tab PO SCH (08:33)
[2018-12-03] MEDS: Sevelamer Carb 0.8 gm/Packet PO SCH ×3 (08:34→17:59)
--- NOTE | 2018-12-03 10:15 | CP.PCM.PN ---
Subjective - Date & Time of Evaluation Date of Evaluation: 12/03/18 Time of Evaluation: 10:15 - Subjective Subjective: pt is seen and examined, follow up consult is dictated #[id number] check cbc,bmp stat Objective - Vital Signs/Intake and Output Vital Signs (last 24 hours): Temp Pulse Resp BP Pulse Ox 97.3 F L 79 20 146/73 98 12/03/18 08:25 12/03/18 08:25 12/03/18 08:25 12/03/18 08:25 12/03/18 08:25 Intake and Output: 12/03/18 12/03/18 06:59 18:59 Intake Total 620 Output Total 1000 Balance -380 - Medications Medications: Current Medications Acetaminophen (Tylenol 325mg Tab) 650 mg PO QID PRN PRN Reason: Pain, moderate (4-7) Last Admin: 11/30/18 12:34 Dose: 650 mg Amlodipine Besylate (Norvasc) 5 mg PO DAILY [facility] Last Admin: 12/02/18 13:35 Dose: Not Given Dorzolamide HCl (Trusopt) 0 ml OU BID [facility] Last Admin: 12/02/18 18:05 Dose: 1 drop Famotidine (Pepcid) 20 mg PO DAILY [facility] Last Admin: 12/02/18 09:18 Dose: 20 mg Ferric Sodium Gluconate Complex (Ferrlecit) 125 mg IVPB DAILY [facility] Stop: 12/04/18 10:01 Last Admin: 12/02/18 09:49 Dose: 125 mg Furosemide (Lasix) 40 mg PO DAILY [facility] Last Admin: 12/02/18 09:18 Dose: 40 mg Insulin Human Isoph/Insulin Regular (Novolin 70/30 (70/30 Units/Ml) 10 Ml) 25 units SC DAILY@0730 [facility] Last Admin: 12/03/18 08:32 Dose: 25 units Insulin Human Regular (Novolin R) 0 unit SC ACHS [facility]; Protocol Last Admin: 12/03/18 08:32 Dose: 2 unit Latanoprost (Xalatan Opht) 0 ml OU HS [facility] Last Admin: 12/02/18 21:55 Dose: 2.5 ml Levothyroxine Sodium (Synthroid) 50 mcg PO DAILY@0630 [facility] Last Admin: 12/03/18 06:25 Dose: 50 mcg Metoprolol Succinate (Toprol Xl) 50 mg PO DAILY [facility] Last Admin: 12/02/18 09:18 Dose: 50 mg Metoprolol Succinate (Toprol Xl) 50 mg PO HS [facility] Last Admin: 12/02/18 21:55 Dose: 50 mg Saliva Substitute (First Magic Mouthwash) 5 ml PO Q8H [facility] Last Admin: 12/03/18 01:22 Dose: 5 ml Sevelamer Carbonate (Renvela) 0.8 gm PO TIDCC [facility] Last Admin: 12/03/18 08:34 Dose: 0.8 gm Timolol Maleate (Timoptic 0.25% [facility]) 1 drop OU BID [facility] Last Admin: 12/02/18 18:05 Dose: 1 drop Vitamin A (Vitamin A & D Oint Ud Foilpak) 1 ea TOP BID [facility] Last Admin: 12/02/18 18:04 Dose: 1 ea Vitamin B Complex/Vit C/Folic Acid (Nephro-Leila) 1 tab PO 0800 [facility] Last Admin: 12/03/18 08:33 Dose: 1 tab Zolpidem Tartrate (Ambien) 5 mg PO HS PRN PRN Reason: Insomnia Last Admin: 12/01/18 22:31 Dose: 5 mg - Labs Labs: 12/01/18 07:00 12/01/18 17:43
[2018-12-03] MEDS: Vitamins A & D Oint UD Foilpak TOP SCH ×2 (10:23→18:01)
[2018-12-03] MEDS: Ferric Sodium Gluconat Complex 62.5 mg/5 ml Vial IVPB SCH (10:23)
[2018-12-03] MEDS: Dorzolamide 2% Opht Sol 10ml OU SCH ×2 (10:25→18:00)
[2018-12-03] MEDS: Timolol 0.25% Ophth SOLN OU SCH ×2 (10:25→18:00)
[2018-12-03] MEDS: Metoprolol Succinate 50 mg XL Tab PO SCH ×2 (10:25→21:42)
[2018-12-03 11:16] LABS: BASO % 0.4 % (0.0-2.0); EOS # 0.3 K/uL (0.0-0.7); EOS % 3.2 % (0.0-4.0); HEMOGLOBIN 10.7 g/dL (11.0-16.0); LYMPH # 1.4 K/uL (1.0-4.3); LYMPH % 14.9 % (20.0-40.0); MEAN CORPUSCULAR HEMOGLOBIN 25.8 pg (27.0-31.0); MEAN CORPUSCULAR HGB CONC 30.9 g/dL (33.0-37.0); MONO # 0.6 K/uL (0.0-0.8); MONO % 6.7 % (0.0-10.0); NEUT # 7.1 K/uL (1.8-7.0); NEUT % 74.8 % (50.0-75.0); RBC 4.14 Mil/uL (3.80-5.20); RED CELL DISTRIBUTION WIDTH 21.1 % (11.5-14.5); WHITE BLOOD COUNT 9.5 K/uL (4.8-10.8)
[2018-12-03 11:27] LABS: MEAN CELL VOLUME 83.6 fL (81.0-99.0)
[2018-12-03 11:41] LABS: ALBUMIN 2.8 g/dL (3.5-5.0); CALCIUM 7.9 mg/dl (8.6-10.4)
--- NOTE | 2018-12-03 12:34 | CP.PCM.PN ---
Subjective - Date & Time of Evaluation Date of Evaluation: 12/03/18 Time of Evaluation: 12:32 - Subjective Subjective: poor appetite Objective - Vital Signs/Intake and Output Vital Signs (last 24 hours): Temp Pulse Resp BP Pulse Ox 97.3 F L 79 20 122/68 98 12/03/18 08:25 12/03/18 08:25 12/03/18 08:25 12/03/18 10:24 12/03/18 08:25 Intake and Output: 12/03/18 12/03/18 06:59 18:59 Intake Total 620 Output Total 1000 Balance -380 - Medications Medications: Current Medications Acetaminophen (Tylenol 325mg Tab) 650 mg PO QID PRN PRN Reason: Pain, moderate (4-7) Last Admin: 11/30/18 12:34 Dose: 650 mg Amlodipine Besylate (Norvasc) 5 mg PO DAILY [facility] Last Admin: 12/03/18 10:24 Dose: 5 mg Dorzolamide HCl (Trusopt) 0 ml OU BID [facility] Last Admin: 12/03/18 10:25 Dose: 1 drop Famotidine (Pepcid) 20 mg PO DAILY [facility] Last Admin: 12/03/18 10:29 Dose: 20 mg Ferric Sodium Gluconate Complex (Ferrlecit) 125 mg IVPB DAILY [facility] Stop: 12/04/18 10:01 Last Admin: 12/03/18 10:23 Dose: 125 mg Furosemide (Lasix) 40 mg PO DAILY [facility] Last Admin: 12/03/18 10:24 Dose: 40 mg Insulin Human Isoph/Insulin Regular (Novolin 70/30 (70/30 Units/Ml) 10 Ml) 25 units SC DAILY@0730 [facility] Last Admin: 12/03/18 08:32 Dose: 25 units Insulin Human Regular (Novolin R) 0 unit SC ACHS [facility]; Protocol Last Admin: 12/03/18 08:32 Dose: 2 unit Latanoprost (Xalatan Opht) 0 ml OU HS [facility] Last Admin: 12/02/18 21:55 Dose: 2.5 ml Levothyroxine Sodium (Synthroid) 50 mcg PO DAILY@0630 [facility] Last Admin: 12/03/18 06:25 Dose: 50 mcg Metoprolol Succinate (Toprol Xl) 50 mg PO DAILY [facility] Last Admin: 12/03/18 10:25 Dose: 50 mg Metoprolol Succinate (Toprol Xl) 50 mg PO HS [facility] Last Admin: 12/02/18 21:55 Dose: 50 mg Potassium Chloride (Potassium Chloride Oral Soln) 40 meq PO ONCE ONE Stop: 12/03/18 14:01 Saliva Substitute (First Magic Mouthwash) 5 ml PO Q8H [facility] Last Admin: 12/03/18 10:59 Dose: 5 ml Sevelamer Carbonate (Renvela) 0.8 gm PO TIDCC [facility] Last Admin: 12/03/18 08:34 Dose: 0.8 gm Timolol Maleate (Timoptic 0.25% Ophth Soln) 1 drop OU BID [facility] Last Admin: 12/03/18 10:25 Dose: 1 drop Vitamin A (Vitamin A & D Oint Ud Foilpak) 1 ea TOP BID [facility] Last Admin: 12/03/18 10:23 Dose: 1 ea Vitamin B Complex/Vit C/Folic Acid (Nephro-Leila) 1 tab PO 0800 [facility] Last Admin: 12/03/18 08:33 Dose: 1 tab Zolpidem Tartrate (Ambien) 5 mg PO HS PRN PRN Reason: Insomnia Last Admin: 12/01/18 22:31 Dose: 5 mg - Labs Labs: 12/03/18 11:13 12/03/18 11:13 - Constitutional Appears: No Acute Distress, Chronically Ill - Head Exam Head Exam: NORMOCEPHALIC - Neck Exam Neck Exam: Normal Inspection - Respiratory Exam Respiratory Exam: Clear to Ausculation Bilateral - Cardiovascular Exam Cardiovascular Exam: Irregular Rhythm - GI/Abdominal Exam GI & Abdominal Exam: Soft - Extremities Exam Extremities Exam: absent: Pedal Edema - Neurological Exam Neurological Exam: Alert, Oriented x3 Assessment and Plan - Assessment and Plan (Free Text) Plan: renal failure.now in fib,flutter.will ct control of v rate.poss gi bleed not a candidate for eliquis etc.check kaity for ob.
[2018-12-03] MEDS ORDERED: Potassium Chloride 20 mEq/15 ml LIQ UD PO ONE (14:00)
[2018-12-03] MEDS: Latanoprost 2.5 ml Opht Soln OU SCH (21:42)
[2018-12-04] MEDS: Mag&Al/Simet/Diphen/Lido 237 ML KIT PO SCH ×3 (00:46→18:23)
--- NOTE | 2018-12-04 02:04 | PN ---
DATE: 12/03/2018 FOLLOWUP RENAL CONSULTATION LOCATION: The patient is located in room 553, bed A. REQUESTED BY: Blanco Wang MD REASON FOR FOLLOWUP: Acute renal failure, chronic kidney disease, for further evaluation. SUBJECTIVE: Mrs. Estrada is an 88-year-old elderly female with a past medical history significant for hypertension, type 2 diabetes, chronic kidney disease, hyperlipidemia, hypothyroidism who was admitted with the chief complaints of symptomatic hypoglycemia and found to have increased BUN and creatinine, hyperkalemia, metabolic acidosis, requiring initiation of the renal replacement therapy. The patient is on hemodialysis three times a week since last week. The patient is feeling better. Denies any headache or dizziness. Denies any chest pain or palpitation. Denies any fever or cough. No abdominal pain. No nausea, vomiting, or diarrhea. PHYSICAL EXAMINATION: VITAL SIGNS: As follows: Blood pressure 146/73, pulse 79, respirations about 20, temperature 97.3, and saturation 98%. Height 5 feet 5 inches and weight is . GENERAL: Mrs. Estrada is an 88-year-old elderly female, moderately built, moderately nourished, not in acute distress. HEENT: Pupils are normal and reactive to light and accommodation. Conjunctivae pink. Sclerae anicteric. Tongue is moist. Trachea is midline. LUNGS: Symmetric on both sides. Bilateral breath sounds present. Bilateral basal crackles present. CARDIOVASCULAR SYSTEM: [place] at the fifth intercostal space, midclavicular line. S1 and S2 audible. No murmur or gallop. ABDOMEN: Normal in appearance. Soft, tympanitic. No guarding. No rigidity. No hepatosplenomegaly. CENTRAL NERVOUS SYSTEM: The patient is alert, awake, oriented x2 to 3. Sensory and motor system is within normal limits. EXTREMITIES: No cyanosis, no clubbing, no edema. CURRENT MEDICATIONS: Include as follows: Ambien 5 mg at bedtime, Ferrlecit 125 mg IV daily, FIRST Magic mouthwash, Lasix 40 mg p.o. daily, Nephro-Leila one tablet daily, Norvasc 5 mg daily, Novolin 70/30 twenty five units subcu daily, Pepcid 20 mg p.o. daily, Renvela 800 mg p.o. t.i.d., Synthroid 50 mcg p.o. daily, Timoptic eyedrops, also metoprolol 50 mg p.o. b.i.d., Trusopt eyedrops, Tylenol, A and D ointment topical b.i.d., and also Xalatan eyedrops. LABORATORY DATA: Include as follows: As of 12/03/2018, WBC 9.5, hemoglobin 10.7, hematocrit is 34.6, platelet 126. Sodium 140, potassium 3.3, chloride 102, CO2 of 31, BUN 36, creatinine 2.4, glucose is 330, and calcium is 7.9. Total bili 0.3, AST 58, ALT 29, alkaline phosphatase 82, total protein 5.6, albumin is 2.8. ASSESSMENT AND PLAN: In summary, Mrs. Estrada is an 88-year-old elderly female with a past medical history significant for longstanding hypertension, diabetes, hyperlipidemia, chronic kidney disease, hypothyroidism who was admitted with symptomatic hypoglycemia and found to have elevated blood urea nitrogen and creatinine, hyperkalemia, metabolic acidosis, and started on hemodialysis. 1. Acute renal failure on chronic kidney disease. Renal function started improving. We will continue to hold hemodialysis today and repeat basic metabolic panel in the morning. 2. Hypokalemia. We will give KCl 40 mEq by mouth x1 dose. Repeat basic metabolic panel in the morning. Case was discussed with Dr. Blanco Wang and agreed for the plan. We will follow with you. Thank you for allowing me to participate in your patient's care. Merlyn Jain MD
[2018-12-04] MEDS: Levothyroxine 50 MCG TAB PO SCH (06:08)
[2018-12-04 07:23] LABS: CALCIUM 8.1 mg/dl (8.6-10.4)
[2018-12-04] MEDS: (Novolin 70/30) NPH/Regular 70/30 Units/ml 10 ml vial SC SCH (08:29)
[2018-12-04] MEDS: (Novolin R) Insulin Human Regular 100 units/ml vial SC SCH ×4 (08:29→22:36)
[2018-12-04] MEDS: Multivitamin Vitamin B Complex (Nephro-Vite) Tab PO SCH (08:30)
[2018-12-04] MEDS: Sevelamer Carb 0.8 gm/Packet PO SCH ×3 (08:30→18:09)
[2018-12-04] MEDS: Metoprolol Succinate 50 mg XL Tab PO SCH ×2 (11:04→22:38)
[2018-12-04] MEDS: Timolol 0.25% Ophth SOLN OU SCH ×2 (11:06→18:08)
[2018-12-04] MEDS: Dorzolamide 2% Opht Sol 10ml OU SCH ×2 (11:06→18:23)
[2018-12-04] MEDS: Vitamins A & D Oint UD Foilpak TOP SCH ×2 (11:08→18:23)
--- NOTE | 2018-12-04 11:10 | CP.PCM.PN ---
Subjective - Date & Time of Evaluation Date of Evaluation: 12/04/18 Time of Evaluation: 11:10 - Subjective Subjective: pt is seen and examined, follow up consult is dictated #[id number] cbc, bmp in a,m, kcl 40 meq po x1 d/c lasix Objective - Vital Signs/Intake and Output Vital Signs (last 24 hours): Temp Pulse Resp BP Pulse Ox 97.5 F L 72 20 110/50 L 100 12/04/18 07:00 12/04/18 07:00 12/04/18 07:00 12/04/18 11:05 12/04/18 07:00 Intake and Output: 12/04/18 12/04/18 06:59 18:59 Intake Total 500 Balance 500 - Medications Medications: Current Medications Acetaminophen (Tylenol 325mg Tab) 650 mg PO QID PRN PRN Reason: Pain, moderate (4-7) Last Admin: 11/30/18 12:34 Dose: 650 mg Amlodipine Besylate (Norvasc) 5 mg PO DAILY [facility] Last Admin: 12/04/18 11:05 Dose: 5 mg Dorzolamide HCl (Trusopt) 0 ml OU BID [facility] Last Admin: 12/04/18 11:06 Dose: 1 drop Famotidine (Pepcid) 20 mg PO DAILY [facility] Last Admin: 12/04/18 11:05 Dose: 20 mg Furosemide (Lasix) 40 mg PO DAILY [facility] Last Admin: 12/04/18 11:05 Dose: Not Given Potassium Chloride (Potassium Chloride 10 Meq/100 Ml) 10 meq in 100 mls @ 100 mls/hr IVPB Q1 ONE Stop: 12/04/18 12:06 Insulin Human Isoph/Insulin Regular (Novolin 70/30 (70/30 Units/Ml) 10 Ml) 25 units SC DAILY@0730 [facility] Last Admin: 12/04/18 08:29 Dose: 25 units Insulin Human Regular (Novolin R) 0 unit SC ACHS [facility]; Protocol Last Admin: 12/04/18 08:29 Dose: 2 unit Latanoprost (Xalatan Opht) 0 ml OU HS [facility] Last Admin: 12/03/18 21:42 Dose: 2.5 ml Levothyroxine Sodium (Synthroid) 50 mcg PO DAILY@0630 [facility] Last Admin: 12/04/18 06:08 Dose: 50 mcg Metoprolol Succinate (Toprol Xl) 50 mg PO DAILY [facility] Last Admin: 12/04/18 11:04 Dose: 50 mg Metoprolol Succinate (Toprol Xl) 50 mg PO HS [facility] Last Admin: 12/03/18 21:42 Dose: 50 mg Potassium Chloride (Potassium Chloride Oral Soln) 40 meq PO ONCE [facility] Stop: 12/04/18 11:09 Saliva Substitute (First Magic Mouthwash) 5 ml PO Q8H [id number] Last Admin: 12/04/18 11:04 Dose: 5 ml Sevelamer Carbonate (Renvela) 0.8 gm PO TIDCC [facility] Last Admin: 12/04/18 11:06 Dose: 0.8 gm Timolol Maleate (Timoptic 0.25% Ophth Soln) 1 drop OU BID [facility] Last Admin: 12/04/18 11:06 Dose: 1 drop Vitamin A (Vitamin A & D Oint Ud Foilpak) 1 ea TOP BID [facility] Last Admin: 12/04/18 11:08 Dose: 1 ea Vitamin B Complex/Vit C/Folic Acid (Nephro-Leila) 1 tab PO 0800 [facility] Last Admin: 12/04/18 08:30 Dose: 1 tab Zolpidem Tartrate (Ambien) 5 mg PO HS PRN PRN Reason: Insomnia Last Admin: 12/03/18 21:45 Dose: 5 mg - Labs Labs: 12/03/18 11:13 12/04/18 07:05
[2018-12-04] MEDS ORDERED: Potassium Chloride 20 mEq/15 ml LIQ UD PO ONE (11:30)
--- NOTE | 2018-12-04 11:35 | CP.PCM.PN ---
Subjective - Date & Time of Evaluation Date of Evaluation: 12/04/18 Time of Evaluation: 11:34 - Subjective Subjective: ok.labs noted.nsr.cr 2.3 Objective - Vital Signs/Intake and Output Vital Signs (last 24 hours): Temp Pulse Resp BP Pulse Ox 97.5 F L 72 20 110/50 L 100 12/04/18 07:00 12/04/18 07:00 12/04/18 07:00 12/04/18 11:05 12/04/18 07:00 Intake and Output: 12/04/18 12/04/18 06:59 18:59 Intake Total 500 Balance 500 - Medications Medications: Current Medications Acetaminophen (Tylenol 325mg Tab) 650 mg PO QID PRN PRN Reason: Pain, moderate (4-7) Last Admin: 11/30/18 12:34 Dose: 650 mg Amlodipine Besylate (Norvasc) 5 mg PO DAILY [facility] Last Admin: 12/04/18 11:05 Dose: 5 mg Dorzolamide HCl (Trusopt) 0 ml OU BID [facility] Last Admin: 12/04/18 11:06 Dose: 1 drop Famotidine (Pepcid) 20 mg PO DAILY [facility] Last Admin: 12/04/18 11:05 Dose: 20 mg Furosemide (Lasix) 40 mg PO DAILY [facility] Last Admin: 12/04/18 11:05 Dose: Not Given Insulin Human Isoph/Insulin Regular (Novolin 70/30 (70/30 Units/Ml) 10 Ml) 25 units SC DAILY@0730 [facility] Last Admin: 12/04/18 08:29 Dose: 25 units Insulin Human Regular (Novolin R) 0 unit SC [facility]; Protocol Last Admin: 12/04/18 08:29 Dose: 2 unit Latanoprost (Xalatan Opht) 0 ml OU HS [facility] Last Admin: 12/03/18 21:42 Dose: 2.5 ml Levothyroxine Sodium (Synthroid) 50 mcg PO DAILY@0630 [facility] Last Admin: 12/04/18 06:08 Dose: 50 mcg Metoprolol Succinate (Toprol Xl) 50 mg PO DAILY [facility] Last Admin: 12/04/18 11:04 Dose: 50 mg Metoprolol Succinate (Toprol Xl) 50 mg PO [facility] Last Admin: 12/03/18 21:42 Dose: 50 mg Saliva Substitute (First Magic Mouthwash) 5 ml PO Q8H [facility] Last Admin: 12/04/18 11:04 Dose: 5 ml Sevelamer Carbonate (Renvela) 0.8 gm PO TIDCC [facility] Last Admin: 12/04/18 11:06 Dose: 0.8 gm Timolol Maleate (Timoptic 0.25% Ophth Soln) 1 drop OU BID [facility] Last Admin: 12/04/18 11:06 Dose: 1 drop Vitamin A (Vitamin A & D Oint Ud Foilpak) 1 ea TOP BID [facility] Last Admin: 12/04/18 11:08 Dose: 1 ea Vitamin B Complex/Vit C/Folic Acid (Nephro-Leila) 1 tab PO 0800 [facility] Last Admin: 12/04/18 08:30 Dose: 1 tab Zolpidem Tartrate (Ambien) 5 mg PO HS PRN PRN Reason: Insomnia Last Admin: 12/03/18 21:45 Dose: 5 mg - Labs Labs: 12/03/18 11:13 12/04/18 07:05 - Constitutional Appears: No Acute Distress, Chronically Ill - Neck Exam Neck Exam: Normal Inspection - Respiratory Exam Respiratory Exam: Clear to Ausculation Bilateral - Cardiovascular Exam Cardiovascular Exam: REGULAR RHYTHM, Murmur - GI/Abdominal Exam GI & Abdominal Exam: Soft - Extremities Exam Extremities Exam: absent: Pedal Edema - Neurological Exam Neurological Exam: Alert, Oriented x3 Assessment and Plan - Assessment and Plan (Free Text) Plan: renal failure,getting better.nsr.no dyalysis today.to remove the catheter.
[2018-12-04] MEDS: Ferric Sodium Gluconat Complex 62.5 mg/5 ml Vial IVPB SCH (11:57)
--- NOTE | 2018-12-04 20:11 | CARD ---
APPROVED REPORT Date of service: 12/03/2018 EKG Measurement Heart [id number] <Conclusion> Normal sinus rhythm Left axis deviation Septal infarct, age undetermined Abnormal ECG
[2018-12-04] MEDS: Latanoprost 2.5 ml Opht Soln OU SCH (22:39)
--- NOTE | 2018-12-05 00:30 | PN ---
DATE: 12/04/2018 FOLLOWUP RENAL CONSULTATION LOCATION: The patient is located in room 553, bed A. REQUESTED BY: Blanco Wang MD REASON FOR RENAL CONSULTATION: Acute renal failure, chronic kidney disease, for further followup and for possible evaluation for continuation of hemodialysis. SUBJECTIVE: Mrs. Estrada is an 88-year-old elderly female with a past medical history significant for longstanding hypertension, diabetes, hyperlipidemia, hypothyroidism, chronic kidney disease with a baseline creatinine about 1.5 in 11/22/2017, followed by Dr. Blanco Wang in the office regularly though, who was admitted with chief complaints of altered mental status, symptomatic hypoglycemia, acute renal failure, hyperkalemia, metabolic acidosis requiring initiation of the renal replacement therapy. The patient is feeling much better, not in acute distress. Denies any headache or dizziness. Denies any chest pain or palpitation. Denies any fever or cough. No abdominal pain. No nausea, vomiting, diarrhea. Hemodialysis on hold yesterday. The patient claims that she has a good urine output and serum creatinine continues to be stable and now creatinine this morning is slightly decreased to 2.3 from 2.4. PHYSICAL EXAMINATION: VITAL SIGNS: As follows: Blood pressure 110/50, pulse 71, respirations 18, temperature 97.3, saturation 100% on 2 liters nasal cannula. Height 5 feet 5 inches and weight is 134 pounds. GENERAL: Mrs. Estrada is an 88-year-old elderly female, moderately built, moderately nourished, not in acute distress. HEENT: Pupils normal, reactive to light and accommodation. Conjunctivae pink. Sclerae anicteric. Tongue is moist. Trachea is midline. LUNGS: Symmetric on both sides. Bilateral breath sounds present. Occasional basal crackles present, improving. CVS: [place] at the fifth intercostal space, midclavicular line. S1 and S2 audible. No murmur or gallop. ABDOMEN: Normal in appearance, soft, tympanitic. No guarding. No rigidity. No hepatosplenomegaly. HEARING THERAPY DIRECTOR: The patient is alert, awake and oriented x2-3. Sensory and motor system is within normal limits. EXTREMITIES: No cyanosis, no clubbing, no edema. CURRENT MEDICATIONS: Include as follows: Ambien 5 mg at bedtime, First Magic mouthwash p.o. every 8 hours, Lasix 40 mg p.o. daily, Nephro-Leila 1 tablet p.o. daily, amlodipine 5 mg p.o. daily, Novolin per sliding scale, Pepcid 20 mg p.o. daily, Novolin 70/30 25 units subcu daily, Synthroid 50 mcg p.o. daily, timolol 0.25% ophthalmic solution, metoprolol 50 mg p.o. b.i.d., Trusopt, vitamin A and D ointment topical b.i.d., Xalatan eyedrops. LABORATORY DATA: Include as follows as of 12/04/2018: No CBC was done. BMP: Sodium 141, potassium 3.5, chloride 102, CO2 of 35, BUN 40, creatinine 2.3, glucose 171, calcium 8.1. ASSESSMENT AND PLAN: In summary, Mrs. Estrada is an 88-year-old elderly female with history of hypertension, diabetes, hyperlipidemia, chronic kidney disease, hypothyroidism, was admitted with symptomatic hypoglycemia, anemia, acute renal failure, metabolic acidosis, hyperkalemia. 1. Acute renal failure on chronic kidney disease. Renal function is improving slowly. The patient is off the hemodialysis at this time. We will continue to monitor basic metabolic panel and serum creatinine daily. 2. Hypokalemia secondary to diuretics. We will supplement potassium 40 mEq p.o. x1. 3. Metabolic alkalosis secondary to most likely contraction alkalosis secondary to diuretics. We will discontinue Lasix. 4. Hypertension. 5. Diabetes. 6. Anemia secondary to renal failure, vitamin B12 deficiency and iron deficiency. The patient was given B12 1000 mcg intramuscular daily, and we will start her on oral vitamin B12. We will repeat basic metabolic profile and complete blood count in the morning. Case discussed with Dr. Blanco Wang in rounds and also with the patient's son and nephew. If serum creatinine remains stable, we will remove the for Zack catheter tomorrow. We will follow with you. Thank you for allowing me to participate in your patient's care. Merlyn Jain MD
[2018-12-05] MEDS: Mag&Al/Simet/Diphen/Lido 237 ML KIT PO SCH ×4 (01:15→18:21)
[2018-12-05] MEDS: Levothyroxine 50 MCG TAB PO SCH (06:26)
[2018-12-05] MEDS: (Novolin 70/30) NPH/Regular 70/30 Units/ml 10 ml vial SC SCH (08:30)
[2018-12-05] MEDS: Sevelamer Carb 0.8 gm/Packet PO SCH ×3 (09:12→18:21)
[2018-12-05] MEDS: (Novolin R) Insulin Human Regular 100 units/ml vial SC SCH ×4 (09:12→22:53)
[2018-12-05] MEDS: Multivitamin Vitamin B Complex (Nephro-Vite) Tab PO SCH (09:12)
[2018-12-05] MEDS: Metoprolol Succinate 50 mg XL Tab PO SCH ×2 (10:14→22:59)
[2018-12-05] MEDS: Timolol 0.25% Ophth SOLN OU SCH ×2 (10:15→18:22)
[2018-12-05] MEDS: Dorzolamide 2% Opht Sol 10ml OU SCH ×2 (10:15→18:22)
[2018-12-05] MEDS: Vitamins A & D Oint UD Foilpak TOP SCH ×2 (10:18→18:21)
--- NOTE | 2018-12-05 11:30 | CP.PCM.PN ---
Subjective - Date & Time of Evaluation Date of Evaluation: 12/05/18 Time of Evaluation: 11:29 - Subjective Subjective: weak. Objective - Vital Signs/Intake and Output Vital Signs (last 24 hours): Temp Pulse Resp BP Pulse Ox 98.1 F 75 20 96/59 L 95 12/05/18 08:00 12/05/18 08:00 12/05/18 08:00 12/05/18 08:00 12/05/18 08:00 Intake and Output: 12/05/18 12/05/18 06:59 18:59 Intake Total 240 Balance 240 - Medications Medications: Current Medications Acetaminophen (Tylenol 325mg Tab) 650 mg PO QID PRN PRN Reason: Pain, moderate (4-7) Last Admin: 12/05/18 06:25 Dose: 650 mg Amlodipine Besylate (Norvasc) 5 mg PO DAILY [facility] Last Admin: 12/05/18 10:15 Dose: 5 mg Dorzolamide HCl (Trusopt) 0 ml OU BID [facility] Last Admin: 12/05/18 10:15 Dose: 1 drop Famotidine (Pepcid) 20 mg PO DAILY [facility] Last Admin: 12/05/18 10:15 Dose: 20 mg Insulin Human Isoph/Insulin Regular (Novolin 70/30 (70/30 Units/Ml) 10 Ml) 25 units SC DAILY@0730 [facility] Last Admin: 12/05/18 08:30 Dose: Not Given Insulin Human Regular (Novolin R) 0 unit SC [facility]; Protocol Last Admin: 12/05/18 09:12 Dose: 2 unit Latanoprost (Xalatan Opht) 0 ml OU HS [facility] Last Admin: 12/04/18 22:39 Dose: Not Given Levothyroxine Sodium (Synthroid) 50 mcg PO DAILY@0630 [facility] Last Admin: 12/05/18 06:26 Dose: 50 mcg Metoprolol Succinate (Toprol Xl) 50 mg PO DAILY [facility] Last Admin: 12/05/18 10:14 Dose: 50 mg Metoprolol Succinate (Toprol Xl) 50 mg PO HS [facility] Last Admin: 12/04/18 22:38 Dose: 50 mg Saliva Substitute (First Magic Mouthwash) 5 ml PO Q8H [facility] Last Admin: 12/05/18 10:21 Dose: Not Given Sevelamer Carbonate (Renvela) 0.8 gm PO TIDCC [facility] Last Admin: 12/05/18 09:12 Dose: 0.8 gm Timolol Maleate (Timoptic 0.25% Ophth Soln) 1 drop OU BID [facility] Last Admin: 12/05/18 10:15 Dose: 1 drop Vitamin A (Vitamin A & D Oint Ud Foilpak) 1 ea TOP BID [facility] Last Admin: 12/05/18 10:18 Dose: 1 ea Vitamin B Complex/Vit C/Folic Acid (Nephro-Leila) 1 tab PO 0800 [facility] Last Admin: 12/05/18 09:12 Dose: 1 tab Zolpidem Tartrate (Ambien) 5 mg PO HS PRN PRN Reason: Insomnia Last Admin: 12/03/18 21:45 Dose: 5 mg - Labs Labs: 12/03/18 11:13 12/04/18 07:05 - Constitutional Appears: No Acute Distress, Chronically Ill - Head Exam Head Exam: NORMOCEPHALIC - Neck Exam Neck Exam: Normal Inspection - Respiratory Exam Respiratory Exam: Clear to Ausculation Bilateral - Cardiovascular Exam Cardiovascular Exam: REGULAR RHYTHM - GI/Abdominal Exam GI & Abdominal Exam: Soft - Extremities Exam Extremities Exam: absent: Pedal Edema - Neurological Exam Neurological Exam: Alert, Oriented x3 Assessment and Plan - Assessment and Plan (Free Text) Plan: renal failure,htn.dm.rehab next week.
[2018-12-05 11:41] LABS: HEMOGLOBIN 9.9 g/dL (11.0-16.0); MEAN CELL VOLUME 84.8 fL (81.0-99.0); MEAN CORPUSCULAR HEMOGLOBIN 26.3 pg (27.0-31.0); MEAN CORPUSCULAR HGB CONC 30.9 g/dL (33.0-37.0); MEAN PLATELET VOLUME 9.2 fL (7.2-11.7); RBC 3.76 Mil/uL (3.80-5.20); RED CELL DISTRIBUTION WIDTH 21.7 % (11.5-14.5); WHITE BLOOD COUNT 10.1 K/uL (4.8-10.8)
[2018-12-05 11:56] LABS: CALCIUM 7.8 mg/dl (8.6-10.4)
[2018-12-05] MEDS ORDERED: Magnesium Hydroxide Susp 30 ml UD PO ONE (13:00)
[2018-12-05] MEDS: Potassium Chloride 20 mEq/15 ml LIQ UD PO ONE ×2 (15:24→15:28)
--- NOTE | 2018-12-05 15:48 | CP.PCM.PN ---
Subjective - Date & Time of Evaluation Date of Evaluation: 12/05/18 Time of Evaluation: 15:47 - Subjective Subjective: pt is seen and examined,follow up consult is dictated #[phone] d/c fv catheter no need for hd add vit b12, epogen, Objective - Vital Signs/Intake and Output Vital Signs (last 24 hours): Temp Pulse Resp BP Pulse Ox 98.1 F 75 20 96/59 L 95 12/05/18 08:00 12/05/18 08:00 12/05/18 08:00 12/05/18 08:00 12/05/18 08:00 Intake and Output: 12/05/18 12/05/18 06:59 18:59 Intake Total 240 Balance 240 - Medications Medications: Current Medications Acetaminophen (Tylenol 325mg Tab) 650 mg PO QID PRN PRN Reason: Pain, moderate (4-7) Last Admin: 12/05/18 06:25 Dose: 650 mg Amlodipine Besylate (Norvasc) 5 mg PO DAILY [facility] Last Admin: 12/05/18 10:15 Dose: 5 mg Dorzolamide HCl (Trusopt) 0 ml OU BID [facility] Last Admin: 12/05/18 10:15 Dose: 1 drop Famotidine (Pepcid) 20 mg PO DAILY [facility] Last Admin: 12/05/18 10:15 Dose: 20 mg Insulin Human Isoph/Insulin Regular (Novolin 70/30 (70/30 Units/Ml) 10 Ml) 25 units SC DAILY@0730 [facility] Last Admin: 12/05/18 08:30 Dose: Not Given Insulin Human Regular (Novolin R) 0 unit SC [facility]; Protocol Last Admin: 12/05/18 13:06 Dose: 4 unit Latanoprost (Xalatan Opht) 0 ml OU HS [facility] Last Admin: 12/04/18 22:39 Dose: Not Given Levothyroxine Sodium (Synthroid) 50 mcg PO DAILY@0630 [facility] Last Admin: 12/05/18 06:26 Dose: 50 mcg Metoprolol Succinate (Toprol Xl) 50 mg PO DAILY [facility] Last Admin: 12/05/18 10:14 Dose: 50 mg Metoprolol Succinate (Toprol Xl) 50 mg PO HS [facility] Last Admin: 12/04/18 22:38 Dose: 50 mg Potassium Chloride (Potassium Chloride Oral Soln) 20 meq PO ONCE ONE Stop: 12/05/18 16:01 Last Admin: 12/05/18 15:28 Dose: Not Given Saliva Substitute (First Magic Mouthwash) 5 ml PO Q8H [facility] Last Admin: 12/05/18 10:21 Dose: Not Given Sevelamer Carbonate (Renvela) 0.8 gm PO TIDCC [facility] Last Admin: 12/05/18 13:09 Dose: 0.8 gm Timolol Maleate (Timoptic 0.25% Oph Soln) 1 drop OU BID [facility] Last Admin: 12/05/18 10:15 Dose: 1 drop Vitamin A (Vitamin A & D Oint Ud Foilpak) 1 ea TOP BID [facility] Last Admin: 12/05/18 10:18 Dose: 1 ea Vitamin B Complex/Vit C/Folic Acid (Nephro-Leila) 1 tab PO 0800 [facility] Last Admin: 12/05/18 09:12 Dose: 1 tab Zolpidem Tartrate (Ambien) 5 mg PO HS PRN PRN Reason: Insomnia Last Admin: 12/03/18 21:45 Dose: 5 mg - Labs Labs: 12/05/18 11:30 12/05/18 11:30
--- NOTE | 2018-12-05 22:11 | PN ---
DATE: 12/05/2018 FOLLOWUP RENAL CONSULTATION LOCATION: The patient is located in room 553, bed A. REQUESTED BY: Blanco Wang MD REASON FOR FOLLOWUP: Acute renal failure, chronic kidney disease, on hemodialysis. SUBJECTIVE: Mrs. Estrada is an 88-year-old elderly Nepalese female with a past medical history significant for longstanding hypertension, diabetes, hyperlipidemia, hypothyroidism, chronic kidney disease with a baseline creatinine about 1.5 to 2, was admitted with symptomatic hypoglycemia, acute renal failure, hyperkalemia, metabolic acidosis, requiring initiation of the renal replacement therapy, and anemia. The patient was initially started on hemodialysis and HD is on hold since as the urine output is picking up and renal function is improving slowly. The patient denies any complaints. No chest pain. No palpitation. No fever. No cough. No abdominal pain. No nausea, vomiting, or diarrhea. PHYSICAL EXAMINATION: VITAL SIGNS: As follows: Blood pressure this morning 135/63, pulse 76, respiration 20, temperature 98.1 and saturation 95%. Height 5 feet 5 inches, and weight is 127 pounds. GENERAL: Mrs. Estrada is an 88-year-old elderly female, moderately built, moderately nourished, not in acute distress. HEENT: Pupils are normal and reactive to light and accommodation. Conjunctivae pink. Sclerae anicteric. Tongue is moist. Trachea is midline. LUNGS: Symmetric on both sides. Bilateral breath sounds present. Clear to auscultation. CARDIOVASCULAR SYSTEM: Pyatt at the fifth intercostal space, midclavicular line. S1 and S2 audible. No murmur or gallop. ABDOMEN: Normal in appearance. Soft, tympanitic. No guarding. No rigidity. No hepatosplenomegaly. CENTRAL NERVOUS SYSTEM: The patient is alert, awake, oriented x2 to 3. Sensory motor system is within normal limits. EXTREMITIES: No cyanosis, no clubbing, no edema. CURRENT MEDICATIONS: Include as follows: Ambien 5 mg at bedtime, FIRST Magic mouthwash, vitamin Nephro-Leila one tablet daily, amlodipine 5 mg p.o. daily, Novolin 70/30 twenty five units subcu daily, Pepcid 20 mg p.o. daily, Renvela 800 mg p.o. t.i.d., Synthroid 50 mcg p.o. daily, timolol ophthalmic drops, metoprolol 50 mg p.o. b.i.d., and Xalatan eyedrops. LABORATORY DATA: Include as follows: As of 12/05/2018, WBC 10.1, hemoglobin 9.9, hematocrit is 21.9, platelets 178. Sodium 138, potassium 3.5, chloride 103, CO2 of 32, BUN 38, creatinine 2, glucose is 292, and calcium 7.8. ASSESSMENT AND PLAN: In summary, Mrs. Estrada is an 88-year-old elderly female with history of hypertension, diabetes, hyperlipidemia, hypothyroidism, chronic kidney disease who was admitted with anemia, symptomatic hypoglycemia, hyperkalemia, metabolic acidosis, acute renal failure on chronic kidney disease, requiring initiation of the renal replacement therapy. 1. Acute renal failure on chronic kidney disease. Renal function is improving. Hemodialysis is on hold since . Hemoglobin and hematocrit. 2. Anemia secondary to renal failure and also combination of iron deficiency and B12 deficiency. Continue B12 by mouth. We will add Epogen 4000 units subcutaneously weekly, and also we will discontinue Renvela at this time. No need for hemodialysis at this time. We will follow with you. Thank you for allowing me to participate in your patient's care. Merlyn Jain MD
[2018-12-05] MEDS: Latanoprost 2.5 ml Opht Soln OU SCH (23:04)
[2018-12-06] MEDS: Mag&Al/Simet/Diphen/Lido 237 ML KIT PO SCH ×3 (00:20→17:19)
[2018-12-06] MEDS: Levothyroxine 50 MCG TAB PO SCH (06:25)
--- NOTE | 2018-12-06 10:19 | CP.PCM.PN ---
Subjective - Date & Time of Evaluation Date of Evaluation: 12/06/18 Time of Evaluation: 10:18 - Subjective Subjective: weak,poor appetite Objective - Vital Signs/Intake and Output Vital Signs (last 24 hours): Temp Pulse Resp BP Pulse Ox 98.6 F 74 20 155/51 H 98 12/06/18 07:00 12/06/18 07:00 12/06/18 07:00 12/06/18 07:00 12/06/18 07:00 Intake and Output: 12/06/18 12/06/18 06:59 18:59 Intake Total 0 Balance 0 - Medications Medications: Current Medications Acetaminophen (Tylenol 325mg Tab) 650 mg PO QID PRN PRN Reason: Pain, moderate (4-7) Last Admin: 12/05/18 06:25 Dose: 650 mg Amlodipine Besylate (Norvasc) 5 mg PO DAILY [facility] Last Admin: 12/05/18 10:15 Dose: 5 mg Cyanocobalamin (Vitamin B12 1000 Mcg Tab) 1,000 mcg PO DAILY [facility] Dorzolamide HCl (Trusopt) 0 ml OU BID [facility] Last Admin: 12/05/18 18:22 Dose: 1 drop Famotidine (Pepcid) 20 mg PO DAILY [facility] Last Admin: 12/05/18 10:15 Dose: 20 mg Ferrous Gluconate (Fergon) 324 mg PO DAILY [facility] Insulin Human Isoph/Insulin Regular (Novolin 70/30 (70/30 Units/Ml) 10 Ml) 25 units SC DAILY@0730 [facility] Last Admin: 12/05/18 08:30 Dose: Not Given Insulin Human Regular (Novolin R) 0 unit SC [facility]; Protocol Last Admin: 12/05/18 22:53 Dose: Not Given Latanoprost (Xalatan Opht) 0 ml OU HS [facility] Last Admin: 12/05/18 23:04 Dose: Not Given Levothyroxine Sodium (Synthroid) 50 mcg PO DAILY@0630 [facility] Last Admin: 12/06/18 06:25 Dose: 50 mcg Metoprolol Succinate (Toprol Xl) 50 mg PO DAILY [facility] Last Admin: 12/05/18 10:14 Dose: 50 mg Metoprolol Succinate (Toprol Xl) 50 mg PO HS [facility] Last Admin: 12/05/18 22:59 Dose: 50 mg Saliva Substitute (First Magic Mouthwash) 5 ml PO Q8H [facility] Last Admin: 12/06/18 08:41 Dose: Not Given Timolol Maleate (Timoptic 0.25% Ophth Soln) 1 drop OU BID [facility] Last Admin: 12/05/18 18:22 Dose: 1 drop Vitamin A (Vitamin A & D Oint Ud Foilpak) 1 ea TOP BID [facility] Last Admin: 12/05/18 18:21 Dose: 1 ea Vitamin B Complex/Vit C/Folic Acid (Nephro-Leila) 1 tab PO 0800 [facility] Last Admin: 12/05/18 09:12 Dose: 1 tab Zolpidem Tartrate (Ambien) 5 mg PO HS PRN PRN Reason: Insomnia Last Admin: 12/03/18 21:45 Dose: 5 mg - Labs Labs: 12/05/18 11:30 12/05/18 11:30 - Constitutional Appears: No Acute Distress, Chronically Ill - Head Exam Head Exam: NORMOCEPHALIC - Neck Exam Neck Exam: Normal Inspection - Respiratory Exam Respiratory Exam: Clear to Ausculation Bilateral - Cardiovascular Exam Cardiovascular Exam: REGULAR RHYTHM, Murmur - GI/Abdominal Exam GI & Abdominal Exam: Soft - Extremities Exam Extremities Exam: absent: Pedal Edema - Neurological Exam Neurological Exam: Alert, Oriented x3 Assessment and Plan - Assessment and Plan (Free Text) Plan: renal failure,htn,dm
[2018-12-06] MEDS: Multivitamin Vitamin B Complex (Nephro-Vite) Tab PO SCH (10:29)
[2018-12-06] MEDS: Metoprolol Succinate 50 mg XL Tab PO SCH ×2 (10:29→21:50)
[2018-12-06] MEDS: (Novolin R) Insulin Human Regular 100 units/ml vial SC SCH ×5 (10:30→21:29)
[2018-12-06] MEDS: Timolol 0.25% Ophth SOLN OU SCH ×2 (10:30→18:07)
[2018-12-06] MEDS: Dorzolamide 2% Opht Sol 10ml OU SCH ×2 (10:30→18:08)
[2018-12-06] MEDS: (Novolin 70/30) NPH/Regular 70/30 Units/ml 10 ml vial SC SCH (10:30)
[2018-12-06] MEDS: Vitamins A & D Oint UD Foilpak TOP SCH ×2 (12:10→18:03)
--- NOTE | 2018-12-06 12:19 | CARD ---
APPROVED REPORT Date of service: 11/30/2018 EKG Measurement Heart [id number] <Conclusion> Normal sinus rhythm Septal infarct, age undetermined Inferior infarct, age undetermined ST & T wave abnormality, consider anterior ischemia Abnormal ECG
[2018-12-06 12:22] LABS: BASO % 0.4 % (0.0-2.0); EOS # 0.2 K/uL (0.0-0.7); EOS % 1.5 % (0.0-4.0); HEMOGLOBIN 10.6 g/dL (11.0-16.0); LYMPH # 1.5 K/uL (1.0-4.3); LYMPH % 12.5 % (20.0-40.0); MEAN CORPUSCULAR HEMOGLOBIN 26.1 pg (27.0-31.0); MEAN CORPUSCULAR HGB CONC 30.7 g/dL (33.0-37.0); MEAN PLATELET VOLUME 9.1 fL (7.2-11.7); MONO # 0.6 K/uL (0.0-0.8); MONO % 5.4 % (0.0-10.0); NEUT # 9.3 K/uL (1.8-7.0); NEUT % 80.2 % (50.0-75.0); NRBC % 0.2 % (0.0-2.0); RBC 4.07 Mil/uL (3.80-5.20); WHITE BLOOD COUNT 11.6 K/uL (4.8-10.8)
[2018-12-06 12:49] LABS: CALCIUM 8.1 mg/dl (8.6-10.4)
--- NOTE | 2018-12-06 19:57 | CP.PCM.PN ---
Subjective - Date & Time of Evaluation Date of Evaluation: 12/06/18 Time of Evaluation: 19:00 - Subjective Subjective: Providing nephrology coverage for Dr. Jain: 88 yo F w/ pmh of htn, mild diastolic CHF, COPD, Diabetes, Hypothyroidism, admitted with acute renal failure, now improving since past few days and off HD; Per son who is at bedside, has limited appetite/PO intake; no difficulty breathing; is urinating; not in pain; Objective - Vital Signs/Intake and Output Vital Signs (last 24 hours): Temp Pulse Resp BP Pulse Ox 98.3 F 71 20 138/62 97 12/06/18 15:00 12/06/18 15:00 12/06/18 15:00 12/06/18 15:00 12/06/18 15:00 - Medications Medications: Current Medications Acetaminophen (Tylenol 325mg Tab) 650 mg PO QID PRN PRN Reason: Pain, moderate (4-7) Last Admin: 12/05/18 06:25 Dose: 650 mg Amlodipine Besylate (Norvasc) 5 mg PO DAILY [facility] Last Admin: 12/06/18 10:29 Dose: 5 mg Cyanocobalamin (Vitamin B12 1000 Mcg Tab) 1,000 mcg PO DAILY [facility] Last Admin: 12/06/18 10:57 Dose: Not Given Dorzolamide HCl (Trusopt) 0 ml OU BID [facility] Last Admin: 12/06/18 18:08 Dose: 1 drop Famotidine (Pepcid) 20 mg PO DAILY [facility] Last Admin: 12/06/18 10:29 Dose: 20 mg Ferrous Gluconate (Fergon) 324 mg PO DAILY [facility] Last Admin: 12/06/18 10:29 Dose: 324 mg Insulin Human Isoph/Insulin Regular (Novolin 70/30 (70/30 Units/Ml) 10 Ml) 25 units SC DAILY@0730 [facility] Last Admin: 12/06/18 10:30 Dose: 25 units Insulin Human Regular (Novolin R) 0 unit SC [facility]; Protocol Last Admin: 12/06/18 17:19 Dose: Not Given Latanoprost (Xalatan Opht) 0 ml OU HS [facility] Last Admin: 12/05/18 23:04 Dose: Not Given Levothyroxine Sodium (Synthroid) 50 mcg PO DAILY@0630 [facility] Last Admin: 12/06/18 06:25 Dose: 50 mcg Metoprolol Succinate (Toprol Xl) 50 mg PO DAILY [facility] Last Admin: 12/06/18 10:29 Dose: 50 mg Metoprolol Succinate (Toprol Xl) 50 mg PO HS [facility] Last Admin: 12/05/18 22:59 Dose: 50 mg Saliva Substitute (First Magic Mouthwash) 5 ml PO Q8H [facility] Last Admin: 12/06/18 17:19 Dose: Not Given Timolol Maleate (Timoptic 0.25% Oph Soln) 1 drop OU BID [facility] Last Admin: 12/06/18 18:07 Dose: 1 drop Vitamin A (Vitamin A & D Oint Ud Foilpak) 1 ea TOP BID [facility] Last Admin: 12/06/18 18:03 Dose: 1 ea Vitamin B Complex/Vit C/Folic Acid (Nephro-Leila) 1 tab PO 0800 [facility] Last Admin: 12/06/18 10:29 Dose: 1 tab Zolpidem Tartrate (Ambien) 5 mg PO HS PRN PRN Reason: Insomnia Last Admin: 12/03/18 21:45 Dose: 5 mg - Labs Labs: 12/06/18 12:05 12/06/18 12:05 - Constitutional Appears: Non-toxic, No Acute Distress - Eye Exam Eye Exam: Normal appearance - Respiratory Exam Respiratory Exam: Rales. absent: Respiratory Distress - Cardiovascular Exam Cardiovascular Exam: RRR, +S1, +S2. absent: Gallop, Rubs - GI/Abdominal Exam GI & Abdominal Exam: Soft. absent: Distended, Tenderness - Extremities Exam Additional comments: no leg edema; - Neurological Exam Neurological Exam: Alert, Awake - Psychiatric Exam Psychiatric exam: Normal Mood. absent: Agitated - Skin Skin Exam: Warm. absent: Cyanosis Assessment and Plan (1) Acute renal failure (ARF) Assessment & Plan: PAVAN on CKD IIIB; likely secondary to ATN, resolving, now with renal function close to baseline; stable volume and electrolyte status; off HD; does have significant underlying CKD; -avoid nephrotoxic agents (NSAIDS, etc); -would avoid ZELDA inhibitor/ARB for now as patient having poor PO intake; Status: Acute (2) HTN (hypertension) Assessment & Plan: BP currently controlled on toprol XL and amlodipine, continue same; Status: Chronic (3) Anemia Assessment & Plan: Secondary to renal failure as well as component of iron deficiency; hgb at goal for CKD (10-11g); can consider giving a few doses of IV iron; Status: Chronic
[2018-12-06] MEDS: Latanoprost 2.5 ml Opht Soln OU SCH (21:51)
[2018-12-07] MEDS: Mag&Al/Simet/Diphen/Lido 237 ML KIT PO SCH ×3 (01:52→18:22)
[2018-12-07] MEDS: Levothyroxine 50 MCG TAB PO SCH (06:45)
[2018-12-07] MEDS: (Novolin R) Insulin Human Regular 100 units/ml vial SC SCH ×4 (08:50→21:24)
[2018-12-07] MEDS: Dorzolamide 2% Opht Sol 10ml OU SCH ×2 (09:46→18:21)
[2018-12-07] MEDS: Timolol 0.25% Ophth SOLN OU SCH ×2 (09:46→18:21)
[2018-12-07] MEDS: Multivitamin Vitamin B Complex (Nephro-Vite) Tab PO SCH (09:47)
[2018-12-07] MEDS: Vitamins A & D Oint UD Foilpak TOP SCH ×2 (09:47→18:21)
[2018-12-07] MEDS: Metoprolol Succinate 50 mg XL Tab PO SCH ×2 (09:47→21:25)
[2018-12-07] MEDS: (Novolin 70/30) NPH/Regular 70/30 Units/ml 10 ml vial SC SCH (09:48)
--- NOTE | 2018-12-07 18:14 | CARD ---
APPROVED REPORT Date of service: 11/28/2018 EKG Measurement Heart [id number] <Conclusion> Normal sinus rhythm Septal infarct, age undetermined Abnormal ECG
[2018-12-07] MEDS: Latanoprost 2.5 ml Opht Soln OU SCH (21:26)
[2018-12-07 21:59] LABS: SQUAMOUS EPITHIAL 4 /hpf (0-5); URINE BACTERIA MANY (<OCC); URINE BILIRUBIN NEGATIVE (NEGATIVE); URINE BLOOD 1+ (NEGATIVE); URINE CLARITY Turbid (Clear); URINE COLOR Amber (YELLOW); URINE GLUCOSE (UA) NORMAL (Normal); URINE LEUKOCYTE ESTERASE 3+ Leu/uL (Negative); URINE PROTEIN 2+ mg/dL (NEGATIVE); URINE UROBILINOGEN NORMAL mg/dL (0.2-1.0); WBC CLUMPS MANY /hpf
[2018-12-08] MEDS: Levothyroxine 50 MCG TAB PO SCH (07:03)
[2018-12-08] MEDS: (Novolin R) Insulin Human Regular 100 units/ml vial SC SCH ×3 (08:29→18:15)
[2018-12-08] MEDS: (Novolin 70/30) NPH/Regular 70/30 Units/ml 10 ml vial SC SCH (08:29)
[2018-12-08] MEDS: Multivitamin Vitamin B Complex (Nephro-Vite) Tab PO SCH (08:59)
[2018-12-08] MEDS: Mag&Al/Simet/Diphen/Lido 237 ML KIT PO SCH ×2 (10:08→18:16)
[2018-12-08] MEDS: Timolol 0.25% Ophth SOLN OU SCH ×2 (10:10→18:14)
[2018-12-08] MEDS: Metoprolol Succinate 50 mg XL Tab PO SCH ×2 (10:11→21:12)
[2018-12-08] MEDS: Dorzolamide 2% Opht Sol 10ml OU SCH ×2 (10:11→18:14)
[2018-12-08] MEDS: Vitamins A & D Oint UD Foilpak TOP SCH ×2 (10:11→18:21)
--- NOTE | 2018-12-08 10:39 | CP.PCM.PN ---
Subjective - Date & Time of Evaluation Date of Evaluation: 12/08/18 Time of Evaluation: 10:38 - Subjective Subjective: no bed.feels same Objective - Vital Signs/Intake and Output Vital Signs (last 24 hours): Temp Pulse Resp BP Pulse Ox 97.4 F L 73 20 154/64 H 99 12/08/18 07:00 12/08/18 10:12 12/08/18 07:00 12/08/18 10:12 12/08/18 07:00 - Medications Medications: Current Medications Acetaminophen (Tylenol 325mg Tab) 650 mg PO QID PRN PRN Reason: Pain, moderate (4-7) Last Admin: 12/05/18 06:25 Dose: 650 mg Amlodipine Besylate (Norvasc) 5 mg PO DAILY [facility] Last Admin: 12/08/18 10:12 Dose: 5 mg Cyanocobalamin (Vitamin B12 1000 Mcg Tab) 1,000 mcg PO DAILY [facility] Last Admin: 12/08/18 10:10 Dose: 1,000 mcg Dorzolamide HCl (Trusopt) 0 ml OU BID [facility] Last Admin: 12/08/18 10:11 Dose: 1 drop Famotidine (Pepcid) 20 mg PO DAILY [facility] Last Admin: 12/08/18 10:08 Dose: 20 mg Ferrous Gluconate (Fergon) 324 mg PO DAILY [facility] Last Admin: 12/08/18 10:08 Dose: 324 mg Insulin Human Isoph/Insulin Regular (Novolin 70/30 (70/30 Units/Ml) 10 Ml) 25 units SC DAILY@0730 [facility] Last Admin: 12/08/18 08:29 Dose: 25 units Insulin Human Regular (Novolin R) 0 unit SC [facility]; Protocol Last Admin: 12/08/18 08:29 Dose: 3 unit Latanoprost (Xalatan Opht) 0 ml OU HS [facility] Last Admin: 12/07/18 21:26 Dose: 2.5 ml Levothyroxine Sodium (Synthroid) 50 mcg PO DAILY@0630 [facility] Last Admin: 12/08/18 07:03 Dose: 50 mcg Metoprolol Succinate (Toprol Xl) 50 mg PO DAILY [facility] Last Admin: 12/08/18 10:11 Dose: 50 mg Metoprolol Succinate (Toprol Xl) 50 mg PO [facility] Last Admin: 12/07/18 21:25 Dose: 50 mg Saliva Substitute (First Magic Mouthwash) 5 ml PO Q8H [facility] Last Admin: 12/08/18 10:08 Dose: 5 ml Timolol Maleate (Timoptic 0.25% Ophth Soln) 1 drop OU BID [facility] Last Admin: 12/08/18 10:10 Dose: 1 drop Vitamin A (Vitamin A & D Oint Ud Foilpak) 1 ea TOP BID [facility] Last Admin: 12/08/18 10:11 Dose: Not Given Vitamin B Complex/Vit C/Folic Acid (Nephro-Leila) 1 tab PO 0800 [facility] Last Admin: 12/08/18 08:59 Dose: 1 tab Zolpidem Tartrate (Ambien) 5 mg PO HS PRN PRN Reason: Insomnia Last Admin: 12/03/18 21:45 Dose: 5 mg - Labs Labs: 12/06/18 12:05 12/06/18 12:05 - Constitutional Appears: No Acute Distress, Chronically Ill - Head Exam Head Exam: NORMOCEPHALIC - Neck Exam Neck Exam: Normal Inspection - Respiratory Exam Respiratory Exam: Clear to Ausculation Bilateral - Cardiovascular Exam Cardiovascular Exam: REGULAR RHYTHM - GI/Abdominal Exam GI & Abdominal Exam: Soft - Extremities Exam Extremities Exam: absent: Pedal Edema - Neurological Exam Neurological Exam: Alert, Oriented x3 Assessment and Plan - Assessment and Plan (Free Text) Plan: await rehab.
[2018-12-08] MEDS ORDERED: Magnesium Hydroxide Susp 30 ml UD PO ONE (19:38)
[2018-12-08] MEDS: Latanoprost 2.5 ml Opht Soln OU SCH (21:14)
[2018-12-08 23:45] LABS: SQUAMOUS EPITHIAL 4 /hpf (0-5); URINE BACTERIA MANY (<OCC); URINE BILIRUBIN NEGATIVE (NEGATIVE); URINE BLOOD 1+ (NEGATIVE); URINE CLARITY Turbid (Clear); URINE COLOR Yellow (YELLOW); URINE GLUCOSE (UA) NORMAL (Normal); URINE LEUKOCYTE ESTERASE 2+ Leu/uL (Negative); URINE PROTEIN 2+ mg/dL (NEGATIVE); URINE UROBILINOGEN NORMAL mg/dL (0.2-1.0); WBC CLUMPS MANY /hpf
[2018-12-09] MEDS: Mag&Al/Simet/Diphen/Lido 237 ML KIT PO SCH ×3 (01:15→17:52)
[2018-12-09] MEDS: Levothyroxine 50 MCG TAB PO SCH (06:16)
[2018-12-09] MEDS: Multivitamin Vitamin B Complex (Nephro-Vite) Tab PO SCH (07:50)
[2018-12-09] MEDS: (Novolin R) Insulin Human Regular 100 units/ml vial SC SCH ×4 (08:30→21:56)
[2018-12-09] MEDS: (Novolin 70/30) NPH/Regular 70/30 Units/ml 10 ml vial SC SCH (08:30)
[2018-12-09] MEDS: Dorzolamide 2% Opht Sol 10ml OU SCH ×2 (10:12→17:52)
[2018-12-09] MEDS: Timolol 0.25% Ophth SOLN OU SCH ×2 (10:12→17:52)
[2018-12-09] MEDS: Metoprolol Succinate 50 mg XL Tab PO SCH ×2 (10:13→22:00)
[2018-12-09] MEDS: Vitamins A & D Oint UD Foilpak TOP SCH ×2 (10:18→20:51)
--- NOTE | 2018-12-09 12:29 | CP.PCM.PN ---
<Darshan Reed Honey - Last Filed: 12/09/18 18:41> Subjective - Date & Time of Evaluation Date of Evaluation: 12/09/18 Time of Evaluation: 18:41 - Subjective Subjective: Nephro progress note - Brianna pGY - 2 Patient seen and examined at bedside; GNR's in urine were found. No new acute complaints. Objective - Vital Signs/Intake and Output Vital Signs (last 24 hours): Temp Pulse Resp BP Pulse Ox 97.4 F L 73 20 139/60 97 12/09/18 08:00 12/09/18 08:00 12/09/18 08:00 12/09/18 08:00 12/09/18 08:00 - Medications Medications: Current Medications Acetaminophen (Tylenol 325mg Tab) 650 mg PO QID PRN PRN Reason: Pain, moderate (4-7) Last Admin: 12/05/18 06:25 Dose: 650 mg Amlodipine Besylate (Norvasc) 5 mg PO DAILY [facility] Last Admin: 12/09/18 10:12 Dose: 5 mg Cyanocobalamin (Vitamin B12 1000 Mcg Tab) 1,000 mcg PO DAILY [facility] Last Admin: 12/09/18 10:20 Dose: 1,000 mcg Docusate Sodium (Colace) 100 mg PO BID [facility] Last Admin: 12/09/18 10:12 Dose: 100 mg Dorzolamide HCl (Trusopt) 0 ml OU BID [facility] Last Admin: 12/09/18 10:12 Dose: 1 drop Famotidine (Pepcid) 20 mg PO DAILY [facility] Last Admin: 12/09/18 10:13 Dose: 20 mg Ferrous Gluconate (Fergon) 324 mg PO DAILY [facility] Last Admin: 12/09/18 10:12 Dose: 324 mg Insulin Human Isoph/Insulin Regular (Novolin 70/30 (70/30 Units/Ml) 10 Ml) 25 units SC DAILY@0730 [facility] Last Admin: 12/08/18 08:29 Dose: 25 units Insulin Human Regular (Novolin R) 0 unit SC [facility]; Protocol Last Admin: 12/09/18 08:30 Dose: Not Given Latanoprost (Xalatan Opht) 0 ml OU HS [facility] Last Admin: 12/08/18 21:14 Dose: Not Given Levothyroxine Sodium (Synthroid) 50 mcg PO DAILY@0630 [facility] Last Admin: 12/09/18 06:16 Dose: 50 mcg Metoprolol Succinate (Toprol Xl) 50 mg PO DAILY [facility] Last Admin: 12/09/18 10:13 Dose: 50 mg Metoprolol Succinate (Toprol Xl) 50 mg PO HS [facility] Last Admin: 12/08/18 21:12 Dose: 50 mg Saliva Substitute (First Magic Mouthwash) 5 ml PO Q8H [facility] Last Admin: 12/09/18 10:13 Dose: 5 ml Timolol Maleate (Timoptic 0.25% Ophth Soln) 1 drop OU BID [facility] Last Admin: 12/09/18 10:12 Dose: 1 drop Vitamin A (Vitamin A & D Oint Ud Foilpak) 1 ea TOP BID [facility] Last Admin: 12/09/18 10:18 Dose: 1 ea Vitamin B Complex/Vit C/Folic Acid (Nephro-Leila) 1 tab PO 0800 [facility] Last Admin: 12/09/18 07:50 Dose: 1 tab Zolpidem Tartrate (Ambien) 5 mg PO HS PRN PRN Reason: Insomnia Last Admin: 12/03/18 21:45 Dose: 5 mg - Labs Labs: 12/06/18 12:05 12/06/18 12:05 - Constitutional Appears: Well - Head Exam Head Exam: ATRAUMATIC, NORMAL INSPECTION, NORMOCEPHALIC - Eye Exam Eye Exam: EOMI, Normal appearance, PERRL Pupil Exam: NORMAL ACCOMODATION, PERRL - ENT Exam ENT Exam: Mucous Membranes Moist, Normal Exam - Neck Exam Neck Exam: Full ROM, Normal Inspection. absent: Lymphadenopathy - Respiratory Exam Respiratory Exam: Clear to Ausculation Bilateral, NORMAL BREATHING PATTERN - Cardiovascular Exam Cardiovascular Exam: REGULAR RHYTHM, +S1, +S2. absent: Murmur - GI/Abdominal Exam GI & Abdominal Exam: Soft, Normal Bowel Sounds. absent: Tenderness - Extremities Exam Extremities Exam: Full ROM, Normal Capillary Refill, Normal Inspection. absent: Joint Swelling, Pedal Edema - Back Exam Back Exam: NORMAL INSPECTION - Neurological Exam Neurological Exam: Alert, Awake, CN II-XII Intact, Normal Gait, Oriented x3 - Psychiatric Exam Psychiatric exam: Normal Affect, Normal Mood - Skin Skin Exam: Dry, Intact, Normal Color, Warm Assessment and Plan - Assessment and Plan (Free Text) Assessment: PAVAN on CKD IIIB likely secondary to ATN, resolving Now with renal function close to baseline; stable volume and electrolyte status; off HD - avoid nephrotoxic agents (NSAIDS, etc) - would avoid ZELDA inhibitor/ARB for now as patient having poor PO intake HTN - Continue with toprol XL and amlodipine Anemia Secondary to renal failure and iron deficiency - Hgb at goal for CKD UTI - Started Rocephin today <Hans De La Rosa - Last Filed: 12/10/18 05:02> Objective - Vital Signs/Intake and Output Vital Signs (last 24 hours): Temp Pulse Resp BP Pulse Ox 98.2 F 69 18 132/64 100 12/09/18 23:51 12/09/18 23:51 12/09/18 23:51 12/09/18 23:51 12/09/18 23:51 - Medications Medications: Current Medications Acetaminophen (Tylenol 325mg Tab) 650 mg PO QID PRN PRN Reason: Pain, moderate (4-7) Last Admin: 12/05/18 06:25 Dose: 650 mg Amlodipine Besylate (Norvasc) 5 mg PO DAILY [facility] Last Admin: 12/09/18 10:12 Dose: 5 mg Cyanocobalamin (Vitamin B12 1000 Mcg Tab) 1,000 mcg PO DAILY [facility] Last Admin: 12/09/18 10:20 Dose: 1,000 mcg Docusate Sodium (Colace) 100 mg PO BID [facility] Last Admin: 12/09/18 17:52 Dose: 100 mg Dorzolamide HCl (Trusopt) 0 ml OU BID [facility] Last Admin: 12/09/18 17:52 Dose: 1 drop Famotidine (Pepcid) 20 mg PO DAILY [facility] Last Admin: 12/09/18 10:13 Dose: 20 mg Ferrous Gluconate (Fergon) 324 mg PO DAILY [facility] Last Admin: 12/09/18 10:12 Dose: 324 mg Ceftriaxone Sodium 1 gm/ (Sodium Chloride) 100 mls @ 100 mls/hr IVPB DAILY [facility]; Protocol Last Admin: 12/09/18 13:42 Dose: 100 mls/hr Insulin Human Isoph/Insulin Regular (Novolin 70/30 (70/30 Units/Ml) 10 Ml) 25 units SC DAILY@0730 [facility] Last Admin: 12/09/18 08:30 Dose: 10 units Insulin Human Regular (Novolin R) 0 unit SC ACHS [facility]; Protocol Last Admin: 12/09/18 21:56 Dose: Not Given Latanoprost (Xalatan Opht) 0 ml OU HS [facility] Last Admin: 12/09/18 22:00 Dose: 2.5 ml Levothyroxine Sodium (Synthroid) 50 mcg PO DAILY@0630 [facility] Last Admin: 12/09/18 06:16 Dose: 50 mcg Metoprolol Succinate (Toprol Xl) 50 mg PO DAILY [facility] Last Admin: 12/09/18 10:13 Dose: 50 mg Metoprolol Succinate (Toprol Xl) 50 mg PO HS [facility] Last Admin: 12/09/18 22:00 Dose: 50 mg Saliva Substitute (First Magic Mouthwash) 5 ml PO Q8H [facility] Last Admin: 12/09/18 17:52 Dose: Not Given Timolol Maleate (Timoptic 0.25% Oph Soln) 1 drop OU BID [facility] Last Admin: 12/09/18 17:52 Dose: 1 drop Vitamin A (Vitamin A & D Oint Ud Foilpak) 1 ea TOP BID [facility] Last Admin: 12/09/18 20:51 Dose: Not Given Vitamin B Complex/Vit C/Folic Acid (Nephro-Leila) 1 tab PO 0800 [facility] Last Admin: 12/09/18 07:50 Dose: 1 tab Zolpidem Tartrate (Ambien) 5 mg PO HS PRN PRN Reason: Insomnia Last Admin: 12/03/18 21:45 Dose: 5 mg - Labs Labs: 12/06/18 12:05 12/06/18 12:05 Assessment and Plan (1) Acute renal failure (ARF) Status: Acute (2) HTN (hypertension) Status: Chronic (3) Anemia Status: Chronic Attending/Attestation - Attestation I have personally seen and examined this patient.: Yes I have fully participated in the care of the patient.: Yes I have reviewed all pertinent clinical information, including history, physical exam and plan: Yes Notes (Text): Nephrology coverage for Dr. Jain: Patient seen and examined; I agree with the resident's note as above with the following additions/edits: 88 yo F w/ pmh of htn, mild diastolic CHF, COPD, Diabetes, Hypothyroidism, admitted with acute renal failure on underlying CKD IIIB; PAVAN resolved; now with gram neg UTI, awaiting speciation; starting ceftriaxone, no renal dose adjustment needed; HTN controlled on toprol XL and amlodipine, continue same; Anemia of renal disease; hgb at goal (10-11g); monitor periodically, dose EPO as needed.
--- NOTE | 2018-12-09 13:25 | CP.PCM.PN ---
Subjective - Date & Time of Evaluation Date of Evaluation: 12/09/18 Time of Evaluation: 13:24 - Subjective Subjective: weak.uti.seen by nephro Objective - Vital Signs/Intake and Output Vital Signs (last 24 hours): Temp Pulse Resp BP Pulse Ox 97.4 F L 73 20 139/60 97 12/09/18 08:00 12/09/18 08:00 12/09/18 08:00 12/09/18 08:00 12/09/18 08:00 - Medications Medications: Current Medications Acetaminophen (Tylenol 325mg Tab) 650 mg PO QID PRN PRN Reason: Pain, moderate (4-7) Last Admin: 12/05/18 06:25 Dose: 650 mg Amlodipine Besylate (Norvasc) 5 mg PO DAILY [facility] Last Admin: 12/09/18 10:12 Dose: 5 mg Cyanocobalamin (Vitamin B12 1000 Mcg Tab) 1,000 mcg PO DAILY [facility] Last Admin: 12/09/18 10:20 Dose: 1,000 mcg Docusate Sodium (Colace) 100 mg PO BID [facility] Last Admin: 12/09/18 10:12 Dose: 100 mg Dorzolamide HCl (Trusopt) 0 ml OU BID [facility] Last Admin: 12/09/18 10:12 Dose: 1 drop Famotidine (Pepcid) 20 mg PO DAILY [facility] Last Admin: 12/09/18 10:13 Dose: 20 mg Ferrous Gluconate (Fergon) 324 mg PO DAILY [facility] Last Admin: 12/09/18 10:12 Dose: 324 mg Ceftriaxone Sodium 1 gm/ (Sodium Chloride) 100 mls @ 100 mls/hr IVPB DAILY [facility]; Protocol Insulin Human Isoph/Insulin Regular (Novolin 70/30 (70/30 Units/Ml) 10 Ml) 25 units SC DAILY@0730 [facility] Last Admin: 12/08/18 08:29 Dose: 25 units Insulin Human Regular (Novolin R) 0 unit SC ACHS [facility]; Protocol Last Admin: 12/09/18 08:30 Dose: Not Given Latanoprost (Xalatan Opht) 0 ml OU HS [facility] Last Admin: 12/08/18 21:14 Dose: Not Given Levothyroxine Sodium (Synthroid) 50 mcg PO DAILY@0630 [facility] Last Admin: 12/09/18 06:16 Dose: 50 mcg Metoprolol Succinate (Toprol Xl) 50 mg PO DAILY [facility] Last Admin: 12/09/18 10:13 Dose: 50 mg Metoprolol Succinate (Toprol Xl) 50 mg PO HS [facility] Last Admin: 12/08/18 21:12 Dose: 50 mg Saliva Substitute (First Magic Mouthwash) 5 ml PO Q8H [facility] Last Admin: 12/09/18 10:13 Dose: 5 ml Timolol Maleate (Timoptic 0.25% Ophth Soln) 1 drop OU BID [facility] Last Admin: 12/09/18 10:12 Dose: 1 drop Vitamin A (Vitamin A & D Oint Ud Foilpak) 1 ea TOP BID [facility] Last Admin: 12/09/18 10:18 Dose: 1 ea Vitamin B Complex/Vit C/Folic Acid (Nephro-Leila) 1 tab PO 0800 [facility] Last Admin: 12/09/18 07:50 Dose: 1 tab Zolpidem Tartrate (Ambien) 5 mg PO HS PRN PRN Reason: Insomnia Last Admin: 12/03/18 21:45 Dose: 5 mg - Labs Labs: 12/06/18 12:05 12/06/18 12:05 - Constitutional Appears: No Acute Distress - Head Exam Head Exam: NORMOCEPHALIC - Neck Exam Neck Exam: Normal Inspection - Respiratory Exam Respiratory Exam: Clear to Ausculation Bilateral - Cardiovascular Exam Cardiovascular Exam: REGULAR RHYTHM - GI/Abdominal Exam GI & Abdominal Exam: Soft - Extremities Exam Extremities Exam: absent: Pedal Edema - Neurological Exam Neurological Exam: Alert, Oriented x3 Assessment and Plan - Assessment and Plan (Free Text) Plan: renal failure,dm,uti.hold transfer to rehab.
[2018-12-09] MEDS: Latanoprost 2.5 ml Opht Soln OU SCH (22:00)
[2018-12-10] MEDS: Mag&Al/Simet/Diphen/Lido 237 ML KIT PO SCH ×4 (01:05→17:29)
[2018-12-10] MEDS: Levothyroxine 50 MCG TAB PO SCH (06:44)
[2018-12-10 07:39] LABS: ALBUMIN 3.2 g/dL (3.5-5.0); CALCIUM 8.4 mg/dl (8.6-10.4)
[2018-12-10] MEDS: (Novolin 70/30) NPH/Regular 70/30 Units/ml 10 ml vial SC SCH (08:28)
[2018-12-10] MEDS: (Novolin R) Insulin Human Regular 100 units/ml vial SC SCH ×4 (08:28→21:52)
[2018-12-10] MEDS: Multivitamin Vitamin B Complex (Nephro-Vite) Tab PO SCH (08:28)
[2018-12-10] MEDS: Timolol 0.25% Ophth SOLN OU SCH ×2 (09:11→17:27)
[2018-12-10] MEDS: Metoprolol Succinate 50 mg XL Tab PO SCH ×2 (09:11→21:54)
[2018-12-10] MEDS: Vitamins A & D Oint UD Foilpak TOP SCH ×2 (09:11→17:25)
[2018-12-10] MEDS: Dorzolamide 2% Opht Sol 10ml OU SCH ×2 (09:11→17:26)
--- NOTE | 2018-12-10 11:40 | CP.PCM.PN ---
Subjective - Date & Time of Evaluation Date of Evaluation: 12/10/18 Time of Evaluation: 11:38 - Subjective Subjective: afebrile, Objective - Vital Signs/Intake and Output Vital Signs (last 24 hours): Temp Pulse Resp BP Pulse Ox 7.3 F L 119 H 18 101/56 L 97 12/10/18 07:02 12/10/18 07:02 12/10/18 07:02 12/10/18 07:02 12/10/18 07:02 - Medications Medications: Current Medications Acetaminophen (Tylenol 325mg Tab) 650 mg PO QID PRN PRN Reason: Pain, moderate (4-7) Last Admin: 12/05/18 06:25 Dose: 650 mg Amlodipine Besylate (Norvasc) 5 mg PO DAILY [facility] Last Admin: 12/10/18 09:10 Dose: 5 mg Cyanocobalamin (Vitamin B12 1000 Mcg Tab) 1,000 mcg PO DAILY [facility] Last Admin: 12/10/18 09:10 Dose: 1,000 mcg Docusate Sodium (Colace) 100 mg PO BID [facility] Last Admin: 12/10/18 09:10 Dose: 100 mg Dorzolamide HCl (Trusopt) 0 ml OU BID [facility] Last Admin: 12/10/18 09:11 Dose: 1 drop Famotidine (Pepcid) 20 mg PO DAILY [facility] Last Admin: 12/10/18 09:11 Dose: 20 mg Ferrous Gluconate (Fergon) 324 mg PO DAILY [facility] Last Admin: 12/10/18 09:11 Dose: 324 mg Ceftriaxone Sodium 1 gm/ (Sodium Chloride) 100 mls @ 100 mls/hr IVPB DAILY [facility]; Protocol Last Admin: 12/10/18 09:10 Dose: 100 mls/hr Insulin Human Isoph/Insulin Regular (Novolin 70/30 (70/30 Units/Ml) 10 Ml) 25 units SC DAILY@0730 [facility] Last Admin: 12/10/18 08:28 Dose: 25 units Insulin Human Regular (Novolin R) 0 unit SC ACHS [facility]; Protocol Last Admin: 12/10/18 08:28 Dose: 3 unit Latanoprost (Xalatan Opht) 0 ml OU HS [facility] Last Admin: 12/09/18 22:00 Dose: 2.5 ml Levothyroxine Sodium (Synthroid) 50 mcg PO DAILY@0630 [facility] Last Admin: 12/10/18 06:44 Dose: 50 mcg Metoprolol Succinate (Toprol Xl) 50 mg PO DAILY [facility] Last Admin: 12/10/18 09:11 Dose: 50 mg Metoprolol Succinate (Toprol Xl) 50 mg PO HS [facility] Last Admin: 12/09/18 22:00 Dose: 50 mg Saliva Substitute (First Magic Mouthwash) 5 ml PO Q8H [facility] Last Admin: 12/10/18 09:11 Dose: Not Given Timolol Maleate (Timoptic 0.25% Oph Soln) 1 drop OU BID [facility] Last Admin: 12/10/18 09:11 Dose: 1 drop Vitamin A (Vitamin A & D Oint Ud Foilpak) 1 ea TOP BID [facility] Last Admin: 12/09/18 20:51 Dose: Not Given Vitamin B Complex/Vit C/Folic Acid (Nephro-Leila) 1 tab PO 0800 [facility] Last Admin: 12/10/18 08:28 Dose: 1 tab Zolpidem Tartrate (Ambien) 5 mg PO HS PRN PRN Reason: Insomnia Last Admin: 12/03/18 21:45 Dose: 5 mg - Labs Labs: 12/06/18 12:05 12/10/18 06:54 - Constitutional Appears: No Acute Distress, Chronically Ill - Eye Exam Eye Exam: Normal appearance - Neck Exam Neck Exam: Normal Inspection - Respiratory Exam Respiratory Exam: Clear to Ausculation Bilateral - Cardiovascular Exam Cardiovascular Exam: REGULAR RHYTHM - GI/Abdominal Exam GI & Abdominal Exam: Soft - Neurological Exam Neurological Exam: Alert, Oriented x3 Assessment and Plan - Assessment and Plan (Free Text) Plan: renal failure,htn,dm.ok to transfer to rehab.
[2018-12-10 11:56] LABS: BASO % 0.4 % (0.0-2.0); EOS # 0.4 K/uL (0.0-0.7); EOS % 4.3 % (0.0-4.0); HEMOGLOBIN 10.5 g/dL (11.0-16.0); LYMPH # 1.2 K/uL (1.0-4.3); LYMPH % 12.7 % (20.0-40.0); MEAN CORPUSCULAR HEMOGLOBIN 26.8 pg (27.0-31.0); MEAN CORPUSCULAR HGB CONC 30.8 g/dL (33.0-37.0); MONO # 0.7 K/uL (0.0-0.8); MONO % 7.5 % (0.0-10.0); NEUT # 6.9 K/uL (1.8-7.0); NEUT % 75.1 % (50.0-75.0); NRBC % 0.1 % (0.0-2.0); RBC 3.94 Mil/uL (3.80-5.20); RED CELL DISTRIBUTION WIDTH 26.1 % (11.5-14.5); WHITE BLOOD COUNT 9.2 K/uL (4.8-10.8)
[2018-12-10 15:27] VITALS: O2SAT 100
--- NOTE | 2018-12-10 20:57 | CP.PCM.PN ---
Subjective - Date & Time of Evaluation Date of Evaluation: 12/10/18 Time of Evaluation: 10:10 - Subjective Subjective: pt is seen and examined, follow up consult is dictated #[id number] d/c rocephin, add zosyn Objective - Vital Signs/Intake and Output Vital Signs (last 24 hours): Temp Pulse Resp BP Pulse Ox 98.1 F 67 18 144/66 100 12/10/18 15:00 12/10/18 15:00 12/10/18 15:00 12/10/18 15:00 12/10/18 15:00 - Medications Medications: Current Medications Acetaminophen (Tylenol 325mg Tab) 650 mg PO QID PRN PRN Reason: Pain, moderate (4-7) Last Admin: 12/05/18 06:25 Dose: 650 mg Amlodipine Besylate (Norvasc) 5 mg PO DAILY [facility] Last Admin: 12/10/18 09:10 Dose: 5 mg Cyanocobalamin (Vitamin B12 1000 Mcg Tab) 1,000 mcg PO DAILY [facility] Last Admin: 12/10/18 09:10 Dose: 1,000 mcg Docusate Sodium (Colace) 100 mg PO BID [facility] Last Admin: 12/10/18 17:21 Dose: 100 mg Dorzolamide HCl (Trusopt) 0 ml OU BID [facility] Last Admin: 12/10/18 17:26 Dose: 1 drop Famotidine (Pepcid) 20 mg PO DAILY [facility] Last Admin: 12/10/18 09:11 Dose: 20 mg Ferrous Gluconate (Fergon) 324 mg PO DAILY [facility] Last Admin: 12/10/18 09:11 Dose: 324 mg Ceftriaxone Sodium 1 gm/ (Sodium Chloride) 100 mls @ 100 mls/hr IVPB DAILY [facility]; Protocol Last Admin: 12/10/18 09:10 Dose: 100 mls/hr Insulin Human Isoph/Insulin Regular (Novolin 70/30 (70/30 Units/Ml) 10 Ml) 25 units SC DAILY@0730 [facility] Last Admin: 12/10/18 08:28 Dose: 25 units Insulin Human Regular (Novolin R) 0 unit SC ACHS [facility]; Protocol Last Admin: 12/10/18 17:10 Dose: Not Given Latanoprost (Xalatan Opht) 0 ml OU HS [facility] Last Admin: 12/09/18 22:00 Dose: 2.5 ml Levothyroxine Sodium (Synthroid) 50 mcg PO DAILY@0630 [facility] Last Admin: 12/10/18 06:44 Dose: 50 mcg Metoprolol Succinate (Toprol Xl) 50 mg PO DAILY [facility] Last Admin: 12/10/18 09:11 Dose: 50 mg Metoprolol Succinate (Toprol Xl) 50 mg PO HS [facility] Last Admin: 12/09/18 22:00 Dose: 50 mg Saliva Substitute (First Magic Mouthwash) 5 ml PO Q8H [facility] Last Admin: 12/10/18 17:29 Dose: 5 ml Timolol Maleate (Timoptic 0.25% Oph Soln) 1 drop OU BID [facility] Last Admin: 12/10/18 17:27 Dose: 1 drop Vitamin A (Vitamin A & D Oint Ud Foilpak) 1 ea TOP BID [facility] Last Admin: 12/10/18 17:25 Dose: 1 ea Vitamin B Complex/Vit C/Folic Acid (Nephro-Leila) 1 tab PO 0800 [facility] Last Admin: 12/10/18 08:28 Dose: 1 tab Zolpidem Tartrate (Ambien) 5 mg PO HS PRN PRN Reason: Insomnia Last Admin: 12/03/18 21:45 Dose: 5 mg - Labs Labs: 12/10/18 11:38 12/10/18 06:54
[2018-12-10] MEDS: Latanoprost 2.5 ml Opht Soln OU SCH (21:56)
[2018-12-10] MEDS: Piperacill/Tazo 2.25gm in Dex 2.25 GM/50 ML BAG IVPB SCH (22:53)
--- NOTE | 2018-12-11 00:33 | PN ---
DATE: 12/10/2018 LOCATION: 566. REQUESTED BY: Blanco Wang MD REASON FOR FOLLOWUP: Acute renal failure, chronic kidney disease, off hemodialysis and for further followup renal function. SUBJECTIVE: Mrs. Estrada is an 88-year-old elderly female with a history of longstanding hypertension, diabetes, hypothyroidism, hyperlipidemia, chronic kidney disease with a baseline creatinine about 1.5, was admitted with recurrent symptomatic hypoglycemia, in the house 2-3 days prior to the admission and found to have acute renal failure, metabolic acidosis, hyperkalemia, anemia requiring initiation of the renal replacement therapy and hemodialysis. The patient is feeling much better. The patient is off the hemodialysis since last week, Saturday. The patient denies any chest pain, palpitation. Denies any fever or cough. No nausea, no vomiting. Complains feeling generalized weakness. PHYSICAL EXAMINATION: GENERAL: Mrs. Estrada is an 88-year-old elderly female, moderately built, moderately nourished, not in acute distress. VITAL SIGNS: Blood pressure this morning 139/59, pulse 69, respirations 20, temperature 97.5, and saturation 100%. Height 5 feet 5 inches, weight is 124 pounds. HEENT: Pupils normal and reactive to light and accommodation. Conjunctivae pink. Sclerae anicteric. Tongue is moist. Trachea is midline. LUNGS: Symmetric on both sides. Bilateral breath sounds present. Clear on the upper chest, mostly occasional basal crackles in the bibasal region. CARDIOVASCULAR SYSTEM: S1, S2 audible. No murmur, gallop. ABDOMEN: Normal in appearance, soft, tympanic. No guarding. No hepatosplenomegaly. EXTREMITIES: No cyanosis, no clubbing, no edema. CENTRAL NERVOUS SYSTEM: The patient is alert, awake, oriented x2 to 3. Sensory and motor system is grossly within normal limits. LABORATORY DATA: Repeat labs include as follows: As of 12/10/2018, WBC 9.2, hemoglobin 10.5, hematocrit is 34.2, platelets 331. Sodium 141, potassium 4.1, chloride 104, CO2 30, BUN 30, creatinine 1.7, glucose 202, calcium 8.4, magnesium 1.6, total bili 0.4, AST is 51, ALT 37, alkaline phosphatase 125, total protein 6.5, albumin is 3.2. Urine culture as of 12/08/2018 identified as E. coli more than 100,000 colony forming units, ESBL positive since she took ertapenem, gentamicin, meropenem, and Zosyn. CURRENT MEDICATIONS: Include as follows: Ambien 5 mg p.o. at bedtime, Rocephin 1 g daily, Colace 100 mg p.o. b.i.d., ferrous gluconate 324 mg p.o. daily, FIRST Magic mouthwash 5 mL p.o. every 8 hours, Nephro-Leila 1 tablet daily, amlodipine 5 mg p.o. daily, Novolin 70/30 25 units subcu daily at 07:30 and Novolin R for sliding scale, Pepcid 20 mg p.o. daily, Synthroid 50 mcg daily, timolol optic solution 1 drop OU b.i.d., metoprolol 50 mg b.i.d., Trusopt, Tylenol, vitamin A and D ointment, vitamin B12 1000 mcg p.o. daily. ASSESSMENT AND PLAN: In summary, Mrs. Estrada is an 88-year-old elderly female with hypertension, diabetes, hypothyroidism, hyperlipidemia, chronic kidney disease, was admitted with acute renal failure, symptomatic hypoglycemia, hyperkalemia, metabolic acidosis and anemia requiring transfusion and requiring initiation of hemodialysis for acute renal failure. The patient is off hemodialysis now. 1. Status post acute on chronic kidney disease. Renal function is improving, almost back to her baseline. 2. Anemia secondary to iron-deficiency and also vitamin B12 deficiency and secondary to renal failure, hemoglobin and hematocrit are improving. 3. Urinary tract infection, now urine culture positive for Escherichia coli with Extended spectrum beta-lactamases positive and resistant to ceftriaxone. We will discontinue ceftriaxone and will start Zosyn 2.25 g intravenous every 8 hours, first dose now. 4. Hypertension. Blood pressure is stable. Continue her current medications, amlodipine and metoprolol. 5. Diabetes. Continue Novolin 70/30, 25 units subcu daily and monitor Accu-Cheks, discussed with the patient's son at bedside this morning in rounds. Thank you for allowing me to participate in your patient's care. Merlyn Jani MD
[2018-12-11] MEDS: Mag&Al/Simet/Diphen/Lido 237 ML KIT PO SCH ×3 (03:42→16:58)
[2018-12-11] MEDS: Levothyroxine 50 MCG TAB PO SCH (06:38)
[2018-12-11] MEDS: Piperacill/Tazo 2.25gm in Dex 2.25 GM/50 ML BAG IVPB SCH ×3 (06:38→21:20)
[2018-12-11] MEDS: Metoprolol Succinate 50 mg XL Tab PO SCH ×2 (09:28→21:20)
[2018-12-11] MEDS: Multivitamin Vitamin B Complex (Nephro-Vite) Tab PO SCH (09:29)
[2018-12-11] MEDS: Timolol 0.25% Ophth SOLN OU SCH ×2 (09:29→17:13)
[2018-12-11] MEDS: (Novolin R) Insulin Human Regular 100 units/ml vial SC SCH ×4 (09:30→21:24)
[2018-12-11] MEDS: Dorzolamide 2% Opht Sol 10ml OU SCH ×2 (09:30→17:14)
[2018-12-11] MEDS: (Novolin 70/30) NPH/Regular 70/30 Units/ml 10 ml vial SC SCH (09:31)
[2018-12-11] MEDS: Vitamins A & D Oint UD Foilpak TOP SCH ×2 (09:37→17:14)
--- NOTE | 2018-12-11 10:38 | CP.PCM.PN ---
Subjective - Date & Time of Evaluation Date of Evaluation: 12/11/18 Time of Evaluation: 10:38 - Subjective Subjective: pt is seen and examined, follow up consult is dictated #[id number] Objective - Vital Signs/Intake and Output Vital Signs (last 24 hours): Temp Pulse Resp BP Pulse Ox 98.3 F 70 20 160/66 H 100 12/11/18 07:49 12/11/18 07:49 12/11/18 07:49 12/11/18 07:49 12/11/18 07:49 Intake and Output: 12/11/18 12/11/18 06:59 18:59 Intake Total 250 Balance 250 - Medications Medications: Current Medications Acetaminophen (Tylenol 325mg Tab) 650 mg PO QID PRN PRN Reason: Pain, moderate (4-7) Last Admin: 12/05/18 06:25 Dose: 650 mg Amlodipine Besylate (Norvasc) 5 mg PO DAILY [facility] Last Admin: 12/11/18 09:28 Dose: 5 mg Cyanocobalamin (Vitamin B12 1000 Mcg Tab) 1,000 mcg PO DAILY [facility] Last Admin: 12/11/18 09:29 Dose: 1,000 mcg Docusate Sodium (Colace) 100 mg PO BID [facility] Last Admin: 12/11/18 09:29 Dose: 100 mg Dorzolamide HCl (Trusopt) 0 ml OU BID [facility] Last Admin: 12/11/18 09:30 Dose: 1 drop Famotidine (Pepcid) 20 mg PO DAILY [facility] Last Admin: 12/11/18 09:28 Dose: 20 mg Ferrous Gluconate (Fergon) 324 mg PO DAILY [facility] Last Admin: 12/11/18 09:28 Dose: 324 mg Piperacillin Sod/Tazobactam Sod (Zosyn 2.25 Gm Iv Premix) 2.25 gm in 50 mls @ 100 mls/hr IVPB Q8 [facility]; Protocol Stop: 12/15/18 22:31 Last Admin: 12/11/18 06:38 Dose: 100 mls/hr Insulin Human Isoph/Insulin Regular (Novolin 70/30 (70/30 Units/Ml) 10 Ml) 25 units SC DAILY@0730 [facility] Last Admin: 12/11/18 09:31 Dose: 25 units Insulin Human Regular (Novolin R) 0 unit SC ACHS [facility]; Protocol Last Admin: 12/11/18 09:30 Dose: 2 unit Latanoprost (Xalatan Opht) 0 ml OU HS [facility] Last Admin: 12/10/18 21:56 Dose: 2.5 ml Levothyroxine Sodium (Synthroid) 50 mcg PO DAILY@0630 [facility] Last Admin: 12/11/18 06:38 Dose: 50 mcg Metoprolol Succinate (Toprol Xl) 50 mg PO DAILY [facility] Last Admin: 12/11/18 09:28 Dose: 50 mg Metoprolol Succinate (Toprol Xl) 50 mg PO HS [facility] Last Admin: 12/10/18 21:54 Dose: 50 mg Saliva Substitute (First Magic Mouthwash) 5 ml PO Q8H [facility] Last Admin: 12/11/18 09:37 Dose: 5 ml Timolol Maleate (Timoptic 0.25% Oph Soln) 1 drop OU BID [facility] Last Admin: 12/11/18 09:29 Dose: 1 drop Vitamin A (Vitamin A & D Oint Ud Foilpak) 1 ea TOP BID [facility] Last Admin: 12/11/18 09:37 Dose: Not Given Vitamin B Complex/Vit C/Folic Acid (Nephro-Leila) 1 tab PO 0800 [facility] Last Admin: 12/11/18 09:29 Dose: 1 tab Zolpidem Tartrate (Ambien) 5 mg PO HS PRN PRN Reason: Insomnia Last Admin: 12/03/18 21:45 Dose: 5 mg - Labs Labs: 12/10/18 11:38 12/10/18 06:54
--- NOTE | 2018-12-11 11:28 | CP.PCM.PN ---
Subjective - Date & Time of Evaluation Date of Evaluation: 12/11/18 Time of Evaluation: 11:26 - Subjective Subjective: await rehab. Objective - Vital Signs/Intake and Output Vital Signs (last 24 hours): Temp Pulse Resp BP Pulse Ox 98.3 F 70 20 160/66 H 100 12/11/18 07:49 12/11/18 07:49 12/11/18 07:49 12/11/18 07:49 12/11/18 07:49 Intake and Output: 12/11/18 12/11/18 06:59 18:59 Intake Total 250 Balance 250 - Medications Medications: Current Medications Acetaminophen (Tylenol 325mg Tab) 650 mg PO QID PRN PRN Reason: Pain, moderate (4-7) Last Admin: 12/05/18 06:25 Dose: 650 mg Amlodipine Besylate (Norvasc) 5 mg PO DAILY [facility] Last Admin: 12/11/18 09:28 Dose: 5 mg Cyanocobalamin (Vitamin B12 1000 Mcg Tab) 1,000 mcg PO DAILY [facility] Last Admin: 12/11/18 09:29 Dose: 1,000 mcg Docusate Sodium (Colace) 100 mg PO BID [facility] Last Admin: 12/11/18 09:29 Dose: 100 mg Dorzolamide HCl (Trusopt) 0 ml OU BID [facility] Last Admin: 12/11/18 09:30 Dose: 1 drop Famotidine (Pepcid) 20 mg PO DAILY [facility] Last Admin: 12/11/18 09:28 Dose: 20 mg Ferrous Gluconate (Fergon) 324 mg PO DAILY [facility] Last Admin: 12/11/18 09:28 Dose: 324 mg Piperacillin Sod/Tazobactam Sod (Zosyn 2.25 Gm Iv Premix) 2.25 gm in 50 mls @ 100 mls/hr IVPB Q8 [facility]; Protocol Stop: 12/15/18 22:31 Last Admin: 12/11/18 06:38 Dose: 100 mls/hr Insulin Human Isoph/Insulin Regular (Novolin 70/30 (70/30 Units/Ml) 10 Ml) 25 units SC DAILY@0730 [facility] Last Admin: 12/11/18 09:31 Dose: 25 units Insulin Human Regular (Novolin R) 0 unit SC ACHS [facility]; Protocol Last Admin: 12/11/18 09:30 Dose: 2 unit Latanoprost (Xalatan Opht) 0 ml OU HS [facility] Last Admin: 12/10/18 21:56 Dose: 2.5 ml Levothyroxine Sodium (Synthroid) 50 mcg PO DAILY@0630 [facility] Last Admin: 12/11/18 06:38 Dose: 50 mcg Metoprolol Succinate (Toprol Xl) 50 mg PO DAILY [facility] Last Admin: 12/11/18 09:28 Dose: 50 mg Metoprolol Succinate (Toprol Xl) 50 mg PO HS [facility] Last Admin: 12/10/18 21:54 Dose: 50 mg Saliva Substitute (First Magic Mouthwash) 5 ml PO Q8H [facility] Last Admin: 12/11/18 09:37 Dose: 5 ml Timolol Maleate (Timoptic 0.25% [facility]) 1 drop OU BID [facility] Last Admin: 12/11/18 09:29 Dose: 1 drop Vitamin A (Vitamin A & D Oint Ud Foilpak) 1 ea TOP BID [facility] Last Admin: 12/11/18 09:37 Dose: Not Given Vitamin B Complex/Vit C/Folic Acid (Nephro-Leila) 1 tab PO 0800 [facility] Last Admin: 12/11/18 09:29 Dose: 1 tab Zolpidem Tartrate (Ambien) 5 mg PO HS PRN PRN Reason: Insomnia Last Admin: 12/03/18 21:45 Dose: 5 mg - Labs Labs: 12/10/18 11:38 12/10/18 06:54 - Constitutional Appears: No Acute Distress, In Acute Distress - Neck Exam Neck Exam: Normal Inspection - Respiratory Exam Respiratory Exam: Clear to Ausculation Bilateral - Cardiovascular Exam Cardiovascular Exam: REGULAR RHYTHM - GI/Abdominal Exam GI & Abdominal Exam: Soft - Extremities Exam Extremities Exam: absent: Pedal Edema - Neurological Exam Neurological Exam: Alert, Oriented x3 Assessment and Plan - Assessment and Plan (Free Text) Plan: renal failure,htn,dm.uti
[2018-12-11] MEDS: Latanoprost 2.5 ml Opht Soln OU SCH (21:20)
--- NOTE | 2018-12-12 00:51 | PN ---
DATE: 12/11/2018 FOLLOWUP RENAL CONSULTATION LOCATION: The patient is located in room 566. REQUESTED BY: Blanco Wang MD REASON FOR FOLLOWUP: Acute renal failure, chronic kidney disease and UTI. SUBJECTIVE: Mrs. Estrada is an 88-year-old elderly female with a history of longstanding hypertension, diabetes, hyperlipidemia, hypothyroidism, chronic kidney disease with a baseline creatinine of about 1.5, was admitted with symptomatic hypoglycemia and also found to have acute renal failure, metabolic acidosis, hyperkalemia and requiring initiation of the renal replacement therapy. The patient was treated with renal replacement therapy and also found to have anemia, status post transfusion. The patient's renal function improved slowly and the patient is off hemodialysis for the last one week. The patient was also found to have UTI, positive for E. coli and ESBL positive, started on Zosyn, and Rocephin was discontinued yesterday. The patient is not in acute distress, no complaints. No chest pain. No palpitation. No fever. No cough. No abdominal pain. No nausea, vomiting or diarrhea. PHYSICAL EXAMINATION: VITAL SIGNS: Blood pressure 160/66, pulse 70, respirations 20, temperature 98.3, saturation 100%. Height 5 feet 5 inches, weight is 124 pounds. GENERAL: Mrs. Estrada is an 88-year-old elderly female, thin built, not in acute distress. HEENT: Pupils are normal and reactive to light and accommodation. Conjunctivae pink. Sclerae anicteric. Tongue is moist. NECK: Trachea is midline. LUNGS: Symmetric on both sides. Bilateral breath sounds present. Clear to auscultation. CARDIOVASCULAR SYSTEM: [place] at the fifth intercostal space, midclavicular area. S1 and S2 audible. No murmur or gallop. ABDOMEN: Normal in appearance. Soft, tympanitic. No guarding. No rigidity. No hepatosplenomegaly. CENTRAL NERVOUS SYSTEM: The patient is alert, awake, oriented x2 to x3. Sensory and motor system is within normal limits. EXTREMITIES: No cyanosis, no clubbing, no edema. MEDICATIONS: Her current medications include as follows: Ambien 5 mg at bedtime; Colace 100 mg p.o. b.i.d.; ferrous gluconate 324 mg p.o. daily; Nephro-Leila one tablet daily; Norvasc 5 mg daily; Novolin 70/30 units, 25 units subcu daily; Pepcid 20 mg p.o. daily; levothyroxine 50 mcg daily; metoprolol 50 b.i.d.; vitamin A and D ointment; vitamin B12, 1000 mcg p.o. daily; Zosyn 2.25 g IV every 8 hours. LABORATORY DATA: Lab data include as follows: No new labs available. Accu-Chek is 180. In the last night, Accu-Chek was 247. No other labs are available. IMPRESSION: In summary, Mrs. Estrada is an 88-year-old elderly female with hypertension, diabetes, hyperlipidemia, hypothyroidism and chronic kidney disease, was admitted with hypoglycemia, worsening renal function, metabolic acidosis requiring initiation of the renal replacement therapy. The patient was treated with renal replacement therapy for about one week and the renal function slowly improved off dialysis for the last one week, and now urine culture positive for Escherichia coli. 1. Status post [id number] kidney disease. Renal function is almost back to her baseline. The last creatinine is 1.7. 2. Hypertension. Blood pressure is stable. Continue amlodipine and also metoprolol. 3. Anemia secondary to iron deficiency, B12 and renal failure. 4. Urinary tract infection. 5. Hypothyroidism. Continue Synthroid. Continue IV antibiotic, Zosyn. Repeat urinalysis and urine culture in a.m. Repeat CBC and BMP. We will also add Bacid one capsule p.o. b.i.d. We will follow with you. Thank you for allowing me to participate in your patient's care. Merlyn Jain MD
[2018-12-12] MEDS: Mag&Al/Simet/Diphen/Lido 237 ML KIT PO SCH ×3 (01:15→17:30)
[2018-12-12] MEDS: Piperacill/Tazo 2.25gm in Dex 2.25 GM/50 ML BAG IVPB SCH ×2 (05:34→14:09)
[2018-12-12] MEDS: Levothyroxine 50 MCG TAB PO SCH (05:34)
[2018-12-12 08:42] VITALS: RESP 18
[2018-12-12] MEDS: Multivitamin Vitamin B Complex (Nephro-Vite) Tab PO SCH (08:56)
[2018-12-12] MEDS: (Novolin R) Insulin Human Regular 100 units/ml vial SC SCH ×3 (08:56→17:28)
[2018-12-12] MEDS: (Novolin 70/30) NPH/Regular 70/30 Units/ml 10 ml vial SC SCH (08:57)
[2018-12-12] MEDS ORDERED: Saccharomyces Boulardi 250 mg Cap PO SCH (10:00)
[2018-12-12] MEDS: Metoprolol Succinate 50 mg XL Tab PO SCH (10:21)
[2018-12-12] MEDS: Timolol 0.25% Ophth SOLN OU SCH ×2 (10:23→18:05)
[2018-12-12] MEDS: Dorzolamide 2% Opht Sol 10ml OU SCH ×2 (10:23→18:06)
[2018-12-12] MEDS: Vitamins A & D Oint UD Foilpak TOP SCH ×2 (10:27→18:06)
--- NOTE | 2018-12-12 13:38 | RAD ---
Date of service: 12/12/2018 PROCEDURE: Right middle finger radiographs. HISTORY: swollen and redness COMPARISON: None. TECHNIQUE: AP radiograph of the right hand, as well as spot oblique and lateral images of right middle finger were obtained. FINDINGS: RIGHT MIDDLE FINGER: Diffuse demineralization. No evidence of acute displaced fracture nor dislocation. No definitive cortical destructive changes. JOINTS: Minor multilevel articular degenerative osteoarthritis. SOFT TISSUES: There is soft soft tissue swelling surrounding the PIP joint 3rd finger nonspecific. No obvious subcutaneous emphysema. Findings may represent posttraumatic sequela however infectious or inflammatory etiology not excluded. OTHER FINDINGS: None. IMPRESSION: Diffuse demineralization. No evidence of acute displaced fracture nor dislocation. No definitive cortical destructive changes. Soft tissue swelling surrounding the PIP joint 3rd finger which is nonspecific and could represent posttraumatic or post infectious/inflammatory etiologies. Clinical correlation recommended.
[2018-12-12 15:48] VITALS: BP 130/64; PULSE 66; TEMP 98.3
--- NOTE | 2018-12-12 16:23 | CP.PCM.PN ---
Subjective - Date & Time of Evaluation Date of Evaluation: 12/12/18 Time of Evaluation: 16:23 Objective - Vital Signs/Intake and Output Vital Signs (last 24 hours): Temp Pulse Resp BP Pulse Ox 98.3 F 66 18 130/64 100 12/12/18 15:00 12/12/18 15:00 12/12/18 15:00 12/12/18 15:00 12/12/18 15:00 Intake and Output: 12/12/18 12/12/18 06:59 18:59 Intake Total 540 530 Balance 540 530 - Medications Medications: Current Medications Acetaminophen (Tylenol 325mg Tab) 650 mg PO QID PRN PRN Reason: Pain, moderate (4-7) Last Admin: 12/12/18 12:34 Dose: 650 mg Amlodipine Besylate (Norvasc) 5 mg PO DAILY [facility] Last Admin: 12/12/18 10:22 Dose: 5 mg Cyanocobalamin (Vitamin B12 1000 Mcg Tab) 1,000 mcg PO DAILY [facility] Last Admin: 12/12/18 11:12 Dose: 1,000 mcg Docusate Sodium (Colace) 100 mg PO BID [facility] Last Admin: 12/12/18 10:22 Dose: Not Given Dorzolamide HCl (Trusopt) 0 ml OU BID [facility] Last Admin: 12/12/18 10:23 Dose: 1 drop Famotidine (Pepcid) 20 mg PO DAILY [facility] Last Admin: 12/12/18 10:21 Dose: 20 mg Ferrous Gluconate (Fergon) 324 mg PO DAILY [facility] Last Admin: 12/12/18 11:12 Dose: 324 mg Piperacillin Sod/Tazobactam Sod (Zosyn 2.25 Gm Iv Premix) 2.25 gm in 50 mls @ 100 mls/hr IVPB Q8 [facility]; Protocol Stop: 12/15/18 22:31 Last Admin: 12/12/18 14:09 Dose: 100 mls/hr Insulin Human Isoph/Insulin Regular (Novolin 70/30 (70/30 Units/Ml) 10 Ml) 25 units SC DAILY@0730 [facility] Last Admin: 12/12/18 08:57 Dose: 25 units Insulin Human Regular (Novolin R) 0 unit SC ACHS [facility]; Protocol Last Admin: 12/12/18 12:34 Dose: 6 unit Latanoprost (Xalatan Opht) 0 ml OU HS [facility] Last Admin: 12/11/18 21:20 Dose: 2.5 ml Levothyroxine Sodium (Synthroid) 50 mcg PO DAILY@0630 [facility] Last Admin: 12/12/18 05:34 Dose: 50 mcg Metoprolol Succinate (Toprol Xl) 50 mg PO DAILY [facility] Last Admin: 12/12/18 10:21 Dose: 50 mg Metoprolol Succinate (Toprol Xl) 50 mg PO HS [facility] Last Admin: 12/11/18 21:20 Dose: 50 mg Saccharomyces Boulardii (Florastor) 250 mg PO Q12 [facility] Last Admin: 12/12/18 10:22 Dose: 250 mg Saliva Substitute (First Magic Mouthwash) 5 ml PO Q8H [facility] Last Admin: 12/12/18 10:22 Dose: Not Given Timolol Maleate (Timoptic 0.25% Oph Sol) 1 drop OU BID [facility] Last Admin: 12/12/18 10:23 Dose: 1 drop Vitamin A (Vitamin A & D Oint Ud Foilpak) 1 ea TOP BID [facility] Last Admin: 12/12/18 10:27 Dose: 1 ea Vitamin B Complex/Vit C/Folic Acid (Nephro-Leila) 1 tab PO 0800 [facility] Last Admin: 12/12/18 08:56 Dose: 1 tab Zolpidem Tartrate (Ambien) 5 mg PO HS PRN PRN Reason: Insomnia Last Admin: 12/03/18 21:45 Dose: 5 mg - Labs Labs: 12/10/18 11:38 12/10/18 06:54 Assessment and Plan - Assessment and Plan (Free Text) Assessment: PLACE UNDER THE SERVICE OF DR COVARRUBIAS ------CALL FOR ADMITTING ORDER FOLLOW UP WITH DR ARGUETA IN HIS OFFICE CONTINUE MED PER MED REC ZOSYN Q8H IVPB X5 DAYS BACID PO X 5 DAYS [facility] CALL DR COVARRUBIAS FOR FURTHER ORDER
--- NOTE | 2018-12-12 19:10 | CP.PCM.PN ---
Subjective - Date & Time of Evaluation Date of Evaluation: 12/12/18 Time of Evaluation: 19:09 - Subjective Subjective: pt is seen and examined, follow up consult is dictated #[id number] c/o pain in rt middle finger and PIP joint Objective - Vital Signs/Intake and Output Vital Signs (last 24 hours): Temp Pulse Resp BP Pulse Ox 98.3 F 66 18 130/64 100 12/12/18 15:00 12/12/18 15:00 12/12/18 15:00 12/12/18 15:00 12/12/18 15:00 Intake and Output: 12/12/18 12/13/18 18:59 06:59 Intake Total 530 Balance 530 - Medications Medications: Current Medications Acetaminophen (Tylenol 325mg Tab) 650 mg PO QID PRN PRN Reason: Pain, moderate (4-7) Last Admin: 12/12/18 12:34 Dose: 650 mg Amlodipine Besylate (Norvasc) 5 mg PO DAILY [facility] Last Admin: 12/12/18 10:22 Dose: 5 mg Cyanocobalamin (Vitamin B12 1000 Mcg Tab) 1,000 mcg PO DAILY [facility] Last Admin: 12/12/18 11:12 Dose: 1,000 mcg Docusate Sodium (Colace) 100 mg PO BID [facility] Last Admin: 12/12/18 17:31 Dose: Not Given Dorzolamide HCl (Trusopt) 0 ml OU BID [facility] Last Admin: 12/12/18 18:06 Dose: 1 drop Famotidine (Pepcid) 20 mg PO DAILY [facility] Last Admin: 12/12/18 10:21 Dose: 20 mg Ferrous Gluconate (Fergon) 324 mg PO DAILY [facility] Last Admin: 12/12/18 11:12 Dose: 324 mg Piperacillin Sod/Tazobactam Sod (Zosyn 2.25 Gm Iv Premix) 2.25 gm in 50 mls @ 100 mls/hr IVPB Q8 [facility]; Protocol Stop: 12/15/18 22:31 Last Admin: 12/12/18 14:09 Dose: 100 mls/hr Insulin Human Isoph/Insulin Regular (Novolin 70/30 (70/30 Units/Ml) 10 Ml) 25 units SC DAILY@0730 [facility] Last Admin: 12/12/18 08:57 Dose: 25 units Insulin Human Regular (Novolin R) 0 unit SC ACHS [facility]; Protocol Last Admin: 12/12/18 17:28 Dose: Not Given Latanoprost (Xalatan Opht) 0 ml OU HS [facility] Last Admin: 12/11/18 21:20 Dose: 2.5 ml Levothyroxine Sodium (Synthroid) 50 mcg PO DAILY@0630 [facility] Last Admin: 12/12/18 05:34 Dose: 50 mcg Metoprolol Succinate (Toprol Xl) 50 mg PO DAILY [facility] Last Admin: 12/12/18 10:21 Dose: 50 mg Metoprolol Succinate (Toprol Xl) 50 mg PO HS [facility] Last Admin: 12/11/18 21:20 Dose: 50 mg Saccharomyces Boulardii (Florastor) 250 mg PO Q12 [facility] Last Admin: 12/12/18 10:22 Dose: 250 mg Saliva Substitute (First Magic Mouthwash) 5 ml PO Q8H [facility] Last Admin: 12/12/18 17:30 Dose: Not Given Timolol Maleate (Timoptic 0.25% Oph Soln) 1 drop OU BID [facility] Last Admin: 12/12/18 18:05 Dose: 1 drop Vitamin A (Vitamin A & D Oint Ud Foilpak) 1 ea TOP BID [facility] Last Admin: 12/12/18 18:06 Dose: Not Given Vitamin B Complex/Vit C/Folic Acid (Nephro-Leila) 1 tab PO 0800 [facility] Last Admin: 12/12/18 08:56 Dose: 1 tab Zolpidem Tartrate (Ambien) 5 mg PO HS PRN PRN Reason: Insomnia Last Admin: 12/03/18 21:45 Dose: 5 mg - Labs Labs: 12/10/18 11:38 12/10/18 06:54
--- NOTE | 2018-12-13 01:46 | PN ---
DATE: 12/12/2018 FOLLOWUP RENAL CONSULTATION LOCATION: The patient is located in room 566. REQUESTED BY: Blanco Wang MD REASON FOR RENAL CONSULTATION: Chronic kidney disease, for further evaluation. SUBJECTIVE: Mrs. Estrada is an 88-year-old elderly female with a past medical history significant for longstanding hypertension, diabetes, hyperlipidemia, hypothyroidism, chronic kidney disease with a baseline creatinine of about 1.5, who was admitted with symptomatic hypoglycemia and found to have acute renal failure, metabolic acidosis, hyperkalemia, anemia, requiring admission to ICU and status post transfusion and started on renal replacement therapy. The patient received hemodialysis about a week. Subsequently, hemodialysis was discontinued due to improvement of the renal function, and her hospital course was complicated by UTI with E. coli positive for ESBL, and the patient is on IV antibiotics, initially on Rocephin, subsequently changed to Zosyn 2.25 g IV piggyback every 8 hours. The patient is not in acute distress. Denies any chest pain or palpitation. Denies any fever or cough. The patient complains of pain and swelling of the right middle finger and proximal interphalangeal joint. PHYSICAL EXAMINATION: VITAL SIGNS: Blood pressure 130/64, pulse 66, respirations 18, temperature 98.3, saturation 100% on 2 L nasal cannula. Height 5 feet 5 inches, weight is 124 pounds. GENERAL: Mrs. Estrada is an 88-year-old elderly female, moderately built, moderately nourished, not in acute distress. HEENT: Pupils are normal and reactive to light and accommodation. Conjunctivae pink. Sclerae anicteric. Tongue is moist. NECK: Trachea is midline. LUNGS: Symmetric on both sides. Bilateral breath sounds present. Occasional basilar crackles present. CARDIOVASCULAR SYSTEM: [place] at the fifth intercostal space. S2 and S2 audible. No murmur or gallop. ABDOMEN: Normal in appearance, soft, tympanitic. No guarding. No rigidity. No hepatosplenomegaly. CENTRAL NERVOUS SYSTEM: The patient is alert, awake and oriented x2 to x3. Sensory and motor system is within normal limits. EXTREMITIES: No cyanosis, no clubbing, no edema. MEDICATIONS: Her current medications include as follows: Tylenol 650 mg p.o. four times daily p.r.n., Norvasc 5 mg p.o. daily, cyanocobalamin 1000 mcg p.o. daily, Colace 100 mg p.o. b.i.d., Trusopt eyedrops, Pepcid 20 mg p.o. daily, ferrous gluconate 324 mg p.o. daily, Zosyn 2.25 g IV piggyback every 8 hours, Novolin 70/30 25 units subcu daily, Xalatan eyedrops, levothyroxine 50 mcg p.o. daily, Toprol-XL 50 mg p.o. at bedtime and 50 mg p.o. and every a.m., Florastor 250 mg p.o. every 12 hours, vitamin A and D ointment topical, Nephro-Leila one tablet daily, Ambien 5 mg p.o. at bedtime p.r.n. IMPRESSION: In summary, Mrs. Estrada is an 88-year-old elderly female with a history of hypertension, diabetes, hyperlipidemia, hypothyroidism, chronic kidney disease with a baseline creatinine of about 1.5, who was admitted with symptomatic hypoglycemia, acute renal failure, anemia, metabolic acidosis, hyperkalemia requiring admission to intensive care unit and initiation of the renal replacement therapy. The patient is off hemodialysis for the last one week. The patient is being treated for urinary tract infection for Escherichia coli, extended-spectrum beta-lactamase positive. 1. Status post acute renal failure on chronic kidney disease. Renal function is improved and almost back to her baseline. Last serum creatinine is about 1.7. 2. Urinary tract infection secondary to Escherichia coli, extended-spectrum beta-lactamase positive. Continue Zosyn 2.25 g IV every 8 hours for another five days for a total of seven days. 3. Hypertension. 4. Diabetes. 5. Anemia secondary to multifactorial; renal failure, iron deficiency and B12 deficiency. Follow up CBC and CMP in the intermediate. The patient is being discharged to [facility] for subacute rehab. Continue Tylenol and consider lukewarm compression to the right proximal interphalangeal joint. Thank you for allowing me to participate in your patient's care. Merlyn Jain MD
--- NOTE | 2018-12-13 05:42 | DS ---
TRANSFER SUMMARY TO REHAB HOSPITAL COURSE: An 88-year-old female with a history of diabetes and hypertension, was brought in with renal failure, creatinine was . She was seen by slitter scorer cut off operator and infectious disease business objects consultant. UTI was noted. She was dialyzed. IV antibiotics given. Hydration was given. She has improved. Creatinine is about 2.1 currently. She again had a UTI and was started on IV Rocephin which she is on. She is afebrile. Vital signs were stable. This morning, she had developed swelling of the right fourth finger. We will get x-ray done, appears to be that of arthritis. One dose of Celebrex will be given, Tylenol, and local heat. We will obtain x-ray to rule out any fractures, which, I doubted. Care of plan was explained to the family. She will be followed by Dr. Jain . Care of plan was explained to the patient's family and Dr. Jain. FINAL DIAGNOSES: Urinary tract infection, acute renal failure, hypertension, and diabetes. Blanco Wang MD
== END 2018-12-12 21:33 | DRG 544 ==
LOC: C.ER 21:37 → C.9E 11-25 00:43 → C.9I 11-25 03:21 → C.5S 11-27 13:10
PROVIDERS: ADMIT Internal Medicine Cardiovascular Disease; ATTEND Internal Medicine Cardiovascular Disease
PROC: 06HY33Z Insertion of Infusion Device into Lower Vein, Percutaneous Approach (ICD-10-PCS; principal; 2018-11-25)
PROC: 5A1D70Z Performance of Urinary Filtration, Intermittent, Less than 6 Hours Per Day (ICD-10-PCS; 2018-11-25)
PROC: 5A1D70Z Performance of Urinary Filtration, Intermittent, Less than 6 Hours Per Day (ICD-10-PCS; 2018-11-26)
PROC: 5A1D70Z Performance of Urinary Filtration, Intermittent, Less than 6 Hours Per Day (ICD-10-PCS; 2018-11-28)
PROC: 5A1D70Z Performance of Urinary Filtration, Intermittent, Less than 6 Hours Per Day (ICD-10-PCS; 2018-12-01)
DX: I13.0 Hypertensive heart and chronic kidney disease with heart failure and stage 1 through stage 4 chronic kidney disease, or unspecified chronic kidney disease (principal); N17.0 Acute kidney failure with tubular necrosis; I50.32 Chronic diastolic (congestive) heart failure; N39.0 Urinary tract infection, site not specified; N18.3 Chronic kidney disease, stage 3 (moderate); J44.1 Chronic obstructive pulmonary disease with (acute) exacerbation; E87.5 Hyperkalemia; E86.0 Dehydration; E11.65 Type 2 diabetes mellitus with hyperglycemia; E53.8 Deficiency of other specified B group vitamins; E11.22 Type 2 diabetes mellitus with diabetic chronic kidney disease; E11.649 Type 2 diabetes mellitus with hypoglycemia without coma; E87.6 Hypokalemia; E87.4 Mixed disorder of acid-base balance; K59.00 Constipation, unspecified; H40.9 Unspecified glaucoma; E78.00 Pure hypercholesterolemia, unspecified; E78.5 Hyperlipidemia, unspecified; B96.20 Unspecified Escherichia coli [E. coli] as the cause of diseases classified elsewhere; D51.9 Vitamin B12 deficiency anemia, unspecified; D63.1 Anemia in chronic kidney disease; E03.9 Hypothyroidism, unspecified; Z99.2 Dependence on renal dialysis; Z87.891 Personal history of nicotine dependence; M13.841 Other specified arthritis, right hand